=== PATIENT | female | born 1995 | race African-American/Black ===

== ENCOUNTER 2018-03-07 22:40 | Emergency (ER) | payer OTHER, SELFPAY ==
--- NOTE | 2018-03-07 23:26 | ER ---
Nurse's Notes [facility] Name: Kemar Ang Age: 22 yrs Sex: Female : 1995 Arrival Date: 03/07/2018 Time: 22:43 Bed 19 Private MD: Diagnosis: Encounter for medical screening where no medical emergency was identified Presentation: 03/07 22:51 Presenting complaint: Patient states: Pain to left lower side of mouth x 2 days, states lp1 cavity at site, pain worsening; Unable to see dentist due to no dental insurance. Transition of care: patient was not received from another setting of care. Onset of symptoms was March 07, 2018. Risk Assessment: Do you want to hurt yourself or someone else? Patient reports no desire to harm self or others. Initial Sepsis Screen: Does the patient meet any 2 criteria? No. Patient's initial sepsis screen is negative. Does the patient have a suspected source of infection? No. Patient's initial sepsis screen is negative. Care prior to arrival: None. 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 - Social history:: Smoking status: Patient uses tobacco products, denies chronic smoking, but will smoke occasionally. - Ebola Screening: : No symptoms or risks identified at this time. Screenin:56 Abuse screen: Denies threats or abuse. Denies injuries from another. Nutritional lp1 screening: No deficits noted. Tuberculosis screening: No symptoms or risk factors identified. Fall Risk None identified. Assessment: 22:54 General: Appears uncomfortable, Behavior is appropriate for age. Pain: Complains of lp1 pain in lower left third molar Pain currently is 10 out of 10 on a pain scale. Neuro: Level of Consciousness is awake, alert, obeys commands. Cardiovascular: No deficits noted. Respiratory: No deficits noted. GI: No deficits noted. : No deficits noted. EENT: Oral mucosa is moist. Poor dentition noted. Absence of teeth noted - lower left second molar (#18) Dental caries noted in lower left third molar (#17) Reports pain. Derm: Skin is pink, warm \\T\\ dry. Musculoskeletal: No deficits noted. 23:12 Reassessment: Patient declined treatment. Registration in room informing patient on bs1 copay amount. Patient appeared to be very upset. Mrs Bella gave patient all information. Patient states "What is your name, I want your name because you are giving me an attitude, also what is the Dr name." Mrs Bella was very polite. Gave patient her name and the Dr name and patient walked out of the ER. Vital Signs: 22:53 BP 134 / 95; Pulse 63; Resp 16; Temp 99(O); Pulse Ox 99% on R/A; Weight 68.95 kg; lp1 Height 5 ft. 7 in. (170.18 cm); Pain 10/10; 22:53 Body Mass Index 23.81 (68.95 kg, 170.18 cm) lp1 ED Course: 22:43 Patient arrived in ED. al2 22:46 Joshua Chavira MD is Attending Physician. tw4 22:51 Manda Greer RN is Primary Nurse. lp1 22:53 Triage completed. lp1 22:53 Arm band placed on left wrist. lp1 22:56 Patient has correct armband on for positive identification. lp1 22:57 No provider procedures requiring assistance completed. Patient did not have IV access lp1 during this emergency room visit. Administered Medications: No medications were administered Outcome: 23:12 Medical screen evaluation completed per provider. Patient declined treatment. bs1 23:12 Condition: stable bs1 23:16 Discharge instructions given to N/A bs1 23:25 Discharge ordered by . aa1 23:25 Patient left the ED. lp1 Signatures: Masha Courtney RN RN aa1 Manda Greer RN RN lp1 Moriah Groves RN RN bs1 Genny Contreras al2 Joshua Chavira MD MD tw4 Corrections: (The following items were deleted from the chart) :57 22:54 EENT: Oral mucosa is moist. Poor dentition noted. Absence of teeth noted - lower lp1 left second molar (#18) Dental caries noted in lower left third molar (#17) lp1 22:57 22:54 Pain: Complains of pain in lower left third molar Pain currently is 10 out of 10 lp1 on a pain scale. lp1
[2018-03-07 23:39] VITALS: BP 134/95; TEMP 99; O2SAT 99
--- NOTE | 2018-03-08 23:26 | EDPHYS ---
Physician Documentation [facility] Name: Kemar Ang Age: 22 yrs Sex: Female : 1995 Arrival Date: 03/07/2018 Time: 22:43 Bed 19 Private MD: ED Physician Joshua Chavira HPI: 03/08 03:58 This 22 yrs old Black Female presents to ER via Ambulatory with complaints of Toothache.tw4 03:58 The patient presents with pain. The problem is located in the lower left third molar. tw4 Onset: The symptoms/episode began/occurred today. Duration: The symptoms are continuous, and are unchanged since they started. Modifying factors: The symptoms are alleviated by nothing, the symptoms are aggravated by nothing. Severity of symptoms: At their worst the symptoms were moderate, in the emergency department the symptoms are unchanged. The patient has not experienced similar symptoms in the past. Pt states she has only taken aspirin for pain. 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 - Social history:: Smoking status: Patient uses tobacco products, denies chronic smoking, but will smoke occasionally. - Ebola Screening: : No symptoms or risks identified at this time. ROS: 03/08 03:58 Constitutional: Negative for fever, chills, and weight loss, Cardiovascular: Negative tw4 for chest pain, palpitations, and edema, Respiratory: Negative for shortness of breath, cough, wheezing, and pleuritic chest pain, Abdomen/GI: Negative for abdominal pain, nausea, vomiting, diarrhea, and constipation, Back: Negative for injury and pain. ENT: Positive for dental pain, Negative for injury or acute deformity, drainage from ear(s), ear pain, foreign body sensation, Gum pain hearing loss, pulling at ears, Teeth pain tinnitus, nasal discharge, rhinorrhea, sinus congestion, sinus pain, sore throat, difficulty swallowing, difficulty handling secretions, hoarseness. Exam: 03:58 Constitutional: This is a well developed, well nourished patient who is awake, alert, tw4 and in no acute distress. Head/Face: Normocephalic, atraumatic. Neck: Trachea midline, no thyromegaly or masses palpated, and no cervical lymphadenopathy. Supple, full range of motion without nuchal rigidity, or vertebral point tenderness. No Meningismus. 03:58 Eyes: Pupils equal round and reactive to light, extra-ocular motions intact. Lids and lashes normal. Conjunctiva and sclera are non-icteric and not injected. Cornea within normal limits. Periorbital areas with no swelling, redness, or edema. 03:58 ENT: Mouth: is normal, Posterior pharynx: is normal, Dental exam: abscess, is not appreciated, cellulitis, is not appreciated, dental caries, that is moderate, specifically in the lower left third molar (#17), fractured teeth are noted, specifically the lower left third molar (#17), gum swelling, not appreciated, malocclusion, is not appreciated, missing teeth, not appreciated, pain, that is mild, specifically in the lower left third molar (#17). Vital Signs: 03/07 22:53 BP 134 / 95; Pulse 63; Resp 16; Temp 99(O); Pulse Ox 99% on R/A; Weight 68.95 kg; lp1 Height 5 ft. 7 in. (170.18 cm); Pain 10/10; 22:53 Body Mass Index 23.81 (68.95 kg, 170.18 cm) lp1 MDM: 22:47 Patient medically screened. tw4 03/08 03:58 Differential diagnosis: dental caries, gingivitis, pericoronitis. Data reviewed: vital tw4 signs, nurses notes. Medical screen evaluation completed. EMTALA emergency medical condition absent. Special discussion: I discussed with the patient/guardian in detail that at this point there is no indication for admission to the hospital. It is understood, however, that if the symptoms persist or worsen the patient needs to return immediately for re-evaluation. ED course: Pt medically screened, declined treatment. Administered Medications: No medications were administered Disposition: 03/07/18 23:25 Discharged to Home as Medical Screen. Impression: Encounter for medical screening where no medical emergency was identified. - Condition is Stable. - Medication Reconciliation Form, Thank You Letter, Antibiotic Education, Prescription Opioid Use form. Signatures: Masha Courtney RN RN aa1 Manda Greer RN RN lp1 Joshua Chavira MD MD tw4 Corrections: (The following items were deleted from the chart) 03/07 23:25 23:25 03/07/2018 23:25 Discharged to Home as Medical Screen. Impression: Encounter for lp1 medical screening where no medical emergency was identified. Condition is Stable. Forms are Medication Reconciliation Form, Thank You Letter, Antibiotic Education, Prescription Opioid Use. aa1
== END 2018-03-07 23:25 | disposition home or self-care (01) ==
LOC: ER 22:40
DX: K08.89 Other specified disorders of teeth and supporting structures (principal); F17.200 Nicotine dependence, unspecified, uncomplicated; Z88.0 Allergy status to penicillin
CPT/HCPCS: 99281

== ENCOUNTER 2018-10-23 13:45 | Emergency (ER) | payer SELFPAY ==
--- OUTSIDE RECORDS SUMMARY | 2018-10-23 13:47 | XMS REPORT ---
:1995 [facility] Address [address] [place] [address] Dr. Fuchs [address] [place] [id number] Care Team Providers Name Role Phone Unavailable Unavailable Unavailable Problems This patient has no known problems. Allergies, Adverse Reactions, Alerts This patient has no known allergies or adverse reactions. Medications This patient has no known medications.
[2018-10-23] MEDS ORDERED: NA CHLORIDE 0.9% 1,000 ML ONE (14:26)
[2018-10-23 14:36] LABS: Absolute Lymphocytes (CBC) 2.3 K/uL (0.7-4.9); Absolute Monocytes 0.6 K/uL (0.1-1.3); Absolute Neutrophil 6.4 K/uL (1.8-8.0); Basophils % 0.9 % (0-1.3); Eosinophils % 4.1 % (0-4.4); Hematocrit 39.3 % (36.0-45.0); Lymphocytes % 23.4 % (15.3-44.8); MPV 9.1 fL (7.6-11.3); RBC Red Blood Cell Count 5.25 M/uL (3.86-4.86)
--- NOTE | 2018-10-23 15:27 | ER ---
Nurse's Notes [facility] Name: Kemar Ang Age: 23 yrs Sex: Female : 1995 Arrival Date: 10/23/2018 Time: 13:47 Bed 18 Private MD: Diagnosis: Volume depletion;Acute sinusitis Presentation: 10/23 13:52 Presenting complaint: Patient states: lower abd pain, headache x 1 week. "My eyes feel sv bulging.". Transition of care: patient was not received from another setting of care. Onset of symptoms was October 16, 2018. Care prior to arrival: None. 13:52 Method Of Arrival: Ambulatory sv 13:52 Acuity: EDOUARD 3 sv 14:11 Risk Assessment: Do you want to hurt yourself or someone else? Patient reports no tw2 desire to harm self or others. Initial Sepsis Screen: Does the patient meet any 2 criteria? No. Patient's initial sepsis screen is negative. Does the patient have a suspected source of infection? No. Patient's initial sepsis screen is negative. 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 tw2 Historical: - Allergies: 13:52 No Known Allergies; sv - PMHx: 13:52 Hernia; sv - PSHx: 13:52 None; sv - Immunization history:: Adult Immunizations. - Social history:: Smoking status: . - Ebola Screening: : Patient denies travel to an Ebola-affected area in the 21 days before illness onset. Screenin:11 Abuse screen: Denies threats or abuse. Nutritional screening: No deficits noted. tw2 Tuberculosis screening: No symptoms or risk factors identified. Fall Risk None identified. Assessment: 14:26 General: Appears in no apparent distress. well groomed, Behavior is calm, cooperative, tw2 appropriate for age. Pain: Complains of pain in abdomen. Neuro: Level of Consciousness is awake, alert, obeys commands, Oriented to person, place, time, situation. Neuro: Reports headache. Cardiovascular: Heart tones S1 S2 Patient's skin is warm and dry. Respiratory: Airway is patent Respiratory effort is even, unlabored, Respiratory pattern is regular, symmetrical, Breath sounds are clear bilaterally. GI: Abdomen is flat, Bowel sounds present X 4 quads. Abd is soft X 4 quads. : No signs and/or symptoms were reported regarding the genitourinary system. EENT: No signs and/or symptoms were reported regarding the EENT system. Derm: No signs and/or symptoms reported regarding the dermatologic system. Musculoskeletal: No signs and/or symptoms reported regarding the musculoskeletal system. Range of motion: intact in all extremities. 15:49 Reassessment: Patient appears in no apparent distress at this time. No changes from tw2 previously documented assessment. Patient and/or family updated on plan of care and expected duration. Pain level reassessed. Patient is alert, oriented x 3, equal unlabored respirations, skin warm/dry/pink. Vital Signs: 13:52 BP 130 / 90; Pulse 91; Resp 18; Temp 98; Pulse Ox 100% ; Weight 72.57 kg; Height 5 ft. sv 6 in. (167.64 cm); Pain 7/10; 14:27 BP 130 / 79; Pulse 76; Resp 17; Pulse Ox 99% on R/A; tw2 15:49 BP 104 / 79; Pulse 81; Resp 17; Pulse Ox 99% on R/A; tw2 13:52 Body Mass Index 25.82 (72.57 kg, 167.64 cm) sv ED Course: 13:47 Patient arrived in ED. mr 13:52 Triage completed. sv 13:53 Colleen Recinos, RN is Primary Nurse. tw2 13:53 Arm band placed on. sv 13:55 Skye Saxena FNP-C [facility]. kb 13:55 Kyler Zazueta MD is Attending Physician. kb 13:55 Bed in low position. Call light in reach. Pulse ox on. NIBP on. tw2 14:15 Urine collected: clean catch specimen, clear, uriel colored. jb1 14:20 Inserted saline lock: 22 gauge in right antecubital area, using aseptic technique. tw2 Blood collected. 15:50 No provider procedures requiring assistance completed. IV discontinued, intact, tw2 bleeding controlled, No redness/swelling at site. Pressure dressing applied. Administered Medications: 14:25 Drug: NS 0.9% 1000 ml Route: IV; Rate: 1000 ml; Site: right antecubital; tw2 15:46 Follow up: Response: No adverse reaction; IV Status: Order to discontinue infusion; IV tw2 Intake: 500ml Intake: 15:46 IV: 500ml; Total: 500ml. tw2 Outcome: 15:25 Discharge ordered by MD. forte 15:50 Discharged to home ambulatory. tw2 15:50 Condition: stable 15:50 Discharge instructions given to patient, Instructed on discharge instructions, follow up and referral plans. Demonstrated understanding of instructions, follow-up care. 15:50 Patient left the ED. tw2 Signatures: Lyle Pierson jb1 Skye Saxena, EDITORIAL PROJECT MANAGER-C EDITORIAL PROJECT MANAGER-Dinah Rayo RN RN Olivia Glass mr Colleen Recinos RN RN tw2 Corrections: (The following items were deleted from the chart) 13:53 13:52 Presenting complaint: Patient states: lower abd pain, headache x 1 week sv graciela
[2018-10-23 15:28] LABS: Urine Blood NEGATIVE (NEG); Urine Glucose NEGATIVE (NEG); Urine Protein NEGATIVE (NEG)
--- NOTE | 2018-10-23 15:28 | EDPHYS ---
Physician Documentation [facility] Name: Kemar Ang Age: 23 yrs Sex: Female : 1995 Arrival Date: 10/23/2018 Time: 13:47 Bed 18 Private MD: ED Physician Kyler Zazueta HPI: 10/23 15:23 This 23 yrs old Black Female presents to ER via Ambulatory with complaints of Abdominal kb Pain, Headache. 15:23 The patient presents with abdominal pain suprapubic. Onset: The symptoms/episode kb began/occurred 1 week(s) ago. The symptoms do not radiate. Associated signs and symptoms: Pertinent positives: headache, Pertinent negatives: nausea, vomiting, and diarrhea, fever. The symptoms are described as achy. Modifying factors: The symptoms are alleviated by nothing, the symptoms are aggravated by pressure. Severity of pain: At its worst the pain was mild moderate in the emergency department the pain is unchanged. The patient has not experienced similar symptoms in the past. The patient has not recently seen a physician. Pt reports suprapubic pain, nose bleeds, sinus congestion and headaches for the past week. . 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 tw2 Historical: - Allergies: 13:52 No Known Allergies; sv - PMHx: 13:52 Hernia; sv - PSHx: 13:52 None; sv - Immunization history:: Adult Immunizations. - Social history:: Smoking status: . - Ebola Screening: : Patient denies travel to an Ebola-affected area in the 21 days before illness onset. ROS: 15:21 Constitutional: Negative for fever, chills, and weight loss, Cardiovascular: Negative kb for chest pain, palpitations, and edema, Respiratory: Negative for shortness of breath, cough, wheezing, and pleuritic chest pain, Back: Negative for injury and pain, : Negative for injury, bleeding, discharge, and swelling, MS/Extremity: Negative for injury and deformity, Skin: Negative for injury, rash, and discoloration. 15:21 ENT: Positive for nose bleed, sinus congestion, sinus pain. 15:21 Abdomen/GI: Positive for abdominal pain, Negative for nausea, vomiting, and diarrhea. 15:21 Neuro: Positive for headache. Exam: 15:22 Constitutional: This is a well developed, well nourished patient who is awake, alert, kb and in no acute distress. ENT: Nares patent. No nasal discharge, no septal abnormalities noted. Tympanic membranes are normal and external auditory canals are clear. Oropharynx with no redness, swelling, or masses, exudates, or evidence of obstruction, uvula midline. Mucous membranes moist. Neck: Trachea midline, no thyromegaly or masses palpated, and no cervical lymphadenopathy. Supple, full range of motion without nuchal rigidity, or vertebral point tenderness. No Meningismus. Chest/axilla: Normal chest wall appearance and motion. Nontender with no deformity. No lesions are appreciated. Cardiovascular: Regular rate and rhythm with a normal S1 and S2. No gallops, murmurs, or rubs. Normal PMI, no JVD. No pulse deficits. Respiratory: Lungs have equal breath sounds bilaterally, clear to auscultation and percussion. No rales, rhonchi or wheezes noted. No increased work of breathing, no retractions or nasal flaring. Abdomen/GI: Soft, non-tender, with normal bowel sounds. No distension or tympany. No guarding or rebound. No evidence of tenderness throughout. Back: No spinal tenderness. No costovertebral tenderness. Full range of motion. Skin: Warm, dry with normal turgor. Normal color with no rashes, no lesions, and no evidence of cellulitis. MS/ Extremity: Pulses equal, no cyanosis. Neurovascular intact. Full, normal range of motion. Neuro: Awake and alert, GCS 15, oriented to person, place, time, and situation. Cranial nerves II-XII grossly intact. Motor strength 5/5 in all extremities. Sensory grossly intact. Cerebellar exam normal. Normal gait. 15:22 Head/face: Sinus tenderness, that is moderate, is located over the right frontal sinus, left frontal sinus, right ethmoid sinus and left ethmoid sinus. Vital Signs: 13:52 BP 130 / 90; Pulse 91; Resp 18; Temp 98; Pulse Ox 100% ; Weight 72.57 kg; Height 5 ft. sv 6 in. (167.64 cm); Pain 7/10; 14:27 BP 130 / 79; Pulse 76; Resp 17; Pulse Ox 99% on R/A; tw2 15:49 BP 104 / 79; Pulse 81; Resp 17; Pulse Ox 99% on R/A; tw2 13:52 Body Mass Index 25.82 (72.57 kg, 167.64 cm) sv MDM: 13:55 Patient medically screened. kb 15:22 Data reviewed: vital signs, nurses notes. Data interpreted: Pulse oximetry: on room air kb is 99 %. Interpretation: normal. Counseling: I had a detailed discussion with the patient and/or guardian regarding: the historical points, exam findings, and any diagnostic results supporting the discharge/admit diagnosis, lab results, the need for outpatient follow up, a family practitioner, to return to the emergency department if symptoms worsen or persist or if there are any questions or concerns that arise at home. 10/23 14:11 Order name: Basic Metabolic Panel; Complete Time: 14:58 kb 10/23 14:11 Order name: CBC with Diff; Complete Time: 14:38 kb 10/23 14:11 Order name: IV Saline Lock; Complete Time: 14:25 kb 10/23 14:18 Order name: Urine Dipstick--Ancillary (enter results); Complete Time: 15:32 em1 10/23 14:18 Order name: Urine --Ancillary (enter results); Complete Time: 15:32 em1 10/23 14:11 Order name: Labs collected and sent; Complete Time: 14:25 kb 10/23 14:11 Order name: Urine Dipstick-Ancillary (obtain specimen); Complete Time: 14:15 kb Administered Medications: 14:25 Drug: NS 0.9% 1000 ml Route: IV; Rate: 1000 ml; Site: right antecubital; tw2 15:46 Follow up: Response: No adverse reaction; IV Status: Order to discontinue infusion; IV tw2 Intake: 500ml Disposition: 15:51 Co-signature as Attending Physician, Kyler Zazueta MD I agree with the assessment and elysia plan of care. Disposition: 10/23/18 15:25 Discharged to Home. Impression: Volume depletion, Acute sinusitis. - Condition is Stable. - Discharge Instructions: Sinusitis, Adult, [id number], Dehydration, Adult, [id number]. - Medication Reconciliation Form, Thank You Letter, Antibiotic Education, Prescription Opioid Use, Work release form form. - Follow up: Emergency Department; When: As needed; Reason: Worsening of condition. Follow up: Private Physician; When: 2 - 3 days; Reason: Recheck today's complaints, Continuance of care, Re-evaluation by your physician. Signatures: Dispatcher [employer] Skye Ann, Dinah Christine, RN RN Kyler Andrade MD MD cha Wise, Tara, RN RN tw2 Corrections: (The following items were deleted from the chart) 15:50 15:25 10/23/2018 15:25 Discharged to Home. Impression: Volume depletion; Acute tw2 sinusitis. Condition is Stable. Forms are Work release form, Medication Reconciliation Form, Thank You Letter, Antibiotic Education, Prescription Opioid Use. Follow up: Emergency Department; When: As needed; Reason: Worsening of condition. Follow up: Private Physician; When: 2 - 3 days; Reason: Recheck today's complaints, Continuance of care, Re-evaluation by your physician. kb
[2018-10-23 16:05] VITALS: TEMP 98
[2018-10-23 16:06] VITALS: O2SAT 99
[2018-10-23 16:07] VITALS: BP 104/79
== END 2018-10-23 15:50 | disposition home or self-care (01) ==
LOC: ER 13:45
DX: E86.9 Volume depletion, unspecified (principal); J01.90 Acute sinusitis, unspecified
CPT/HCPCS: 36415; 80048; 81003; 81025; 85025; 96360; 99284; J7030

== ENCOUNTER 2019-04-12 00:05 | Emergency (ER) | payer SELFPAY ==
--- NOTE | 2019-04-12 01:35 | ER ---
Nurse's Notes [facility] Name: Kemar Ang Age: 24 yrs Sex: Female : 1995 Arrival Date: 04/12/2019 Time: 00:06 Bed Waiting Private MD: Diagnosis: ED Course: 04/12 00:06 Patient arrived in ED. mr 00:30 Patient's name was called from ER lobby. Unable to locate patient. Will disposition as fc left without being seen by a provider. 00:45 Patient's name was called from ER lobby. Unable to locate patient. Will disposition as fc left without being seen by a provider. 01:05 Patient's name was called from ER lobby. Unable to locate patient. Will disposition as fc left without being seen by a provider. Administered Medications: No medications were administered Outcome: 01:34 Patient left the ED. fc Signatures: Olivia Glass Felicia RN RN fc
== END 2019-04-12 01:34 | disposition left against medical advice (07) ==
LOC: ER 00:05
DX: Z53.21 Procedure and treatment not carried out due to patient leaving prior to being seen by health care provider (principal)

== ENCOUNTER 2019-04-12 02:14 | Emergency (ER) | payer SELFPAY ==
[2019-04-12] MEDS ORDERED: IBUPROFEN 400 MG TAB ONE (03:52)
[2019-04-12 04:12] LABS: Urine Specific Gravity 1.025 (1.005-1.030)
[2019-04-12 04:13] LABS: Urine Blood NEGATIVE (NEG); Urine Glucose NEGATIVE (NEG); Urine Protein NEGATIVE (NEG); Urine Specific Gravity 1.025 (1.005-1.030)
[2019-04-12 04:19] LABS: Urine Appearance CLEAR; Urine Bilirubin NEGATIVE (NEG); Urine Blood NEGATIVE (NEG); Urine Color YELLOW; Urine Glucose NEGATIVE (NEG); Urine Protein NEGATIVE (NEG); Urine Urobilinogen 0.2 mg/dL (0.2-1.0)
[2019-04-12 04:22] LABS: Urine Microscopic Reflex ORDER UMIC
[2019-04-12 05:03] LABS: Urine Bacteria 20-50 /HPF (<20); Urine Culture Reflex Order REFLEXED
[2019-04-12 05:04] LABS: Urine RBC <5 /HPF (NONE SEEN)
--- NOTE | 2019-04-12 05:25 | ER ---
Nurse's Notes [facility] Name: Kemar Ang Age: 24 yrs Sex: Female : 1995 Arrival Date: 04/12/2019 Time: 02:18 Bed 16 Private MD: Diagnosis: Bacterial vaginosis;Acute cystitis Presentation: 04/12 02:36 Presenting complaint: Patient states: that she is having right side abd pain that fc started today along with a headache on and off x 3 days. States that she is having yellow foul smelling vaginal discharge. Also having nausea, vomiting and diarrhea. 1 month ago treated for UTI. Transition of care: patient was not received from another setting of care. Onset of symptoms was April 11, 2019. Risk Assessment: Do you want to hurt yourself or someone else? Patient reports no desire to harm self or others. Initial Sepsis Screen: Does the patient meet any 2 criteria? No. Patient's initial sepsis screen is negative. Does the patient have a suspected source of infection? No. Patient's initial sepsis screen is negative. Care prior to arrival: Medication(s) given: Motrin, last at 2300 Tylenol, last at 2300. 02:36 Method Of Arrival: Ambulatory fc 02:36 Acuity: EDOUARD 4 Triage Assessment: 02:41 Headache History: The patient has had previous headaches and this one is similar to previous episodes. 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 - Social history:: Smoking status: Patient uses tobacco products, denies chronic smoking, but will smoke occasionally, Patient uses alcohol, occasionally. Patient/guardian denies using street drugs. - Ebola Screening: : Patient negative for fever greater than or equal to 101.5 degrees Fahrenheit, and additional compatible Ebola Virus Disease symptoms Patient denies exposure to infectious person Patient denies travel to an Ebola-affected area in the 21 days before illness onset. Screenin:44 Abuse screen: Denies threats or abuse. Denies injuries from another. Nutritional rr5 screening: No deficits noted. Tuberculosis screening: No symptoms or risk factors identified. Fall Risk Total Ann Fall Scale indicates No Risk (0-24 pts). Assessment: 03:35 General: Appears in no apparent distress. uncomfortable, Behavior is calm, cooperative, rr5 appropriate for age. Pain: Complains of pain in abdomen Pain does not radiate. Pain currently is 8 out of 10 on a pain scale. Quality of pain is described as aching, Pain began 2-3 days ago. Is intermittent. 03:35 Neuro: Level of Consciousness is awake, alert, obeys commands, Oriented to person, rr5 place, time, situation, Appropriate for age Reports headache in entire. Cardiovascular: Capillary refill < 3 seconds Patient's skin is warm and dry. Respiratory: Airway is patent Respiratory effort is even, unlabored, Respiratory pattern is regular, symmetrical. GI: Abdomen is flat, Reports lower abdominal pain, upper abdominal pain, diarrhea, nausea, vomiting. : Reports burning with urination, discharge, yellow, vaginal itching. EENT: No signs and/or symptoms were reported regarding the EENT system. Derm: Skin is intact, Skin temperature is warm. Musculoskeletal: Circulation, motion, and sensation intact. Capillary refill < 3 seconds. Vital Signs: 02:41 BP 124 / 86; Pulse 80; Resp 20; Temp 98.2(O); Pulse Ox 100% on R/A; Weight 76.2 kg (R); fc Height 5 ft. 6 in. (167.64 cm) (R); Pain 7/10; 02:41 Body Mass Index 27.12 (76.20 kg, 167.64 cm) ED Course: 02:18 Patient arrived in ED. mr 02:40 Triage completed. fc 02:41 Arm band placed on Patient placed in waiting room. fc 03:36 Sameer Allan RN is Primary Nurse. rr5 03:37 Bipin Hill MD is Attending Physician. ps1 03:45 Patient has correct armband on for positive identification. Bed in low position. Call rr5 light in reach. Side rails up X2. 05:39 No provider procedures requiring assistance completed. Patient did not have IV access lp1 during this emergency room visit. Administered Medications: 04:00 Drug: Motrin 800 mg Route: PO; rr5 05:40 Follow up: Response: Pain is decreased lp1 Outcome: 05:24 Discharge ordered by . ps1 05:39 Discharged to home ambulatory. lp1 05:39 Condition: good 05:39 Discharge instructions given to patient, Instructed on discharge instructions, follow up and referral plans. medication usage, Demonstrated understanding of instructions, follow-up care, medications, Prescriptions given X 2. 05:40 Patient left the ED. lp1 Signatures: GlassOlivia mr JeffRenetta, RN RN fc Manda Greer RN RN lp1 Bipin Hill MD MD ps1 Sameer Allan RN RN rr5 Corrections: (The following items were deleted from the chart) 02:44 02:41 Arm band placed on Patient placed in an exam room, on a stretcher, [facility]
--- NOTE | 2019-04-12 05:25 | EDPHYS ---
Physician Documentation [facility] Name: Kemar Ang Age: 24 yrs Sex: Female : 1995 Arrival Date: 04/12/2019 Time: 02:18 Bed 16 Private MD: ED Physician Bipin Hill HPI: 04/12 03:48 This 24 yrs old Black Female presents to ER via Ambulatory with complaints of Headache ps1 and vaginal discharge. 03:48 Patient has been seen and evaluated previously at [facility] for similar complaints. ps1 Was treated empirically but still having vaginal discharge. Patient states that she has not had sexual intercourse since being treated as she is still having symptoms. She does not use tampons. She additionally states that she has right flank pain and a headache. Pain rated as moderate. No remitting factors. Not exacerbated by anything. . 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 - Social history:: Smoking status: Patient uses tobacco products, denies chronic smoking, but will smoke occasionally, Patient uses alcohol, occasionally. Patient/guardian denies using street drugs. - Ebola Screening: : Patient negative for fever greater than or equal to 101.5 degrees Fahrenheit, and additional compatible Ebola Virus Disease symptoms Patient denies exposure to infectious person Patient denies travel to an Ebola-affected area in the 21 days before illness onset. ROS: 03:56 Constitutional: Negative for fever, chills, and weight loss, Eyes: Negative for injury, ps1 pain, redness, and discharge, ENT: Negative for injury, pain, and discharge, Cardiovascular: Negative for chest pain, palpitations, and edema, Respiratory: Negative for shortness of breath, cough, wheezing, and pleuritic chest pain, Abdomen/GI: Negative for abdominal pain, nausea, vomiting, diarrhea, and constipation. 03:56 : Positive for flank pain, vaginal discharge. 03:56 Neuro: Positive for headache. Exam: 03:56 Constitutional: This is a well developed, well nourished patient who is awake, alert, ps1 and in no acute distress. Head/Face: Normocephalic, atraumatic. Eyes: Pupils equal round and reactive to light, extra-ocular motions intact. Lids and lashes normal. Conjunctiva and sclera are non-icteric and not injected. Chest/axilla: Normal chest wall appearance and motion. Nontender with no deformity. No lesions are appreciated. Cardiovascular: Regular rate and rhythm. No gallops, murmurs, or rubs. Normal PMI, no JVD. No pulse deficits. Respiratory: Lungs have equal breath sounds bilaterally, clear to auscultation and percussion. No rales, rhonchi or wheezes noted. No increased work of breathing, no retractions or nasal flaring. Abdomen/GI: Soft, non-tender, with normal bowel sounds. No distension or tympany. No guarding or rebound. No evidence of tenderness throughout. Skin: Warm, dry with normal turgor. Normal color with no rashes, no lesions, and no evidence of cellulitis. MS/ Extremity: Pulses equal, no cyanosis. Neurovascular intact. Full, normal range of motion. Neuro: Awake and alert, GCS 15, oriented to person, place, time, and situation. Cranial nerves II-XII grossly intact. Sensory grossly intact. Vital Signs: 02:41 BP 124 / 86; Pulse 80; Resp 20; Temp 98.2(O); Pulse Ox 100% on R/A; Weight 76.2 kg (R); fc Height 5 ft. 6 in. (167.64 cm) (R); Pain 7/10; 02:41 Body Mass Index 27.12 (76.20 kg, 167.64 cm) fc MDM: 03:59 Patient medically screened. ps1 05:26 Data reviewed: vital signs, nurses notes, lab test result(s), and as a result, I will ps1 discharge patient. Counseling: I had a detailed discussion with the patient and/or guardian regarding: the historical points, exam findings, and any diagnostic results supporting the discharge/admit diagnosis, lab results, the need for outpatient follow up, an OB/Gyne specialist. 04/12 03:48 Order name: Wet Prep; Complete Time: 05:22 ps1 04/12 03:48 Order name: GC (GONORR/CHLAMYDIA) Probe ps1 04/12 03:48 Order name: Urinalysis; Complete Time: 05:22 ps1 04/12 04:09 Order name: Urine Dipstick--Ancillary (enter results); Complete Time: 04:35 ar5 04/12 04:10 Order name: Urine --Ancillary (enter results); Complete Time: 04:13 ar5 04/12 04:24 Order name: Urine Microscopic Only; Complete Time: 05:22 EDMS 04/12 05:06 Order name: Urine Culture EDNE Administered Medications: 04:00 Drug: Motrin 800 mg Route: PO; rr5 05:40 Follow up: Response: Pain is decreased lp1 Disposition: 04/12/19 05:24 Discharged to Home. Impression: Bacterial vaginosis, Acute cystitis. - Condition is Stable. - Discharge Instructions: Bacterial Vaginosis, Urinary Tract Infection, Adult. - Prescriptions for Keflex 500 mg Oral Capsule - take 1 capsule by ORAL route every 8 hours for 10 days; 30 capsule. Metronidazole 500 mg Oral Tablet - take 1 tablet by ORAL route every 12 hours for 10 days; 20 tablet. - Work release form, Medication Reconciliation Form, Thank You Letter, Antibiotic Education, Prescription Opioid Use form. - Follow up: Private Physician; When: As needed; Reason: Further diagnostic work-up, Recheck today's complaints, Continuance of care, Re-evaluation by your physician. Follow up: Emergency Department; When: As needed; Reason: Fever > 102 F, Worsening of condition. - Problem is an ongoing problem. - Symptoms are unchanged. Signatures: Dispatcher [employer] EDNE Renetta Aguilar RN RN Manda Greer RN RN lp1 Bipin Hill MD MD ps1 Sameer Allan RN RN rr5 Corrections: (The following items were deleted from the chart) 03:58 03:48 Patient has been seen and evaluated previously at [facility] for similar ps1 complaints. Was treated empirically but still having vaginal discharge. . ps1 05:40 05:24 04/12/2019 05:24 Discharged to Home. Impression: Bacterial vaginosis; Acute lp1 cystitis. Condition is Stable. Forms are Medication Reconciliation Form, Thank You Letter, Antibiotic Education, Prescription Opioid Use. Follow up: Private Physician; When: As needed; Reason: Further diagnostic work-up, Recheck today's complaints, Continuance of care, Re-evaluation by your physician. Follow up: Emergency Department; When: As needed; Reason: Fever > 102 F, Worsening of condition. Problem is an ongoing problem. Symptoms are unchanged. ps1
[2019-04-12 05:53] VITALS: BP 124/86; TEMP 98.2; O2SAT 100
[2019-04-16 05:54] LABS: C.trachomatis RNA,TMA Not Detected (Not Detected)
== END 2019-04-12 05:40 | disposition home or self-care (01) ==
LOC: ER 02:14
DX: N76.0 Acute vaginitis (principal); N30.00 Acute cystitis without hematuria; Z72.0 Tobacco use
CPT/HCPCS: 81003; 81015; 81025; 87086; 87088; 87210; 87490; 87590; 99283

== ENCOUNTER 2019-09-18 00:30 | Emergency (ER) | payer SELFPAY ==
--- OUTSIDE RECORDS SUMMARY | 2019-09-18 00:33 | XMS REPORT | Summary of Care ---
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 D/C/Burning Sensation In Stomach Encounter Details Date Type Department Care Team Description [facility]len Vaginal discharge BILLY [place] (Primary Dx) [address] [facility] [address] [facility] [address] [place] [address] [phone] Allergies No Known Allergiesdocumented as of this encounter (statuses as of 09/04/2019) Medications Medication Sig Dispensed Refills Start Date End Date Status naproxen (NAPROSYN) Take 1 tablet by 20 tablet 0 11/18/2015 Active 500 mg tablet mouth 2 (two) times daily with meals. traMADOL 50 mg tablet Take 1 tablet by 30 tablet 0 09/19/2017 Active mouth every 6 (six) hours as needed for Pain (scale 4-6). ibuprofen 800 mg Take 1 tablet by 30 tablet 0 09/19/2017 Active tablet mouth every 8 (eight) hours as needed for Pain (scale 1-3). proMETHazine 25 mg Take 1 tablet by 20 tablet 0 04/03/2018 Active tablet mouth every 6 (six) hours as needed for Nausea and Vomiting (N/V). Omeprazole 20 mg Take 1 tablet by 20 tablet 0 04/03/2018 Active tablet mouth daily. metroNIDAZOLE 500 mg Take 1 tablet by 14 tablet 0 08/30/2018 Active tabletIndications: BV mouth 2 (two) (bacterial vaginosis) times daily. Nitrofurantoin&Nit. Take 1 capsule by 10 capsule 0 02/16/2019 Active Macrocryst (MACROBID) mouth 2 (two) 100 mg times daily. capsuleIndications: Generalized abdominal pain, Acute cystitis without hematuria naproxen sodium 550 mg Take 1 tablet by 14 tablet 0 02/16/2019 Active tabletIndications: mouth 2 (two) Generalized abdominal times daily with pain, Acute cystitis meals. without hematuria ondansetron (ZOFRAN) 4 Take 1 tablet by 12 tablet 0 02/16/2019 Active mg tabletIndications: mouth every 8 Generalized abdominal (eight) hours as pain, Acute cystitis needed for Nausea without hematuria and Vomiting (N/V). Hospital, Clinic, or Other Ordered Dose Route Frequency Start Date End Date Status Facility Administered Medication medroxyPROGESTERone 150 mg IM [id number] 07/17/2019 06/17/2020 Active (DEPO-PROVERA) injection 150 mgIndications: Encounter for other contraceptive management documented as of this encounter (statuses as of 09/04/2019) Active Problems Problem Noted Date Concussion 09/04/2019 Overview: 08/14/2019-reports she sees a dr, chiropractor, and has a [facility] provider that she see. Vaginal discharge 09/04/2019 Well woman exam 07/17/2019 BV (bacterial vaginosis) 08/20/2015 Contraceptive management 08/20/2015 Lump or mass in breast 04/21/2015 LAD (lymphadenopathy), inguinal 04/21/2015 Obesity (BMI 30-39.9) 08/06/2014 Overview: ICD10 Diagnosis Term Gallery Assistant Utility documented as of this encounter (statuses as of 09/04/2019) Resolved Problems Problem Noted Date Resolved Date Well woman exam without gynecological exam 08/20/2015 11/17/2015 Recurrent vaginitis 04/23/2015 08/20/2015 Candidiasis of vulva and vagina 04/21/2015 08/20/2015 Immunizations up to date 08/06/2014 02/13/2015 GBS (group B Streptococcus carrier), +RV culture, currently 05/12/2014 08/07/ 2015 Overview: BETA HEMOLYTIC STREPTOCOCCUS, GROUP B ISOLATED THIS ISOLATES DEMONSTRATES INDUCIBLE CLINDAMYCIN RESISTANCE BY IN VITRO TESTING. CONTACT INFECTIOUS DISEASE FACULTY FOR APPROPRIATE ADVICE. SUSCEPTIBILITY RESULTS: STRB SEBAS INTERP ____ ___ CLINDAMYCIN R ERYTHROMYCIN >=8 R Normal vaginal delivery 02/18/2014 03/11/2014 Overview: IOL at term d/t GHTN; ; Minor perineal laceration repaired Other threatened labor, antepartum 02/17/2014 02/18/2014 Gestational hypertension 02/17/2014 02/13/2015 Supervision of other high-risk 02/04/2014 02/04/2014 Overview: ICD10 Diagnosis Term Gallery Assistant Utility Supervision of other high-risk 02/04/2014 02/18/2014 Overview: ICD10 Diagnosis Term Gallery Assistant Utility Group B Streptococcus carrier, antepartum 01/27/2014 02/18/2014 Overview: susceptibility pending; will need ppx during labor. Threatened premature labor 01/23/2014 02/17/2014 Supervision of normal first 01/23/2014 02/04/2014 UTI (urinary tract infection) 01/14/2014 02/17/2014 Overview: Patient went to [facility] ER; for headache. UA showed 1+ leuk, WBC, RBC and moderate blood. Patient was given rocephin, tylenol and an Rx for Macrobid. Patient never filled macrobid due to cost. Came to clinic for medication. Clinic UA showed trace leuk and trace blood. Macrobid given in clinic with urine culture ordered. Candidiasis of vulva and vagina 01/06/2014 02/17/2014 Tooth infection 01/06/2014 02/17/2014 Abnormal weight gain in 10/24/2013 02/17/2014 Heartburn in 08/29/2013 02/17/2014 Bacterial vaginosis 07/26/2013 09/26/2013 Vaginal spotting 07/16/2013 09/26/2013 Overview: Medical records. [facility]- 07/12/13. Single IUP measuring 6 weeks 0 day. DMR=745. Correlation with beta hcg levels is also needed to assess significance of these findings. Beta hcg- 01504.00. Ok per Dr. Dooley to repeat USG Immune to varicella 07/09/2013 02/17/2014 Rubella immune 07/08/2013 02/17/2014 Generalized headaches 07/01/2013 09/26/2013 BV (bacterial vaginosis) 05/14/2013 06/28/2013 Straining during bowel movements 01/07/2013 06/28/2013 Abdominal pain, epigastric 01/07/2013 06/28/2013 Leukorrhea 10/31/2012 06/28/2013 Lump or mass in breast 10/04/2012 07/01/2013 documented as of this encounter (statuses as of 09/04/2019) Immunizations Name Administration Dates Next Due Influenza Virus Vaccine (3+ yrs) 07/26/2013 Influenza Virus Vaccine Quad .5 mL 07/17/2019 IM 6+ MO PPD (TB) 09/16/2013 Rubella 03/02/2012 Td 07/10/2005 Tdap 07/17/2019 (Deferred: Vaccine Unavailable), 01/06/2014 documented as of this encounter Social History Tobacco Use Types Packs/Day Years Used Date Current Some Day Smoker Cigarettes Started: 07/17/2016 Smokeless Tobacco: Never Used Comments: 3 ciggs a day Alcohol Use Drinks/Week oz/Week Comments Yes socially, not during Alcohol Habits Answer Date Recorded How often do you have a drink containing alcohol? Monthly or less 07/17/2019 How many drinks containing alcohol do you have on a Not asked typical day when you are drinking? How often do you have six or more drinks on one Not asked occasion? Sex Assigned at Date Recorded Not on file Job Start Date Occupation Industry Not on file Not on file Not on file Travel History Travel Start Travel End No recent travel history available. 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 Pulse 82 09/04/2019 1:49 PM LEASE ADMINISTRATION SUPERVISOR Temperature 36.6 C (97.9 F) 09/04/2019 1:49 PM LEASE ADMINISTRATION SUPERVISOR Respiratory Rate 16 09/04/2019 1:49 PM LEASE ADMINISTRATION SUPERVISOR Oxygen Saturation - - Inhaled Oxygen Concentration - - Weight 88.5 kg (195 lb 2 oz) 09/04/2019 1:49 PM LEASE ADMINISTRATION SUPERVISOR Height 167.6 cm (5' 6") 09/04/2019 1:49 PM LEASE ADMINISTRATION SUPERVISOR Body Mass Index 31.49 09/04/2019 1:49 PM LEASE ADMINISTRATION SUPERVISOR documented in this encounter Progress Notes Marlen Caballero, WHCNP - 09/04/2019 1:15 PM CST Chief complaint: Chief Complaint 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 She reports that now she is having stomach pain. She reports the stomach aches started after starting the control. She reports she is on depo for birthcontrol. She reports that for thepast 1 week the pain has been daily. She reports no new sexual partners since 04/2019. She reports she has taken some otc remedies, like Tylenol but no real relief of the abdominal pain. She also reports she recently suffered from a concussion and reports she has an appointment with the neurologist ontomorrow. She reports episodes of dizziness, and frequent headaches. Histories OB History Para Term AB Living 3 2 2 0 1 2 SAB TAB Ectopic Multiple Live Births 0 1 0 0 2 # Outcome Date GA Lbr Pardeep/2nd Weight Sex Delivery Anes PTL Lv 3 Term 03/22/17 39w0d 6 lb 1 oz (2.75 kg) F NORMAL SPONT KVNG 2 TAB 05/09/15 6w0d 1 Term 02/18/14 38w0d 6 lb 0.7 oz (2.74 kg) F VAGINAL EPIDURAL KVNG Comments: Maternal Age: 20; :1; Parity:1 Mother's Blood Type:A pos Baby's Blood Type:not applicable Maternal Serological Test:normal Maternal Group B Strep Screening:positive Adequate Treatment:no, tx with vancomycin Complications:no Labor Complications:no OAE: passed Hepatitis B Vaccine:yes Problems:no 1st screen collected on 02/19/2014 showed normal. MG 03/04/14 Past Medical History: Diagnosis Date Anemia not on meds Breast disorder 2011 Fibroids Candidiasis of vulva and vagina 01/06/2014 Chlamydia Genital warts 2015 Gestational hypertension 02/17/2014 Gonorrhea LAD (lymphadenopathy), inguinal 04/21/2015 STD (sexually transmitted disease) 04/12/2011 Trichomonas contact 07/2012 Family History Problem Relation Age of Onset Arthritis Maternal Grandmother Asthma Maternal Grandmother Diabetes Maternal Grandmother Heart Maternal Grandmother Hypertension Maternal Grandmother defects NoFHx Genetic NoFHx Breast Cancer NoFHx Colon Cancer NoFHx Ovarian Cancer NoFHx Uterine Cancer NoFHx Cancer NoFHx Depression NoFHx High cholesterol NoFHx Mental retardation NoFHx Neurological NoFHx Osteoporosis NoFHx Psychiatry NoFHx Family Status Relation Name Status MGMo (Not Specified) NoFHx (Not Specified) Past Surgical History: Procedure Laterality Date ABDOMEN SURGERY PROC UNLISTED HERNIA REPAIR umbilical Social History Socioeconomic History Marital status: Single Spouse name: Not on file Number of children: Not on file Years of education: Not on file Highest education level: Not on file Occupational History Not on file Social Needs Financial resource strain: Not on file Food insecurity: Worry: Not on file Inability: Not on file Transportation needs: Medical: Not on file Non-medical: Not on file Tobacco Use Smoking status: Current Some Day Smoker Types: Cigarettes Start date: 07/17/2016 Smokeless tobacco: Never Used Tobacco comment: 3 ciggs a day Substance and Sexual Activity Alcohol use: Yes Frequency: Monthly or less Comment: socially, not during Drug use: No Sexual activity: Yes Partners: Male control/protection: None Comment: Last intercourse: 05/09/2019 Lifestyle Physical activity: Days per week: Not on file Minutes per session: Not on file Stress: Not on file Relationships Social connections: Talks on phone: Not on file Gets together: Not on file Attends oriental orthodox service: Not on file Active member of club or organization: Not on file Attends meetings of clubs or organizations: Not on file Relationship status: Not on file Intimate partner violence: Fear of current or ex partner: Not on file Emotionally abused: Not on file Physically abused: Not on file Forced sexual activity: Not on file Other Topics Concern Not on file Social History Narrative Denies domestic violence or abuse. Patient lives alone and feels safe at home. Social History Substance and Sexual Activity Sexual Activity Yes Partners: Male control/protection: None Comment: Last intercourse: 05/09/2019 Labs Labs are pending. Radiology No new radiology. Allergies Kemar has No Known Allergies. Medications Kemar has a current medication list which includes the following prescription(s ): naproxen sodium, nitrofurantoin&nit. macrocryst, ondansetron, metronidazole, omeprazole, promethazine, ibuprofen, tramadol, and naproxen, and the following Facility-Administered Medications: medroxyprogesterone. Review of Systems Constitutional: Negative. HENT: Negative. Eyes: Negative. Respiratory: Negative. Breasts: Negative. Cardiovascular: Negative. Gastrointestinal: Negative. Genitourinary: Positive for vaginal discharge. Musculoskeletal: Negative. Skin: Negative. Neurological: Negative. Psychiatric/Behavioral: Negative. Endocrine: Endocrine negative BP 130/80 (BP Location: Right arm, Patient Position: Sitting, BP CUFF SIZE: Adult Medium) | Pulse 82 | Temp 36.6 C (97.9 F) (Oral) | Resp 16 | Ht 5 ' 6" (1.676 m) | Wt 195 lb 2 oz (88.5 kg) | BMI 31.49 kg/m Pregravid BMI: Could not be calculated Physical Exam Vitals reviewed. Constitutional: She is oriented to person, place, and time. She appears well- developed and well-nourished. Her body habitus is normal. Cardiovascular: Regular rate and rhythm. Pulmonary/Chest: Normal inspiratory effort. Neuro/Psychiatric: She has a normal mood and affect. She is oriented to person, place, and time. External genitalia: Normal external genitalia appropriate for age. Normal hair distribution. No labial lesion. Urethral meatus: Normal urethral meatus size, location and no lesion. No prolapse present. Normal urethral meatus Urethra: Normal urethra. No urethral tenderness, no mass and no urethral scarring palpated. Bladder: Bladder has no fullness, no mass palpated and no tenderness. Normal bladder Vagina:No lesion inspected. Normal estrogen effect. Normal support. Vaginal discharge found. +scant vaginal discharge Cervix: Normal cervix. No lesion. No tenderness and no discharge present. Uterus: Uterus is normal size, normal contour, normal position and non-tender. Normal uterus Adnexa: Right adnexa without tenderness, ovary enlargement or mass. Left adnexa without tenderness, ovary enlargement or mass. Normal left adnexa and normal right adnexa Assessment/Plan Return to clinic in 11 months for WWE or sooner as needed Contraceptive management Comment: depo Plan: as needed mgmt Vaginal discharge (primary encounter diagnosis) Comment: reports Plan: GALV ONLY - VAGINAL PATHOGENS BY DNA PROBE This visit did not involve counseling and coordination that comprised more than 50% of the visit time. BILLY Casanova 09/04/2019 2:54 PM documented in this encounter Plan of Treatment Date Type Specialty Care Team Description 10/09/2019 [facility] Name Type Priority Associated Diagnoses Date/Time GALV ONLY - VAGINAL LAB Routine Vaginal discharge 09/04/2019 2:24 PM LEASE ADMINISTRATION SUPERVISOR PATHOGENS BY DNA PROBE Health Maintenance Due Date Last Done Comments PNEUMOCOCCAL 0-64 YEARS 1999 COMBINED SERIES (1 of 1 - PPSV23) HPV VACCINES (1 - Female 07/17/2020 Postponed from 2004 2-dose series) (Refused) VARICELLA VACCINES (1 of 2 - 07/17/2020 Postponed from 1994 2-dose childhood series) (Insurance / Financial) PAP SMEAR 07/17/2022 07/17/2019, 07/17/2019, 08/06/2014 DTaP,Tdap,and Td Vaccines (3 01/07/2024 01/06/2014, - Td) 07/10/2005 INFLUENZA VACCINE Completed 07/17/2019, 07/26/2013 documented as of this encounter Results Not on filedocumented in this encounter Visit Diagnoses Diagnosis Vaginal discharge - Primary Leukorrhea, not specified as infective documented in this encounter Insurance Payer Benefit Plan Subscriber ID Effective Phone Address Type / Group Dates [facility] xxxxxxxxx 2019-Prese [phone] Medicaid WOMEN nt 00 [id number] [place] [address] documented as of this encounter
--- OUTSIDE RECORDS SUMMARY | 2019-09-18 00:33 | XMS REPORT ---
:1995 Author Organization [facility] Address [facility] Fuchs [address] [place] [address] Care Team Providers Name Role Phone Unavailable Unavailable Unavailable Problems This patient has no known problems. Allergies, Adverse Reactions, Alerts This patient has no known allergies or adverse reactions. Medications This patient has no known medications.
--- OUTSIDE RECORDS SUMMARY | 2019-09-18 00:34 | XMS REPORT | Summary of Care ---
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 D/C/Burning Sensation In Stomach Encounter Details Date Type Department Care Team Description 09/04/2019 [facility] Marlen Vaginal discharge BILLY [place] (Primary Dx) [address] [facility] [address] [facility] [address] [place] [address] [phone] Allergies No Known Allergiesdocumented as of this [...] Facility Administered Medication medroxyPROGESTERone 150 mg IM [id number] 07/17/2019 06/17/2020 Active (DEPO-PROVERA) injection 150 mgIndications: Encounter for other contraceptive management documented as of this encounter (statuses as of 09/04/2019) Active Problems Problem Noted Date Concussion 09/04/2019 Overview: 08/14/2019-reports she sees a dr, chiropractor, and has a [facility] provider that she see. Vaginal discharge 09/04/2019 Well woman exam 07/17/2019 BV (bacterial vaginosis) 08/20/2015 Contraceptive management 08/20/2015 Lump or mass in breast 04/21/2015 LAD (lymphadenopathy), inguinal 04/21/2015 Obesity (BMI 30-39.9) 08/06/2014 Overview: ICD10 Diagnosis Term Musician Instrumental Utility documented as of this encounter (statuses [...] high-risk 02/04/2014 02/04/2014 Overview: ICD10 Diagnosis Term Musician Instrumental Utility Supervision of other high-risk 02/04/2014 02/18/2014 Overview: ICD10 Diagnosis Term Musician Instrumental Utility Group B Streptococcus carrier, antepartum 01/27/2014 02/18/2014 Overview: susceptibility pending; will need ppx during labor. Threatened premature labor 01/23/2014 02/17/2014 Supervision of normal first 01/23/2014 02/04/2014 UTI (urinary tract infection) 01/14/2014 02/17/2014 Overview: Patient went to [facility] ER; for headache. UA showed [...] Vaginal spotting 07/16/2013 09/26/2013 Overview: [facility]- 07/12/13. Single IUP measuring 6 weeks 0 day. RYK=399. Correlation with beta hcg levels is also needed to assess significance of these findings. Beta hcg- 06280.00. Ok per Dr. 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 Pulse 82 09/04/2019 1:49 PM MOTION AND TIME STUDY TEACHER Temperature 36.6 C (97.9 F) 09/04/2019 1:49 PM MOTION AND TIME STUDY TEACHER Respiratory Rate 16 09/04/2019 1:49 PM MOTION AND TIME STUDY TEACHER Oxygen Saturation - - Inhaled Oxygen Concentration - - Weight 88.5 kg (195 lb 2 oz) 09/04/2019 1:49 PM MOTION AND TIME STUDY TEACHER Height 167.6 cm (5' 6") 09/04/2019 1:49 PM MOTION AND TIME STUDY TEACHER Body Mass Index 31.49 09/04/2019 1:49 PM MOTION AND TIME STUDY TEACHER documented in this encounter Progress Notes Marlen Caballero, WHCNP - 09/04/2019 1:15 PM CST Chief complaint: Chief Complaint 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 D/C/Burning Sensation In Stomach HPI: the [...] file Gets together: Not on file Attends taoist service: Not on file Active member of [...] Description 10/09/2019 [facility] Name Type Priority Associated Diagnoses Date/Time GALV ONLY - VAGINAL LAB Routine Vaginal discharge 09/04/2019 2:24 PM MOTION AND TIME STUDY TEACHER PATHOGENS BY DNA PROBE Health Maintenance Due [...] Effective Phone Address Type / Group Dates [facility] xxxxxxxxx 2019-Prese [phone] Medicaid WOMEN nt 00 [id number] [place] [address] documented as of this encounter
--- OUTSIDE RECORDS SUMMARY | 2019-09-18 00:34 | XMS REPORT | Summary of Care ---
:1995 Author Organization [facility] Address [address] [place] [address] Care Team Providers Name Role Phone Marlen Caballero [facility] Primary Care Provider Reason for Visit Reason Comments BACTERIAL VAGINOSIS Encounter Details Date Type Department Care Team Description 09/05/2019 Telephone [facility] Marlen Caballero, BACTERIAL VAGINOSIS [facility] [address] [facility] [address] [place] [address] [facility] [phone] [place] [address] Allergies No Known Allergiesdocumented as of this encounter (statuses as of 09/05/2019) Medications Medication Sig Dispensed Refills Start Date [...] for Nausea without hematuria and Vomiting (N/V). metroNIDAZOLE 500 mg Take 1 tablet by 14 tablet 0 09/05/2019 Active tabletIndications: BV mouth 2 (two) (bacterial vaginosis) times daily. Hospital, Clinic, or Other Ordered Dose Route Frequency Start Date End Date Status Facility Administered Medication medroxyPROGESTERone 150 mg IM [id number] 07/17/2019 06/17/2020 Active (DEPO-PROVERA) injection 150 mgIndications: Encounter for other contraceptive management documented as of this encounter (statuses as of 09/05/2019) Active Problems Problem Noted Date Concussion 09/04/2019 Overview: 08/14/2019-reports she sees a dr, chiropractor, and has a [facility] provider that she see. Vaginal discharge 09/04/2019 Well woman exam 07/17/2019 BV (bacterial vaginosis) 08/20/2015 Contraceptive management 08/20/2015 Lump or mass in breast 04/21/2015 LAD (lymphadenopathy), inguinal 04/21/2015 Obesity (BMI 30-39.9) 08/06/2014 Overview: ICD10 Diagnosis Term Car Worker Utility documented as of this encounter (statuses as of 09/05/2019) Resolved Problems Problem Noted Date Resolved Date Well woman exam without gynecological exam 08/20/2015 11/17/2015 Recurrent vaginitis 04/23/2015 08/20/2015 Candidiasis of vulva and vagina 04/21/2015 08/20/2015 Immunizations up to date 08/06/2014 02/13/2015 GBS (group B Streptococcus carrier), +RV culture, currently 05/12/20142014 Overview: BETA HEMOLYTIC STREPTOCOCCUS, GROUP B ISOLATED [...] high-risk 02/04/2014 02/04/2014 Overview: ICD10 Diagnosis Term Car Worker Utility Supervision of other high-risk 02/04/2014 02/18/2014 Overview: ICD10 Diagnosis Term Car Worker Utility Group B Streptococcus carrier, antepartum 01/27/2014 02/18/2014 Overview: susceptibility pending; will need ppx during labor. Threatened premature labor 01/23/2014 02/17/2014 Supervision of normal first 01/23/2014 02/04/2014 UTI (urinary tract infection) 01/14/2014 02/17/2014 Overview: Patient went to [facility] ER; for headache. UA showed [...] spotting 07/16/2013 09/26/2013 Overview: Medical records. [facility]- 07/12/13. Single IUP measuring 6 weeks 0 day. LRW=414. Correlation with beta hcg levels is also needed to assess significance of these findings. Beta hcg- 61836.00. Ok per Dr. Dooley to repeat USG Immune to varicella 07/09/2013 02/17/2014 Rubella immune 07/08/2013 02/17/2014 Generalized headaches 07/01/2013 09/26/2013 BV (bacterial vaginosis) 05/14/2013 06/28/2013 Straining during bowel movements 01/07/2013 06/28/2013 Abdominal pain, epigastric 01/07/2013 06/28/2013 Leukorrhea 10/31/2012 06/28/2013 Lump or mass in breast 10/04/2012 07/01/2013 documented as of this encounter (statuses as of 09/05/2019) Immunizations Name Administration Dates Next Due Influenza [...] of this encounter Last Filed Vital Signs Not on filedocumented in this encounter Plan of Treatment Date Type Specialty Care Team Description 10/09/2019 [facility] Health Maintenance Due Date Last Done Comments [...] filedocumented in this encounter Visit Diagnoses Diagnosis BV (bacterial vaginosis) - Primary Vaginitis and vulvovaginitis, unspecified documented in this encounter Insurance Payer Benefit Plan Subscriber ID Effective Phone Address Type / Group Dates [facility] xxxxxxxxx 2019-Prese [phone] Medicaid WOMEN nt [address] [place] [address] documented as of this encounter
--- OUTSIDE RECORDS SUMMARY | 2019-09-18 00:35 | XMS REPORT | Summary of Care ---
:1995 Author Organization [facility] Address [address] [place] [id number] Care Team Providers Name Role Phone Marlen Caballero [facility] Primary Care Provider Reason for Visit Reason Comments BACTERIAL VAGINOSIS Encounter Details Date Type Department Care Team Description 09/05/2019 Telephone [facility]- Marlen Caballero, BACTERIAL VAGINOSIS [facility][1] [address] [facility] [address] [place] [phone] [facility] [phone] [place] [address] Allergies No Known Allergiesdocumented as [...] Facility Administered Medication medroxyPROGESTERone 150 mg IM [id number] 07/17/2019 06/17/2020 Active (DEPO-PROVERA) injection 150 mgIndications: Encounter for other contraceptive management documented as of this encounter (statuses as of 09/05/2019) Active Problems Problem Noted Date Concussion 09/04/2019 Overview: 08/14/2019-reports she sees a dr, chiropractor, and has a [facility] provider that she see. Vaginal discharge 09/04/2019 Well woman exam 07/17/2019 BV (bacterial vaginosis) 08/20/2015 Contraceptive management 08/20/2015 Lump or mass in breast 04/21/2015 LAD (lymphadenopathy), inguinal 04/21/2015 Obesity (BMI 30-39.9) 08/06/2014 Overview: ICD10 Diagnosis Term Post Closing Specialist Utility documented as of this encounter (statuses [...] high-risk 02/04/2014 02/04/2014 Overview: ICD10 Diagnosis Term Post Closing Specialist Utility Supervision of other high-risk 02/04/2014 02/18/2014 Overview: ICD10 Diagnosis Term Post Closing Specialist Utility Group B Streptococcus carrier, antepartum 01/27/2014 02/18/2014 Overview: susceptibility pending; will need ppx during labor. Threatened premature labor 01/23/2014 02/17/2014 Supervision of normal first 01/23/2014 02/04/2014 UTI (urinary tract infection) 01/14/2014 02/17/2014 Overview: Patient went to [facility] ER; for headache. UA showed 1+ leuk, [...] Vaginal spotting 07/16/2013 09/26/2013 Overview: Medical records. [facility]- 07/12/13. Single IUP measuring 6 weeks 0 day. GWI=019. Correlation with beta hcg levels is also needed to assess significance of these findings. Beta hcg- 68007.00. Ok per Dr. Dooley to repeat USG [...] Description 10/09/2019 Nurse [facility] Maintenance Due Date Last Done [...] Effective Phone Address Type / Group Dates [facility] xxxxxxxxx 2019-Prese [phone] WOMEN nt [address] [place] [address] documented as of this encounter
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
[2019-09-18] MEDS ORDERED: IBUPROFEN 400 MG TAB ONE (02:43)
[2019-09-18] MEDS ORDERED: ACETAMINOPHEN 500 MG TAB ONE (02:44)
[2019-09-18 03:17] VITALS: O2SAT 100
[2019-09-18 03:18] VITALS: TEMP 98
[2019-09-18 03:20] VITALS: BP 125/78
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
== END 2019-09-18 03:08 ==
LOC: ER 00:30
DX: R51 Headache (principal); M54.2 Cervicalgia; W20.8XXA Other cause of strike by thrown, projected or falling object, initial encounter; Y93.9 Activity, unspecified; Y92.9 Unspecified place or not applicable
CPT/HCPCS: 70450; 72125; 99284

== ENCOUNTER 2019-10-31 14:26 | Emergency (ER) | payer SELFPAY ==
--- OUTSIDE RECORDS SUMMARY | 2019-10-31 14:33 | XMS REPORT ---
:1995 Author Organization [facility] t Address [address] [place] [address] Care Team Providers Name Role Phone Unavailable Unavailable Unavailable Problems This patient has no known problems. Allergies, Adverse Reactions, Alerts This patient has no known allergies or adverse reactions. Medications This patient has no known medications.
--- OUTSIDE RECORDS SUMMARY | 2019-10-31 14:34 | XMS REPORT | Summary of Care ---
:1995 Author Organization [facility] Address [address] [place] [address] Care Team Providers Name Role Phone Harleen Caballero [facility] Primary Care Provider Reason for Visit Reason Comments NURSE VISIT Encounter Details Date Type Department Care Team Description 10/10/2019 [facility], [facility] [address] [place] [address] Encounter for Norco Visit, [facility] Nurse Depo-Provera [address] ([place], [place]) [id number] Allergies No Known Allergiesdocumented as of this encounter (statuses as of 10/10/2019) Medications Medication Sig Dispensed Refills Start Date [...] Facility Administered Medication medroxyPROGESTERone 150 mg IM [id number] 07/17/2019 0 Active (DEPO-PROVERA) injection 150 mgIndications: Encounter for other contraceptive management documented as of this encounter (statuses as of 10/10/2019) Active Problems Problem Noted Date Concussion 09/04/2019 Overview: 08/14/2019-reports she sees a dr, lorraine borjas, and has a [facility] provider that she see. Vaginal discharge 09/04/2019 Well woman exam 07/17/2019 BV (bacterial vaginosis) 08/20/2015 Contraceptive management 08/20/2015 Lump or mass in breast 04/21/2015 LAD (lymphadenopathy), inguinal 04/21/2015 Obesity (BMI 30-39.9) 08/06/2014 Overview: ICD10 Diagnosis Term Architectural Examiner Utility documented as of this encounter (statuses as of 10/10/2019) Resolved Problems Problem Noted Date Resolved Date Well woman exam without gynecological exam 08/20/2015 11/17/2015 Recurrent vaginitis 04/23/2015 08/20/2015 Candidiasis of vulva and vagina 04/21/2015 08/20/19 16 Immunizations up to date 08/06/2014 02/13/2015 GBS (group B Streptococcus carrier), +RV culture, currently 05/12/2014 02/13/2015 Overview: BETA HEMOLYTIC STREPTOCOCCUS, GROUP B ISOLATED THIS ISOLATES DEMONSTRATES INDUCIBLE CLI NDAMYCIN RESISTANCE BY IN VITRO TESTING. CONTACT INFECTIOUS DISEASE FACULTY FOR APPROPRIATE ADVICE. SUSCEPTIBILITY RESULTS: STRB SEBAS INTERP ____ ___ CLINDAMYCIN R ERYTHROMYCIN >=8 R Normal vaginal delivery 02/18/2014 03/11/2014 Overview: IOL at term d/t GHTN; ; Minor perineal laceration repaired Other threatened labor, antepartum 02/17/201402/18 Gestational hypertension 02/17/2014 02/13/2015 Supervision of other high-risk 02/04/2014 02/04/2014 Overview: ICD10 Diagnosis Term Architectural Examiner Utility Supervision of other high-risk 02/04/2014 02/18/2014 Overview: ICD10 Diagnosis Term Architectural Examiner Utility Group B Streptococcus carrier, antepartum 01/27/2014 02/18/2014 Overview: susceptibility pending; will need ppx du ring labor. Threatened premature labor 01/23/2014 02/17/2014 Supervision of normal first 01/23/2014 UTI (urinary tract infection) 01/14/2014 02/17/2014 Overview: Patient went to [facility] ER; for headache. UA showed 1+ leuk, WBC, RBC and moderate blood. Patient was given rocep hin, tylenol and an Rx for Macrobid. Patient never filled macrobid due to cost. Came to clinic for medication. Clinic UA showed trace leuk and trace blood. Macrobid gi toma in clinic with urine culture ordered. Candidiasis of vulva and vagina 01/06/2014 02/18/20 14 Tooth infection 01/06/2014 02/17/2014 Abnormal weight gain in 10/24/20132013 Heartburn in 08/29/2013 02/17/2014 Bacterial vaginosis 07/26/2013 09/26/2013 Vaginal spotting 07/16/2013 09/26/2013 Overview: Medical records. [facility] 07/12/13. Single IUP measuring 6 weeks 0 day. FHT= 106. Correlation with beta hcg levels is also needed to assess significance of these findings. Beta hcg- [address].00. Ok per Dr. Dooley to repeat USG Immune to varicella 07/09/2013 02/17/2014 Rubella immune 07/08/2013 02/17/2014 Generalized headaches 07/01/2013 09/26/2013 BV (bacterial vaginosis) 05/14/2013 06/28/2013 Straining during bowel movements 01/07/2013 013 Abdominal pain, epigastric 01/07/2013 06/28/2013 Leukorrhea 10/31/2012 06/28/2013 Lump or mass in breast 10/04/2012 07/01/2013 documented as of this encounter (statuses as of 10/10/2019) Immunizations Name Administration Dates Next Due Influenza Virus Vaccine (3+ yrs) 07/26/2013 Influenza Virus Vaccine Quad .5 mL 07/17/2019 IM 6+ MO PPD (TB) 09/16/2013 Rubella 03/02/2012 Td 07/10/2005 Tdap 07/17/2019 (Deferred: Vaccine Unavailable), 01/06/2014 documented as of this encounter Social History Tobacco Use Types Packs/Day Years Used Date Current Some Day Smoker Cigarettes Star saravanan: 07/17/2016 Smokeless Tobacco: Never Used Comments: 3 ciggs a day Alcohol Use Drinks/Week oz/Week Comments Yes socially, not du ring Alcohol Habits Answer Date Recorded How often do you have a drink containing alcohol? Monthly or less 07/17/2019 How many drinks containing alcohol do you have on a Not aske d typical day when you are drinking? How [...] Signs Not on filedocumented in this encounter Progress Notes Deniz Manuel RN - 10/10/2019 2:30 PM CDTPatient desires to continue with depo for contraception. depo was given by drive through method without obtaining vital signs per institutional guidelines for patients with no significant medical history or risk factors due to weather (COVID-19). Patient denies headaches, visual disturbances, or SOB. I have also reviewed use, side effects and effectiveness of this control method. Patient verbalized no side effects at this time and desires to continue with method. Constitutional: Alert and no distress Respiratory: Breathing comfortably Neurology: Answers questions appropriately Psychological: Affect Normal 24 year old female has been identified by . Verbal consent has been obtained by patient to have an injection of Depo Provera, as ordered by the provider. Date of last Depo Provera injection: 07/17/2019 Last WWE: 07/17/2019 Encounter Diagnosis: v25.49 The site was cleaned with an alcohol swab and given intramuscularly (IM) in the left deltoid. A band aid dressing was then applied to the injection site. The patient tolerated the procedure well . Advised patient on Calcium intake 500-1200 mg daily. ED warnings given. Patient to return to clinic in 12 weeks for next Depo. Patient verbalized understanding. DENIZ MANUEL RN 10/10/2019 2:57 PM documented in this encounter Plan of Treatment Date Type Specialty Care Team Description 01/02/2020 Nurse [facility] Health Maintenance Due Date Last Done Comments PNEUMOCOCCAL 0-64 YEARS 10/28/2019 Postpone d from 1999 COMBINED SERIES (1 of 1 - (Alter [place] Guidelines) PPSV23) HPV VACCINES (1 - Female 07/17/2020 Postpon ed from 2004 2-dose series) (Refused) VARICELLA VACCINES (1 of 2 - 07/17/2020 Pos tponed from 1994 2-dose childhood series) (Insura nce / Financial) PAP SMEAR 07/17/2022 07/17/2019, 07/17/2019, 08/06/2014 DTaP,Tdap,and Td Vaccines (3 01/07/2024 01/06/2014, - Td) 07/10/2005 INFLUENZA VACCINE Completed 07/17/2019, 07/26/2013 documented as of this encounter Results Not on filedocumented in this encounter Visit Diagnoses Diagnosis Encounter for Depo-Provera contraception - Primary Surveillance of other previously prescri bed contraceptive method documented in this encounter Administered Medications Medication Order MAR Action Action Date Dose Rate Site medroxyPROGESTERone Given 10/10/2019 2:59 150 mg Left Deltoid-IM (DEPO-PROVERA) injection 150 PM CDT mg 150 mg, Intramuscular, [id number], 4 doses, First dose on Mon07/17/19 at 1530, Last dose on Mon03/25/20 at 1530, Routine Given 07/17/2019 3:36 PM BORDER POLICE 150 mg Left Dorsogluteal-IM documented in this encounter Insurance Payer Benefit Plan Subscriber ID Effective Phone Address Typ e / Group Dates [facility] xxxxxxxxx 2019-Prese [phone] Medicaid WOMEN nt [address] [place] [address] documented as of this encounter
--- NOTE | 2019-10-31 14:59 | ER ---
Nurse's Notes [facility] Name: Kemar Ang Age: 24 yrs Sex: Female : 1995 Arrival Date: 10/31/2019 Time: 14:27 Bed 7 Private MD: Diagnosis: Abscess of proximal anterior left thigh Presentation: 10/30 14:48 Chief complaint: Patient states: Abscess on L upper thigh x 1 week. Coronavirus screen: ca1 Proceed with normal triage. Patient denies a cough. Patient denies shortness of breath or difficulty breathing. Patient denies measured and/or subjective temperature greater than 100.4F prior to today's visit. Patient denies travel on a cruise ship or to a country the [facility] currently lists as an affected area. Patient denies contact with known and/or suspected case of COVID-19. Ebola Screen: Patient negative for fever greater than or equal to 101.5 degrees Fahrenheit, and additional compatible Ebola Virus Disease symptoms Patient denies exposure to infectious person. Patient denies travel to an Ebola-affected area in the 21 days before illness onset. No symptoms or risks identified at this time. Initial Sepsis Screen: Does the patient meet any 2 criteria? No. Patient's initial sepsis screen is negative. Does the patient have a suspected source of infection? No. Patient's initial sepsis screen is negative. Risk Assessment: Do you want to hurt yourself or someone else? Patient reports no desire to harm self or others. Onset of symptoms was October 31, 2019. 14:48 Method Of Arrival: Ambulatory ca1 14:48 Acuity: EDOUARD 4 ca1 Triage Assessment: 14:49 General: Appears in no apparent distress. comfortable, Behavior is calm, cooperative, ca1 appropriate for age. Pain: Complains of pain in left upper thigh Pain currently is 8 out of 10 on a pain scale. EENT: No signs and/or symptoms were reported regarding the EENT system. Neuro: Level of Consciousness is awake, alert, obeys commands, Oriented to person, place, time, situation, Appropriate for age. Derm: Skin is healthy with good turgor, Skin is pink, warm \T\ dry. Abscess located on left upper thigh is quarter sized, has purulent drainage, is red, is raised, was lanced by patient prior to arrival. Musculoskeletal: Circulation, motion, and sensation intact. Capillary refill < 3 seconds. 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 - Social history:: Smoking status: Patient reports the use of cigarette tobacco products, denies chronic smoking, but will smoke occasionally. Screenin:51 Abuse screen: Denies threats or abuse. Denies injuries from another. Nutritional ca1 screening: No deficits noted. Tuberculosis screening: No symptoms or risk factors identified. Fall Risk None identified. Assessment: 14:51 Reassessment: SEE TRIAGE ASSESSMENT. ca1 15:16 Reassessment: Pt stated she wanted to do the I\T\D. Notified provider. I\T\D set up at ca 1 bedside. 15:42 Reassessment: Patient appears in no apparent distress at this time. Patient is alert, ca1 oriented x 3, equal unlabored respirations, skin warm/dry/pink. Vital Signs: 14:48 BP 150 / 89; Pulse 94; Resp 18 S; Temp 98.8(O); Pulse Ox 100% on R/A; Weight 86.18 kg ca1 (R); Height 5 ft. 7 in. (170.18 cm) (R); Pain 8/10; 15:42 BP 137 / 81; Pulse 91; Resp 19 S; Pulse Ox 100% on R/A; ca1 14:48 Body Mass Index 29.76 (86.18 kg, 170.18 cm) ca1 ED Course: 14:27 Patient arrived in ED. as 14:42 Michael Oliver MD is Attending Physician. kdr 14:45 Radha Owens RN is Primary Nurse. ca1 14:49 Triage completed. ca1 14:49 Arm band placed on right wrist. ca1 14:51 Patient has correct armband on for positive identification. Placed in gown. Bed in low ca1 position. Call light in reach. Side rails up X 1. Pulse ox on. NIBP on. Warm blanket given. 15:42 Assist provider with I \T\ D: of an abscess on left upper thigh Set up I\T\D tray. ca 1 Performed by Michael Oliver MD Wound packed. iodoform gauze, Dressing with 4X4s, tape Patient tolerated well. Patient did not have IV access during this emergency room visit. Administered Medications: 15:10 Drug: [place] (7.5 mg-325 mg) 1 tabs {Note: RASS - 0.} Route: PO; ca1 15:30 Follow up: Response: No adverse reaction; Pain is decreased; RASS: Alert and Calm (0) ca1 15:13 Drug: Bactrim (160 mg-800 mg (DS) 1 tablet Route: PO; ca1 15:30 Follow up: Response: No adverse reaction ca1 15:18 Drug: Clindamycin 600 mg Route: IM; Site: left gluteus; ca1 15:47 Follow up: Response: No adverse reaction ca1 15:45 Drug: Lidocaine (1 %) 5 mg {Note: by Dr. Oliver.} Route: Infiltration; ca1 15:45 Drug: Lidocaine (1 %) 5 mg {Note: by Dr. Oliver.} Route: Infiltration; ca1 Outcome: 14:58 Discharge ordered by . kdr 15:46 Discharged to home ambulatory. ca1 15:46 Condition: stable 15:46 Discharge instructions given to patient, Instructed on discharge instructions, follow up and referral plans. no drinking with medication, no driving heavy equipment, medication usage, wound care, Demonstrated understanding of instructions, follow-up care, medications, wound care, Prescriptions given X 3. 15:48 Patient left the ED. ca1 Signatures: Michael Oliver MD MD kdr Martinez, Amelia as Acob, Cheryl RN RN ca1
--- NOTE | 2019-10-31 14:59 | EDPHYS ---
Physician Documentation [facility] Name: Kemar Ang Age: 24 yrs Sex: Female : 1995 Arrival Date: 10/31/2019 Time: 14:27 Bed 7 Private MD: ED Physician Michael Oliver HPI: 10/30 15:02 This 24 yrs old Black Female presents to ER via Ambulatory with complaints of Boil. kdr 15:02 The patient presents with an abscess of the left hip and left leg, the patient presents kdr with a swollen area of the left hip. Description: erythematous, raised, swollen, tense, warm. Onset: The symptoms/episode began/occurred gradually, 5 day(s) ago. Possible cause(s): unknown. Associated signs and symptoms: The patient has no apparent associated signs or symptoms. Modifying factors: the symptoms are alleviated by nothing, the symptoms are aggravated by walking, squeezing the lesion and expressing the contents, touching. Severity of symptoms: At their worst the symptoms were mild, in the emergency department the symptoms are unchanged. The patient has not experienced similar symptoms in the past. The patient has not recently seen a physician. MANAGER OF ADMINISTRATION: 14:49 LMP N/A - control method ca1 Historical: - Allergies: 14:49 No Known Allergies; ca1 - Home Meds: 14:49 None [Active]; ca1 - PMHx: 14:49 Hernia; ca1 - PSHx: 14:49 None; ca1 - Immunization history:: Adult Immunizations up to date, Last tetanus immunization: unknown, Flu vaccine is up to date. - Social history:: Smoking status: Patient reports the use of cigarette tobacco products, denies chronic smoking, but will smoke occasionally. ROS: 15:02 Constitutional: Negative for fever, chills, and weight loss. kdr 15:02 Skin: Positive for abscess, cellulitis, of the left hip. Exam: 15:02 Constitutional: This is a well developed, well nourished patient who is awake, alert, kdr and in no acute distress. 15:02 Skin: abscess, that is moderate sized, of the left hip, with drainage, with induration, with surrounding cellulitis, that is mild. Vital Signs: 14:48 BP 150 / 89; Pulse 94; Resp 18 S; Temp 98.8(O); Pulse Ox 100% on R/A; Weight 86.18 kg ca1 (R); Height 5 ft. 7 in. (170.18 cm) (R); Pain 8/10; 15:42 BP 137 / 81; Pulse 91; Resp 19 S; Pulse Ox 100% on R/A; ca1 14:48 Body Mass Index 29.76 (86.18 kg, 170.18 cm) ca1 Procedures: 15:47 I \T\ D: Incision and drainage was performed for an abscess of the left left hip Prepped kdr with Anesthetized with 6 ml's 1% Lidocaine. Incised with #11 blade. Drained small amount purulent fluid. bloody fluid. Loculations removed. Abscess cavity explored. Packed with iodoform gauze, Dressing: sterile 4x4 gauze, the patient tolerated the procedure well. MDM: 14:58 Patient medically screened. kdr 15:02 Data reviewed: vital signs, nurses notes. Counseling: I had a detailed discussion with kdr the patient and/or guardian regarding: the historical points, exam findings, and any diagnostic results supporting the discharge/admit diagnosis, the need for outpatient follow up. ED course: The patient declined I\T\D at this time and preferred to try abx for a few days since the abscess was already draining. 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 15:45 ED course: The patient decided to allow I\T\D. kdr 15:47 ED course: The patient was advised to return for any worsening pain, swelling or fever. kdr She was also instructed to leave the packing in for two days and then to change the packing once a day after that until she could no longer get packing into the wound. 10/30 15:18 Order name: I\T\D Setup; Complete Time: 15:19 ca1 Administered Medications: 15:10 Drug: [place] (7.5 mg-325 mg) 1 tabs {Note: RASS - 0.} Route: PO; ca1 15:30 Follow up: Response: No adverse reaction; Pain is decreased; RASS: Alert and Calm (0) ca1 15:13 Drug: Bactrim (160 mg-800 mg (DS) 1 tablet Route: PO; ca1 15:30 Follow up: Response: No adverse reaction ca1 15:18 Drug: Clindamycin 600 mg Route: IM; Site: left gluteus; ca1 15:47 Follow up: Response: No adverse reaction ca1 15:45 Drug: Lidocaine (1 %) 5 mg {Note: by Dr. Oliver.} Route: Infiltration; ca1 15:45 Drug: Lidocaine (1 %) 5 mg {Note: by Dr. Oliver.} Route: Infiltration; ca1 Disposition: 10/31/19 14:58 Discharged to Home. Impression: Abscess of proximal anterior left thigh. - Condition is Fair. - Discharge Instructions: Skin Abscess, [id number]. - Prescriptions for Clindamycin HCl 300 mg Oral Capsule - take 1 capsule by ORAL route every 6 hours for 10 days; 40 capsule. Tramadol 50 mg Oral Tablet - take 1 tablet by ORAL route every 8 hours As needed as needed; 16 tablet. Bactrim DS 800- 160 mg Oral Tablet - take 1 tablet by ORAL route every 12 hours for 10 days; 20 tablet. - Medication Reconciliation Form, Thank You Letter, Antibiotic Education, Prescription Opioid Use form. - Follow up: Private Physician; When: 2 - 3 days; Reason: If symptoms return, Further diagnostic work-up, Recheck today's complaints, Continuance of care, Re-evaluation by your physician. - Problem is new. - Symptoms are unchanged. Signatures: Michael Oliver MD MD [facility] Radha Owens RN RN ca1 Corrections: (The following items were deleted from the chart) 15:48 14:58 10/31/2019 14:58 Discharged to Home. Impression: Abscess of proximal anterior ca1 left thigh. Condition is Fair. Forms are Medication Reconciliation Form, Thank You Letter, Antibiotic Education, Prescription Opioid Use. Follow up: Private Physician; When: 2 - 3 days; Reason: If symptoms return, Further diagnostic work-up, Recheck today's complaints, Continuance of care, Re-evaluation by your physician. Problem is new. Symptoms are unchanged. kdr
[2019-10-31] MEDS ORDERED: HYDROCODONE/APAP 7.5/325 MG TAB ONE (15:13)
[2019-10-31] MEDS ORDERED: SMZ./TMP. 800/160 MG TABLET ONE (15:13)
[2019-10-31] MEDS ORDERED: CLINDAMYCIN IV 150 MG/ML (4 mL) VIAL ONE (15:14)
[2019-10-31] MEDS ORDERED: LIDOCAINE 1% MPF 5 ML VIAL ONE (15:19)
[2019-10-31 15:53] VITALS: TEMP 98.8; O2SAT 100
[2019-10-31 15:55] VITALS: BP 137/81
== END 2019-10-31 15:48 | disposition home or self-care (01) ==
LOC: ER 14:26
PROC: 0J9M0ZZ Drainage of Left Upper Leg Subcutaneous Tissue and Fascia, Open Approach (ICD-10-PCS; principal; 2019-10-31)
DX: L02.416 Cutaneous abscess of left lower limb (principal); L03.116 Cellulitis of left lower limb; Z72.0 Tobacco use
CPT/HCPCS: 96372; 99284; S0077

== ENCOUNTER 2020-01-31 16:44 | Emergency (ER) | payer SELFPAY ==
--- OUTSIDE RECORDS SUMMARY | 2020-01-31 16:46 | XMS REPORT | Summary of Care ---
:1995 Author Organization [facility] Address [address] [place] [id number] Care Team Providers Name Role Phone Harleen Caballero [facility] Primary Care Provider Reason for Visit Reason Comments Assessment Appointment Encounter Details Date Type Department Care Team Description 01/14/2020 Telephone [facility]- Marlen Caballero Ass essment; Tre Canseco [facility] Appointment [address] [facility] [address] [id number] Allergies No Known Allergiesdocumented as of this encounter (statuses as of 01/15/2020) Medications Medication Sig Dispensed Refills Start Date [...] Facility Administered Medication medroxyPROGESTERone 150 mg IM [id number] 07/17/2019 0 Active (DEPO-PROVERA) injection 150 mgIndications: Encounter for other contraceptive management documented as of this encounter (statuses as of 01/15/2020) Active Problems Problem Noted Date Concussion 09/04/2019 Overview: 08/14/2019-reports she sees a dr, lorraine borjas, and has a [facility] provider that she see. 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 Threatened premature labor 01/23/2014 02/17/2014 Supervision of normal first 01/23/2014 UTI (urinary tract infection) 01/14/2014 02/17/2014 Overview: Patient [facility] ER; for headache. UA showed 1+ leuk, [...] Vaginal spotting 07/16/2013 09/26/2013 Overview: Medical records. [facility] 07/12/13. Single IUP measuring 6 weeks 0 day. FHT= 106. Correlation with beta hcg levels is also needed to assess significance of these findings. Beta hcg- 43665.00. Ok per Dr. Dooley to repeat USG Immune to varicella 07/09/2013 02/17/2014 Rubella immune 07/08/2013 02/17/2014 Generalized headaches 07/01/2013 09/26/2013 BV (bacterial vaginosis) 05/14/2013 06/28/2013 Straining during bowel movements 01/07/2013 013 Abdominal pain, epigastric 01/07/2013 06/28/2013 Leukorrhea 10/31/2012 06/28/2013 Lump or mass in breast 10/04/2012 07/01/2013 documented as of this encounter (statuses as of 01/15/2020) Immunizations Name Administration Dates Next Due Influenza Virus Vaccine (3+ yrs) 07/26/2013 Influenza Virus Vaccine Quad .5 mL 07/17/2019 IM 6+ MO PPD (TB) 09/16/2013 Rubella 03/02/2012 TDAP 07/17/2019 (Deferred: Vaccine Unavailable), 01/06/2014 Td 07/10/2005 documented as of this encounter Social History [...] Treatment Date Type Specialty Care Team Description 01/16/2020 Office Visit OB Satellites Bam Caballero, CNP [address] [place], [place] [address] [phone] Health Maintenance Due Date Last Done Comments PNEUMOCOCCAL 0-64 YEARS 1999 COMBINED SERIES (1 of 1 - PPSV23) INFLUENZA VACCINE (#1) 2020 07/17/2019, 07/26/2013 HPV VACCINES (1 - Female 07/17/2020 Postpon ed from 2004 2-dose series) (Refused) VARICELLA VACCINES (1 of 2 - 07/17/2020 Pos tponed from 1994 2-dose childhood series) (Insura nce / Financial) Depression Screening 10/09/2020 10/10/2019 PAP SMEAR 07/17/2022 07/17/2019, 07/17/2019, 08/06/2014 DTaP,Tdap,and Td Vaccines (3 01/07/2024 01/06/2014, - Td) 07/10/2005 documented as of this encounter Results Not on filedocumented in this encounter Insurance Payer Benefit Plan Subscriber ID Effective Phone Address Typ e / Group Dates [facility] xxxxxxxxx 2019-Prese [phone] Medicaid WOMEN nt 2006 [place] [address] documented as of this encounter
--- OUTSIDE RECORDS SUMMARY | 2020-01-31 16:46 | XMS REPORT | Continuity of Care Document ---
:1995 Author Organization [facility] t Address [address] [place] [address] Care Team Providers Name Role Phone Harleen Sanchez Attending Clinician Problems This patient has no known problems. Allergies, Adverse Reactions, Alerts This patient has no known allergies or adverse reactions. Medications This patient has no known medications. Procedures This patient has no known procedures. Encounters Start End Encounter Admission Attending Care Care Encounter Source Date/Time Date/Time Type Type Clinicians Facility Department ID 2020-01-24 2020-01-24 Office AUGUSTUS Caballero [id number] 09:36:42 10:33:14 Visit Marlen Canseco OUTREACH CLINICIAN [id number] [facility] [id number] MATERNAL [id number] & CHILD [address] [place] [address] Results This patient has no known results.
--- OUTSIDE RECORDS SUMMARY | 2020-01-31 16:47 | XMS REPORT | Summary of Care ---
:1995 Author Organization [facility] Address [address] [place] [address] Care Team Providers Name Role Phone Harleen Caballero [facility] Primary Care Provider Reason for Visit Reason Comments Talk To Nurse Encounter Details Date Type Department Care Team Description 01/01/2020 Telephone [facility]- Marlen Caballero, Talk To Nurse [facility] [address] [facility] [address] [place] [address] [address] [facility] [phone] [place], [place] [address] [phone] Allergies No Known Allergiesdocumented as of this encounter (statuses as of 01/20/2020) Medications Medication Sig Dispensed Refills Start Date [...] Facility Administered Medication medroxyPROGESTERone 150 mg IM [id number] 07/17/2019 0 Active (DEPO-PROVERA) injection 150 mgIndications: Encounter for other contraceptive management documented as of this encounter (statuses as of 01/20/2020) Active Problems Problem Noted Date Concussion 09/04/2019 Overview: 08/14/2019-reports she sees a dr, lorraine borjas, and has a [facility] provider that she see. 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 Threatened premature labor 01/23/2014 02/17/2014 Supervision of normal first 01/23/2014 UTI (urinary tract infection) 01/14/2014 02/17/2014 Overview: Patient went to [facility] ER; for headache. UA showed 1+ leuk, [...] spotting 07/16/2013 09/26/2013 Overview: Medical records. [facility] 07/12/13. Single IUP measuring 6 weeks 0 day. FHT= 106. Correlation with beta hcg levels is also needed to assess significance of these findings. Beta hcg- 27049.00. Ok per Dr. Dooley to repeat USG Immune to varicella 07/09/2013 02/17/2014 Rubella immune 07/08/2013 02/17/2014 Generalized headaches 07/01/2013 09/26/2013 BV (bacterial vaginosis) 05/14/2013 06/28/2013 Straining during bowel movements 01/07/2013 013 Abdominal pain, epigastric 01/07/2013 06/28/2013 Leukorrhea 10/31/2012 06/28/2013 Lump or mass in breast 10/04/2012 07/01/2013 documented as of this encounter (statuses as of 01/20/2020) Immunizations Name Administration Dates Next Due Influenza [...] filedocumented in this encounter Plan of Treatment Health Maintenance Due Date Last Done Comments [...] Address Typ e / Group Dates [facility] xxxxxxxxx 2019-Prese [phone] Medicaid WOMEN nt [address] [place] [address] documented as of this encounter
--- OUTSIDE RECORDS SUMMARY | 2020-01-31 16:47 | XMS REPORT | Summary of Care ---
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 Nitrofurantoin&Nit. Take 1 capsule 10 capsule 0 02/16/2019 Active Macrocryst (MACROBID) by mouth 2 (two) 100 mg times daily. capsuleIndications: Generalized abdominal pain, Acute cystitis without hematuria naproxen sodium 550 Take 1 tablet by 14 tablet 0 02/16/2019 Active mg tabletIndications: mouth 2 (two) Generalized abdominal times daily with pain, Acute cystitis meals. without hematuria ondansetron (ZOFRAN) Take 1 tablet by 12 tablet 0 02/16/2019 Active 4 mg mouth every 8 tabletIndications: (eight) hours as Generalized abdominal needed for pain, Acute cystitis Nausea and without hematuria Vomiting (N/V). metroNIDAZOLE 500 mg Take 1 tablet by 14 tablet 0 09/05/2019 Active tabletIndications: BV mouth 2 (two) (bacterial vaginosis) times daily. dicloxacillin 500 mg Take 1 capsule 40 capsule 0 01/24/2020 Active capsuleIndications: by mouth every 6 Recurrent boils (six) hours for 10 days. Hospital, Clinic, or Other Ordered Dose Route Frequency Start Date End Date Status Facility Administered Medication medroxyPROGESTERone 150 mg IM [id number] 07/17/2019 0 Active (DEPO-PROVERA) injection 150 mgIndications: Encounter for other contraceptive management documented as of this encounter (statuses as of 01/24/2020) Active Problems Problem Noted Date Recurrent boils 01/24/2020 Concussion 09/04/2019 Overview: 08/14/2019-reports she sees a dr, lorraine borjas, and has a [facility] provider that she see. 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 Threatened premature labor 01/23/2014 02/17/2014 Supervision of normal first 01/23/2014 UTI (urinary tract infection) 01/14/2014 02/17/2014 Overview: Patient went to [facility] ER; for headache. UA showed 1+ [...] Vaginal spotting 07/16/2013 09/26/2013 Overview: Medical records. Karen- 07/12/13. Single IUP measuring 6 weeks 0 day. FHT= 106. Correlation with beta hcg levels is also needed to assess significance of these findings. Beta hcg- 99162.00. Ok per Dr. Dooley to repeat USG Immune to varicella 07/09/2013 02/17/2014 Rubella immune 07/08/2013 02/17/2014 Generalized headaches 07/01/2013 09/26/2013 BV (bacterial vaginosis) 05/14/2013 06/28/2013 Straining during bowel movements 01/07/2013 013 Abdominal pain, epigastric 01/07/2013 06/28/2013 Leukorrhea 10/31/2012 06/28/2013 Lump or mass in breast 10/04/2012 07/01/2013 documented as of this encounter (statuses as of 01/24/2020) Immunizations Name Administration Dates Next Due Influenza [...] Travel End No recent travel history available. COVID-19 Exposure Response Date Recorded In the last month, have you been in contact with No / Unsure 01/24/2020 9:51 AM CDT someone who was confirmed or suspected to have Coronavirus / COVID-19? 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 She reports she hasexperienced boils before in the past. She reports she did have 2 on her vaginal area and one on her left upper thigh. She reports the one on her left upper thigh she did have to have it drained. She reports the one on her inner right thigh she first noticed it on yesterday. She does report discomfortWith it today. She reports it hurts when she walks or moves around. She states she has tried sitz bath with epsom salt, and a baking soda mixture her grandmother had given her, in addition with bacitracin. She reports with the boils on her vagina that helped them go away. She denies any new sexual partners and reports she has not had intercourse since 04/2019. Histories OB History Para Term AB Living [...] vulva and vagina 01/06/2014 Chlamydia Genital warts 2014 Gestational hypertension 02/17/2014 Gonorrhea LAD (lymphadenopathy), inguinal [...] file Gets together: Not on file Attends restorationist service: Not on file Active member of [...] control/protection: None Comment: Last intercourse: 05/09/2019 Labs No new labs and No visits with results within 3 Month(s) from this visit. Latest known visit with results is: Office Visit on 09/04/2019 Component Date Value Trichomonas vaginalis 09/04/2019 Negative Gardnerella vaginalis 09/04/2019 Positive* Melissa species 09/04/2019 Negative Radiology No new radiology. Allergies Kemar has No Known Allergies. Medications Kemar has a current medication list which includes the following prescription(s): dicloxacillin, metronidazole, naproxen sodium, nitrofurantoin&nit. macrocryst, ondansetron, metronidazole, omeprazole, promethazine, ibuprofen, tramadol, and naproxen, and the following Facility- Administered Medications: medroxyprogesterone. Review of Systems Constitutional: Negative. HENT: Negative. Eyes: Negative. Respiratory: Negative. Breasts: Negative. Cardiovascular: Negative. Gastrointestinal: Negative. Genitourinary: Negative. Musculoskeletal: Negative. Skin: Negative. Abscess noted on inner right thigh Neurological: Negative. Psychiatric/Behavioral: Negative. Endocrine: Endocrine negative BP 120/73 (BP Location: Right arm, Patient Position: Sitting, BP CUFF SIZE: Adult Medium) | Pulse 95 | Temp 36.7 C (98.1 F) (Oral) | Resp 16 | Ht 5' 6" (1.676 m) | Wt 211 lb 1 oz (95.7 kg) | BMI 34.07 kg/m Pregravid BMI: Could not be calculated Physical Exam Vitals reviewed. Constitutional: She is oriented to person, place, and time. She appears well- developed and well-nourished. Her body habitus is normal. Cardiovascular: Regular rate and rhythm. No peripheral edema present. Pulmonary/Chest: Normal inspiratory effort. Neuro/Psychiatric: She has a normal mood and affect. She is oriented to person, place, and time. Skin: Skin normal. No lesion, no rash and no ulceration present. Abscess noted on inner right thigh near groin, redness, tenderness noted on palpation Assessment/Plan Return to clinic in 6 months for WWE or sooner as needed Encounter for other contraceptive management (primary encounter diagnosis) Comment: none Plan: as needed mgmt Recurrent boils Comment: reports Plan: dicloxacillin 500 mg capsule, patient advised to complete the entire course, continue sitz baths, antibiotic ontiment to site if opens, she verbalized understanding This visit did not involve counseling and coordination that comprised more than 50% of the visit time. documented in this encounter Plan of Treatment Health Maintenance Due Date Last Done Comments PNEUMOCOCCAL 0-64 YEARS 02/11/2020 Postpone d from 1999 COMBINED SERIES (1 of 1 - (Refus ed) PPSV23) INFLUENZA VACCINE (#1) 2020 07/17/2019, 07/26/2013 [...] this encounter Visit Diagnoses Diagnosis Encounter for other contraceptive manage ment - Primary Recurrent boils Carbuncle and furuncle of unspecified si te documented in this encounter Insurance Payer Benefit Plan Subscriber ID Effective Phone Address Typ e / Group Dates [facility] xxxxxxxxx 2019-Prese [phone] Medicaid WOMEN nt [id number] [place] [address] documented as of this encounter
--- OUTSIDE RECORDS SUMMARY | 2020-01-31 16:47 | XMS REPORT | Summary of Care ---
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 for other contraceptive management (Primary Dx); BILLY [place] Recurrent boils [address] [place], [place] [phone] Allergies No Known Allergiesdocumented as of this [...] Facility Administered Medication medroxyPROGESTERone 150 mg IM [id number] 07/17/2019 0 Active (DEPO-PROVERA) injection 150 mgIndications: Encounter for other contraceptive management documented as of this encounter (statuses as of 01/24/2020) Active Problems Problem Noted Date Recurrent boils 01/24/2020 Concussion 09/04/2019 Overview: 08/14/2019-reports she sees a dr, lorraine borjas, and has [facility]. 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 Threatened premature labor 01/23/2014 02/17/2014 Supervision of normal first 01/23/2014 UTI (urinary tract infection) 01/14/2014 02/17/2014 Overview: Patient went to [facility] ER; for headache. UA showed 1+ [...] assess significance of these findings. Beta hcg- 16934.00. Ok per Dr. 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
[2020-01-31] MEDS ORDERED: LIDOCAINE 1% MPF 5 ML VIAL ONE (17:56)
[2020-01-31] MEDS ORDERED: HYDROCODONE/APAP 10/325 TAB ONE (18:19)
--- NOTE | 2020-01-31 18:35 | EDPHYS ---
Physician Documentation [facility] Name: Kemar Ang Age: 24 yrs Sex: Female : 1995 Arrival Date: 01/31/2020 Time: 16:45 Bed 30 Private MD: ED Physician Michael Oliver HPI: 01/30 17:22 This 24 yrs old Black Female presents to ER via Ambulatory with complaints of Boil, kdr Fever. 19:08 The patient presents with an abscess of the right femoral area. Description: kdr erythematous, fluctuant, hot, pointed, raised, swollen, tense, warm. Onset: The symptoms/episode began/occurred gradually, 1 week(s) ago. Possible cause(s): unknown. Associated signs and symptoms: The patient has no apparent associated signs or symptoms. Modifying factors: the symptoms are alleviated by nothing, the symptoms are aggravated by movement, walking, squeezing the lesion and expressing the contents, touching. Severity of symptoms: At their worst the symptoms were mild, moderate, in the emergency department the symptoms are unchanged. The patient has experienced similar episodes in the past, multiple times. The patient has not recently seen a physician. Historical: - Allergies: 16:52 No Known Allergies; ss - PMHx: 16:52 Hernia; ss - PSHx: 16:52 None; ss - Immunization history:: Adult Immunizations up to date. - Social history:: Smoking status: Patient reports the use of cigarette tobacco products, denies chronic smoking, but will smoke occasionally. ROS: 19:08 Constitutional: Negative for fever, chills, and weight loss, Eyes: Negative for injury, kdr pain, redness, and discharge, Neck: Negative for injury, pain, and swelling, Cardiovascular: Negative for chest pain, palpitations, and edema, Respiratory: Negative for shortness of breath, cough, wheezing, and pleuritic chest pain, Abdomen/GI: Negative for abdominal pain, nausea, vomiting, diarrhea, and constipation, Back: Negative for injury and pain, : Negative for injury, bleeding, discharge, and swelling, MS/Extremity: Negative for injury and deformity, Neuro: Negative for headache, weakness, numbness, tingling, and seizure activity. Psych: Negative for depression, anxiety, suicide ideation, homicidal ideation, and hallucinations, Allergy/Immunology: Negative for hives, rash, and allergies, Endocrine: Negative for neck swelling, polydipsia, polyuria, polyphagia, and marked weight changes, Hematologic/Lymphatic: Negative for swollen nodes, abnormal bleeding, and unusual bruising. 19:08 Skin: Positive for abscess, Negative for burn, discoloration, hematoma. Exam: 19:08 Constitutional: This is a well developed, well nourished patient who is awake, alert, kdr and in no acute distress. Head/Face: Normocephalic, atraumatic. Eyes: Pupils equal round and reactive to light, extra-ocular motions intact. Lids and lashes normal. Conjunctiva and sclera are non-icteric and not injected. Cornea within normal limits. Periorbital areas with no swelling, redness, or edema. Neck: Trachea midline, no thyromegaly or masses palpated, and no cervical lymphadenopathy. Supple, full range of motion without nuchal rigidity, or vertebral point tenderness. No Meningismus. Chest/axilla: Normal chest wall appearance and motion. Nontender with no deformity. No lesions are appreciated. Cardiovascular: Regular rate and rhythm with a normal S1 and S2. No gallops, murmurs, or rubs. Normal PMI, no JVD. No pulse deficits. Respiratory: Lungs have equal breath sounds bilaterally, clear to auscultation and percussion. No rales, rhonchi or wheezes noted. No increased work of breathing, no retractions or nasal flaring. Abdomen/GI: Soft, non-tender, with normal bowel sounds. No distension or tympany. No guarding or rebound. No evidence of tenderness throughout. Back: No spinal tenderness. No costovertebral tenderness. Full range of motion. MS/ Extremity: Pulses equal, no cyanosis. Neurovascular intact. Full, normal range of motion. Neuro: Awake and alert, GCS 15, oriented to person, place, time, and situation. Cranial nerves II-XII grossly intact. Motor strength 5/5 in all extremities. Sensory grossly intact. Cerebellar exam normal. Normal gait. Psych: Awake, alert, with orientation to person, place and time. Behavior, mood, and affect are within normal limits. 19:08 Skin: abscess, that is small, of the right femoral area, with fluctuance, with induration, with pointing, with surrounding cellulitis, that is mild. Vital Signs: 16:48 BP 142 / 86; Pulse 85; Resp 14; Temp 98.2; Pulse Ox 100% ; Weight 95.71 kg; Height 5 ss ft. 6 in. (167.64 cm); Pain 10/10; 16:48 Body Mass Index 34.06 (95.71 kg, 167.64 cm) ss Procedures: 19:08 I \T\ D: Incision and drainage was performed for an abscess of the right Prepped with kdr Betadine, Anesthetized with 5 ml's 1% Lidocaine. Incised with #11 blade. Drained small amount purulent fluid. bloody fluid. Packed with sterile gauze, Dressing: sterile 4x4 gauze, the patient tolerated the procedure well. MDM: 18:34 Patient medically screened. kdr 19:08 Data reviewed: vital signs, nurses notes. Counseling: I had a detailed discussion with kdr the patient and/or guardian regarding: the historical points, exam findings, and any diagnostic results supporting the discharge/admit diagnosis, the need for outpatient follow up. 01/30 18:26 Order name: I\T\D Setup; Complete Time: 18:26 ss Administered Medications: 18:20 Drug: Lidocaine (1 %) 5 ml {Note: Administered by Dr. Frankel to affected area..} ss Volume: 5 ml; Route: Infiltration; 18:25 Not Given (Other Intervention Used): Lidocaine (1 %) 5 mg Infiltration once ss Disposition: 01/31/20 18:34 Discharged to Home. Impression: Cutaneous abscess of right lower limb - Right groin/thigh. - Condition is Stable. - Discharge Instructions: Incision and Drainage, Skin Abscess, [id number], Incision and Drainage, Care After. - Prescriptions for Tramadol 50 mg Oral Tablet - take 1 tablet by ORAL route every 8 hours as needed; 12 tablet. Bactrim DS 800- 160 mg Oral Tablet - take 1 tablet by ORAL route every 12 hours for 10 days; 20 tablet. - Medication Reconciliation Form, Thank You Letter, Antibiotic Education, Prescription Opioid Use form. - Follow up: Private Physician; When: 2 - 3 days; Reason: If symptoms return, Further diagnostic work-up, Recheck today's complaints, Continuance of care, Re-evaluation by your physician. - Problem is an acute exacerbation. - Symptoms have improved. Signatures: Michael Oliver MD MD kdr Lorie Roman RN RN Rosana Aragon RN RN Corrections: (The following items were deleted from the chart) 18:39 18:34 01/31/2020 18:34 Discharged to Home. Impression: Cutaneous abscess of right lower hb limb - Right groin/thigh. Condition is Stable. Forms are Medication Reconciliation Form, Thank You Letter, Antibiotic Education, Prescription Opioid Use. Follow up: Private Physician; When: 2 - 3 days; Reason: If symptoms return, Further diagnostic work-up, Recheck today's complaints, Continuance of care, Re-evaluation by your physician. Problem is an acute exacerbation. Symptoms have improved. kdr
--- NOTE | 2020-01-31 18:35 | ER ---
Nurse's Notes [facility] Name: Kemar Ang Age: 24 yrs Sex: Female : 1995 Arrival Date: 01/31/2020 Time: 16:45 Bed 30 Private MD: Diagnosis: Cutaneous abscess of right lower limb-Right groin/thigh Presentation: 01/30 16:48 Chief complaint: Patient states: abscess to R groin x 1.5 weeks. "it popped 4 days ago, ss but it hasn't drained all the way.". Coronavirus screen: Patient denies a cough. Patient denies shortness of breath or difficulty breathing. Patient denies measured and/or subjective temperature greater than 100.4F prior to today's visit. Patient denies travel on a cruise ship or to a country the [facility] currently lists as an affected area. Patient denies contact with known and/or suspected case of COVID-19. Ebola Screen: Patient denies exposure to infectious person. Patient denies travel to an Ebola-affected area in the 21 days before illness onset. Initial Sepsis Screen: Does the patient meet any 2 criteria? No. Patient's initial sepsis screen is negative. Does the patient have a suspected source of infection? No. Patient's initial sepsis screen is negative. Risk Assessment: Do you want to hurt yourself or someone else? Patient reports no desire to harm self or others. Onset of symptoms was January 21, 2020. 16:48 Method Of Arrival: Ambulatory ss 16:48 Acuity: EDOUARD 4 ss Historical: - Allergies: 16:52 No Known Allergies; ss - PMHx: 16:52 Hernia; ss - PSHx: 16:52 None; ss - Immunization history:: Adult Immunizations up to date. - Social history:: Smoking status: Patient reports the use of cigarette tobacco products, denies chronic smoking, but will smoke occasionally. Screenin:57 Abuse screen: Denies threats or abuse. Denies injuries from another. Nutritional ss screening: No deficits noted. Tuberculosis screening: Never had TB. Fall Risk None identified. Assessment: 16:53 General: Appears uncomfortable, Behavior is calm, cooperative. Pain: Complains of pain ss in right inner thigh Pain currently is 10 out of 10 on a pain scale. Quality of pain is described as burning, tender, Is continuous. Neuro: Level of Consciousness is awake, alert, obeys commands, Oriented to person, place, time, situation. Respiratory: Respiratory effort is even, unlabored, Respiratory pattern is regular, symmetrical. Derm: Skin is intact, is healthy with good turgor, Skin is dry, Skin is pink, warm \\T\\ dry. normal. Derm: Abscess located on R groin area is quarter sized, was lanced by patient prior to arrival. Musculoskeletal: Circulation, motion, and sensation intact. Range of motion: Swelling absent. Vital Signs: 16:48 BP 142 / 86; Pulse 85; Resp 14; Temp 98.2; Pulse Ox 100% ; Weight 95.71 kg; Height 5 ss ft. 6 in. (167.64 cm); Pain 10/10; 16:48 Body Mass Index 34.06 (95.71 kg, 167.64 cm) ED Course: 16:45 Patient arrived in ED. as 16:51 Triage completed. ss 16:52 Arm band placed on right wrist. 16:57 Lorie Roman, IMELDA is Primary Nurse. 16:57 Patient has correct armband on for positive identification. Bed in low position. Call ss light in reach. 17:11 Michael Oliver MD is Attending Physician. kdr 18:21 Assist provider with I \\T\\ D: of an abscess on right groin area Performed by Michael Oliver MD Wound packed. iodoform gauze, Dressing with 4X4s, tape Patient tolerated well. Patient did not have IV access during this emergency room visit. Wound care:. Administered Medications: 18:20 Drug: Lidocaine (1 %) 5 ml {Note: Administered by Dr. Frankel to affected area..} ss Volume: 5 ml; Route: Infiltration; 18:25 Not Given (Other Intervention Used): Lidocaine (1 %) 5 mg Infiltration once Outcome: 18:34 Discharge ordered by . kdr 18:39 Patient left the ED. hb Signatures: Michael Oliver MD MD kdr Gely Benjamin Shelby, RN RN Rosana Aragon RN RN hb
[2020-01-31 19:03] VITALS: BP 142/86; TEMP 98.2; O2SAT 100
== END 2020-01-31 18:39 | disposition home or self-care (01) ==
LOC: ER 16:44
PROC: 0J9L0ZZ Drainage of Right Upper Leg Subcutaneous Tissue and Fascia, Open Approach (ICD-10-PCS; principal; 2020-01-31)
DX: L02.214 Cutaneous abscess of groin (principal); Z72.0 Tobacco use
CPT/HCPCS: 99283

== ENCOUNTER 2020-07-18 19:56 | Emergency (ER) | payer SELFPAY ==
--- OUTSIDE RECORDS SUMMARY | 2020-07-18 19:59 | XMS REPORT | Summary of Care ---
:1995 Author Organization [facility] [place] Address [address] [place] [id number] Care Team Providers Name Role Phone Dariancecileelodia Harleen [facility] Primary Care Provider Reason for Visit Reason Comments Vaginal Discharge Encounter Details Date Type Department Care Team Description 05/13/2020 Office Visit [facility]- Nicolette Stephen nter for contraceptive management, unspecified type (Primary Dx); Tre R, POULTRY BREEDER Vaginal discharge; [address] Screening examination for STD (sexually transmitted disease); [address] Need for prophylactic vaccination and in oculation against influenza [place], [place] [id number] Allergies No Known Allergiesdocumented as of this encounter (statuses as of 05/13/2020) Medications Medication Sig Dispensed Refills Start Date End Date Status metroNIDAZOLE 500 Take 1 tablet 14 tablet 0 09/05/2019 Active mg by mouth 2 tabletIndications: (two) times BV (bacterial daily. vaginosis) naproxen (NAPROSYN) Take 1 tablet 20 tablet 0 11/18/201505/13 Discontinued 500 mg tablet by mouth 2 0 (two) times daily with meals. traMADOL 50 mg Take 1 tablet 30 tablet 0 09/19/2017 Discontinued tablet by mouth every 0 6 (six) hours as needed for Pain (scale 4-6). ibuprofen 800 mg Take 1 tablet 30 tablet 0 09/19/2017 05/13/20 2 Discontinued tablet by mouth every 0 8 (eight) hours as needed for Pain (scale 1-3). proMETHazine 25 mg Take 1 tablet 20 tablet 0 04/03/2018 Discontinued tablet by mouth every 0 6 (six) hours as needed for Nausea and Vomiting (N/V). Omeprazole 20 mg Take 1 tablet 20 tablet 0 04/03/2018 05/13/20 2 Discontinued tablet by mouth 0 daily. metroNIDAZOLE 500 Take 1 tablet 14 tablet 0 08/30/2018 02 Discontinued mg by mouth 2 0 tabletIndications: (two) times BV (bacterial daily. vaginosis) Nitrofurantoin&Nit. Take 1 capsule 10 capsule 0 02/16/2019 Discontinued Macrocryst by mouth 2 0 (MACROBID) 100 mg (two) times capsuleIndications: daily. Generalized abdominal pain, Acute cystitis without hematuria naproxen sodium 550 Take 1 tablet 14 tablet 0 02/16/201905/13 Discontinued mg by mouth 2 0 tabletIndications: (two) times Generalized daily with abdominal pain, meals. Acute cystitis without hematuria ondansetron Take 1 tablet 12 tablet 0 02/16/2019 Dis continued (ZOFRAN) 4 mg by mouth every 0 tabletIndications: 8 (eight) Generalized hours as abdominal pain, needed for Acute cystitis Nausea and without hematuria Vomiting (N/V). Hospital, Clinic, or Other Ordered Dose Route Frequency Start Date End Date Status Facility Administered Medication medroxyPROGESTERone 150 mg IM [id number] 07/17/2019 0 Active (DEPO-PROVERA) injection 150 mgIndications: Encounter for other contraceptive management documented as of this encounter (statuses as of 05/13/2020) Active Problems Problem Noted Date Need for prophylactic vaccination and inoculation agai nst influenza 05/13/2020 Recurrent boils 01/24/2020 Concussion 09/04/2019 Overview: 08/14/2019-reports she sees a dr, lorraine borjas, and has a [facility] provider that she see. Vaginal discharge 09/04/2019 Screening examination for STD (sexually transmitted di sease) 07/17/2019 BV (bacterial vaginosis) 08/20/2015 Contraceptive management 08/20/2015 Lump or mass in breast 04/21/2015 LAD (lymphadenopathy), inguinal 04/21/2015 Obesity (BMI 30-39.9) 08/06/2014 Overview: ICD10 Diagnosis Term Procurement Cost Coordinator Utility documented as of this encounter (statuses as of 05/13/2020) Resolved Problems Problem Noted Date Resolved Date [...] high-risk 02/04/2014 02/04/2014 Overview: ICD10 Diagnosis Term Procurement Cost Coordinator Utility Supervision of other high-risk 02/04/2014 02/18/2014 Overview: ICD10 Diagnosis Term Procurement Cost Coordinator Utility Group B Streptococcus carrier, antepartum 01/27/2014 02/18/2014 Overview: susceptibility pending; will need ppx du ring labor. Threatened premature labor 01/23/2014 02/17/2014 Supervision of normal first 01/23/2014 UTI (urinary tract infection) 01/14/2014 02/17/2014 Overview: Patient went to [facility] ER; for headache. UA showed 1+ [...] Vaginal spotting 07/16/2013 09/26/2013 Overview: Medical records. [facility]- 07/12/13. Single IUP measuring 6 weeks 0 day. FHT= 106. Correlation with beta hcg levels is also needed to assess significance of these findings. Beta hcg- 74755.00. Ok per Dr. Dooley to repeat USG Immune to varicella 07/09/2013 02/17/2014 Rubella immune 07/08/2013 02/17/2014 Generalized headaches 07/01/2013 09/26/2013 BV (bacterial vaginosis) 05/14/2013 06/28/2013 Straining during bowel movements 01/07/2013 013 Abdominal pain, epigastric 01/07/2013 06/28/2013 Leukorrhea 10/31/2012 06/28/2013 Lump or mass in breast 10/04/2012 07/01/2013 documented as of this encounter (statuses as of 05/13/2020) Immunizations Name Administration Dates Next Due Influenza Virus Vaccine (3+ yrs) 07/26/2013 Influenza Virus Vaccine Quad .5 mL 05/13/2020, 07/17/2019 IM 6+ MO PPD (TB) 09/16/2013 [...] Assigned at Date Recorded Not on file COVID-19 Exposure Response Date Recorded In the last month, have you been in contact with No / Unsure 05/13/2020 9:14 AM QUALITY ASSURANCE SUPERVISOR CHASSIS someone who was confirmed or suspected to have Coronavirus / COVID-19? documented as of this encounter Last Filed Vital Signs Vital Sign Reading Time Taken Comments Blood Pressure 138/94 05/13/2020 9:15 AM QUALITY ASSURANCE SUPERVISOR [employer]ASSIS Pulse 81 05/13/2020 9:15 AM QUALITY ASSURANCE SUPERVISOR [employer]ASSIS Temperature 36.7 C (98 F) 05/13/2020 9:15 AM QUALITY ASSURANCE SUPERVISOR CHASSIS Respiratory Rate 16 05/13/2020 9:15 AM QUALITY ASSURANCE SUPERVISOR CHASSIS Oxygen Saturation - - Inhaled Oxygen Concentration - - Weight 93.5 kg (206 lb 3.2 oz) 05/13/2020 9:15 AM QUALITY ASSURANCE SUPERVISOR CHASSIS Height 167.6 cm (5' 6") 05/13/2020 9:15 AM QUALITY ASSURANCE SUPERVISOR CHASSIS Body Mass Index 33.28 05/13/2020 9:15 AM QUALITY ASSURANCE SUPERVISOR CHASSIS documented in this encounter Progress Notes Nicolette Stephen, LUIS - 05/13/2020 9:15 AM CST Chief complaint: Chief Complaint Patient presents with Vaginal Discharge HPI Patient is a AAF here for vaginal discharge. Patient report she had unprotected sexual intercourse 1 week ago after not having sex for 1 year. Patient reports vaginal discharge and desiring STD testing. Patient also desires OCP start but blood pressure was noted elevated. Patient also reports cough since sexual intercourse and think she was [place]. Patient educated symptoms on monitor and instructed to report to ER care it needed. Patient denies current or past physical, sexual or emotional abuse. Histories OB History Para Term AB Living [...] Date Anemia not on meds Breast disorder 2012 Fibroids Candidiasis of vulva and vagina 01/06/2014 [...] Financial resource strain: Not on file Food insecurity Worry: Not on file Inability: Not on file Transportation needs Medical: Not on file Non-medical: Not on file Tobacco Use Smoking status: Current Some Day Smoker Types: Cigarettes Start date: 07/17/2016 Smokeless tobacco: Never Used Tobacco comment: 3 ciggs a day Substance and Sexual Activity Alcohol use: Yes Frequency: Monthly or less Comment: socially, not during Drug use: No Sexual activity: Yes Partners: Male control/protection: None Comment: Last intercourse: 05/09/2019 Lifestyle Physical activity Days per week: Not on file Minutes per session: Not on file Stress: Not on file Relationships Social connections Talks on phone: Not on file Gets together: Not on file Attends jewish service: Not on file Active member of club or organization: Not on file Attends meetings of clubs or organizations: Not on file Relationship status: Not on file Intimate partner violence Fear of current or ex partner: Not [...] medication list which includes the following prescription(s): metronidazole, and the following Facility-Administered Medications: medroxyprogesterone. Review of Systems Respiratory: Positive for cough. Genitourinary: Positive for vaginal discharge. BP (!) 138/94 (BP Location: Right arm, Patient Position: Sitting, BP CUFF SIZE: Adult Medium) | Pulse 81 | Temp 36.7 C (98 F) (Oral) | Resp 16 | Ht 5' 6" (1.676 m) | Wt 206 lb 3.2 oz (93.5 kg) | LMP 04/30/2020 (Exact Date) | BMI 33.28 kg/m Pregravid BMI: Could not be calculated Physical Exam Vitals reviewed. Constitutional: She is oriented to person, place, and time. She appears well- developed and well-nourished. Her body habitus is normal. Cardiovascular: Regular rate and rhythm. No peripheral edema present. Pulmonary/Chest: Normal inspiratory effort. Neuro/Psychiatric: Inappropriate mood and affect. She is oriented to person, place, and time. Skin: Skin normal. No lesion, no rash and no ulceration present. External genitalia: Normal external genitalia appropriate for age. Corset Maker present for the exam: LUIS Lind student Vagina:Vaginal discharge found. Cervix: Discharge present. Assessment/Plan Encounter for contraceptive management, unspecified type (primary encounter diagnosis) Comment: patient desires to start OCPs Plan: POCT TEST Patient will RTC in 2wks for B/P check and OCPs start Vaginal discharge Comment: see HPI Plan: [facility] ONLY - VAGINAL PATHOGENS BY NUCLEIC ACID TESTING Screening examination for STD (sexually transmitted disease) Comment: patient desires testing Plan: GC & CHLAMYDIA AMPLIFIED ASSAY, [facility] ONLY - SYPHILIS IGG/IGM, HIV 1/2 AG-AB WITH REFLEX Need for prophylactic vaccination and inoculation against influenza Comment: patient desires start Plan: FLU VACC([id number]), 6+ MONTHS, IM, QUAD (FLUZONE/FLULAVAL/FLUARIX) Return to clinic in 2 weeks. Discussed treatment options. Medications as ordered. Reviewed patient instructions and provided printed copy. This visit did not involve counseling and coordination that comprised more than 50% of the visit time. LUIS Mai 05/13/2020 9:48 AM ITY ASSURANCE SUPERVISOR CHASSIS documented in this encounter Plan of Treatment Name Type Priority Associated Diagnoses Date/Ti me [facility] ONLY - VAGINAL LAB Routine Vaginal discharge 10/2019 9:40 AM QUALITY ASSURANCE SUPERVISOR CHASSIS PATHOGENS BY NUCLEIC ACID TESTING GC & CHLAMYDIA LAB Routine Screening examination for 05/13/2020 9:40 AM QUALITY ASSURANCE SUPERVISOR CHASSIS AMPLIFIED ASSAY STD (sexually transmitted disease) [facility] ONLY - SYPHILIS LAB Routine Screening examinatio n for 05/13/2020 9:40 AM QUALITY ASSURANCE SUPERVISOR CHASSIS IGG/IGM STD (sexually transmitted disease) HIV 1/2 AG-AB WITH LAB Routine Screening examination for 05/13/2020 9:40 AM QUALITY ASSURANCE SUPERVISOR CHASSIS REFLEX STD (sexually transmitted disease) Health Maintenance Due Date Last Done Comments PNEUMOCOCCAL 0-64 YEARS 05/31/2020 Postpone d from 1999 COMBINED SERIES (1 of 1 - (Vacci ne not available) PPSV23) VARICELLA VACCINES (1 of 2 - 07/17/2020 Pos tponed from 1994 2-dose childhood series) (Insura nce / Financial) Depression Screening 10/09/2020 10/10/2019 PAP SMEAR 07/17/2022 07/17/2019, 07/17/2019, 08/06/2014 DTaP,Tdap,and Td Vaccines (3 01/07/2024 01/06/2014, - Td) 07/10/2005 INFLUENZA VACCINE Completed 05/13/2020, 07/17/2019, 07/26/2013 documented as of this encounter Procedures Procedure Name Priority Date/Time Associated Diagnosis Comme nts POCT Routine 05/13/2020 9:40 Encounter for Results for this TEST AM QUALITY ASSURANCE SUPERVISOR CHASSIS contraceptive procedure are in management, the results unspecified type section. FLU VACC Routine 05/13/2020 9:22 Need for prophylactic ([id number]), 6+ AM QUALITY ASSURANCE SUPERVISOR CHASSIS vaccination and MONTHS, IM, QUAD inoculation against influenza documented in this encounter Results POCT TEST (05/13/2020 9:40 AM QUALITY ASSURANCE SUPERVISOR CHASSIS) Pathologist Sig nature POCT PREG Negative On board controls acceptable Yes with C Line POCT PREG LOT # POCT PREG TEST DATE Specimen Urine - URINE, CLEAN CATCH documented in this encounter Visit Diagnoses Diagnosis Encounter for contraceptive management, unspecified type - Primary Vaginal discharge Leukorrhea, not specified as infective Need for prophylactic vaccination and in oculation against influenza documented in this encounter Insurance Payer Benefit Plan Subscriber ID Effective Phone Address Typ e / Group Dates [facility] [id number] 2019-Prese [phone] Medicaid [place]OMEN nt [id number] [place] [address] documented as of this encounter
--- OUTSIDE RECORDS SUMMARY | 2020-07-18 19:59 | XMS REPORT | Summary of Care ---
:1995 Author Organization [facility] Address [address] [place] [id number] Care Team Providers Name Role Phone Harleen Caballero [facility] Primary Care Provider Reason for Visit Reason Comments Assessment BV Encounter Details Date Type Department Care Team Description 05/11/2020 Telephone [facility]- Marlen Caballero, Assessment (BV) [facility] [address] [facility] [address] [place] [address] [facility] [phone] [place], [place] [address] [phone] Allergies No Known Allergiesdocumented as of this encounter (statuses as of 05/12/2020) Medications Medication Sig Dispensed Refills Start Date [...] Facility Administered Medication medroxyPROGESTERone 150 mg IM [id number] 07/17/2019 0 Active (DEPO-PROVERA) injection 150 mgIndications: Encounter for other contraceptive management documented as of this encounter (statuses as of 05/12/2020) Active Problems Problem Noted Date Recurrent boils 01/24/2020 Concussion 09/04/2019 Overview: 08/14/2019-reports she sees a dr, lorraine borjas, and has a [facility] provider that she see. Vaginal discharge 09/04/2019 Well woman exam 07/17/2019 BV (bacterial vaginosis) 08/20/2015 Contraceptive management 08/20/2015 Lump or mass in breast 04/21/2015 LAD (lymphadenopathy), inguinal 04/21/2015 Obesity (BMI 30-39.9) 08/06/2014 Overview: ICD10 Diagnosis Term Production Cost Estimator Utility documented as of this encounter (statuses as of 05/12/2020) Resolved Problems Problem Noted Date Resolved Date [...] high-risk 02/04/2014 02/04/2014 Overview: ICD10 Diagnosis Term Production Cost Estimator Utility Supervision of other high-risk 02/04/2014 02/18/2014 Overview: ICD10 Diagnosis Term Production Cost Estimator Utility Group B Streptococcus carrier, antepartum 01/27/2014 02/18/2014 Overview: susceptibility pending; will need ppx du ring labor. Threatened premature labor 01/23/2014 02/17/2014 Supervision of normal first 01/23/2014 UTI (urinary tract infection) 01/14/2014 02/17/2014 Overview: Patient went to [facility] ER; for headache. UA showed 1+ [...] 07/16/2013 09/26/2013 Overview: Medical records. [facility] 07/12/13. Single IUP measuring 6 weeks 0 day. FHT= 106. Correlation with beta hcg levels is also needed to assess significance of these findings. Beta hcg- 89362.00. Ok per Dr. Dooley to repeat USG Immune to varicella 07/09/2013 02/17/2014 Rubella immune 07/08/2013 02/17/2014 Generalized headaches 07/01/2013 09/26/2013 BV (bacterial vaginosis) 05/14/2013 06/28/2013 Straining during bowel movements 01/07/2013 013 Abdominal pain, epigastric 01/07/2013 06/28/2013 Leukorrhea 10/31/2012 06/28/2013 Lump or mass in breast 10/04/2012 07/01/2013 documented as of this encounter (statuses as of 05/12/2020) Immunizations Name Administration Dates Next Due Influenza [...] Assigned at Date Recorded Not on file documented as of this encounter Last Filed Vital Signs Not on filedocumented in this encounter Miscellaneous Notes Telephone Encounter - Keeley Jaeger - 05/11/2020 4:15 PM CSTTrelyjabier Montielbarby Ang is a 25 year old female Called patient an informed her she would need to come in to clinic for problem visit regarding possible BV, transferred patient to [facility] Minerva Dover for scheduling Keeley Welch elephone Encounter - Jena Phelps - 05/11/2020 3:54 PM CSTTrelyjabier Liam Ang is a 25 year old female Patient states she has BV again, asking if she can get medication or does she need to be seen? documented in this encounter Plan of Treatment Date Type Specialty Care Team Description 05/13/2020 Office Visit [facility] Nicolette Stephen, PARAEDUCATOR [address] [address] [phone] Health Maintenance Due Date Last Done Comments PNEUMOCOCCAL 0-64 YEARS 1999 COMBINED SERIES (1 of 1 - PPSV23) INFLUENZA VACCINE (#1) 2020 07/17/2019, 07/26/2013 VARICELLA VACCINES (1 of 2 - 07/17/2020 [...] Address Typ e / Group Dates [facility] [id number] 2019-Prese [phone] Medicaid WOMEN nt [address] [place] [address] documented as of this encounter
--- OUTSIDE RECORDS SUMMARY | 2020-07-18 19:59 | XMS REPORT | Continuity of Care Document ---
:1995 Author Organization [facility] t Address [address] [place] [address] Care Team Providers Name Role Phone Harleen Sanchez Attending Clinician Problems This patient has no known problems. Allergies, Adverse Reactions, Alerts This patient has no known allergies or adverse reactions. Medications This patient has no known medications. Procedures This patient has no known procedures. Encounters Start End Encounter Admission Attending Care Care Encounter Source Date/Time Date/Time Type Type Clinicians Facility Department ID 2020-07-13 2020-07-13 Telephone AUGUSTUS Caballero [id number] 00:00:00 00:00:00 Marlen Canseco BEHAVIOR INTERVENTIONIST [id number] [facility] [id number] MATERNAL [id number] & CHILD [address] [place] [address] Results This patient has no known results.
--- OUTSIDE RECORDS SUMMARY | 2020-07-18 20:00 | XMS REPORT | Summary of Care ---
:1995 Author Organization [facility] [employer] Address [address] [place] [address] Care Team Providers Name Role Phone Harleen Caballero [facility] Primary Care Provider Reason for Visit Reason Comments Abnormal Lab Bacterial Vaginosis Encounter Details Date Type Department Care Team Description [facility] Lab [place] BUSINESS WRITER (Bacterial Vaginosis) [address] [place] [address] [address] [place] [address] [place], [place] [phone] [address] [phone] Allergies No Known Allergiesdocumented as of this encounter (statuses as of 05/18/2020) Medications Medication Sig Dispensed Refills Start Date End Date Status metroNIDAZOLE 500 mg Take 1 tablet 14 tablet 0 09/05/2019 Active tabletIndications: BV by mouth 2 (bacterial vaginosis) (two) times daily. metroNIDAZOLE 500 mg Take 1 tablet 14 tablet 0 05/18/202005/10 Active tabletIndications: by mouth 2 Bacterial vaginosis (two) times daily for 7 days. Hospital, Clinic, or Other Ordered Dose Route Frequency Start Date End Date Status Facility Administered Medication medroxyPROGESTERone 150 mg IM [id number] 07/17/2019 0 Active (DEPO-PROVERA) injection 150 mgIndications: Encounter for other contraceptive management documented as of this encounter (statuses as of 05/18/2020) Active Problems Problem Noted Date Need for prophylactic vaccination and inoculation agai nst influenza 05/13/2020 Recurrent boils 01/24/2020 Concussion 09/04/2019 Overview: 08/14/2019-reports she sees a dr, lorraine borjas, and has a [facility] provider that she see. Vaginal discharge 09/04/2019 Screening examination for STD (sexually transmitted di sease) 07/17/2019 BV (bacterial vaginosis) 08/20/2015 Contraceptive management 08/20/2015 Lump or mass in breast 04/21/2015 LAD (lymphadenopathy), inguinal 04/21/2015 Obesity (BMI 30-39.9) 08/06/2014 Overview: ICD10 Diagnosis Term Audio/Visual Operator Utility documented as of this encounter (statuses as of 05/18/2020) Resolved Problems Problem Noted Date Resolved Date [...] high-risk 02/04/2014 02/04/2014 Overview: ICD10 Diagnosis Term Audio/Visual Operator Utility Supervision of other high-risk 02/04/2014 02/18/2014 Overview: ICD10 Diagnosis Term Audio/Visual Operator Utility Group B Streptococcus carrier, antepartum 01/27/2014 02/18/2014 Overview: susceptibility pending; will need ppx du ring labor. Threatened premature labor 01/23/2014 02/17/2014 Supervision of normal first 01/23/2014 UTI (urinary tract infection) 01/14/2014 02/17/2014 Overview: Patient went to [facility] ER; for headache. UA showed [...] Vaginal spotting 07/16/2013 09/26/2013 Overview: Medical records. [facility]- 07/12/13. Single IUP measuring 6 weeks 0 day. FHT= 106. Correlation with beta hcg levels is also needed to assess significance of these findings. Beta hcg- 31492.00. Ok per Dr. Dooley to repeat USG Immune to varicella 07/09/2013 02/17/2014 Rubella immune 07/08/2013 02/17/2014 Generalized headaches 07/01/2013 09/26/2013 BV (bacterial vaginosis) 05/14/2013 06/28/2013 Straining during bowel movements 01/07/2013 013 Abdominal pain, epigastric 01/07/2013 06/28/2013 Leukorrhea 10/31/2012 06/28/2013 Lump or mass in breast 10/04/2012 07/01/2013 documented as of this encounter (statuses as of 05/18/2020) Immunizations Name Administration Dates Next Due Influenza [...] with No / Unsure 05/13/2020 9:14 AM HEEL STIFFENER someone who was confirmed or suspected to have Coronavirus / COVID-19? documented as of this encounter Last Filed Vital Signs Not on filedocumented in this encounter Miscellaneous Notes Telephone Encounter - Nicolette Stephen FNP - 05/18/2020 7:35 AM CSTPlease inform patient of Bacteria Vaginosis. Please inform patient that she will need to complete the entire medication as ordered for symptoms relief. documented in this encounter Plan of Treatment [...] filedocumented in this encounter Visit Diagnoses Diagnosis Bacterial vaginosis - Primary Vaginitis and vulvovaginitis, unspecifie d documented in this encounter Insurance Payer Benefit Plan Subscriber ID Effective Phone Address Typ e / Group Dates [facility] [id number] 2019-Prese [phone] Medicaid WOMEN nt [address] [place] [address] documented as of this encounter
--- OUTSIDE RECORDS SUMMARY | 2020-07-18 20:00 | XMS REPORT | Summary of Care ---
:1995 Author Organization [facility] [email or web address] Address [address] [place] [address] Care Team Providers Name Role Phone Dariancecileelodia Harleen [facility] Primary Care Provider Reason for Visit Reason Comments Results Encounter Details Date Type Department Care Team Description 05/14/2020 Telephone [facility] [employer] [facility]- A Nicolette Burks, TREE CLIMBER Results [address] [facility] [address] [place] [address] [place] [address] [phone] Allergies No Known Allergiesdocumented as of this encounter (statuses as of 05/14/2020) Medications Medication Sig Dispensed Refills Start Date End Date Status metroNIDAZOLE 500 mg Take 1 tablet by 14 tablet 0 09/05/2019 Active tabletIndications: BV mouth 2 (two) (bacterial vaginosis) times daily. Hospital, Clinic, or Other Ordered Dose Route Frequency Start Date End Date Status Facility Administered Medication medroxyPROGESTERone 150 mg IM [id number] 07/17/2019 0 Active (DEPO-PROVERA) injection 150 mgIndications: Encounter for other contraceptive management documented as of this encounter (statuses as of 05/14/2020) Active Problems Problem Noted Date Need for prophylactic vaccination and inoculation agai nst influenza 05/13/2020 Recurrent boils 01/24/2020 Concussion 09/04/2019 Overview: 08/14/2019-reports she sees a dr, lorraine borjas, and has a [facility] provider that she see. Vaginal discharge 09/04/2019 Screening examination for STD (sexually transmitted di sease) 07/17/2019 BV (bacterial vaginosis) 08/20/2015 Contraceptive management 08/20/2015 Lump or mass in breast 04/21/2015 LAD (lymphadenopathy), inguinal 04/21/2015 Obesity (BMI 30-39.9) 08/06/2014 Overview: ICD10 Diagnosis Term Horticulture Superintendent Utility documented as of this encounter (statuses as of 05/14/2020) Resolved Problems Problem Noted Date Resolved Date [...] high-risk 02/04/2014 02/04/2014 Overview: ICD10 Diagnosis Term Horticulture Superintendent Utility Supervision of other high-risk 02/04/2014 02/18/2014 Overview: ICD10 Diagnosis Term Horticulture Superintendent Utility Group B Streptococcus carrier, antepartum 01/27/2014 02/18/2014 Overview: susceptibility pending; will need ppx du ring labor. Threatened premature labor 01/23/2014 02/17/2014 Supervision of normal first 01/23/2014 UTI (urinary tract infection) 01/14/2014 02/17/2014 Overview: Patient went to [facility] ER; for headache. UA showed [...] Vaginal spotting 07/16/2013 09/26/2013 Overview: Medical records. [facility]- 07/12/13. Single IUP measuring 6 weeks 0 day. FHT= 106. Correlation with beta hcg levels is also needed to assess significance of these findings. Beta hcg- 02667.00. Ok per Dr. Dooley to repeat USG Immune to varicella 07/09/2013 02/17/2014 Rubella immune 07/08/2013 02/17/2014 Generalized headaches 07/01/2013 09/26/2013 BV (bacterial vaginosis) 05/14/2013 06/28/2013 Straining during bowel movements 01/07/2013 013 Abdominal pain, epigastric 01/07/2013 06/28/2013 Leukorrhea 10/31/2012 06/28/2013 Lump or mass in breast 10/04/2012 07/01/2013 documented as of this encounter (statuses as of 05/14/2020) Immunizations Name Administration Dates Next Due Influenza [...] with No / Unsure 05/13/2020 9:14 AM END MATCHER someone who was confirmed or suspected to have Coronavirus / COVID-19? documented as of this encounter Last Filed Vital Signs Not on filedocumented in this encounter Miscellaneous Notes Telephone Encounter - Deniz Manuel RN - 05/14/2020 1:18 PM CSTCalled patient, discussed labs and advised some still pending. Will call if abnormal. Patient verbalized understanding. DEINZ MANUEL RN 05/14/2020 1:20 PM MATCHER Telephone Encounter - Sheila Cortez - 05/14/2020 11:04 AM CSTTrelyn Liam Ang is a 25 year old female is calling to get test results. Please return call. Thank you. documented in this encounter Plan of Treatment [...] Phone Address Typ e / Group Dates REPLACED BY [facility] [id number] 2019-Prese [phone] [address] Medicaid WOMEN nt [address] [place] [address] documented as of this encounter
--- OUTSIDE RECORDS SUMMARY | 2020-07-18 20:00 | XMS REPORT | Summary of Care ---
:1995 Author Organization [facility] [employer] Address [address] [place] [address] Care Team Providers Name Role Phone Dariancecileelodia Harleen [facility] Primary Care Provider Reason for Visit Reason Comments Vaginal Discharge Encounter Details Date Type Department Care Team Description 05/13/2020 Office Visit [facility]- Nicolette Stephen nter for contraceptive management, unspecified type (Primary Dx); Tre R, MIDDLE SCHOOL HUMANITIES TEACHER Vaginal discharge; [address] [place] [address] Screening examination for STD (sexually transmitted disease); [address] [place] Need for prophylactic vaccination and in oculation against influenza [place], [place] [phone] Allergies No Known Allergiesdocumented as of this [...] Facility Administered Medication medroxyPROGESTERone 150 mg IM [id number] 07/17/2019 0 Active (DEPO-PROVERA) injection 150 mgIndications: Encounter for other contraceptive management documented as of this encounter (statuses as of 05/13/2020) Active Problems Problem Noted Date Need for prophylactic vaccination and inoculation agai nst influenza 05/13/2020 Recurrent boils 01/24/2020 Concussion 09/04/2019 Overview: 08/14/2019-reports she sees a dr, lorraine borjas, and has a [facility] provider that she see. Vaginal discharge 09/04/2019 Screening examination for STD (sexually transmitted di sease) 07/17/2019 BV (bacterial vaginosis) 08/20/2015 Contraceptive management 08/20/2015 Lump or mass in breast 04/21/2015 LAD (lymphadenopathy), inguinal 04/21/2015 Obesity (BMI 30-39.9) 08/06/2014 Overview: ICD10 Diagnosis Term Director Metabolism Utility documented as of this encounter (statuses [...] high-risk 02/04/2014 02/04/2014 Overview: ICD10 Diagnosis Term Director Metabolism Utility Supervision of other high-risk 02/04/2014 02/18/2014 Overview: ICD10 Diagnosis Term Director Metabolism Utility Group B Streptococcus carrier, antepartum 01/27/2014 02/18/2014 Overview: susceptibility pending; will need ppx du ring labor. Threatened premature labor 01/23/2014 02/17/2014 Supervision of normal first 01/23/2014 UTI (urinary tract infection) 01/14/2014 02/17/2014 Overview: Patient went to [facility] ER; for headache. UA showed [...] assess significance of these findings. Beta hcg- 44952.00. Ok per Dr. Dooley to repeat USG [...] with No / Unsure 05/13/2020 9:14 AM DEFECT REPAIRER GLASSWARE someone who was confirmed or suspected to have Coronavirus / COVID-19? documented as of this encounter Last Filed Vital Signs Vital Sign Reading Time Taken Comments Blood Pressure 141/93 05/13/2020 1:27 PM DEFECT REPAIRER GLASSWARE Pulse 81 05/13/2020 9:15 AM DEFECT REPAIRER GLASSWARE Temperature 36.7 C (98 F) 05/13/2020 9:15 AM DEFECT REPAIRER GLASSWARE Respiratory Rate 16 05/13/2020 9:15 AM DEFECT REPAIRER GLASSWARE Oxygen Saturation - - Inhaled Oxygen Concentration - - Weight 93.5 kg (206 lb 3.2 oz) 05/13/2020 9:15 AM DEFECT REPAIRER GLASSWARE Height 167.6 cm (5' 6") 05/13/2020 9:15 AM DEFECT REPAIRER GLASSWARE Body Mass Index 33.28 05/13/2020 9:15 AM DEFECT REPAIRER GLASSWARE documented in this encounter Progress Notes Nicolette [...] since sexual intercourse and think she was [place]. Patient educated symptoms on monitor and instructed [...] file Gets together: Not on file Attends adventism service: Not on file Active member of [...] genitalia: Normal external genitalia appropriate for age. Data Collection Specialist present for the exam: LUIS Lind student [...] influenza Comment: patient desires start Plan: FLU VACC([id number]), 6+ MONTHS, IM, QUAD (FLUZONE/FLULAVAL/FLUARIX) Return to clinic in 2 weeks. Discussed treatment options. Medications as ordered. Reviewed patient instructions and provided printed copy. This visit did not involve counseling and coordination that comprised more than 50% of the visit time. LUIS Mai 05/13/2020 9:[address] REPAIRER GLASSWARE documented in this encounter Plan of Treatment Name Type Priority Associated Diagnoses Date/Ti me GALV ONLY - VAGINAL LAB Routine Vaginal discharge 10/2019 9:40 AM DEFECT REPAIRER GLASSWARE PATHOGENS BY NUCLEIC ACID TESTING GC & CHLAMYDIA LAB Routine Screening examination for 05/13/2020 9:40 AM DEFECT REPAIRER GLASSWARE AMPLIFIED ASSAY STD (sexually transmitted disease) [facility] ONLY - SYPHILIS LAB Routine Screening examinatio n for 05/13/2020 9:40 AM DEFECT REPAIRER GLASSWARE IGG/IGM STD (sexually transmitted disease) HIV 1/2 AG-AB WITH LAB Routine Screening examination for 05/13/2020 9:40 AM DEFECT REPAIRER GLASSWARE REFLEX STD (sexually transmitted disease) Health Maintenance [...] Encounter for Results for this TEST AM DEFECT REPAIRER GLASSWARE contraceptive procedure are in management, the results unspecified type section. FLU VACC Routine 05/13/2020 9:22 Need for prophylactic ([id number]), 6+ AM DEFECT REPAIRER GLASSWARE vaccination and MONTHS, IM, QUAD inoculation against influenza documented in this encounter Results POCT TEST (05/13/2020 9:40 AM DEFECT REPAIRER GLASSWARE) Pathologist Sig nature POCT PREG Negative On [...] Phone Address Typ e / Group Dates [facility] [id number] 2019-Prese [phone] [address] Medicaid WOMEN nt 00 [id number] [place] [address] documented as of this encounter
--- OUTSIDE RECORDS SUMMARY | 2020-07-18 20:00 | XMS REPORT | Summary of Care ---
:1995 Author Organization [facility] [employer] Address [address] [place] [address] Care Team Providers Name Role Phone Dariancecileelodia Harleen [facility] Primary Care Provider Reason for Visit Reason Comments Vaginal Discharge Encounter Details Date Type Department Care Team Description 05/13/[address] [facility]- Nicolette Stephen nter for contraceptive management, unspecified type (Primary Dx); Tre R, BIOMASS PRODUCTION MANAGER Vaginal discharge; [address] [place] [address] Screening examination for STD (sexually transmitted disease); [address] [place] Need for prophylactic vaccination and in oculation against influenza [place], [place] [phone] Allergies No Known Allergiesdocumented as of this [...] Facility Administered Medication medroxyPROGESTERone 150 mg IM [id number] 07/17/2019 0 Active (DEPO-PROVERA) injection 150 mgIndications: Encounter for other contraceptive management documented as of this encounter (statuses as of 05/13/2020) Active Problems Problem Noted Date Need for prophylactic vaccination and inoculation agai nst influenza 05/13/2020 Recurrent boils 01/24/2020 Concussion 09/04/2019 Overview: 08/14/2019-reports she sees a dr, lorraine borjas, and has a [facility] provider that she see. Vaginal discharge 09/04/2019 Screening examination for STD (sexually transmitted di sease) 07/17/2019 BV (bacterial vaginosis) 08/20/2015 Contraceptive management 08/20/2015 Lump or mass in breast 04/21/2015 LAD (lymphadenopathy), inguinal 04/21/2015 Obesity (BMI 30-39.9) 08/06/2014 Overview: ICD10 Diagnosis Term Animal Doctor Utility documented as of this encounter (statuses [...] high-risk 02/04/2014 02/04/2014 Overview: ICD10 Diagnosis Term Animal Doctor Utility Supervision of other high-risk 02/04/2014 02/18/2014 Overview: ICD10 Diagnosis Term Animal Doctor Utility Group B Streptococcus carrier, antepartum 01/27/2014 [...] assess significance of these findings. Beta hcg- 35384.00. Ok per Dr. Dooley to repeat USG [...] with No / Unsure 05/13/2020 9:14 AM TILE MOLDER HAND someone who was confirmed or suspected to have Coronavirus / COVID-19? documented as of this encounter Last Filed Vital Signs Vital Sign Reading Time Taken Comments Blood Pressure 138/94 05/13/2020 9:15 AM TILE MOLDER HAND Pulse 81 05/13/2020 9:15 AM TILE MOLDER HAND Temperature 36.7 C (98 F) 05/13/2020 9:15 AM TILE MOLDER HAND Respiratory Rate 16 05/13/2020 9:15 AM TILE MOLDER HAND Oxygen Saturation - - Inhaled Oxygen Concentration - - Weight 93.5 kg (206 lb 3.2 oz) 05/13/2020 9:15 AM TILE MOLDER HAND Height 167.6 cm (5' 6") 05/13/2020 9:15 AM TILE MOLDER HAND Body Mass Index 33.28 05/13/2020 9:15 AM TILE MOLDER HAND documented in this encounter Progress Notes Nicolette [...] since sexual intercourse and think she was [place]. Patient educated symptoms on monitor and instructed [...] file Gets together: Not on file Attends protestant service: Not on file Active member of [...] genitalia: Normal external genitalia appropriate for age. Train Inspector present for the exam: LUIS Lind student [...] influenza Comment: patient desires start Plan: FLU VACC([id number]), 6+ MONTHS, IM, QUAD (FLUZONE/FLULAVAL/FLUARIX) Return to clinic in 2 weeks. Discussed treatment options. Medications as ordered. Reviewed patient instructions and provided printed copy. This visit did not involve counseling and coordination that comprised more than 50% of the visit time. LUIS Mai 05/13/2020 9:48 AM MOLDER HAND documented in this encounter Plan of Treatment Name Type Priority Associated Diagnoses Date/Ti me GALV ONLY - VAGINAL LAB Routine Vaginal discharge 10/2019 9:40 AM TILE MOLDER HAND PATHOGENS BY NUCLEIC ACID TESTING GC & CHLAMYDIA LAB Routine Screening examination for 05/13/2020 9:40 AM TILE MOLDER HAND AMPLIFIED ASSAY STD (sexually transmitted disease) [facility] ONLY - SYPHILIS LAB Routine Screening examinatio n for 05/13/2020 9:40 AM TILE MOLDER HAND IGG/IGM STD (sexually transmitted disease) HIV 1/2 AG-AB WITH LAB Routine Screening examination for 05/13/2020 9:40 AM TILE MOLDER HAND REFLEX STD (sexually transmitted disease) Health Maintenance [...] Encounter for Results for this TEST AM TILE MOLDER HAND contraceptive procedure are in management, the results unspecified type section. FLU VACC Routine 05/13/2020 9:22 Need for prophylactic ([id number]), 6+ AM TILE MOLDER HAND vaccination and MONTHS, IM, QUAD inoculation against influenza documented in this encounter Results POCT TEST (05/13/2020 9:40 AM TILE MOLDER HAND) Pathologist Sig nature POCT PREG Negative On [...] Phone Address Typ e / Group Dates [facility] [id number] 2019-Prese [phone] [address] Medicaid WOMEN nt 00 [id number] [place] [address] documented as of this encounter
--- OUTSIDE RECORDS SUMMARY | 2020-07-18 20:01 | XMS REPORT | Summary of Care ---
:1995 Author Organization [facility] [employer] Address [address] [place] [address] Care Team Providers Name Role Phone Harleen Caballero [facility] Primary Care Provider Reason for Visit Reason Comments Abnormal Lab Bacterial Vaginosis Encounter Details Date Type Department Care Team Description [facility] [place] UI APPLICATION DEVELOPER (Bacterial Vaginosis) [address] [place] [address] [address] [place] [address] [place], [place] [phone] [address] [phone] Allergies No Known Allergiesdocumented as of this encounter (statuses as of 05/19/2020) Medications Medication Sig Dispensed Refills Start Date [...] Facility Administered Medication medroxyPROGESTERone 150 mg IM [id number] 07/17/2019 0 Active (DEPO-PROVERA) injection 150 mgIndications: Encounter for other contraceptive management documented as of this encounter (statuses as of 05/19/2020) Active Problems Problem Noted Date Need for prophylactic vaccination and inoculation agai nst influenza 05/13/2020 Recurrent boils 01/24/2020 Concussion 09/04/2019 Overview: 08/14/2019-reports she sees a dr, lorraine borjas, and has a [facility] provider that she see. Vaginal discharge 09/04/2019 Screening examination for STD (sexually transmitted di sease) 07/17/2019 BV (bacterial vaginosis) 08/20/2015 Contraceptive management 08/20/2015 Lump or mass in breast 04/21/2015 LAD (lymphadenopathy), inguinal 04/21/2015 Obesity (BMI 30-39.9) 08/06/2014 Overview: ICD10 Diagnosis Term Dinkey Dispatcher Utility documented as of this encounter (statuses as of 05/19/2020) Resolved Problems Problem Noted Date Resolved Date [...] high-risk 02/04/2014 02/04/2014 Overview: ICD10 Diagnosis Term Dinkey Dispatcher Utility Supervision of other high-risk 02/04/2014 02/18/2014 Overview: ICD10 Diagnosis Term Dinkey Dispatcher Utility Group B Streptococcus carrier, antepartum 01/27/2014 [...] 07/16/2013 09/26/2013 Overview: Medical records. [facility]- 07/12/13. Single IUP measuring 6 weeks 0 day. FHT= 106. Correlation with beta hcg levels is also needed to assess significance of these findings. Beta hcg- 60642.00. Ok per Dr. Dooley to repeat USG Immune to varicella 07/09/2013 02/17/2014 Rubella immune 07/08/2013 02/17/2014 Generalized headaches 07/01/2013 09/26/2013 BV (bacterial vaginosis) 05/14/2013 06/28/2013 Straining during bowel movements 01/07/2013 013 Abdominal pain, epigastric 01/07/2013 06/28/2013 Leukorrhea 10/31/2012 06/28/2013 Lump or mass in breast 10/04/2012 07/01/2013 documented as of this encounter (statuses as of 05/19/2020) Immunizations Name Administration Dates Next Due Influenza [...] with No / Unsure 05/13/2020 9:14 AM HYDRAULIC STRAINER OPERATOR someone who was confirmed or suspected to have Coronavirus / COVID-19? documented as of this encounter Last Filed Vital Signs Not on filedocumented in this encounter Miscellaneous Notes Telephone Encounter - Anisha Henderson LVN - 05/19/2020 11:26 AM CSTUrieldrewjabier Ang is a 25 year old female 2nd attempt to call patient, no answer, vm full. elephone Encounter - Anisha Henderson LVN - 05/18/2020 11:04 AM CSTTreerin Ang is a 25 year old female Attempted to call patient, no answer, vm full. elephone Encounter - Nicolette Stephen FNP - 05/18/2020 [...] Phone Address Typ e / Group Dates [facility] [id number] 2019-Prese [phone] Medicaid WOMEN nt [address] [place] [address] documented as of this encounter
--- OUTSIDE RECORDS SUMMARY | 2020-07-18 20:01 | XMS REPORT | Summary of Care ---
:1995 Author Organization [facility] [employer] Address [address] [place] [address] Care Team Providers Name Role Phone Harleen Caballero [facility] Primary Care Provider Reason for Visit Reason Comments Abnormal Lab Bacterial Vaginosis Encounter Details Date Type Department Care Team Description [facility] Lab [place] BILLING ANALYST (Bacterial Vaginosis) [address] [place] [address] [address] [place] [address] [place], [place] [phone] [address] [phone] Allergies No Known Allergiesdocumented as of this [...] Facility Administered Medication medroxyPROGESTERone 150 mg IM [id number] 07/17/2019 0 Active (DEPO-PROVERA) injection 150 mgIndications: Encounter for other contraceptive management documented as of this encounter (statuses as of 05/18/2020) Active Problems Problem Noted Date Need for prophylactic vaccination and inoculation agai nst influenza 05/13/2020 Recurrent boils 01/24/2020 Concussion 09/04/2019 Overview: 08/14/2019-reports she sees a dr, lorraine borjas, and has a [facility] provider that she see. Vaginal discharge 09/04/2019 Screening examination for STD (sexually transmitted di sease) 07/17/2019 BV (bacterial vaginosis) 08/20/2015 Contraceptive management 08/20/2015 Lump or mass in breast 04/21/2015 LAD (lymphadenopathy), inguinal 04/21/2015 Obesity (BMI 30-39.9) 08/06/2014 Overview: ICD10 Diagnosis Term Filler Feeder Utility documented as of this encounter (statuses [...] high-risk 02/04/2014 02/04/2014 Overview: ICD10 Diagnosis Term Filler Feeder Utility Supervision of other high-risk 02/04/2014 02/18/2014 Overview: ICD10 Diagnosis Term Filler Feeder Utility Group B Streptococcus carrier, antepartum 01/27/2014 02/18/2014 Overview: susceptibility pending; will need ppx du ring labor. Threatened premature labor 01/23/2014 02/17/2014 Supervision of normal first 01/23/2014 UTI (urinary tract infection) 01/14/2014 02/17/2014 Overview: Patient went to [facility] ER; for headache. UA showed 1+ [...] 07/16/2013 09/26/2013 Overview: Medical records. [facility]- 07/12/13. Single IUP measuring 6 weeks 0 day. FHT= 106. Correlation with beta hcg levels is also needed to assess significance of these findings. Beta hcg- 24845.00. Ok per Dr. Dooley to repeat USG [...] with No / Unsure 05/13/2020 9:14 AM STRINGING MACHINE TENDER someone who was confirmed or suspected to have Coronavirus / COVID-19? documented as of this encounter Last Filed Vital Signs Not on filedocumented in this encounter Miscellaneous Notes Telephone Encounter - Anisha Henderson LVN - 05/18/2020 11:04 AM CSTTrelyn Liam Ang is a [...] Address Typ e / Group Dates [facility] [id number] 2019-Prese [phone] [address] Medicaid WOMEN nt [address] [place] [address] documented as of this encounter
--- OUTSIDE RECORDS SUMMARY | 2020-07-18 20:01 | XMS REPORT | Summary of Care ---
:1995 Author Organization [facility] [employer] Address [address] [place] [address] Care Team Providers Name Role Phone Harleen Caballero [facility] Primary Care Provider Reason for Visit Reason Comments Abnormal Lab Bacterial Vaginosis Encounter Details Date Type Department Care Team Description [facility] [place] AUTOMOTIVE SERVICE PROFESSIONAL (Bacterial Vaginosis) [address] [place] [address] [address] [place] [address] [place], [place] [phone] [address] [phone] Allergies No Known Allergiesdocumented as of this encounter (statuses as of 05/20/2020) Medications Medication Sig Dispensed Refills Start Date [...] Facility Administered Medication medroxyPROGESTERone 150 mg IM [id number] 07/17/2019 0 Active (DEPO-PROVERA) injection 150 mgIndications: Encounter for other contraceptive management documented as of this encounter (statuses as of 05/20/2020) Active Problems Problem Noted Date Need for prophylactic vaccination and inoculation agai nst influenza 05/13/2020 Recurrent boils 01/24/2020 Concussion 09/04/2019 Overview: 08/14/2019-reports she sees a dr, lorraine borjas, and has a [facility] provider that she see. Vaginal discharge 09/04/2019 Screening examination for STD (sexually transmitted di sease) 07/17/2019 BV (bacterial vaginosis) 08/20/2015 Contraceptive management 08/20/2015 Lump or mass in breast 04/21/2015 LAD (lymphadenopathy), inguinal 04/21/2015 Obesity (BMI 30-39.9) 08/06/2014 Overview: ICD10 Diagnosis Term Digester Hand Utility documented as of this encounter (statuses as of 05/20/2020) Resolved Problems Problem Noted Date Resolved Date [...] high-risk 02/04/2014 02/04/2014 Overview: ICD10 Diagnosis Term Digester Hand Utility Supervision of other high-risk 02/04/2014 02/18/2014 Overview: ICD10 Diagnosis Term Digester Hand Utility Group B Streptococcus carrier, antepartum 01/27/2014 02/18/2014 Overview: susceptibility pending; will need ppx du ring labor. Threatened premature labor 01/23/2014 02/17/2014 Supervision of normal first 01/23/2014 UTI (urinary tract infection) 01/14/2014 02/17/2014 Overview: Patient went to [facility] ER; for headache. UA showed 1+ [...] 07/16/2013 09/26/2013 Overview: Medical records. [facility]- 07/12/13. Single IUP measuring 6 weeks 0 day. FHT= 106. Correlation with beta hcg levels is also needed to assess significance of these findings. Beta hcg- 78643.00. Ok per Dr. Dooley to repeat USG Immune to varicella 07/09/2013 02/17/2014 Rubella immune 07/08/2013 02/17/2014 Generalized headaches 07/01/2013 09/26/2013 BV (bacterial vaginosis) 05/14/2013 06/28/2013 Straining during bowel movements 01/07/2013 013 Abdominal pain, epigastric 01/07/2013 06/28/2013 Leukorrhea 10/31/2012 06/28/2013 Lump or mass in breast 10/04/2012 07/01/2013 documented as of this encounter (statuses as of 05/20/2020) Immunizations Name Administration Dates Next Due Influenza [...] with No / Unsure 05/13/2020 9:14 AM LOCAL COMPANY TANKER DRIVER someone who was confirmed or suspected to have Coronavirus / COVID-19? documented as of this encounter Last Filed Vital Signs Not on filedocumented in this encounter Miscellaneous Notes Telephone Encounter - Deniz Manuel RN - 05/20/2020 9:28 AM CST3rd attempt to call patient. No answer. No vm set up. Letter mailed. DENIZ MANUEL RN 05/20/2020 9:29 AM L COMPANY TANKER DRIVER Telephone Encounter - Anisha Henderson LVN - 05/19/2020 11:26 AM CSTKemar Ang is a 25 year old female 2nd attempt to call patient, no answer, vm full. elephone Encounter - Anisha Henderson LVN - 05/18/2020 11:04 AM CSTKemar Ang is a 25 year old female [...] Address Typ e / Group Dates [facility] [id number] 2019-Prese [phone] Medicaid WOMEN nt [address] [place] [address] documented as of this encounter
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
--- OUTSIDE RECORDS SUMMARY | 2020-07-18 20:02 | XMS REPORT | Summary of Care ---
:1995 Author Organization [facility] [employer] [facility] Address [address] [place] [address] Care Team Providers Name Role Phone Harleen Caballero [facility] Primary Care Provider Reason for Visit Reason Comments Results Encounter Details Date Type Department Care Team Description [facility] Results [address] [place] [address] [address] [facility] [phone] [facility] [place], [place] [address] [phone] Allergies No Known Allergiesdocumented as of this encounter (statuses as of 05/25/2020) Medications Medication Sig Dispensed Refills Start Date [...] Facility Administered Medication medroxyPROGESTERone 150 mg IM [id number] 07/17/2019 0 Active (DEPO-PROVERA) injection 150 mgIndications: Encounter for other contraceptive management documented as of this encounter (statuses as of 05/25/2020) Active Problems Problem Noted Date Need for [...] (BMI 30-39.9) 08/06/2014 Overview: ICD10 Diagnosis Term Gameplay Programmer Utility documented as of this encounter (statuses as of 05/25/2020) Resolved Problems Problem Noted Date Resolved Date [...] high-risk 02/04/2014 02/04/2014 Overview: ICD10 Diagnosis Term Gameplay Programmer Utility Supervision of other high-risk 02/04/2014 02/18/2014 Overview: ICD10 Diagnosis Term Gameplay Programmer Utility Group B Streptococcus carrier, antepartum 01/27/2014 02/18/2014 Overview: susceptibility pending; will need ppx du ring labor. Threatened premature labor 01/23/2014 02/17/2014 Supervision of normal first 01/23/2014 UTI (urinary tract infection) 01/14/2014 02/17/2014 Overview: Patient went to [facility] ER; for headache. UA showed [...] Vaginal spotting 07/16/2013 09/26/2013 Overview: Medical records. [facility]- 07/12/13. Single IUP measuring 6 weeks 0 day. FHT= 106. Correlation with beta hcg levels is also needed to assess significance of these findings. Beta hcg- 92931.00. Ok per Dr. Dooley to repeat USG Immune to varicella 07/09/2013 02/17/2014 Rubella immune 07/08/2013 02/17/2014 Generalized headaches 07/01/2013 09/26/2013 BV (bacterial vaginosis) 05/14/2013 06/28/2013 Straining during bowel movements 01/07/2013 013 Abdominal pain, epigastric 01/07/2013 06/28/2013 Leukorrhea 10/31/2012 06/28/2013 Lump or mass in breast 10/04/2012 07/01/2013 documented as of this encounter (statuses as of 05/25/2020) Immunizations Name Administration Dates Next Due Influenza [...] with No / Unsure 05/13/2020 9:14 AM INTERMEDIATE ACCOUNTANT someone who was confirmed or suspected to have Coronavirus / COVID-19? documented as of this encounter Last Filed Vital Signs Not on filedocumented in this encounter Miscellaneous Notes Telephone Encounter - Anisha Henderson LVN - 05/25/2020 8:28 AM CSTKemar Ang is a 25 year old female Patient stated she is aware of results and took medication already. RMEDIATE ACCOUNTANT Telephone Encounter - Дмитрий Eaton - 05/25/2020 7:09 AM Colleen Ang is a 25 year old female Ms. Ang is calling in to speak to a nurse about results. documented in this encounter Plan of Treatment [...] Address Typ e / Group Dates [facility] [id number] 2019-Prese [phone] [address] Medicaid WOMEN nt [address] [place] [address] documented as of this encounter
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
--- OUTSIDE RECORDS SUMMARY | 2020-07-18 20:03 | XMS REPORT | Summary of Care ---
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 Encounter Details Date Type Department Care Team Description 07/09/2020 Office Visit [facility]- Marlen Caballero Ot er general counseling and advice for contraceptive management (Primary Dx); BILLY Stockton Vaginal discharge [address] [facility] [address] [place], [place] [address] [phone] Allergies No Known Allergiesdocumented as of this encounter (statuses as of 07/09/2020) Medications Medication Sig Dispensed Refills Start Date End Date Status metroNIDAZOLE 500 mg Take 1 tablet by 14 tablet 0 09/05/2019 Active tabletIndications: BV mouth 2 (two) (bacterial vaginosis) times daily. documented as of this encounter (statuses as of 07/09/2020) Active Problems Problem Noted Date Other general counseling and advice for contraceptive management 07/09/2020 Need for prophylactic vaccination and inoculation agai nst influenza 05/13/2020 Recurrent boils 01/24/2020 Concussion 09/04/2019 Overview: 08/14/2019-reports she sees a dr, lorraine borjas, and has a [facility] provider that she see. Vaginal discharge 09/04/2019 Screening examination for STD (sexually transmitted di sease) 07/17/2019 BV (bacterial vaginosis) 08/20/2015 Contraceptive management 08/20/2015 Lump or mass in breast 04/21/2015 LAD (lymphadenopathy), inguinal 04/21/2015 Obesity (BMI 30-39.9) 08/06/2014 Overview: ICD10 Diagnosis Term Firm Administrator Utility documented as of this encounter (statuses as of 07/09/2020) Resolved Problems Problem Noted Date Resolved Date [...] high-risk 02/04/2014 02/04/2014 Overview: ICD10 Diagnosis Term Firm Administrator Utility Supervision of other high-risk 02/04/2014 02/18/2014 Overview: ICD10 Diagnosis Term Firm Administrator Utility Group B Streptococcus carrier, antepartum 01/27/2014 02/18/2014 Overview: susceptibility pending; will need ppx du ring labor. Threatened premature labor 01/23/2014 02/17/2014 Supervision of normal first 01/23/2014 UTI (urinary tract infection) 01/14/2014 02/17/2014 Overview: Patient went to [facility] ER; for headache. UA showed 1+ [...] Vaginal spotting 07/16/2013 09/26/2013 Overview: Medical records. Tre-Mac- 07/12/13. Single IUP measuring 6 weeks 0 day. FHT= 106. Correlation with beta hcg levels is also needed to assess significance of these findings. Beta hcg- 76497.00. Ok per Dr. Dooley to repeat USG Immune to varicella 07/09/2013 02/17/2014 Rubella immune 07/08/2013 02/17/2014 Generalized headaches 07/01/2013 09/26/2013 BV (bacterial vaginosis) 05/14/2013 06/28/2013 Straining during bowel movements 01/07/2013 013 Abdominal pain, epigastric 01/07/2013 06/28/2013 Leukorrhea 10/31/2012 06/28/2013 Lump or mass in breast 10/04/2012 07/01/2013 documented as of this encounter (statuses as of 07/09/2020) Immunizations Name Administration Dates Next Due Influenza [...] been in contact with No / Unsure 07/09/2020 8:18 AM INDUSTRIAL HYGENIST someone who was confirmed or suspected to have Coronavirus / COVID-19? documented as of this encounter Last Filed Vital Signs Vital Sign Reading Time Taken Comments Blood Pressure 128/84 07/09/2020 8:18 AM INDUSTRIAL HYGENIST Pulse 74 07/09/2020 8:18 AM INDUSTRIAL HYGENIST Temperature 36.7 C (98.1 F) 07/09/2020 8:18 AM INDUSTRIAL HYGENIST Respiratory Rate 16 07/09/2020 8:18 AM INDUSTRIAL HYGENIST Oxygen Saturation - - Inhaled Oxygen Concentration - - Weight 91.2 kg (201 lb 1.6 oz) 07/09/2020 8:18 AM INDUSTRIAL HYGENIST Height 167.6 cm (5' 6") 07/09/2020 8:18 AM INDUSTRIAL HYGENIST Body Mass Index 32.46 07/09/2020 8:18 AM INDUSTRIAL HYGENIST documented in this encounter Progress Notes Marlen Caballero, WHHARISHP - 07/09/2020 8:00 AM CST Chief complaint: Chief Complaint 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 She reports that her symptoms started on last week. She reports nausea, headaches, vaginal odor, and vaginal discharge. She reports that she used a ph balance suppository. She reports that she is unsure if she notices a difference because she just used it on last night. She reports she is also taking probiotics as well. She declines having any new sexual partners. Histories OB History Para Term AB Living [...] file Gets together: Not on file Attends mosque service: Not on file Active member of [...] intercourse: 05/09/2019 Labs No new labs and Office Visit on 05/13/2020 Component Date Value Trichomonas vaginalis 05/13/2020 Negative Melissa species 05/13/2020 Negative Melissa glabrata 05/13/2020 Negative Bacterial Vaginosis 05/13/2020 Positive* C. trachomatis Nucleic A* 05/13/2020 Negative N. gonorrhoeae Nucleic A* 05/13/2020 Negative Syphilis IgG/IgM 05/13/2020 Non-reactive HIV 1/2 Ag-Ab with Reflex 05/13/2020 Negative HIV Semi-quantitative 05/13/2020 0.08 POCT PREG 05/13/2020 Negative On board controls accept* 05/13/2020 Yes Radiology No new radiology. Allergies Kemar has No Known Allergies. Medications Kemar has a current medication list which includes the following prescription(s): metronidazole. Review of Systems Constitutional: Negative. HENT: Negative. Eyes: Negative. Respiratory: Negative. Breasts: Negative. Cardiovascular: Negative. Gastrointestinal: Negative. Genitourinary: Positive for vaginal discharge. Musculoskeletal: Negative. Skin: Negative. Neurological: Negative. Psychiatric/Behavioral: Negative. Endocrine: Endocrine negative BP 128/84 (BP Location: Right arm, Patient Position: Sitting, BP CUFF SIZE: Adult Medium) | Pulse 74 | Temp 36.7 C (98.1 F) (Oral) | Resp 16 | Ht 5' 6" (1.676 m) | Wt 201 lb 1.6 oz (91.2 kg) | LMP 06/24/2020 (Exact Date) | BMI 32.46 kg/m Pregravid BMI: Could not be calculated [...] estrogen effect. Normal support. Vaginal discharge found. No lesions in the vagina. , +vaginal discharge Cervix: Normal cervix. No lesion. No tenderness and no discharge present. Uterus: Uterus is normal size, normal contour, normal position and non-tender. Normal uterus Adnexa: Right adnexa without tenderness, ovary enlargement or mass. Left adnexa without tenderness, ovary enlargement or mass. Normal left adnexa and normal right adnexa Assessment/Plan Return to clinic in 6 weeks. Other general counseling and advice for contraceptive management (primary encounter diagnosis) Comment: none Plan: as needed mgmt Vaginal discharge Comment: reports Plan: GC & CHLAMYDIA AMPLIFIED ASSAY, GALV ONLY - VAGINAL PATHOGENS BY NUCLEIC ACID TESTING This visit did not involve counseling and coordination that comprised more than 50% of the visit time BILLY Casanova 07/09/2020 8:30 AM . STRIAL HYGENIST documented in this encounter Plan of Treatment Date Type Specialty Care Team Description 08/20/2020 Office Visit [facility]ell[facility] Bam Caballero [facility] [address], [place] [address] [phone] Name Type Priority Associated Diagnoses Date/Ti me GC & CHLAMYDIA AMPLIFIED LAB Routine Vaginal discharg e 07/09/2020 8:40 AM INDUSTRIAL HYGENIST ASSAY GALV ONLY - VAGINAL LAB Routine Vaginal discharge 8:40 AM INDUSTRIAL HYGENIST PATHOGENS BY NUCLEIC ACID TESTING Health Maintenance Due Date Last Done Comments [...] filedocumented in this encounter Visit Diagnoses Diagnosis Other general counseling and advice for contraceptive management - Primary Vaginal discharge Leukorrhea, not specified as infective documented in this encounter Insurance Payer Benefit Plan Subscriber ID Effective Phone Address Typ e / Group Dates [facility] [id number] 2019-Prese [phone] Medicaid [place]OMEN nt 00 [id number] [place] [address] documented as of this encounter
--- OUTSIDE RECORDS SUMMARY | 2020-07-18 20:03 | XMS REPORT | Summary of Care ---
:1995 Author Organization [facility] - Health Address [address] [place] [address] Care Team Providers Name Role Phone Ada Harleen [facility] Primary Care Provider Encounter Details Date Type Department Care Team Description 05/27/2020 Orders Only [facility] Doctor Unassigned, No [address] [facility] [place] [address] [address] [place] [address] Allergies No Known Allergiesdocumented as of this encounter (statuses as of 07/07/2020) Medications Medication Sig Dispensed Refills Start Date End Date Status metroNIDAZOLE 500 mg Take 1 tablet by 14 tablet 0 09/05/2019 Active tabletIndications: BV mouth 2 (two) (bacterial vaginosis) times daily. documented as of this encounter (statuses as of 07/07/2020) Active Problems Problem Noted Date Need for prophylactic vaccination and inoculation agai nst influenza 05/13/2020 Recurrent boils 01/24/2020 Concussion 09/04/2019 Overview: 08/14/2019-reports she sees a dr, lorraine borjas, and has a [facility] provider that she see. Vaginal discharge 09/04/2019 Screening examination for STD (sexually transmitted di sease) 07/17/2019 BV (bacterial vaginosis) 08/20/2015 Contraceptive management 08/20/2015 Lump or mass in breast 04/21/2015 LAD (lymphadenopathy), inguinal 04/21/2015 Obesity (BMI 30-39.9) 08/06/2014 Overview: ICD10 Diagnosis Term Bed Rubber Utility documented as of this encounter (statuses as of 07/07/2020) Resolved Problems Problem Noted Date Resolved Date [...] high-risk 02/04/2014 02/04/2014 Overview: ICD10 Diagnosis Term Bed Rubber Utility Supervision of other high-risk 02/04/2014 02/18/2014 Overview: ICD10 Diagnosis Term Bed Rubber Utility Group B Streptococcus carrier, antepartum 01/27/2014 02/18/2014 Overview: susceptibility pending; will need ppx du ring labor. Threatened premature labor 01/23/2014 02/17/2014 Supervision of normal first 01/23/2014 UTI (urinary tract infection) 01/14/2014 02/17/2014 Overview: Patient went to [facility] ER; for headache. UA [...] assess significance of these findings. Beta hcg- 04764.00. Ok per Dr. Dooley to repeat USG Immune to varicella 07/09/2013 02/17/2014 Rubella immune 07/08/2013 02/17/2014 Generalized headaches 07/01/2013 09/26/2013 BV (bacterial vaginosis) 05/14/2013 06/28/2013 Straining during bowel movements 01/07/2013 013 Abdominal pain, epigastric 01/07/2013 06/28/2013 Leukorrhea 10/31/2012 06/28/2013 Lump or mass in breast 10/04/2012 07/01/2013 documented as of this encounter (statuses as of 07/07/2020) Immunizations Name Administration Dates Next Due Influenza [...] with No / Unsure 05/13/2020 9:14 AM DIESEL MAINTENANCE ELECTRICIAN someone who was confirmed or suspected to [...] Name Priority Date/Time Associated Diagnosis Comme nts AUTHORIZATION FOR RELEASE Routine 05/27/2020 12:01 AM OF PHI DIESEL MAINTENANCE ELECTRICIAN documented in this encounter Results Not on filedocumented in this encounter Insurance Payer Benefit Plan Subscriber ID Effective Phone Address Typ e / Group Dates [facility] [id number] 2019-Prese [phone] Medicaid WOMEN nt [address] [place] [address] documented as of this encounter
--- OUTSIDE RECORDS SUMMARY | 2020-07-18 20:03 | XMS REPORT | Summary of Care ---
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 Encounter Details Date Type Department Care Team Description 07/09/2020 Office Visit [facility]- Marlen Caballero Ot er general counseling and advice for contraceptive management (Primary Dx); BILLY Stockton Vaginal discharge [address] [facility] [address] [place], [place] [address] [phone] Allergies No Known Allergiesdocumented as of this [...] (BMI 30-39.9) 08/06/2014 Overview: ICD10 Diagnosis Term Receiver Setter Utility documented as of this encounter (statuses [...] high-risk 02/04/2014 02/04/2014 Overview: ICD10 Diagnosis Term Receiver Setter Utility Supervision of other high-risk 02/04/2014 02/18/2014 Overview: ICD10 Diagnosis Term Receiver Setter Utility Group B Streptococcus carrier, antepartum 01/27/2014 02/18/2014 Overview: susceptibility pending; will need ppx du ring labor. Threatened premature labor 01/23/2014 02/17/2014 Supervision of normal first 01/23/2014 UTI (urinary tract infection) 01/14/2014 02/17/2014 Overview: Patient went to [facility] ER; for headache. UA showed [...] assess significance of these findings. Beta hcg- 85104.00. Ok per Dr. Dooley to repeat USG [...] with No / Unsure 07/09/2020 8:18 AM HYDROGEN POWER PLANT MANAGER someone who was confirmed or suspected to have Coronavirus / COVID-19? documented as of this encounter Last Filed Vital Signs Vital Sign Reading Time Taken Comments Blood Pressure 128/84 07/09/2020 8:18 AM HYDROGEN POWER PLANT MANAGER Pulse 74 07/09/2020 8:18 AM HYDROGEN POWER PLANT MANAGER Temperature 36.7 C (98.1 F) 07/09/2020 8:18 AM HYDROGEN POWER PLANT MANAGER Respiratory Rate 16 07/09/2020 8:18 AM HYDROGEN POWER PLANT MANAGER Oxygen Saturation - - Inhaled Oxygen Concentration - - Weight 91.2 kg (201 lb 1.6 oz) 07/09/2020 8:18 AM HYDROGEN POWER PLANT MANAGER Height 167.6 cm (5' 6") 07/09/2020 8:18 AM HYDROGEN POWER PLANT MANAGER Body Mass Index 32.46 07/09/2020 8:18 AM HYDROGEN POWER PLANT MANAGER documented in this encounter Progress Notes Marlen Caballero, WHHARISHP - 07/09/2020 8:00 AM CST Chief complaint: Chief Complaint Patient 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 OGEN POWER PLANT MANAGER documented in this encounter Plan of Treatment Date Type Specialty Care Team Description 08/20/2020 Office Visit [facility]ell[facility] Bam Caballero [facility] [address] [place], [place] [address] [phone] Name Type Priority Associated Diagnoses Order S toddule GC & CHLAMYDIA AMPLIFIED ASSAY LAB Routine Vaginal di scharge Ordered: 07/09/2020 GALV ONLY - VAGINAL PATHOGENS LAB Routine Vaginal dis charge Ordered: 07/09/2020 BY NUCLEIC ACID TESTING Health Maintenance Due [...] Phone Address Typ e / Group Dates [facility] [id number] 2019-Prese [phone] Medicaid WOMEN nt 00 [id number] [place] [address] documented as of this encounter
--- OUTSIDE RECORDS SUMMARY | 2020-07-18 20:03 | XMS REPORT | Summary of Care ---
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- Marlen Caballero Ot er general counseling and advice for contraceptive management (Primary Dx); BILLY Stockton Vaginal discharge 110[address] [facility] [address] [place], [place] [address] [phone] Allergies No Known Allergiesdocumented as of this [...] a dr, lorraine borjas, and has a [facility] provider that she see. Vaginal discharge 09/04/2019 Screening examination for STD (sexually transmitted di sease) 07/17/2019 BV (bacterial vaginosis) 08/20/2015 Contraceptive management 08/20/2015 Lump or mass in breast 04/21/2015 LAD (lymphadenopathy), inguinal 04/21/2015 Obesity (BMI 30-39.9) 08/06/2014 Overview: ICD10 Diagnosis Term Supervisor Maple Products Utility documented as of this encounter (statuses [...] high-risk 02/04/2014 02/04/2014 Overview: ICD10 Diagnosis Term Supervisor [employer] Utility Supervision of other high-risk 02/04/2014 02/18/2014 Overview: ICD10 Diagnosis Term Supervisor Maple [employer] Utility Group B Streptococcus carrier, antepartum 01/27/2014 02/18/2014 Overview: susceptibility pending; will need ppx du ring labor. Threatened premature labor 01/23/2014 02/17/2014 Supervision of normal first 01/23/2014 UTI (urinary tract infection) 01/14/2014 02/17/2014 Overview: Patient went to [facility] ER; for headache. UA showed 1+ [...] assess significance of these findings. Beta hcg- 92819.00. Ok per Dr. Dooley to repeat USG [...] with No / Unsure 07/09/2020 8:18 AM HOME IMPROVEMENT INSTALLER someone who was confirmed or suspected to have Coronavirus / COVID-19? documented as of this encounter Last Filed Vital Signs Vital Sign Reading Time Taken Comments Blood Pressure 128/84 07/09/2020 8:18 AM HOME IMPROVEMENT INSTALLER Pulse 74 07/09/2020 8:18 AM HOME IMPROVEMENT INSTALLER Temperature 36.7 C (98.1 F) 07/09/2020 8:18 AM HOME IMPROVEMENT INSTALLER Respiratory Rate 16 07/09/2020 8:18 AM HOME IMPROVEMENT INSTALLER Oxygen Saturation - - Inhaled Oxygen Concentration - - Weight 91.2 kg (201 lb 1.6 oz) 07/09/2020 8:18 AM HOME IMPROVEMENT INSTALLER Height 167.6 cm (5' 6") 07/09/2020 8:18 AM HOME IMPROVEMENT INSTALLER Body Mass Index 32.46 07/09/2020 8:18 AM HOME IMPROVEMENT INSTALLER documented in this encounter Progress Notes Marlen Caballero, WHHARISHP - 07/09/2020 8:00 AM CST Chief complaint: Chief Complaint Patient 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 IMPROVEMENT INSTALLER documented in this encounter Plan of Treatment Name Type Priority Associated Diagnoses Order S toddualejandro GC & CHLAMYDIA AMPLIFIED ASSAY LAB Routine [...] Address Typ e / Group Dates [facility] [id number] 2019-Prese [phone] Medicaid WOMEN nt [address] [place] [address] documented as of this encounter
--- OUTSIDE RECORDS SUMMARY | 2020-07-18 20:03 | XMS REPORT | Summary of Care ---
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 Vaginal discharge 09/04/2019 Screening examination for STD (sexually transmitted di sease) 07/17/2019 BV (bacterial vaginosis) 08/20/2015 Contraceptive management 08/20/2015 Lump or mass in breast 04/21/2015 LAD (lymphadenopathy), inguinal 04/21/2015 Obesity (BMI 30-39.9) 08/06/2014 Overview: ICD10 Diagnosis Term Acting Teacher Utility documented as of this encounter (statuses [...] high-risk 02/04/2014 02/04/2014 Overview: ICD10 Diagnosis Term Acting Teacher Utility Supervision of other high-risk 02/04/2014 02/18/2014 Overview: ICD10 Diagnosis Term Acting Teacher Utility Group B Streptococcus carrier, antepartum 01/27/2014 02/18/2014 Overview: susceptibility pending; will need ppx du ring labor. Threatened premature labor 01/23/2014 02/17/2014 Supervision of normal first 01/23/2014 UTI (urinary tract infection) 01/14/2014 02/17/2014 Overview: Patient went to [facility] ER; for headache. UA showed 1+ leuk, [...] assess significance of these findings. Beta hcg- 39762.00. Ok per Dr. Dooley to repeat USG [...] with No / Unsure 07/09/2020 8:18 AM FULL STACK DEVELOPER someone who was confirmed or suspected to have Coronavirus / COVID-19? documented as of this encounter Last Filed Vital Signs Vital Sign Reading Time Taken Comments Blood Pressure 128/84 07/09/2020 8:18 AM FULL STACK DEVELOPER Pulse 74 07/09/2020 8:18 AM FULL STACK DEVELOPER Temperature 36.7 C (98.1 F) 07/09/2020 8:18 AM FULL STACK DEVELOPER Respiratory Rate 16 07/09/2020 8:18 AM FULL STACK DEVELOPER Oxygen Saturation - - Inhaled Oxygen Concentration - - Weight 91.2 kg (201 lb 1.6 oz) 07/09/2020 8:18 AM FULL STACK DEVELOPER Height 167.6 cm (5' 6") 07/09/2020 8:18 AM FULL STACK DEVELOPER Body Mass Index 32.46 07/09/2020 8:18 AM FULL STACK DEVELOPER documented in this encounter Progress Notes Marlen Caballero, WHHARISHP - 07/09/2020 8:00 AM CST Chief complaint: Chief Complaint Patient 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 STACK DEVELOPER documented in this encounter Plan of Treatment [...] Address Typ e / Group Dates [facility] [id number] 2019-Prese [phone] Medicaid WOMEN nt [address] [place] [address] documented as of this encounter
--- OUTSIDE RECORDS SUMMARY | 2020-07-18 20:04 | XMS REPORT | Summary of Care ---
:1995 Author Organization [facility] Address [address] [place] [id number] Care Team Providers Name Role Phone Harleen Caballero [facility] Primary Care Provider Reason for Visit Reason Comments BACTERIAL VAGINOSIS Encounter Details Date Type Department Care Team Description 07/13/2020 Telephone [facility]- Marlen Caballero, BACTERIAL VAGINOSIS [facility] [address] [facility] [address] [place] [address] [address] [place] [address] [phone] Allergies No Known Allergiesdocumented as of this encounter (statuses as of 07/13/2020) Medications Medication Sig Dispensed Refills Start Date End Date Status metroNIDAZOLE 500 mg Take 1 tablet by 14 tablet 0 09/05/2019 Active tabletIndications: BV mouth 2 (two) (bacterial vaginosis) times daily. metroNIDAZOLE 0.75 % Insert 1 70 g 24 07/13/2020 Active vaginal Applicator into gelIndications: BV vagina at bedtime. (bacterial vaginosis) Twice weekly for 3-6 months documented as of this encounter (statuses as of 07/13/2020) Active Problems Problem Noted Date Other general counseling and advice for contraceptive management 07/09/2020 Need for prophylactic vaccination and inoculation agai nst influenza 05/13/2020 Recurrent boils 01/24/2020 Concussion 09/04/2019 Overview: 08/14/2019-reports she sees a dr, lorraine borjas, and has a [facility] provider that she see. Vaginal discharge 09/04/2019 Screening examination for STD (sexually transmitted di sease) 07/17/2019 BV (bacterial vaginosis) 08/20/2015 Contraceptive management 08/20/2015 Lump or mass in breast 04/21/2015 LAD (lymphadenopathy), inguinal 04/21/2015 Obesity (BMI 30-39.9) 08/06/2014 Overview: ICD10 Diagnosis Term Science Education Professor Utility documented as of this encounter (statuses as of 07/13/2020) Resolved Problems Problem Noted Date Resolved Date [...] high-risk 02/04/2014 02/04/2014 Overview: ICD10 Diagnosis Term Science Education Professor Utility Supervision of other high-risk 02/04/2014 02/18/2014 Overview: ICD10 Diagnosis Term Science Education Professor Utility Group B Streptococcus carrier, antepartum 01/27/2014 02/18/2014 Overview: susceptibility pending; will need ppx du ring labor. Threatened premature labor 01/23/2014 02/17/2014 Supervision of normal first 01/23/2014 UTI (urinary tract infection) 01/14/2014 02/17/2014 Overview: Patient went to [facility] ER; for headache. UA showed 1+ [...] Vaginal spotting 07/16/2013 09/26/2013 Overview: Medical records. [place]- 07/12/13. Single IUP measuring 6 weeks 0 day. FHT= 106. Correlation with beta hcg levels is also needed to assess significance of these findings. Beta hcg- 33027.00. Ok per Dr. Dooley to repeat USG Immune to varicella 07/09/2013 02/17/2014 Rubella immune 07/08/2013 02/17/2014 Generalized headaches 07/01/2013 09/26/2013 BV (bacterial vaginosis) 05/14/2013 06/28/2013 Straining during bowel movements 01/07/2013 013 Abdominal pain, epigastric 01/07/2013 06/28/2013 Leukorrhea 10/31/2012 06/28/2013 Lump or mass in breast 10/04/2012 07/01/2013 documented as of this encounter (statuses as of 07/13/2020) Immunizations Name Administration Dates Next Due Influenza [...] with No / Unsure 07/09/2020 8:18 AM CANTILEVER CRANE OPERATOR someone who was confirmed or suspected to have Coronavirus / COVID-19? documented as of this encounter Last Filed Vital Signs Not on filedocumented in this encounter Miscellaneous Notes Telephone Encounter - Deniz Manuel RN - 07/13/2020 11:59 AM CSTCalled patient, notified positive for BV. Educated patient on antibiotics, daily probiotics, and BV prevention measures. Pt verbalized understanding. DENIZ MANUEL RN 07/13/2020 11:59 AM ILEVER CRANE OPERATOR Telephone Encounter - Marlen Caballero [facility] - 07/13/2020 8:40 AM CANTILEVER CRANE OPERATOR Please notify the patient her labs are indicative of BV, meds have been sent to her pharmacy on file. Please have her complete the entire course as prescribed. BILLY Casanova 07/13/2020 8:41 AM ILEVER CRANE OPERATOR documented in this encounter Plan of Treatment Date Type Specialty Care Team Description 08/20/2020 Office Visit [facility] Bam Caballero [facility] [address] [place], [place] [address] [phone] Health Maintenance Due Date Last Done Comments [...] Address Typ e / Group Dates [facility] [id number] 2019-Prese [phone] Medicaid WOMEN nt [address] [place] [address] documented as of this encounter
--- OUTSIDE RECORDS SUMMARY | 2020-07-18 20:04 | XMS REPORT | Summary of Care ---
:1995 Author Organization [facility] Address [address] [place] [id number] Care Team Providers Name Role Phone Harleen Caballero [facility] Primary Care Provider Reason for Visit Reason Comments BACTERIAL VAGINOSIS Encounter Details Date Type Department Care Team Description 07/13/2020 Telephone [facility]- Marlen Caballero, BACTERIAL VAGINOSIS [facility] [address] [facility] [address] [place] [address] [address] [place] [address] [phone] Allergies No Known Allergiesdocumented as of this [...] dr, lorraine borjas, and has a [facility] provider that she see. Vaginal discharge 09/04/2019 Screening examination for STD (sexually transmitted di sease) 07/17/2019 BV (bacterial vaginosis) 08/20/2015 Contraceptive management 08/20/2015 Lump or mass in breast 04/21/2015 LAD (lymphadenopathy), inguinal 04/21/2015 Obesity (BMI 30-39.9) 08/06/2014 Overview: ICD10 Diagnosis Term Environmental Field Services Technician Utility documented as of this encounter (statuses [...] high-risk 02/04/2014 02/04/2014 Overview: ICD10 Diagnosis Term Environmental Field Services Technician Utility Supervision of other high-risk 02/04/2014 02/18/2014 Overview: ICD10 Diagnosis Term Environmental Field Services Technician Utility Group B Streptococcus carrier, antepartum 01/27/2014 02/18/2014 Overview: susceptibility pending; will need ppx du ring labor. Threatened premature labor 01/23/2014 02/17/2014 Supervision of normal first 01/23/2014 UTI (urinary tract infection) 01/14/2014 02/17/2014 Overview: Patient went to [facility] ER; for headache. UA showed 1+ [...] Vaginal spotting 07/16/2013 09/26/2013 Overview: Medical records. [place]- 07/12/13. Single IUP measuring 6 weeks 0 day. FHT= 106. Correlation with beta hcg levels is also needed to assess significance of these findings. Beta hcg- 39391.00. Ok per Dr. Dooley to repeat USG [...] with No / Unsure 07/09/2020 8:18 AM SUPERVISOR PHOTOCOMPOSITION someone who was confirmed or suspected to have Coronavirus / COVID-19? documented as of this encounter Last Filed Vital Signs Not on filedocumented in this encounter Miscellaneous Notes Telephone Encounter - Marlen Caballero [facility] - 07/13/2020 8:40 AM SUPERVISOR PHOTOCOMPOSITION Please notify the patient her labs are indicative of BV, meds have been sent to her pharmacy on file. Please have her complete the entire course as prescribed. BILLY Casanova 07/13/2020 8:41 AM RVISOR PHOTOCOMPOSITION documented in this encounter Plan of Treatment Date Type Specialty Care Team Description 08/20/2020 Office Visit [facility] Bam Caballero [facility] [address] [place] [address] [phone] Health Maintenance Due Date Last Done Comments [...] Phone Address Typ e / Group Dates [facility] [id number] 2019-Prese [phone] Medicaid WOMEN nt [address] [place] [address] documented as of this encounter
[2020-07-18 21:34] LABS: Urine Blood NEGATIVE (NEG); Urine Glucose NEGATIVE (NEG); Urine Protein NEGATIVE (NEG); Urine Specific Gravity >1.030 (1.005-1.030); Urine pH 6.5 (5.0-7.0)
[2020-07-18] MEDS ORDERED: ONDANSETRON 4 MG (ODT) TAB ONE (22:33)
[2020-07-18 23:01] LABS: SARS-COV-2 RT PCR NEGATIVE (NEGATIVE)
[2020-07-18 23:18] LABS: ALT/SGPT 23 U/L (12-78); AST/SGOT 21 U/L (15-37); Albumin 3.6 g/dL (3.4-5.0); Alkaline Phosphatase 71 U/L (45-117); Amylase 67 U/L (25-115); Bilirubin Direct < 0.1 mg/dL (0-0.2); Bilirubin Total 0.2 mg/dL (0.2-1.0); Lipase 115 U/L (73-393); Protein, Total 7.6 g/dL (6.4-8.2)
[2020-07-19 01:42] LABS: Absolute Lymphocytes (CBC) 2.5 K/uL (0.7-4.9); Basophils % 0.4 % (0-1.3); Hematocrit 36.6 % (36.0-45.0); Lymphocytes % 23.1 % (15.3-44.8); MPV 10.5 fL (7.6-11.3); RBC Red Blood Cell Count 5.06 M/uL (3.86-4.86)
--- NOTE | 2020-07-19 01:54 | ER ---
Nurse's Notes [facility] Name: Kemar Ang Age: 25 yrs Sex: Female : 1995 Arrival Date: 07/18/2020 Time: 20:00 Bed 13 Private MD: Diagnosis: Generalized abdominal pain;Acute pharyngitis, unspecified;Diarrhea, unspecified;Urinary tract infection, site not specified Presentation: 07/18 20:19 Chief complaint: Patient states: sore throat, congestion, lizzy. ear pain x 2 days. ca1 Denies fever. Abdominal pain, dull, nausea and diarrhea started today. Coronavirus screen: Client denies travel out of the [place] in the last 14 days. congestion, runny nose, sore throat, Client presents with at least one sign or symptom that may indicate coronavirus-19. Standard/surgical mask placed on the client. Provider contacted for isolation considerations. Ebola Screen: Patient negative for fever greater than or equal to 101.5 degrees Fahrenheit, and additional compatible Ebola Virus Disease symptoms Patient denies exposure to infectious person. Patient denies travel to an Ebola-affected area in the 21 days before illness onset. No symptoms or risks identified at this time. Initial Sepsis Screen: Does the patient meet any 2 criteria? No. Patient's initial sepsis screen is negative. Does the patient have a suspected source of infection? No. Patient's initial sepsis screen is negative. Risk Assessment: Do you want to hurt yourself or someone else? Patient reports no desire to harm self or others. Onset of symptoms was July 18, 2020. 20:19 Method Of Arrival: Ambulatory ca1 20:19 Acuity: EDOUARD 3 ca1 20:22 Chief complaint:. ca1 Triage Assessment: 22:00 General: Appears in no apparent distress. Behavior is calm, cooperative, appropriate ll2 for age. 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 - Social history:: Smoking status: Patient reports the use of cigarette tobacco products, denies chronic smoking, but will smoke occasionally. Screenin:30 Abuse screen: Denies threats or abuse. Nutritional screening: No deficits noted. ll2 Tuberculosis screening: No symptoms or risk factors identified. Fall Risk None identified. Assessment: 21:30 General: Appears in no apparent distress. Behavior is calm, cooperative, appropriate ll2 for age. Pain: Complains of pain in throat. Neuro: Level of Consciousness is awake, alert, obeys commands, Oriented to person, place, time, situation. Cardiovascular: Patient's skin is warm and dry. Respiratory: Airway is patent Respiratory effort is even, unlabored, Respiratory pattern is regular, symmetrical, Breath sounds are clear. GI: No signs and/or symptoms were reported involving the gastrointestinal system. : No signs and/or symptoms were reported regarding the genitourinary system. EENT: Throat is clear. Derm: Skin is intact, is healthy with good turgor, Skin is pink, warm \T\ dry. Musculoskeletal: Circulation, motion, and sensation intact. Range of motion: intact in all extremities. 22:30 Reassessment: Patient and/or family updated on plan of care and expected duration. Pain ll2 level reassessed. Patient is alert, oriented x 3, equal unlabored respirations, skin warm/dry/pink. 23:30 Reassessment: Patient and/or family updated on plan of care and expected duration. Pain ll2 level reassessed. Patient is alert, oriented x 3, equal unlabored respirations, skin warm/dry/pink. 07/19 00:30 Reassessment: Patient and/or family updated on plan of care and expected duration. Pain ll2 level reassessed. Patient is alert, oriented x 3, equal unlabored respirations, skin warm/dry/pink. 01:30 Reassessment: Patient and/or family updated on plan of care and expected duration. Pain ll2 level reassessed. Patient is alert, oriented x 3, equal unlabored respirations, skin warm/dry/pink. Vital Signs: 07/18 20:19 BP 131 / 83; Pulse 80; Resp 16 S; Temp 97.8(TE); Pulse Ox 100% on R/A; Weight 90.72 kg ca1 (R); Height 5 ft. 7 in. (170.18 cm) (R); Pain 01/16; 21:30 BP 132 / 84; Pulse 81; Resp 16; Pulse Ox 98% on R/A; ll2 20:19 Body Mass Index 31.32 (90.72 kg, 170.18 cm) ca1 ED Course: 02:30 Patient has correct armband on for positive identification. Bed in low position. Call 2 light in reach. 20:00 Patient arrived in ED. am2 20:21 Triage completed. ca1 20:21 Arm band placed on right wrist. [facility] 21:24 Aram Claudio MD is Attending Physician. [facility] 21:24 Miracle Vincent, IMELDA is Primary Nurse. ll2 21:30 No provider procedures requiring assistance completed. ll2 07/19 00:17 CT Abd/Pelvis - Without Contrast In Process Unspecified. EDMS 01:27 Amylase, Serum Sent. ll2 01:27 Hepatic Function Sent. ll2 01:27 Lipase Sent. ll2 01:29 Patient did not have IV access during this emergency room visit. ll2 02:18 Primary Nurse role handed off by Miracle Vincent RN 1 Administered Medications: 01:55 Drug: KeFLEX 500 mg Route: PO; 2 Outcome: 01:53 Discharge ordered by . 7 02:06 Patient left the ED. ll2 02:19 Patient left the ED. lp1 02:20 Discharged to home ambulatory. ll2 02:20 Condition: stable ll2 02:20 Discharge instructions given to patient, Instructed on discharge instructions, follow up and referral plans. Demonstrated understanding of instructions, follow-up care, medications, Prescriptions given X 1. 02:20 Prescriptions given X 2. 2 Signatures: Dispatcher [employer] EDCT Manda Greer RN RN 1 Estelita Lowery 2 Radha Owens RN RN ca1 Miracle Vincent RN RN 2 Aram Claudio MD MD [facility] Corrections: (The following items were deleted from the chart) 07/18 20:23 20:19 Chief complaint: Patient states: sore throat, congestion, lizzy. ear pain x 2 days. ca1 Denies fever. ca1 :23 20:19 Acuity: EDOUARD 4 ca1 ca1
--- NOTE | 2020-07-19 01:54 | EDPHYS ---
Physician Documentation [facility] Name: Kemar Ang Age: 25 yrs Sex: Female : 1995 Arrival Date: 07/18/2020 Time: 20:00 Bed 13 Private MD: ED Physician Aram Claudio HPI: 07/18 22:20 This 25 yrs old Black Female presents to ER via Ambulatory with complaints of Sore mh7 Throat, Abdominal Pain. 22:20 The patient presents with sore throat. The patient describes throat pain as constant. mh7 Onset: The symptoms/episode began/occurred 2 day(s) ago. Severity of symptoms: At their worst the symptoms were moderate, 2 day(s) ago, in the emergency department the symptoms have improved, mildly. Modifying factors: The symptoms are alleviated by nothing, the symptoms are aggravated by nothing, Patient's oral intake status: good Denies contact with similarly ill indivduals. Associated signs and symptoms: Pertinent positives: cough, diarrhea, earache, nausea, rhinorrhea, abdominal pain today, Pertinent negatives chest pain, chills, dysphagia, flu-like symptoms, headache, shortness of breath, vomiting. 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 - Social history:: Smoking status: Patient reports the use of cigarette tobacco products, denies chronic smoking, but will smoke occasionally. ROS: 22:20 Constitutional: Negative for fever, chills, and weight loss, Eyes: Negative for injury, mh7 pain, redness, and discharge, Neck: Negative for injury, pain, and swelling, Cardiovascular: Negative for chest pain, palpitations, and edema, Back: Negative for injury and pain, : Negative for injury, bleeding, discharge, and swelling, MS/Extremity: Negative for injury and deformity, Skin: Negative for injury, rash, and discoloration, Neuro: Negative for headache, weakness, numbness, tingling, and seizure, Psych: Negative for depression, anxiety, suicide ideation, homicidal ideation, and hallucinations, Allergy/Immunology: Negative for hives, rash, and allergies, Endocrine: Negative for neck swelling, polydipsia, polyuria, polyphagia, and marked weight changes, Hematologic/Lymphatic: Negative for swollen nodes, abnormal bleeding, and unusual bruising. Exam: 22:20 Constitutional: This is a well developed, well nourished patient who is awake, alert, mh7 and in no acute distress. Head/Face: Normocephalic, atraumatic. Eyes: Pupils equal round and reactive to light, extra-ocular motions intact. Lids and lashes normal. Conjunctiva and sclera are non-icteric and not injected. Cornea within normal limits. Periorbital areas with no swelling, redness, or edema. ENT: Nares patent. No nasal discharge, no septal abnormalities noted. Tympanic membranes are normal and external auditory canals are clear. Oropharynx with no redness, swelling, or masses, exudates, or evidence of obstruction, uvula midline. Mucous membranes moist. Neck: Trachea midline, no thyromegaly or masses palpated, and no cervical lymphadenopathy. Supple, full range of motion without nuchal rigidity, or vertebral point tenderness. No Meningismus. Chest/axilla: Normal chest wall appearance and motion. Nontender with no deformity. No lesions are appreciated. Cardiovascular: Regular rate and rhythm with a normal S1 and S2. No gallops, murmurs, or rubs. Normal PMI, no JVD. No pulse deficits. Respiratory: Lungs have equal breath sounds bilaterally, clear to auscultation and percussion. No rales, rhonchi or wheezes noted. No increased work of breathing, no retractions or nasal flaring. 22:20 Back: No spinal tenderness. No costovertebral tenderness. Full range of motion. Skin: Warm, dry with normal turgor. Normal color with no rashes, no lesions, and no evidence of cellulitis. MS/ Extremity: Pulses equal, no cyanosis. Neurovascular intact. Full, normal range of motion. Neuro: Awake and alert, GCS 15, oriented to person, place, time, and situation. Cranial nerves II-XII grossly intact. Motor strength 5/5 in all extremities. Sensory grossly intact. Cerebellar exam normal. Normal gait. Psych: Awake, alert, with orientation to person, place and time. Behavior, mood, and affect are within normal limits. 22:20 Abdomen/GI: Inspection: abdomen appears normal, Bowel sounds: normal, in all quadrants, Palpation: mild abdominal tenderness, in all quadrants, Rectal exam: the exam is deferred, because of patient request, Indicators: McBurney's point is not tender, Branham's sign is negative, Rovsing's sign is negative, Obturator sign is negative, Psoas sign is negative, Liver: no appreciated palpable abnormalities, Hernia: not appreciated. Vital Signs: 20:19 BP 131 / 83; Pulse 80; Resp 16 S; Temp 97.8(TE); Pulse Ox 100% on R/A; Weight 90.72 kg ca1 (R); Height 5 ft. 7 in. (170.18 cm) (R); Pain 710; 21:30 BP 132 / 84; Pulse 81; Resp 16; Pulse Ox 98% on R/A; ll2 20:19 Body Mass Index 31.32 (90.72 kg, 170.18 cm) ca1 MDM: 07/19 01:49 Differential diagnosis: bronchitis, pharyngitis, tonsillitis, upper respiratory mh7 infection, viral syndrome UTI, Abdominal Pain, gastroenteritis. Data reviewed: vital signs, nurses notes, lab test result(s), CBC, electrolytes, urinalysis, UPT: radiologic studies, CT scan. Data interpreted: Pulse oximetry: on room air is 100 %. Interpretation: normal. Counseling: I had a detailed discussion with the patient and/or guardian regarding: the historical points, exam findings, and any diagnostic results supporting the discharge/admit diagnosis, lab results, radiology results, the need for outpatient follow up, to return to the emergency department if symptoms worsen or persist or if there are any questions or concerns that arise at home. Response to treatment: the patient's symptoms have markedly improved after treatment. 01:53 Patient medically screened. mh7 07/18 21:27 Order name: Urine Dipstick--Ancillary (enter results); Complete Time: 22:42 sp 07/18 21:27 Order name: Test Urine - POC; Complete Time: 22:42 sp 07/18 21:35 Order name: Amylase, Serum ll2 07/18 21:35 Order name: Hepatic Function ll2 07/18 21:35 Order name: Lipase ll2 07/18 21:36 Order name: Amylase; Complete Time: 00:07 [facility] 07/18 21:36 Order name: Liver (Hepatic) Function; Complete Time: 00:07 [facility] 07/18 21:36 Order name: Lipase; Complete Time: 00:07 [facility] 07/18 23:02 Order name: COVID-19/FLU A+B; Complete Time: 23:08 [facility] 07/18 23:08 Order name: Rapid Strep; Complete Time: 00:07 [facility] 07/18 23:50 Order name: Throat Culture [facility] 07/19 01:16 Order name: CBC with Diff; Complete Time: 01:46 [facility] 07/18 23:17 Order name: CT Abd/Pelvis - Without Contrast [facility] Administered Medications: 01:55 Drug: KeFLEX 500 mg Route: PO; ll2 Disposition: 07/19/20 01:53 Discharged to Home. Impression: Generalized abdominal pain, Acute pharyngitis, unspecified, Diarrhea, unspecified, Urinary tract infection, site not specified. - Condition is Stable. - Discharge Instructions: Abdominal Pain, Adult, Diarrhea, Adult, Pharyngitis, Urinary Tract Infection, Adult, [id number]. - Prescriptions for Bentyl 20 mg Oral Tablet - take 1 tablet by ORAL route every 6 hours As needed; 20 tablet. Keflex 500 mg Oral Capsule - take 1 capsule by ORAL route every 6 hours for 10 days; 40 capsule. - Work release form, Medication Reconciliation Form, Thank You Letter, Antibiotic Education, Prescription Opioid Use form. - Follow up: Private Physician; When: 1 - 2 days; Reason: Worsening of condition, Recheck today's complaints, Continuance of care, Re-evaluation by your physician. - Problem is new. - Symptoms have improved. Signatures: Dispatcher [employer] [facility] Manda Greer RN RN lp1 Radha Owens RN RN ca1 Miracle Vincent RN RN ll2 Aram Claudio MD MD 7 Corrections: (The following items were deleted from the chart) 07/18 22:08 21:25 CORONAVIRUS+MR.LAB.BRZ ordered. [facility] 22:09 21:25 Influenza Screen (A \T\ B)+BA.LAB.BRZ ordered. [facility] 07/19 02:06 01:53 07/19/2020 01:53 Discharged to Home. Impression: Generalized abdominal pain; ll2 Acute pharyngitis, unspecified; Diarrhea, unspecified; Urinary tract infection, site not specified. Condition is Stable. Forms are Medication Reconciliation Form, Thank You Letter, Antibiotic Education, Prescription Opioid Use. Follow up: Private Physician; When: 1 - 2 days; Reason: Worsening of condition, Recheck today's complaints, Continuance of care, Re-evaluation by your physician. Problem is new. Symptoms have improved. 7 02:19 02:06 07/19/2020 01:53 Discharged to Home. Impression: Generalized abdominal pain; lp1 Acute pharyngitis, unspecified; Diarrhea, unspecified; Urinary tract infection, site not specified. Condition is Stable. Discharge Instructions: Abdominal Pain, Adult, Diarrhea, Adult, Pharyngitis, Urinary Tract Infection, Adult, Lune-so-Rabf. Prescriptions for Bentyl 20 mg Oral Tablet - take 1 tablet by ORAL route every 6 hours As needed; 20 tablet, Keflex 500 mg Oral Capsule - take 1 capsule by ORAL route every 6 hours for 10 days; 40 capsule. and Forms are Medication Reconciliation Form, Thank You Letter, Antibiotic Education, Prescription Opioid Use, Work release form. Follow up: Private Physician; When: 1 - 2 days; Reason: Worsening of condition, Recheck today's complaints, Continuance of care, Re-evaluation by your physician. Problem is new. Symptoms have improved. ll2
[2020-07-19] MEDS ORDERED: CEPHALEXIN 250 MG CAP ONE (02:06)
[2020-07-19 02:11] VITALS: BP 131/83; TEMP 97.8; O2SAT 100
--- NOTE | 2020-07-19 19:59 | RAD REPORT ---
EXAM DESCRIPTION: CT Abdomen and Pelvis Without Intravenous Contrast CLINICAL HISTORY: The patient is 25 years old and is Female; diarrhea;Abd pain TECHNIQUE: Axial computed tomography images of the abdomen and pelvis without intravenous contrast. Sagittal and coronal reformatted images were created and reviewed. This CT exam was performed usi ng one or more of the following dose reduction techniques: automated exposure control, adjustment o f the mA and/or kV according to patient size, and/or use of iterative reconstruction technique. DLP: 837 mGy*cm COMPARISON: None. FINDINGS: LUNG BASES: Lung bases are clear. HEART: Visualized heart is normal. ABDOMEN: LIVER: Unremarkable. GALLBLADDER AND BILE DUCTS: Unremarkable. No calcified stones. No ductal dilation. PANCREAS: Unremarkable. No ductal dilation. SPLEEN: Unremarkable. No splenomegaly. ADRENALS: Unremarkable. No mass. KIDNEYS AND URETERS: Unremarkable. No obstructing stones. No hydronephrosis. STOMACH AND BOWEL: Unremarkable. No obstruction. No mucosal thickening. PELVIS: APPENDIX: The appendix is seen and is within normal limits. BLADDER: Bladder is decompressed. No stones. REPRODUCTIVE: 2.7 cm left ovarian cyst. ABDOMEN and PELVIS: INTRAPERITONEAL SPACE: Unremarkable. No free air. No significant fluid collection. BONES/JOINTS: Small retrolisthesis of L4 on L5. No acute fracture. No dislocation. SOFT TISSUES: Fat-containing [employer] hernia. VASCULATURE: Multiple pelvic phleboliths. No abdominal aortic aneurysm. LYMPH NODES: Unremarkable. No enlarged lymph nodes. IMPRESSION: No acute abdominal or pelvic abnormality. 2.7 cm left ovarian cyst. No follow-up imaging is recommended. Reference: US recommendations based on Radiology 2010 Sep;256(3):943-54; CT/MR recommendations based on J Am Sergio Radiol 2013;10:675-681. Electronically signed by: Kolby Guzman DO 07/19/2020 12:29 AM RIGGER Due to temporary technical issues with the PACS/Fluency reporting system, reports are being signed by the in house radiologists without review as a courtesy to insure prompt reporting. The interpreting radiologist is fully responsible for the content of the report.
== END 2020-07-19 02:19 | disposition home or self-care (01) ==
LOC: ER 19:56
DX: N39.0 Urinary tract infection, site not specified (principal); Z20.822 Contact with and (suspected) exposure to COVID-19; R10.84 Generalized abdominal pain; R19.7 Diarrhea, unspecified; F17.210 Nicotine dependence, cigarettes, uncomplicated
CPT/HCPCS: 0240U; 36415; 74176; 80076; 81003; 81025; 82150; 83690; 85025; 87070; 87081; 99284

== ENCOUNTER 2020-09-09 17:16 | Emergency (ER) | payer SELFPAY ==
--- OUTSIDE RECORDS SUMMARY | 2020-09-09 17:20 | XMS REPORT | Continuity of Care Document ---
:1995 Author Organization [facility] t Address [address] [place] [address] Care Team Providers Name Role Phone Harleen Sanchez Attending Clinician Problems This patient has no known problems. Allergies, Adverse Reactions, Alerts This patient has no known allergies or adverse reactions. Medications This patient has no known medications. Procedures This patient has no known procedures. Encounters Start End Encounter Admission Attending Care Care Encounter Source Date/Time Date/Time Type Type Clinicians Facility Department ID 2020-08-04 2020-08-04 Telephone Ada RUST [id number] 00:00:00 00:00:00 Marlen Canseco STORE RECEIVER [id number] [facility] [id number] MATERNAL [id number] & CHILD 107 [facility] 2020-07-13 2020-07-13 Telephone Ada RUST [id number] 00:00:00 00:00:00 Marlen Canseco STORE RECEIVER [id number] [facility] [id number] MATERNAL [id number] & CHILD 107 [facility] Results This patient has no known results.
[2020-09-09 20:14] LABS: Urine Blood NEGATIVE (NEG); Urine Glucose NEGATIVE (NEG); Urine Protein NEGATIVE (NEG); Urine Specific Gravity 1.025 (1.005-1.030); Urine pH 6.5 (5.0-7.0)
[2020-09-09 20:24] LABS: Basophils % 0.9 % (0-1.3); Hematocrit 34.8 % (36.0-45.0); Lymphocytes % 21.7 % (15.3-44.8); MPV 9.6 fL (7.6-11.3); RBC Red Blood Cell Count 4.82 M/uL (3.86-4.86)
[2020-09-09 20:44] LABS: ALT/SGPT 31 U/L (12-78); AST/SGOT 17 U/L (15-37); Albumin 3.4 g/dL (3.4-5.0); Alkaline Phosphatase 72 U/L (45-117); BUN Blood Urea Nitrogen 13 mg/dL (7-18); Bicarbonate 27 mmol/L (21-32); Bilirubin Direct < 0.1 mg/dL (0-0.2); Bilirubin Total 0.1 mg/dL (0.2-1.0); Glucose Level 77 mg/dL (74-106); Lipase 107 U/L (73-393); Potassium 3.7 mmol/L (3.5-5.1); Protein, Total 7.5 g/dL (6.4-8.2); Sodium Level 141 mmol/L (136-145)
--- NOTE | 2020-09-09 20:47 | RAD REPORT ---
EXAM DESCRIPTION: CT - Abdomen Pelvis W Contrast - 09/09/2020 8:25 pm CLINICAL HISTORY: Abdominal pain COMPARISON: none. TECHNIQUE: Computed axial tomography of the abdomen pelvis was obtained. 100 cc Isovue-300 was admin istered intravenously. Oral contrast was not requested which limits evaluation of bowel. All CT scans are performed using dose optimization technique as appropriate and may include automated exposure control or mA/KV adjustment according to patient size. FINDINGS: The liver, spleen, pancreas, adrenal and kidneys appear unremarkable. There is no evidence of diverticulitis. Normal appendix. Small umbilical hernia. Small amount of free fluid in the pelvis may be physiologic IMPRESSION: No acute abnormality is displayed.
[2020-09-09 21:14] LABS: Urine Bacteria <20 /HPF (<20); Urine RBC NONE SEEN /HPF (NONE SEEN)
--- NOTE | 2020-09-09 23:29 | EDPHYS ---
Physician Documentation [facility] Name: Kemar Ang Age: 25 yrs Sex: Female : 1995 Arrival Date: 09/09/2020 Time: 17:18 Bed 30 Private MD: ED Physician HPI: 09/09 20:56 This 25 yrs old Black Female presents to ER via Ambulatory with complaints of Abdominal jmm Pain - low, Fever. 20:56 The patient presents with abdominal pain. Onset: The symptoms/episode began/occurred jmm gradually, 3 day(s) ago. The symptoms do not radiate. Associated signs and symptoms: Pertinent positives: fever. The symptoms are described as achy. Modifying factors: The symptoms are alleviated by nothing, the symptoms are aggravated by nothing. This is a 25 year old female with no chronic medical conditions that presents to the ED with complaints of lower abdominal pain, vaginal discharge. . Historical: - Allergies: 17:35 No Known Allergies; ll1 - PMHx: 17:35 None; ll1 - PSHx: 17:35 None; ll1 - Immunization history:: Flu vaccine is up to date. - Social history:: Smoking status: Patient reports the use of cigarette tobacco products, denies chronic smoking, but will smoke occasionally. ROS: 20:56 Constitutional: Negative for fever, chills, and weight loss, Cardiovascular: Negative jmm for chest pain, palpitations, and edema, Respiratory: Negative for shortness of breath, cough, wheezing, and pleuritic chest pain. 20:56 Abdomen/GI: Positive for abdominal pain. 20:56 All other systems are negative. Exam: 20:56 Constitutional: This is a well developed, well nourished patient who is awake, alert, jmm and in no acute distress. Head/Face: atraumatic. Eyes: EOMI, no conjunctival erythema appreciated ENT: Moist Mucus Membranes Neck: Trachea midline, Supple Chest/axilla: Normal chest wall appearance and motion. Cardiovascular: Regular rate and rhythm. No edema appreciated Respiratory: Normal respirations, no respiratory distress appreciated 20:56 Back: Normal ROM Skin: General appearance color normal MS/ Extremity: Moves all extremities, no obvious deformities appreciated, no edema noted to the lower extremities Neuro: Awake and alert, normal gait Psych: Behavior is normal, Mood is normal, Patient is cooperative and pleasant 20:56 Abdomen/GI: Inspection: abdomen appears normal, Bowel sounds: normal, Palpation: soft, mild abdominal tenderness, in the suprapubic area. Vital Signs: 17:32 BP 136 / 66; Pulse 87; Resp 17; Temp 98.8; Pulse Ox 100% ; Weight 87.54 kg; Height 5 ll1 ft. 7 in. (170.18 cm); Pain 7/10; 20:51 BP 130 / 75; Pulse 82; Resp 18; Pulse Ox 99% on R/A; wh 22:30 BP 118 / 78; Pulse 82; Resp 18; Pulse Ox 100% on R/A; wh 23:30 BP 101 / 61; Pulse 86; Resp 18; Pulse Ox 99% ; wh 17:32 Body Mass Index 30.23 (87.54 kg, 170.18 cm) ll1 MDM: 19:35 Patient medically screened. [facility] 23:26 Data reviewed: vital signs, nurses notes. Counseling: I had a detailed discussion with theron the patient and/or guardian regarding: the historical points, exam findings, and any diagnostic results supporting the discharge/admit diagnosis, lab results, radiology results, the need for outpatient follow up, to return to the emergency department if symptoms worsen or persist or if there are any questions or concerns that arise at home. ED course: Patient is alert and non toxic in appearance in the ED. Labs unremarkable. Patient is advised to follow up with pcp and otherwise given strict return precautions. Patient understood and agrees with the plan of care. . 09/09 19:25 Order name: Urine Culture 09/09 19:25 Order name: Urine Microscopic Only 09/09 19:28 Order name: Basic Metabolic Panel [facility] 09/09 19:28 Order name: CBC with Diff [facility] 09/09 19:28 Order name: Hepatic Function [facility] 09/09 19:28 Order name: Lipase [facility] 09/09 19:29 Order name: Basic Metabolic Panel; Complete Time: 20:45 [facility] 09/09 19:44 Order name: Urine Dipstick--Ancillary (enter results) [facility] 09/09 19:44 Order name: Urine --Ancillary (enter results) [facility] 09/09 20:14 Order name: Urine --Ancillary; Complete Time: 20:17 [facility] 09/09 20:14 Order name: Urine Dipstick-Ancillary; Complete Time: 20:17 [facility] 09/09 20:26 Order name: CBC with Automated Diff; Complete Time: 20:31 [facility] 09/09 20:44 Order name: Liver (Hepatic) Function; Complete Time: 20:45 [facility] 09/09 20:44 Order name: Lipase; Complete Time: 20:45 [facility] 09/09 19:23 Order name: Urine Dipstick-Ancillary (obtain specimen); Complete Time: 19:30 09/09 19:23 Order name: Urine Test (obtain specimen); Complete Time: 19:30 09/09 19:28 Order name: IV Saline Lock; Complete Time: 20:10 [facility] 09/09 19:28 Order name: Labs collected and sent; Complete Time: 20:10 [facility] 09/09 19:37 Order name: CT Abd/Pelvis - IV Contrast Only [facility] 09/09 20:49 Order name: CT; Complete Time: 20:53 [facility] 09/09 20:53 Order name: Pelvic Exam Setup; Complete Time: 21:17 [facility] 09/09 20:53 Order name: GC (GONORR/CHLAMYDIA) Probe [facility] 09/09 21:05 Order name: Wet Prep [facility] 09/09 21:15 Order name: Urine Microscopic Only; Complete Time: 21:16 [facility] 09/09 23:25 Order name: Wet Prep; Complete Time: 23:26 EDVT Administered Medications: No medications were administered Disposition: 09/09/20 23:29 Discharged to Home. Impression: Lower abdominal pain, unspecified. - Condition is Stable. - Discharge Instructions: Abdominal Pain, Adult. - Medication Reconciliation Form, Thank You Letter, Antibiotic Education, Prescription Opioid Use form. - Follow up: Private Physician; When: 2 - 3 days; Reason: Recheck today's complaints, Continuance of care, Re-evaluation by your physician. Signatures: Dispatcher [employer] [facility] Tyrone Delatorre PA PA jmm Habalo, Winsy, RN RN Yadira Miller RN RN ll1 Corrections: (The following items were deleted from the chart) 23:45 23:29 09/09/2020 23:29 Discharged to Home. Impression: Lower abdominal pain, wh unspecified. Condition is Stable. Forms are Medication Reconciliation Form, Thank You Letter, Antibiotic Education, Prescription Opioid Use. Follow up: Private Physician; When: 2 - 3 days; Reason: Recheck today's complaints, Continuance of care, Re-evaluation by your physician. theron
--- NOTE | 2020-09-09 23:29 | ER ---
Nurse's Notes [facility] Name: Kemar Ang Age: 25 yrs Sex: Female : 1995 Arrival Date: 09/09/2020 Time: 17:18 Bed 30 Private MD: Diagnosis: Lower abdominal pain, unspecified Presentation: 09/09 17:32 Chief complaint: Patient states: Lower abd pain and right lower back pain for 3 days. ll1 Feel hot at home. + nausea. Here last month, given medicine for UTI. Yeast infection occurred so she stopped the UTI medicine. Coronavirus screen: Client denies travel out of the [place] in the last 14 days. At this time, the client does not indicate any symptoms associated with coronavirus-19. Ebola Screen: Patient denies travel to an Ebola-affected area in the 21 days before illness onset. Initial Sepsis Screen: Does the patient meet any 2 criteria? No. Patient's initial sepsis screen is negative. Does the patient have a suspected source of infection? Yes: Acute abdominal pain. Risk Assessment: Do you want to hurt yourself or someone else? Patient reports no desire to harm self or others. Onset of symptoms was September 07, 2020. 17:32 Method Of Arrival: Ambulatory ll1 17:32 Acuity: EDOUARD 3 ll1 Historical: - Allergies: 17:35 No Known Allergies; ll1 - PMHx: 17:35 None; ll1 - PSHx: 17:35 None; ll1 - Immunization history:: Flu vaccine is up to date. - Social history:: Smoking status: Patient reports the use of cigarette tobacco products, denies chronic smoking, but will smoke occasionally. Screenin:30 Abuse screen: Denies threats or abuse. Denies injuries from another. Nutritional wh screening: No deficits noted. Tuberculosis screening: No symptoms or risk factors identified. Fall Risk None identified. Assessment: 19:20 General: Appears in no apparent distress. Behavior is calm, cooperative, appropriate wh for age. Pain: Complains of pain in suprapubic area and right lower quadrant Pain radiates to back Pain began 2-3 days ago. Neuro: Level of Consciousness is awake, alert, obeys commands, Oriented to person, place, time, situation, Appropriate for age. Cardiovascular: Heart tones S1 S2. Respiratory: Airway is patent Respiratory effort is even, unlabored, Respiratory pattern is regular, symmetrical. GI: Bowel sounds present X 4 quads. Abd is soft and non tender X 4 quads. : Reports discharge, Previous UTI. EENT: No signs and/or symptoms were reported regarding the EENT system. Derm: Skin is intact, is healthy with good turgor, Skin is pink, warm \T\ dry. normal. Musculoskeletal: Circulation, motion, and sensation intact. 20:49 Reassessment: Patient appears in no apparent distress at this time. No changes from previously documented assessment. Patient and/or family updated on plan of care and expected duration. Pain level reassessed. Patient is alert, oriented x 3, equal unlabored respirations, skin warm/dry/pink. 22:45 Reassessment: Patient appears in no apparent distress at this time. Patient and/or family updated on plan of care and expected duration. Pain level reassessed. Patient is alert, oriented x 3, equal unlabored respirations, skin warm/dry/pink. Vital Signs: 17:32 BP 136 / 66; Pulse 87; Resp 17; Temp 98.8; Pulse Ox 100% ; Weight 87.54 kg; Height 5 ll1 ft. 7 in. (170.18 cm); Pain 7/10; 20:51 BP 130 / 75; Pulse 82; Resp 18; Pulse Ox 99% on R/A; wh 22:30 BP 118 / 78; Pulse 82; Resp 18; Pulse Ox 100% on R/A; wh 23:30 BP 101 / 61; Pulse 86; Resp 18; Pulse Ox 99% ; wh 17:32 Body Mass Index 30.23 (87.54 kg, 170.18 cm) ll1 ED Course: 17:18 Patient arrived in ED. am2 17:34 Triage completed. ll1 17:34 Arm band placed on. 1 19:22 Nadeem Rivera, IMELDA is Primary Nurse. 19:27 Tyrone Delatorre [facility] 19:30 Patient has correct armband on for positive identification. Placed in gown. Bed in low wh position. Call light in reach. Side rails up X 1. Pulse ox on. NIBP on. 20:08 Initial lab(s) drawn, by me, sent to lab. Inserted saline lock: 20 gauge in right rv antecubital area, using aseptic technique. Blood collected. 23:44 No provider procedures requiring assistance completed. IV discontinued, intact, bleeding controlled, No redness/swelling at site. Administered Medications: No medications were administered Outcome: : Discharge ordered by . theron 23:44 Discharged to home ambulatory. 23:44 Condition: stable 23:44 Discharge instructions given to patient, Instructed on discharge instructions, follow up and referral plans. POC Demonstrated understanding of instructions, follow-up care, POC 23:45 Patient left the ED. Signatures: Tyrone Delatorre PA PA jmm Moreno, Amanda am2 Habalo, Winsy, RN IMELDA Christian Dutta RN IMELDA rv Yadira Miller RN RN ll1
[2020-09-10 10:31] VITALS: BP 118/78; TEMP 98.8; O2SAT 100
[2020-09-12 18:51] LABS: C.trachomatis RNA,TMA Not Detected (Not Detected)
== END 2020-09-09 23:45 | disposition home or self-care (01) ==
LOC: ER 17:16
DX: R10.30 Lower abdominal pain, unspecified (principal); F17.210 Nicotine dependence, cigarettes, uncomplicated
CPT/HCPCS: 36415; 74177; 80048; 80076; 81003; 81015; 81025; 82565; 83690; 85025; 87086; 87088; 87210; 87490; 87590; 99284; Q9967

== ENCOUNTER 2021-07-08 21:46 | Emergency (ER) | payer OTHER, SELFPAY ==
--- OUTSIDE RECORDS SUMMARY | 2021-07-08 21:51 | XMS REPORT | Continuity of Care Document ---
:1995 Author Organization [facility] t Address [address] [place] [address] Care Team Providers Name Role Phone Harleen MENDOZA Primary Care Physician Unavailable Harleen MENDOZA Attending Clinician Unavailable Desmond Banks Attending Clinician Desmond BRADLEY Attending Clinician Unavailable DARIA Attending Clinician Unavailable Kirk CRENSHAW Attending Clinician Doctor Unassigned, Name Attending Clinician Unavailable Harleen Sanchez Attending Clinician Payers Payer Name Policy Type Policy Number Effective Date Expiration Date Irwin segundo [facility] [id number] 2021 00:00:00 Problems Condition Condition Condition Status Onset Resolution Last Treating Co mments Source Name Details Category Date Date Treatment Clinician Date Obesity Obesity Disease Active 2020-07 Univers during during -18 ity of 00:00: [address] Multiparit Multiparit Disease Active 2020-07 U nivers y y -18 ity of 00:00: [place] 00 [facility] Supervisio Supervisio Disease Active 2020-07 U nivers n of high n of high 07-27 ity of risk risk 00:00: [place] , , 00 Me dical antepartum antepartum Br anch Spotting Spotting Disease Active 2020-07 Unive rs affecting affecting 1-18 [place] Medica l trimester trimester Bran ch Obesity Obesity Disease Active Overview: Univ ers (BMI (BMI 1-28 Formattin ity of 30-39.9) 30-39.9) 00:00: g of this [place] as 00 note Medical might be Branch different from the original. 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 Utility Allergies, Adverse Reactions, Alerts Allergy Allergy Status Severity Reaction(s) Onset Inactive Treating Comm ents Source Name Type Date Date Clinician NO KNOWN Drug Active Univers ALLERGIE Class ity of S [facility] Social History Social Habit Start Date Stop Date Quantity Comments Source ASSERTION 2021-04-29 University of 00:00:00 [facility] Exposure to Not sure University of SARS-CoV-2 [place] [facility] (event) Branch History [facility] University o f Alcohol Std [place] [facility] Drinks Branch History [facility] o f Alcohol Binge [place] [facility] al Branch Alcohol intake 2021-06-28 2021-06-28 Current drinker Unive rsity of 00:00:00 00:00:00 of alcohol [place] [facility] (finding) Branch Tobacco use and 2021-05-27 2021-05-27 Never used Universit y of exposure 00:00:00 00:00:00 [facility] Branch History of 2016-07-17 2021-05-14 Cigarette Smoker Universi ty of tobacco use 00:00:00 00:00:00 [facility] History SDOH 2019-07-17 2019-07-17 2 University o f Alcohol Frequency 00:00:00 00:00:00 [facility] edical Branch Alcohol Comment 2013-06-28 2013-06-28 socially, not Univer sity of 00:00:00 00:00:00 during [facility] dical Branch Sex Ass[birth year] At [birth year] Universit y of 00:00:00 00:00:00 [facility] Smoking Status Start Date Stop Date Source Former smoker 2021-05-27 00:00:00 2021-05-27 00:00:00 Universi ty of [facility] Medications Ordered Filled Start Stop Current Ordering Indication Dosage Frequency Signature Comments Components Source Medication Medication Date Date Medication? Clinician (SIG) Name Name No known 2020-07 No Univers medications 2-20 ity of 15:02: [place] [facility] No known 2020-07 No Univers medications 1-18 ity of 14:38: [place] 49 [facility] No known 2020-07 No Univers medications -18 ity of 14:38: [address] multivitami 2020-07- No Take by Morgan christensen n (DAILY 07-27 mouth. ity of VITAMIN 14:36: 00:00 [place] ORAL) 30 :00 Medical Branch phenazopyri 2020- No [id number] 200mg Take 1 Univers dine 200 mg 01-06 tablet by it y of tablet 00:00: 00:00 mouth 3 [place] 00 :00 (three) Medical times [place] daily. amoxicillin 2020- No [id number] 500mg Take 1 Univers 500 mg 01-06 capsule by ity of capsule 00:00: 00:00 mouth 3 [place] 00 :00 (three) Medical times [place] daily. metroNIDAZO 2020- No [id number] 1{appli Insert 1 Univers LE 0.75 % 07-13 cator} Applicator i ty of vaginal gel 00:00: 00:00 into [place] 00 :00 vagina at Medical bedtime. [place] Twice weekly for 3-6 months metroNIDAZO 2020- No [id number] 500mg Take 1 Univers LE 500 mg 09-05 tablet by ity of tablet 00:00: 00:00 mouth 2 [place] 00 :00 (two) Medical times [place] daily. Immunizations Ordered Filled Immunization Date Status Comments [facility] e Immunization Name Name Influenza Virus 2020-05-13 Completed Universit y of Vaccine Quad .5 mL 00:00:00 [place] [facility] IM 6+ MO Branch Influenza Virus 2020-05-13 Completed Universit y of Vaccine Quad .5 mL 00:00:00 [place] [facility] IM 6+ MO Branch Influenza Virus 2020-05-13 Completed Universit y of Vaccine [place] .5 mL 00:00:00 [place] [facility] IM 6+ MO Branch Influenza Virus 2020-05-13 Completed Universit y of Vaccine [place] .5 mL 00:00:00 [place] [facility] IM 6+ MO Branch Influenza Virus 2019-07-17 Completed Universit y of Vaccine Quad .5 mL 00:00:00 [facility] 6+ MO Branch Influenza Virus 2019-07-17 Completed Universit y of Vaccine Quad .5 mL 00:00:00 [facility] IM 6+ MO Branch Influenza Virus 2019-07-17 Completed Universit y of Vaccine [place] .5 mL 00:00:00 [facility] IM 6+ MO Branch Influenza Virus 2019-07-17 Completed Universit y of Vaccine [place] .5 mL 00:00:00 [facility] 6+ MO Branch TDAP 2014-01-06 Completed University of 00:00:00 [facility] TDAP 2014-01-06 Completed University of 00:00:00 [facility] TDAP 2014-01-06 Completed University of 00:00:00 [facility] TDAP 2014-01-06 Completed University of 00:00:00 [facility] PPD (TB) 2013-09-16 Completed University of 00:00:00 [facility] PPD (TB) 2013-09-16 Completed University of 00:00:00 [facility] PPD (TB) 2013-09-16 Completed University of 00:00:00 [facility] PPD (TB) 2013-09-16 Completed University of 00:00:00 [facility] Influenza Virus 2013-07-26 Completed Universit y of Vaccine (3+ yrs) 00:00:00 [facility] Influenza Virus 2013-07-26 Completed Universit y of Vaccine (3+ yrs) 00:00:00 [facility] Influenza Virus 2013-07-26 Completed Universit y of Vaccine (3+ yrs) 00:00:00 [facility] Influenza Virus 2013-07-26 Completed Universit y of Vaccine (3+ yrs) 00:00:00 [facility] Rubella 2012-03-02 Completed University of 00:00:00 [facility] Rubella 2012-03-02 Completed University of 00:00:00 [facility] Rubella 2012-03-02 Completed University of 00:00:00 [facility] Rubella 2012-03-02 Completed University of 00:00:00 [facility] Td 2005-07-10 Completed University of 00:00:00 [facility] Td 2005-07-10 Completed University of 00:00:00 [facility] Td 2005-07-10 Completed University of 00:00:00 [facility] Td 2005-07-10 Completed University of 00:00:00 [facility] Vital Signs Vital Name Observation Time Observation Value Comments Source Systolic blood 2021-06-28 21:15:00 131 mm[Hg] Univer sity of pressure [place] [facility] Diastolic blood 2021-06-28 21:15:00 78 mm[Hg] Unive rsity of pressure [place] [facility] Heart rate 2021-06-28 21:08:00 71 /min Universi ty of [place] [facility] [place] Body temperature 2021-06-28 21:08:00 36.67 Alysa Univ ersity of [place] [facility] Respiratory rate 2021-06-28 21:08:00 17 /min Univ ersity of [place] [facility] Body height 2021-06-28 21:08:00 170.2 cm Universi ty of [place] [facility] Body weight 2021-06-28 21:08:00 100.517 kg Universi ty of [place] [facility] BMI 2021-06-28 21:08:00 34.71 kg/m2 Universi ty of [place] [facility] Systolic blood 2021-05-27 20:36:00 125 mm[Hg] Univer sity of pressure [place] [facility] Diastolic blood 2021-05-27 20:36:00 76 mm[Hg] Unive rsity of pressure [place] [facility] Heart rate 2021-05-27 20:36:00 78 /min Universi ty of [place] [facility] Body temperature 2021-05-27 20:36:00 36.56 Alysa Univ ersity of [place] [facility] Respiratory rate 2021-05-27 20:36:00 18 /min Univ ersity of [place] [facility] Body height 2021-05-27 20:36:00 170.2 cm Universi ty of [place] [facility] Body weight 2021-05-27 20:36:00 99.292 kg Universi ty of [place] [facility] BMI 2021-05-27 20:36:00 34.28 kg/m2 Universi ty of [place] [facility] Procedures Procedure Date / Time Performed Performing Clinician Sourc e POCT URINALYSIS W/O 2021-06-28 00:00:00 [facility] SPECIFIC GRAVITY [facility] REPORT OF 2021-05-27 06:01:00 Doctor Unassigned, No [facility] POCT TEST 2021-05-27 00:00:00 [facility] POCT URINALYSIS W/O 2021-05-27 00:00:00 [facility] Encounters Start End Encounter Admission Attending Care Care Encounter Source Date/Time Date/Time Type Type Clinicians Facility Department ID 2021-07-27 2021-07-27 Outpatient R REJI [facility] [id number] Univers 10:00:00 10:00:00 MARLEN [id number] ity o f [facility] 2021-07-27 2021-07-27 Outpatient R REJ[facility] [id number] Univers 10:00:00 10:00:00 MARLEN ity o f [facility] 2021-07-12 2021-07-12 Outpatient R [facility] [id number] Univers 13:00:00 13:00:00 [id number] [facility] 2021-07-12 2021-07-12 Outpatient P [facility] [id number] Univers 11:00:00 11:00:00 [facility] 2021-06-28 2021-06-28 [id number] Univers 15:30:00 15:45:00 Linda Logan CUT OFF OPERATOR SCORER [id number] i ty of Visit REGIONAL [id number] Rey as MATERNAL [id number] Med ical & CHILD [address] [place] [address] 2021-06-28 2021-06-28 [facility] [id number] Univers 15:30:00 15:30:00 LINDA [id number] [facility] 2021-06-28 2021-06-28 [facility] [id number] Univers 15:30:00 15:30:00 LINDA [facility] 2021-06-24 2021-06-24 Outpatient R KIRK [facility] [id number] Univers 08:45:00 08:45:00 LINDA [facility] 2021-06-17 2021-06-17 [facility] [id number] Univers 09:00:00 09:00:00 SNEHA [id number] [facility] 2021-06-17 2021-06-17 Outpatient Ekaterina HUFF [facility] [id number] Univers 09:00:00 09:00:00 SNEHA irizarry [facility] 2021-06-02 2021-06-02 Telephone Kirk [facility] [id number] Univers 00:00:00 00:00:00 Linda CUT OFF OPERATOR SCORER [id number] it y of [facility] [id number] [place] as MATERNAL [id number] [facility] & CHILD [address] [place] [address] 2021-05-27 2021-05-27 Initial [facility] [id number] Univers 14:21:24 15:21:19 Linda Logan CUT OFF OPERATOR SCORER [id number] i ty of Visit [facility] [id number] [place] as MATERNAL [id number] [address] 2021-05-27 2021-05-27 Orders Doctor DANK [id number] Univers 00:00:00 00:00:00 Only Unassigned, BENJIE [id number] ity of [place] [facility] [id number] [place] as [id number] [address] 2020-08-04 2020-08-04 Telephone [facility] [id number] 00:00:00 00:00:00 Marlen Canseco CUT OFF OPERATOR SCORER [id number] [facility] [id number] MATERNAL [id number] & [address] 2020-07-13 2020-07-13 [facility] [id number] 00:00:00 00:00:00 Marlen C CUT OFF OPERATOR SCORER [id number] [facility] [id number] MATERNAL [id number] & [address] Results Test Description Test Time Test Comments Results Result Comments Source POCT URINALYSIS W/O SPECIFIC GRAVITY 2021-06-28 21:12:00 Test Item Value Reference Range Interpretation Comme nts POCT PH U (test code = 3254) - 5-8 POCT U LEUK EST (test code = 3263) - Negative - Negative POCT U NIT (test code = 3262) - Negative - Negative POCT U PROT (test code = 3259) normal Negative - Negative POCT U GLU (test code = 3256) normal Negative - Negative POCT U KETONE (test code = 3258) - Negative - Negative POCT U BLD (test code = 3257) - Negative - Negative [facility] [id number] 20:34:00 Test Item Value Reference Range Interpretation Comments POCT PREG (test code = 1605) Positive On board controls acceptable with C Yes Line (test code = 3574) POCT PREG LOT # (test code = 3575) POCT PREG TEST DATE (test code = 3576) [facility] W/O SPECIFIC [id number] 20:34:00 Test Item Value Reference Range Interpretation Comments POCT PH U (test code = 3254) 6 mg/dl 5-8 POCT U LEUK EST (test code = large Negative - Negative 3263) POCT U NIT (test code = 3262) - Negative - Negative POCT U PROT (test code = 3259) trace Negative - Negative POCT U GLU (test code = 3256) normal Negative - Negative POCT U KETONE (test code = 3258) - Negative - Negative POCT U BLD (test code = 3257) large Negative - Negative [facility]
--- NOTE | 2021-07-09 00:12 | ER ---
Nurse's Notes [facility] Name: Kemar Ang Age: 26 yrs Sex: Female : 1995 Arrival Date: 07/08/2021 Time: 21:54 Bed Waiting Private MD: Diagnosis: ED Course: 07/08 21:54 Patient arrived in ED. [id number] 07/09 00:11 Patient's name was called from ER lobby. No response. Unable to locate patient. Will bb disposition as left without being seen by a provider. Administered Medications: No medications were administered Outcome: 00:11 Patient left the ED. bb Signatures: Sallie Waller RN RN bb Crys Campbell [id number]
== END 2021-07-09 00:11 | disposition left against medical advice (07) ==
LOC: ER 21:46
DX: Z02.89 Encounter for other administrative examinations (principal)

== ENCOUNTER 2021-07-14 14:51 | Emergency (ER) | payer OTHER ==
--- OUTSIDE RECORDS SUMMARY | 2021-07-14 14:54 | XMS REPORT | Continuity of Care Document ---
:1995 Author Organization [facility] t Address [address] [place] [address] Care Team Providers Name Role Phone Harleen Sanchez Primary Care Physician Harleen MENDOZA Attending Clinician Unavailable Harleen Sanchez Attending Clinician Kirk SMITH, N Attending Clinician Desmond BRADLEY Attending Clinician Unavailable DARIA Attending Clinician Unavailable Kirk CRENSHAW Attending Clinician Doctor Unassigned, Name Attending Clinician Unavailable Payers Payer Name Policy Type Policy Number Effective Date Expiration Date ratna [facility] STAR [id number] 2021 00:00:00 Problems Condition Condition Condition Status Onset Resolution Last Treating Co mments Source Name Details Category Date Date Treatment Clinician Date Obesity Obesity Disease Active 2020-07 Univers during during -18 ity of 00:00: [place] [address] [place] [address] Multiparit Multiparit Disease Active 2020-07 U nivers y y -18 ity of 00:00: [place] 00 [facility] Branch Supervisio Supervisio Disease Active 2020-07 U nivleia n of high n of high -18 ity of risk risk 00:00: [place] , , 00 Me dical antepartum antepartum [...] different from the original. 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 Allergies, Adverse Reactions, Alerts Allergy Allergy Status Severity Reaction(s) Onset Inactive Treating Comm ents Source Name Type Date Date Clinician NO KNOWN Drug Active Univers ALLERGIE Class ity of S [facility] Social History Social Habit Start Date Stop Date Quantity Comments Source ASSERTION 2021-04-29 University of 00:00:00 [place] [facility] History [facility] o f Alcohol Binge [place] [facility] Exposure to Not sure University of SARS-CoV-2 [facility] (event) Branch History [facility] o f Alcohol Std [place] [facility] Dr[facility] Alcohol intake 2021-06-28 2021-06-28 Current drinker Unive rsity of 00:00:00 00:00:00 of alcohol [place] [facility] (finding) Branch Tobacco use and 2021-05-27 2021-05-27 Never used Universit y of exposure 00:00:00 00:00:00 [facility] Branch History of 2016-07-17 2021-05-14 Cigarette Smoker Universi ty of tobacco use 00:00:00 00:00:00 [facility] History [facility] 2019-07-17 2019-07-17 2 University o f Alcohol Frequency 00:00:00 00:00:00 [facility] edical Branch Alcohol Comment 2013-06-28 2013-06-28 socially, not Univer sity of 00:00:00 00:00:00 during [facility] dical Branch Sex Ass[birth year] At [birth year] Universit y of 00:00:00 00:00:00 [facility] Smoking Status Start Date Stop Date Source Former smoker 2021-05-27 00:00:00 2021-05-27 00:00:00 Universi ty of [facility] Medications Ordered Filled Start Stop Current Ordering Indication Dosage Frequency Signature Comments Components Source Medication Medication Date Date Medication? Clinician (SIG) Name Name No known No Univers medications 1-04 ity of 16:15: [place] 03 [facility] No known 2020-07 No Univers medications 2-20 ity of 15:02: [place] 33 [facility] No known 2020-07 No Univers medications 1-18 ity of 14:38: [address] No known 2020-07 No Univers medications -18 ity of 14:38: [address] multivitami 2020-07- No Take by U nivers n (DAILY 07-27 mouth. ity of VITAMIN 14:36: 00:00 [place] ORAL) 30 :00 [facility] phenazopyri 2020- No [id number] 200mg Take 1 Univers dine 200 mg 01-06 tablet by it y of tablet 00:00: 00:00 mouth 3 [place] 00 :00 (three) Medical times Branch daily. amoxicillin 2020- No [id number] 500mg Take 1 Univers 500 mg 01-06 capsule by ity of capsule 00:00: 00:00 mouth 3 [place] 00 :00 (three) Medical times Branch daily. metroNIDAZO 2020- No [id number] 1{appli Insert 1 Univers LE 0.75 % 07-13 cator} Applicator i ty of vaginal gel 00:00: 00:00 into [place] 00 :00 vagina at Medical bedtime. Branch Twice weekly for 3-6 months metroNIDAZO 2020- No [id number] 500mg Take 1 Univers LE 500 mg 09-05 tablet by ity of tablet 00:00: 00:00 mouth 2 [place] 00 :00 (two) Medical times [place] daily. Immunizations Ordered Filled Immunization Date Status Comments [facility] e Immunization Name Name Influenza Virus 2020-05-13 Completed Universit y of Vaccine Quad .5 mL 00:00:00 [place] [facility] IM 6+ MO Branch Influenza Virus 2020-05-13 Completed Universit y of Vaccine Quad .5 mL 00:00:00 [place] [facility] IM 6+ MO Branch Influenza Virus 2020-05-13 Completed Universit y of Vaccine Quad .5 mL 00:00:00 [place] [facility] IM 6+ MO Branch Influenza Virus 2020-05-13 Completed Universit y of Vaccine Quad .5 mL 00:00:00 [place] [facility] IM 6+ MO Branch Influenza Virus 2020-05-13 Completed Universit y of Vaccine Quad .5 mL 00:00:00 [facility] 6+ MO Branch Influenza Virus 2019-07-17 Completed Universit y of Vaccine Quad .5 mL 00:00:00 [facility] 6+ MO Branch Influenza Virus 2019-07-17 Completed Universit y of Vaccine Quad .5 mL 00:00:00 [facility] 6+ MO Branch Influenza Virus 2019-07-17 Completed Universit y of Vaccine Quad .5 mL 00:00:00 [facility] 6+ MO Branch Influenza Virus 2019-07-17 Completed Universit y of Vaccine Quad .5 mL 00:00:00 [facility] 6+ MO Branch Influenza Virus 2019-07-17 Completed Universit y of Vaccine Quad .5 mL 00:00:00 [facility] 6+ MO Branch TDAP 2014-01-06 Completed University of 00:00:00 [facility] TDAP 2014-01-06 Completed University of 00:00:00 [facility] TDAP 2014-01-06 Completed University of 00:00:00 [facility] TDAP 2014-01-06 Completed University of 00:00:00 [facility] TDAP 2014-01-06 Completed University of 00:00:00 [facility] PPD (TB) 2013-09-16 Completed University of 00:00:00 [facility] PPD (TB) 2013-09-16 Completed University of 00:00:00 [facility] PPD (TB) 2013-09-16 Completed University of 00:00:00 [facility] PPD (TB) 2013-09-16 Completed University of 00:00:00 [facility] PPD (TB) 2013-09-16 Completed University of 00:00:00 [facility] Influenza Virus 2013-07-26 Completed Universit y of Vaccine (3+ yrs) 00:00:00 [facility] Influenza Virus 2013-07-26 Completed Universit y of Vaccine (3+ yrs) 00:00:00 [facility] Influenza Virus 2013-07-26 Completed Universit y of Vaccine (3+ yrs) 00:00:00 [facility] Influenza Virus 2013-07-26 Completed Universit y of Vaccine (3+ yrs) 00:00:00 [facility] Influenza Virus 2013-07-26 Completed Universit y of Vaccine (3+ yrs) 00:00:00 [place] [facility] dical Branch Rubella 2012-03-02 Completed University of 00:00:00 [place] [facility] Rubella 2012-03-02 Completed University of 00:00:00 [place] [facility] Rubella 2012-03-02 Completed University of 00:00:00 [place] [facility] Rubella 2012-03-02 Completed University of 00:00:00 [place] [facility] Rubella 2012-03-02 Completed University of 00:00:00 [place] [facility] Td 2005-07-10 Completed University of 00:00:00 [place] [facility] Td 2005-07-10 Completed University of 00:00:00 [place] [facility] Td 2005-07-10 Completed University of 00:00:00 [place] [facility] Td 2005-07-10 Completed University of 00:00:00 [place] [facility] Td 2005-07-10 Completed University of 00:00:00 [facility] Vital Signs Vital Name Observation Time Observation Value Comments Source Systolic blood 2021-07-13 21:23:00 139 mm[Hg] Univer sity of pressure [facility] Diastolic blood 2021-07-13 21:23:00 81 mm[Hg] Unive rsity of pressure [facility] Heart rate 2021-07-13 21:23:00 82 [facility] 2021-07-13 21:23:00 36.17 Alysa [facility] Respiratory rate 2021-07-13 21:23:00 19 /min [facility] Body height 2021-07-13 21:23:00 170.2 cm [facility] Body weight 2021-07-13 21:23:00 101.061 kg [facility] BMI 2021-07-13 21:23:00 34.90 kg/m2 [facility] Systolic blood 2021-06-28 21:15:00 131 mm[Hg] Univer sity of pressure [facility] Diastolic blood 2021-06-28 21:15:00 78 mm[Hg] Unive rsity of pressure [facility] Heart rate 2021-06-28 21:08:00 71 /min [facility] Body temperature 2021-06-28 21:08:00 36.67 Alysa [facility] Respiratory rate 2021-06-28 21:08:00 17 /min [facility] Body height 2021-06-28 21:08:00 170.2 cm Universi ty of [facility] Body weight 2021-06-28 21:08:00 100.517 kg Universi ty of [place] [facility] [place] BMI 2021-06-28 21:08:00 34.71 kg/m2 Universi ty [facility] Systolic blood 2021-05-27 20:36:00 125 mm[Hg] Univer sity of pressure [facility] Diastolic blood 2021-05-27 20:36:00 76 mm[Hg] Unive rsity of [facility] Heart rate 2021-05-27 20:36:00 78 /min Universi ty of [facility] Body temperature 2021-05-27 20:36:00 36.56 Alysa [facility] Respiratory rate 2021-05-27 20:36:00 18 /min [facility] Body height 2021-05-27 20:36:00 170.2 cm Universi ty [facility] Body weight 2021-05-27 20:36:00 99.292 kg Universi ty of [facility] BMI 2021-05-27 20:36:00 34.28 kg/m2 Universi ty [facility] Procedures Procedure Date / Time Performed Performing Clinician [facility] e POCT URINALYSIS 2021-07-13 00:00:00 Marlen Mendoza [facility] GLUCOSE & PROTEIN [facility] POCT URINALYSIS W/O 2021-06-28 00:00:00 Linda Bradley [facility] REPORT OF 2021-05-27 06:01:00 Doctor Unassigned, [facility] POCT TEST 2021-05-27 00:00:00 [facility] POCT URINALYSIS W/O 2021-05-27 00:00:00 [facility] SPECIFIC GRAVITY [facility] Encounters Start End Encounter Admission Attending Care Care Encounter Source Date/Time Date/Time Type Type Clinicians Facility Department ID 2021-07-27 2021-07-27 Outpatient R ADA [facility] [id number] Univers 10:00:00 10:00:00 MARLEN [id number] ity o [facility] 2021-07-27 2021-07-27 Outpatient R ADA, [facility] [id number] Univers 10:00:00 10:00:00 MARLEN ity o [facility] 2021-07-15 2021-07-15 Outpatient R [facility] [id number] Univers 08:30:00 08:30:00 [id number] ity [facility] 2021-07-15 2021-07-15 Outpatient R ADA, [facility] [id number] Univers 08:30:00 08:30:00 MARLEN ity o [facility] 2021-07-13 2021-07-13 Outpatient R ADA, [facility] [id number] Univers 15:00:00 16:06:33 MARLEN jenelley o 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 2021-07-12 2021-07-12 Outpatient R [facility] [id number] Univers 13:00:00 13:00:00 [id number] [facility] 2021-07-12 2021-07-12 Outpatient P [facility] [id number] Univers 11:00:00 11:00:00 [facility] 2021-06-28 2021-06-28 Routine [facility] [id number] Univers 15:30:00 15:45:00 Linda Logan [employer] [id number] i ty of Visit REGIONAL [id number] Rey as MATERNAL [id number] Med ical & CHILD 107 [facility] 2021-06-28 2021-06-28 Outpatient R KIRK [facility] [id number] Univers 15:30:00 15:30:00 LINDA [id number] [facility] 2021-06-28 2021-06-[address] [facility] [address] [id number] Univers 15:30:00 15:30:00 LINDA [facility] 2021-06-24 2021-06-24 [address] [facility] [id number] Univers 08:45:00 08:45:00 LINDA [facility] 2021-06-17 2021-06-17 Outpatient Ekater[address] [facility] [id number] Univers 09:00:00 09:00:00 SNEHA [id number] [facility] 2021-06-17 2021-06-17 Outpatient Ekater[address] [facility] [id number] Univers 09:00:00 09:00:00 SNEHA [facility] 2021-06-02 2021-06-02 Telephone [facility] [id number] Univers 00:00:00 00:00:00 Linda PR[employer] MATCHER [id number] it y of [facility] [id number] Rey as MATERNAL [id number] [facility] & CHILD [address] [place] [address] 2021-05-27 2021-05-27 Initial [facility] [id number] Univers 14:21:24 15:21:19 Linda N PR[employer] MATCHER [id number] i ty of Visit [facility] [id number] Rey as MATERNAL [id number] Med ical & CHILD [address] [place] [address] 2021-05-27 2021-05-27 Orders Doctor WEEMS [id number] Univers 00:00:00 00:00:00 Only Unassigned, BENJIE [id number] ity of [place] [facility] [id number] Rey as [id number] [address] 2020-08-04 2020-08-04 Telephone Ada [facility] [id number] 00:00:00 00:00:00 Marlen Harleen [employer] [id number] REGIONAL [id number] MATERNAL [id number] & CHILD 107 [facility] 2020-07-13 2020-07-13 [facility] [id number] 00:00:00 00:00:00 Marlen C PRINT COLOR MATCHER [id number] [facility] [id number] MATERNAL [id number] & CHILD 107 [facility] Results Test Description Test Time Test Comments Results Result Comments Source POCT URINALYSIS GLUCOSE & PROTEIN 2021-07-13 21:28:00 Test Item Value Reference Range Interpretation Comme nts POCT U PROT (test code = 3259) normal Negative - Negative POCT U GLU (test code = 3256) trace Negative - Negative [facility] URINALYSIS W/O SPECIFIC [id number] 21:12:00 Test Item Value Reference Range Interpretation Comments [...] code = 3257) - Negative - Negative [facility] [id number] 20:34:00 Test Item Value Reference Range Interpretation Comments POCT PREG (test code = 1605) Positive On board controls acceptable with C Yes Line (test code = 3574) POCT PREG LOT # (test code = 3575) POCT PREG TEST DATE (test code = 3576) [facility] URINALYSIS W/O SPECIFIC [id number] 20:34:00 Test Item Value Reference Range Interpretation [...] code = 3257) large Negative - Negative [facility]
[2021-07-14 18:09] LABS: Urine Blood 3+ (Negative); Urine Glucose Negative (Negative); Urine Protein Negative (Negative); Urine Specific Gravity 1.015 (1.005-1.030)
[2021-07-14 18:28] LABS: Absolute Lymphocytes (CBC) 2.3 K/uL (0.7-4.9); Hematocrit 37.3 % (36.0-45.0); Lymphocytes % 24.6 % (15.3-44.8); MPV 8.9 fL (7.6-11.3); RBC Red Blood Cell Count 5.05 M/uL (3.86-4.86)
[2021-07-14 18:33] LABS: BUN Blood Urea Nitrogen 6 mg/dL (7-18); Bicarbonate 26 mmol/L (21-32); Glucose Level 89 mg/dL (74-106); Potassium 3.9 mmol/L (3.5-5.1); Sodium Level 138 mmol/L (136-145)
--- NOTE | 2021-07-14 19:10 | RAD REPORT ---
EXAM DESCRIPTION: US - 1St Trimest Single 1St Fetus - 07/14/2021 6:57 pm CLINICAL HISTORY: with vaginal bleeding COMPARISON: None. FINDINGS: The uterus measures 10 x 6 x 8 centimeters. A a sac is present within the endometrium tequila suring 1.1 x 1.9 x 4.3 centimeters. A pole is not seen. Left ovary normal in size and echotexture. Right ovary not visualized secondary to overlying bowel ga s. The right and left adnexa are unremarkable No significant free fluid is seen. IMPRESSION: 2.4 centimeter irregularly-shaped sac is present within the endometrium. A pole is not seen. This probably represents a blighted ovum. A normal is doubtful although not enti rely impossible. This all should be correlated clinically. Serial beta HCG levels and a follow up ult rasound in 1 week would be helpful
--- NOTE | 2021-07-14 19:13 | ER ---
Nurse's Notes [facility] Name: Kemar Ang Age: 26 yrs Sex: Female : 1995 Arrival Date: 07/14/2021 Time: 14:56 Bed 11 Private MD: Diagnosis: Threatened Presentation: 07/14 15:14 Chief complaint: Patient states: I had intercourse on 07/08/21 - after I began to spot. ld1 The spotting stopped for two days. This morning I just took a shower and it was bright red blood with clots. I went to the doctor yesterday ([facility]) and received blood work. Coronavirus screen: At this time, the client does not indicate any symptoms associated with coronavirus-19. Ebola Screen: No symptoms or risks identified at this time. Initial Sepsis Screen: Does the patient meet any 2 criteria? No. Patient's initial sepsis screen is negative. Does the patient have a suspected source of infection? No. Patient's initial sepsis screen is negative. Risk Assessment: Do you want to hurt yourself or someone else? Patient reports no desire to harm self or others. Onset of symptoms was July 14, 2021. 15:14 Method Of Arrival: Ambulatory ld1 15:14 Acuity: EDOUARD 3 ld1 Triage Assessment: 15:17 General: Appears in no apparent distress. comfortable, Behavior is calm, cooperative, ld1 appropriate for age. Pain: Denies pain. Neuro: Level of Consciousness is awake, alert, obeys commands, Oriented to person, place, time, situation. Respiratory: Airway is patent Respiratory effort is even, unlabored, Respiratory pattern is regular, symmetrical. : Reports vaginal bleeding that is bright red, with clots. 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 - Social history:: Smoking status: Patient reports the use of cigarette tobacco products, denies chronic smoking, but will smoke occasionally, Patient uses alcohol, occasionally. Screenin:51 Abuse screen: Denies threats or abuse. Denies injuries from another. Nutritional ss screening: No deficits noted. Tuberculosis screening: Never had TB. Fall Risk None identified. Assessment: 19:51 Reassessment: Patient appears in no apparent distress at this time. Patient and/or ss family updated on plan of care and expected duration. Pain level reassessed. Patient is alert, oriented x 3, equal unlabored respirations, skin warm/dry/pink. Vital Signs: 15:14 BP 126 / 73; Pulse 77; Resp 18; Temp 98.7(O); Pulse Ox 100% on R/A; Weight 101.15 kg; ld1 Height 5 ft. 7 in. (170.18 cm); Pain 0/10; 15:14 Body Mass Index 34.93 (101.15 kg, 170.18 cm) ld1 ED Course: 14:56 Patient arrived in ED. mr 15:17 Triage completed. ld1 15:17 Arm band placed on right wrist. 1 16:35 Tyrone Delatorre PA is PHCP. [facility] 16:35 Kelechi Dowling MD is Attending Physician. [facility] 18:09 Abo/rh Typing Sent. vale 18:09 Basic Metabolic Panel Sent. vale 18:09 CBC with Diff Sent. vale 18:09 Quantitative Hcg Sent. vale 18:57 1st Trimest Single 1st Fetus In Process Unspecified. EDMS 19:51 Patient has correct armband on for positive identification. Bed in low position. Call ss light in reach. 19:51 No provider procedures requiring assistance completed. IV discontinued, intact, ss bleeding controlled, No redness/swelling at site. Pressure dressing applied. Administered Medications: No medications were administered Outcome: 19:12 Discharge ordered by . [facility] 19:51 Discharged to home ambulatory. 19:51 Condition: good 19:51 Discharge instructions given to patient, family, Instructed on discharge instructions, follow up and referral plans. Demonstrated understanding of instructions, follow-up care. 19:52 Patient left the ED. Signatures: Dispatcher [employer] EDMS Tyrone Delatorre PA PA jmm Rivera, Mary mr Smirch, Shelby, RN RN Constance Leiva RN RN [facility] Au-Stager, Rosana, RN RN vale
--- NOTE | 2021-07-14 19:13 | EDPHYS ---
Physician Documentation [facility] Name: Kemar Ang Age: 26 yrs Sex: Female : 1995 Arrival Date: 07/14/2021 Time: 14:56 Bed 11 Private MD: ED Physician Kelechi Dowling HPI: 07/14 17:58 This 26 yrs old Black Female presents to ER via Ambulatory with complaints of Vaginal [facility] Bleeding, + Preg <12wks. 17:58 The patient presents to the emergency department with vaginal bleeding. The estimated [facility] gestational age is 13 weeks. course: care: private OB physician. Associated signs and symptoms: Pertinent negatives: fever. The patient has not experienced similar symptoms in the past. Patient complains of vaginal bleeding beginning 2 nights ago after intercourse. Also complains of increased urinary frequency. . RN RESEARCH: 15:17 LMP 04/15/2021 ld1 17:58 3, Living 2 [facility] Historical: - Allergies: 15:17 No Known Allergies; ld1 - Home Meds: 15:17 None [Active]; ld1 - PMHx: 15:17 Hernia; ld1 - PSHx: 15:17 None; ld1 - Immunization history:: Adult Immunizations up to date, Client reports receiving the 2nd dose of the Covid vaccine. - Social history:: Smoking status: Patient reports the use of cigarette tobacco products, denies chronic smoking, but will smoke occasionally, Patient uses alcohol, occasionally. ROS: 17:58 Constitutional: Negative for fever, chills, and weight loss, Cardiovascular: Negative jmm for chest pain, palpitations, and edema, Respiratory: Negative for shortness of breath, cough, wheezing, and pleuritic chest pain. 17:58 : Positive for urinary symptoms, vaginal bleeding. 17:58 All other systems are negative. Exam: 17:58 Constitutional: This is a well developed, well nourished patient who is awake, alert, jmm and in no acute distress. Head/Face: atraumatic. Eyes: EOMI, no conjunctival erythema appreciated ENT: Moist Mucus Membranes Neck: Trachea midline, Supple Chest/axilla: Normal chest wall appearance and motion. Cardiovascular: Regular rate and rhythm. No edema appreciated Respiratory: Normal respirations, no respiratory distress appreciated Skin: General appearance color normal MS/ Extremity: Moves all extremities, no obvious deformities appreciated, no edema noted to the lower extremities Neuro: Awake and alert, normal gait Psych: Behavior is normal, Mood is normal, Patient is cooperative and pleasant Vital Signs: 15:14 BP 126 / 73; Pulse 77; Resp 18; Temp 98.7(O); Pulse Ox 100% on R/A; Weight 101.15 kg; ld1 Height 5 ft. 7 in. (170.18 cm); Pain 0/10; 15:14 Body Mass Index 34.93 (101.15 kg, 170.18 cm) ld1 MDM: 17:32 Patient medically screened. [facility] 19:12 Data reviewed: vital signs, nurses notes. Counseling: I had a detailed discussion with [facility] the patient and/or guardian regarding: the historical points, exam findings, and any diagnostic results supporting the discharge/admit diagnosis, lab results, radiology results, the need for outpatient follow up, to return to the emergency department if symptoms worsen or persist or if there are any questions or concerns that arise at home. 07/14 17:33 Order name: Abo/rh Typing; Complete Time: 18:57 [facility] 07/14 17:33 Order name: Basic Metabolic Panel [facility] 07/14 17:33 Order name: CBC with Diff; Complete Time: 18:36 [facility] 07/14 17:33 Order name: Quantitative Hcg [facility] 07/14 17:33 Order name: US 1st Trimest Single 1st Fetus; Complete Time: 19:12 [facility] 07/14 18:09 Order name: Urine Dipstick-Ancillary; Complete Time: 18:10 [facility] 07/14 17:33 Order name: IV Saline Lock; Complete Time: 18:09 [facility] 07/14 17:33 Order name: Labs collected and sent; Complete Time: 18:09 [facility] 07/14 17:33 Order name: NPO; Complete Time: 18:09 [facility] 07/14 17:33 Order name: Urine Dipstick-Ancillary (obtain specimen); Complete Time: 18:09 [facility] Administered Medications: No medications were administered Disposition Summary: 07/14/21 19:12 Discharge Ordered Location: Home [facility] Condition: Stable [facility] Diagnosis - Threatened [facility] Followup: [facility] - With: Private Physician - When: 2 - 3 days - Reason: Recheck today's complaints, Continuance of care, Re-evaluation by your physician Discharge Instructions: - Discharge Summary Sheet jmm - Threatened Miscarriage [facility] Forms: - Medication Reconciliation Form theron - Thank You Letter theron - Antibiotic Education theron - Prescription Opioid Use theron Addendum: 07/19/2021 07:05 Co-signature as Attending Physician, Kelechi Dowling MD. r n Signatures: Dispatcher [employer] EDTyrone Concepcion PA PA jmm Nieto, Roman, MD MD rn Constance Leiva RN RN ld1
[2021-07-14 19:59] VITALS: BP 126/73; TEMP 98.7; O2SAT 100
[2021-07-14 20:38] LABS: HCG, Quantitative 7175 mIU/mL (1-3)
== END 2021-07-14 19:52 | disposition home or self-care (01) ==
LOC: ER 14:51
DX: O20.0 Threatened abortion (principal); O99.330 Smoking (tobacco) complicating pregnancy, unspecified trimester; F17.210 Nicotine dependence, cigarettes, uncomplicated
CPT/HCPCS: 36415; 76801; 80048; 81003; 84702; 85025; 86900; 86901; 99283

== ENCOUNTER 2021-07-18 00:46 | Emergency (ER) | payer OTHER ==
--- OUTSIDE RECORDS SUMMARY | 2021-07-18 00:49 | XMS REPORT | Continuity of Care Document ---
:1995 Author Organization [facility] t Address [address] [place] [address] Care Team Providers Name Role Phone Harleen MENDOZA Primary Care Physician Unavailable Harleen Sanchez Attending Clinician Payers Payer Name Policy Type Policy Number Effective Date Expiration Date S ource Problems Condition Condition Condition Status Onset Resolution Last Treating Co mments Source Name Details Category Date Date Treatment Clinician Date Obesity Obesity Disease Active 2020-07 [facility] during during [place] [address] [place] [address] Multiparit Multiparit Disease Active 2020-07 U nivers y y 18 ity of 00:00: [address] Supervisio Supervisio Disease Active 2020-07 U nivers n of high n of high -18 ity of risk risk 00:00: [place] , , 00 Me dical antepartum antepartum Br anch Spotting Spotting Disease Active 2020-07 Unive rs affecting affecting -18 [place] 00 Med[place] l trimester trimester Bran ch Allergies, Adverse Reactions, Alerts Allergy Allergy Status Severity Reaction(s) Onset Inactive Treating Comm ents Source Name Type Date Date Clinician NO KNOWN Drug Active Univers ALLERGIE Class ity of S [facility] Social History Social Habit Start Date Stop Date Quantity Comments Source ASSERTION 2021-04-29 University of 00:00:00 [facility] Exposure to Not sure University of SARS-CoV-2 [place] [facility] (event) Branch History SDPA University o f Alcohol Std [place] [facility] Drinks Branch History SDPA University o f Alcohol Binge [place] [facility] Alcohol intake 2021-06-28 2021-06-28 Current drinker Unive rsity of 00:00:00 00:00:00 of alcohol [facility] (finding) Branch Tobacco use and 2021-05-27 2021-05-27 Never used Universit y of exposure 00:00:00 00:00:00 [place] [facility] History of 2016-07-17 2021-05-14 Cigarette Smoker Universi ty of tobacco use 00:00:00 00:00:00 [facility] History SDOH 2019-07-17 2019-07-17 2 University o f Alcohol Frequency 00:00:00 00:00:00 [facility] edical [place] Alcohol Comment 2013-06-28 2013-06-28 socially, not Univer sity of 00:00:00 00:00:00 during [facility] dical [place] Sex Assigned At [birth year] Universit y of 00:00:00 00:00:00 [facility] Smoking Status Start Date Stop Date Source Former smoker 2021-05-27 00:00:00 2021-05-27 00:00:00 Universi ty of [facility] Medications Ordered Filled Start Stop Current Ordering Indication Dosage Frequency Signature Comments Components Source Medication Medication Date Date Medication? Clinician (SIG) Name Name No known No Univers medications 1-04 ity of 16:15: [address] Immunizations Ordered Filled Immunization Date Status Comments Sourc e Immunization Name Name Influenza Virus 2020-05-13 Completed Universit y of Vaccine Quad .5 mL 00:00:00 [facility] IM 6+ MO Branch Influenza Virus 2019-07-17 Completed Universit y of Vaccine Quad .5 mL 00:00:00 [facility] IM 6+ MO Branch TDAP 2014-01-06 Completed University of 00:00:00 [facility] PPD (TB) 2013-09-16 Completed University of 00:00:00 [facility] Influenza Virus 2013-07-26 Completed Universit y of Vaccine (3+ yrs) 00:00:[address] [facility] Rubella 2012-03-02 Completed University 00:00:00 [facility] Td 2005-07-10 Completed University 00:00:00 [facility] Procedures This patient has no known procedures. Encounters Start End Encounter Admission Attending Care Care Encounter Source Date/Time Date/Time Type Type Clinicians Facility Department ID 2021-07-15 2021-07-15 [id number] Univers 00:00:00 00:00:00 Marlen C [employer] [id number] Rey as MATERNAL [id number] Med ical & CHILD 107 [facility] 2021-07-12 2021-07-12 Outpatient P [facility] [id number] Univers 11:00:00 11:00:00 ity [facility] 2020-08-04 2020-08-04 [facility] [id number] 00:00:00 00:00:00 Marlen C [employer] [id number] REGIONAL [id number] MATERNAL [id number] & CHILD 107 [facility] 2020-07-13 2020-07-13 Telephone Ada [facility] [id number] 00:00:00 00:00:00 Marlen C [employer] [id number] REGIONAL [id number] MATERNAL [id number] & CHILD 107 [facility] Results This patient has no known results.
[2021-07-18 02:47] LABS: Absolute Lymphocytes (CBC) 2.8 K/uL (0.7-4.9); Hematocrit 34.5 % (36.0-45.0); Lymphocytes % 22.9 % (15.3-44.8); MPV 9.1 fL (7.6-11.3); RBC Red Blood Cell Count 4.68 M/uL (3.86-4.86)
[2021-07-18] MEDS ORDERED: NA CHLORIDE 0.9% 1,000 ML ONE ×2 (03:03→05:39)
[2021-07-18] MEDS ORDERED: ONDANSETRON 4 MG/2 ML VIAL ONE ×2 (03:03→05:17)
[2021-07-18] MEDS ORDERED: FAMOTIDINE 20 MG/2 ML VIAL IV ONE (03:03)
[2021-07-18] MEDS ORDERED: MORPHINE 4 MG/ML SYR ONE ×2 (03:03→05:17)
[2021-07-18] MEDS ORDERED: ACETAMINOPHEN 500 MG TAB ONE (03:14)
[2021-07-18 03:40] LABS: BUN Blood Urea Nitrogen 9 mg/dL (7-18); Bicarbonate 26 mmol/L (21-32); Glucose Level 97 mg/dL (74-106); HCG, Quantitative 3233 mIU/mL (1-3); Sodium Level 137 mmol/L (136-145)
[2021-07-18 04:39] LABS: Hematocrit 30.6 % (36.0-45.0)
--- NOTE | 2021-07-18 05:26 | ER ---
Nurse's Notes [facility] Name: Kemar Ang Age: 26 yrs Sex: Female : 1995 Arrival Date: 07/18/2021 Time: 00:48 Bed 5 Private MD: Diagnosis: Threatened Presentation: 07/18 01:03 Chief complaint: Patient states: excess vaginal bleeding. pt states she is certain that bb she is having a miscarriage. currently 13 weeks . complaints of back pain, headache, abdominal cramping and her legs are numb. bleeding started around 2230 last night. Coronavirus screen: Vaccine status: Patient reports receiving the 2nd dose of the covid vaccine. [employer] X2 Client denies travel out of the [place] in the last 14 days. At this time, the client does not indicate any symptoms associated with coronavirus-19. Ebola Screen: No symptoms or risks identified at this time. Initial Sepsis Screen: Does the patient meet any 2 criteria? No. Patient's initial sepsis screen is negative. Does the patient have a suspected source of infection? No. Patient's initial sepsis screen is negative. Risk Assessment: Do you want to hurt yourself or someone else? Patient reports no desire to harm self or others. Onset of symptoms was July 17, 2021 at 22:30. 01:03 Method Of Arrival: Wheelchair bb 01:03 Acuity: EDOUARD 2 bb Triage Assessment: 01:08 General: Appears uncomfortable, Behavior is cooperative, anxious. Pain: Complains of bb pain in lumbar area, sacrum, left low back, right low back, abdomen and pelvis, headache. Neuro: Level of Consciousness is awake, alert, obeys commands, Oriented to person, place, time, situation. Cardiovascular:. Respiratory: Airway is patent Trachea midline Respiratory effort is even, unlabored, Respiratory pattern is regular, symmetrical. : Reports vaginal bleeding that is heavy flow. PULP BEATER: 01:08 1, Living 2, LMP 04/2021 bb 02:25 4, Full Term 2, Premature 0, 1, Living 2 kdr Historical: - Allergies: 01:08 No Known Allergies; bb - Home Meds: 01:08 Vitamin Oral tab [Active]; bb - PMHx: 01:08 Hernia; bb - PSHx: 01:08 Repair of inguinal hernia; bb - Immunization history:: Adult Immunizations up to date. - Social history:: Smoking status: Patient denies any tobacco usage or history of. Screenin:36 Abuse screen: Denies threats or abuse. Nutritional screening: No deficits noted. Tuberculosis screening: No symptoms or risk factors identified. Fall Risk No fall in past 12 months (0 pts). No secondary diagnosis (0 pts). IV access (20 points). Ambulatory Aid- None/Bed Rest/Nurse Assist (0 pts). Gait- Normal/Bed Rest/Wheelchair (0 pts) Mental Status- Oriented to own ability (0 pts). Total Ann Fall Scale indicates Low Risk Score (25-44 pts). Assessment: 02:30 Obstetrical Assessment: General assessment: awake and alert, skin warm and dry. Obstetrical Assessment: General assessment: awake and alert, skin warm and dry, Fundal height is 13 cms. Rupture of membranes not noted. Contractions began 4 hours ago, are every five minutes, lasting < 1 minute. Reassessment:. Cardiovascular: Heart tones S1 S2. Vital Signs: 01:03 BP 133 / 78; Pulse 86; Resp 19; Temp 98.1(T); Pulse Ox 100% on R/A; Weight 101.15 kg bb (R); Height 5 ft. 7 in. (170.18 cm) (R); Pain 7/10; 02:45 BP 122 / 73; Pulse 72; Resp 18; Pulse Ox 100% on R/A; mk 03:45 BP 121 / 73; Pulse 69; Resp 18; Pulse Ox 100% on R/A; mk 04:45 BP 112 / 59; Pulse 64; Resp 18; Pulse Ox 99% on R/A; mk 05:45 BP 117 / 62; Pulse 72; Resp 18; Pulse Ox 99% on R/A; mk 01:03 Body Mass Index 34.93 (101.15 kg, 170.18 cm) Vitals: 03:37 Heart Tones unable to find . [place] Coma Score: 02:45 Eye Response: spontaneous(4). Verbal Response: oriented(5). Motor Response: obeys commands(6). Total: 15. 04:45 Eye Response: spontaneous(4). Verbal Response: oriented(5). Motor Response: obeys commands(6). Total: 15. 05:45 Eye Response: spontaneous(4). Verbal Response: oriented(5). Motor Response: obeys mk commands(6). Total: 15. ED Course: 00:48 Patient arrived in ED. bp1 01:08 Triage completed. bb 01:08 Arm band placed on. bb 01:16 Michael Oliver MD is Attending Physician. kdr 02:37 Cee Lang, RN is Primary Nurse. mk 02:55 Inserted saline lock: 22 gauge in right antecubital area, using aseptic technique. mk Blood collected. 02:57 Abo/rh Typing Sent. mk 02:57 Basic Metabolic Panel Sent. mk 02:57 Quantitative Hcg Sent. mk 02:57 ABO/RH typing Sent. mk 03:08 Transvaginal Study Probe In Process Unspecified. EDMS 03:37 Assist provider with pelvic exam: Set up pelvic tray. Performed by Michael Oliver MD mk Patient tolerated well. 03:38 Patient has correct armband on for positive identification. Allergy band placed. Placed mk in gown. Bed in low position. Call light in reach. Side rails up X 1. 04:35 Hemoglobin Sent. sm5 04:35 Hematocrit Sent. sm5 05:24 Reji Reyes MD is Hospitalizing Provider. kdr 07:44 Primary Nurse role handed off by Cee Lang RN tw2 07:44 Colleen Recinos RN is Primary Nurse. tw2 07:51 Reji Reyes MD is Referral Physician. jmm 09:02 IV discontinued, bleeding controlled, Pressure dressing applied. vale Administered Medications: 03:16 Drug: NS 0.9% 1000 ml Route: IV; Rate: 1 bolus; Site: right antecubital; mk 06:07 Follow up: Response: No adverse reaction mk 03:16 Drug: morphine 4 mg Route: IVP; Site: right antecubital; mk 06:06 Follow up: Response: No adverse reaction mk 03:16 Drug: Zofran (Ondansetron) 4 mg Route: IVP; Site: right antecubital; mk 06:06 Follow up: Response: No adverse reaction mk 03:16 Drug: Pepcid (famotidine) 20 mg Route: IVP; Site: right antecubital; mk 06:06 Follow up: Response: No adverse reaction mk 05:55 Drug: Pitocin (oxytocin) 20 units Route: IV; Rate: calculated rate; Site: right mk antecubital; Point of Care Testing: Urine : 08:56 hCG Reading: Positive; vale Outcome: 05:25 Decision to Hospitalize by Provider. kdr 07:51 Discharge ordered by . theron 09:02 Discharged to home vale 09:02 Condition: good 09:02 Discharge instructions given to patient, Prescriptions given X 2. 09:02 Patient left the ED. vael Signatures: Dispatcher [employer] EDMS Michael Oliver MD MD kdr Mickail, Joel, PA PA jmm Ballard, Brenda, RN RN bb Colleen Recinos, RN RN tw2 Moriah Gómez Sarah, RN RN 5 Rosana Deshpande, RN RN vale Cee Lang, RN IMELDA
--- NOTE | 2021-07-18 05:26 | EDPHYS ---
Physician Documentation [facility] Name: Kemar Ang Age: 26 yrs Sex: Female : 1995 Arrival Date: 07/18/2021 Time: 00:48 Bed 5 Private MD: ED Physician Michael Oliver HPI: 07/18 05:26 This 26 yrs old Black Female presents to ER via Wheelchair with complaints of Vaginal kdr Bleeding, + Preg <12wks, Vaginal Pain. 02:25 The patient presents to the emergency department with abdominal pain, nausea and kdr vomiting, vaginal bleeding, that is moderate, that is heavy. The estimated gestational age is 13 weeks. course: care: none, Ultrasound: the patient had an ultrasound. Previous pregnancies: in previous pregnancies patient has had vaginal delivery. Associated signs and symptoms: The patient has no apparent associated signs or symptoms. The patient has not experienced similar symptoms in the past. The patient has been recently seen at the [facility] Emergency Department, last week. Patient started to have vaginal bleeding last night approximately 10:30 PM. She had been to this ED on Monday and diagnosed with a blighted ovum. Since then she is continue to have intermittent pain in her lower back and abdomen and cramping. Has become worse over the last 6 to 12 hours. Patient presents with multiple pictures of extensive bleeding in the toilet. She also complains of a mild to moderate left-sided headache. Finally she also has numbness and pain in her legs. 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 - Social history:: Smoking status: Patient denies any tobacco usage or history of. ROS: 02:25 Constitutional: Negative for fever, chills, and weight loss, Eyes: Negative for injury, kdr pain, redness, and discharge, ENT: Negative for injury, pain, and discharge, Neck: Negative for injury, pain, and swelling, Cardiovascular: Negative for chest pain, palpitations, and edema, Respiratory: Negative for shortness of breath, cough, wheezing, and pleuritic chest pain, MS/Extremity: Negative for injury and deformity, Skin: Negative for injury, rash, and discoloration, Neuro: Negative for headache, weakness, numbness, tingling, and seizure activity. 02:25 Abdomen/GI: Positive for abdominal pain, nausea and vomiting, Negative for black/tarry stool, rectal pain, rectal bleeding, bowel incontinence. 02:25 Back: Positive for pain at rest, pain with movement, of the low back area and mid back area. 02:25 : Positive for vaginal bleeding, Extensive. Exam: 02:25 Constitutional: This is a well developed, well nourished patient who is awake, alert, kdr and in no acute distress. Head/Face: Normocephalic, atraumatic. Eyes: Pupils equal round and reactive to light, extra-ocular motions intact. Lids and lashes normal. Conjunctiva and sclera are non-icteric and not injected. Cornea within normal limits. Periorbital areas with no swelling, redness, or edema. Neck: Trachea midline, no thyromegaly or masses palpated, and no cervical lymphadenopathy. Supple, full range of motion without nuchal rigidity, or vertebral point tenderness. No Meningismus. Chest/axilla: Normal chest wall appearance and motion. Nontender with no deformity. No lesions are appreciated. Cardiovascular: Regular rate and rhythm with a normal S1 and S2. No gallops, murmurs, or rubs. Normal PMI, no JVD. No pulse deficits. Respiratory: Lungs have equal breath sounds bilaterally, clear to auscultation and percussion. No rales, rhonchi or wheezes noted. No increased work of breathing, no retractions or nasal flaring. Abdomen/GI: Soft, non-tender, with normal bowel sounds. No distension or tympany. No guarding or rebound. No evidence of tenderness throughout. Back: No spinal tenderness. No costovertebral tenderness. Full range of motion. Skin: Warm, dry with normal turgor. Normal color with no rashes, no lesions, and no evidence of cellulitis. MS/ Extremity: Pulses equal, no cyanosis. Neurovascular intact. Full, normal range of motion. Neuro: Awake and alert, GCS 15, oriented to person, place, time, and situation. Cranial nerves II-XII grossly intact. Motor strength 5/5 in all extremities. Sensory grossly intact. Cerebellar exam normal. Normal gait. Psych: Awake, alert, with orientation to person, place and time. Behavior, mood, and affect are within normal limits. 03:40 : Pelvic Exam: External exam: is normal, Speculum exam: scant bleeding, no kdr cervicitis, os that is closed, bimanual exam reveals no cervical motion tenderness, os that is closed, discharge, is not appreciated, the nurse was present for the exam. Vital Signs: 01:03 BP 133 / 78; Pulse 86; Resp 19; Temp 98.1(T); Pulse Ox 100% on R/A; Weight 101.15 kg bb (R); Height 5 ft. 7 in. (170.18 cm) (R); Pain 7/10; 02:45 BP 122 / 73; Pulse 72; Resp 18; Pulse Ox 100% on R/A; mk 03:45 BP 121 / 73; Pulse 69; Resp 18; Pulse Ox 100% on R/A; mk 04:45 BP 112 / 59; Pulse 64; Resp 18; Pulse Ox 99% on R/A; mk 05:45 BP 117 / 62; Pulse 72; Resp 18; Pulse Ox 99% on R/A; mk 01:03 Body Mass Index 34.93 (101.15 kg, 170.18 cm) bb [place] Coma Score: 02:45 Eye Response: spontaneous(4). Verbal Response: oriented(5). Motor Response: obeys mk commands(6). Total: 15. 04:45 Eye Response: spontaneous(4). Verbal Response: oriented(5). Motor Response: obeys mk commands(6). Total: 15. 05:45 Eye Response: spontaneous(4). Verbal Response: oriented(5). Motor Response: obeys mk commands(6). Total: 15. MDM: 03:40 Data reviewed: vital signs, nurses notes, lab test result(s), radiologic studies. kdr Counseling: I had a detailed discussion with the patient and/or guardian regarding: the historical points, exam findings, and any diagnostic results supporting the discharge/admit diagnosis, lab results, radiology results, the need for outpatient follow up. 05:25 Patient medically screened. kdr 07:49 ED course: Dr. Reyes evaluated the patient in the ED. Patient expressed the need to go jm home. Dr. Reyes recommended cytotec and doxycycline for home. Patient is otherwise given strict return precautions. Patient understood and agrees with the plan of care. . 07/18 01:17 Order name: Abo/rh Typing kdr 07/18 01:17 Order name: Basic Metabolic Panel; Complete Time: 04:53 kdr 07/18 01:17 Order name: CBC with Diff; Complete Time: 04:53 kdr 07/18 01:17 Order name: Quantitative Hcg; Complete Time: 04:53 kdr 07/18 01:17 Order name: ABO/RH typing; Complete Time: 04:53 EDMS 07/18 04:20 Order name: Hemoglobin; Complete Time: 04:53 kdr 07/18 04:20 Order name: Hematocrit; Complete Time: 04:53 kdr 07/18 05:35 Order name: Urine Dipstick-Ancillary; Complete Time: 06:27 EDMS 07/18 06:38 Order name: Basic Metabolic Panel EDMS 07/18 06:38 Order name: CBC with Automated Diff EDMS 07/18 01:17 Order name: IV Saline Lock; Complete Time: 02:57 kdr 07/18 01:17 Order name: Labs collected and sent; Complete Time: 02:57 kdr 07/18 01:17 Order name: NPO; Complete Time: 02:56 kdr 07/18 01:17 Order name: Urine Dipstick-Ancillary (obtain specimen); Complete Time: 05:34 kdr 07/18 03:07 Order name: Transvaginal Study Probe EDMS 07/18 06:38 Order name: Clear Liquid; Complete Time: 08:01 EDMS 07/18 06:38 Order name: NPO; Complete Time: 08:01 EDMS 07/18 08:36 Order name: COVID-19/FLU A+B EDMS Administered Medications: 03:16 Drug: NS 0.9% 1000 ml Route: IV; Rate: 1 bolus; Site: right antecubital; mk 06:07 Follow up: Response: No adverse reaction mk 03:16 Drug: morphine 4 mg Route: IVP; Site: right antecubital; mk 06:06 Follow up: Response: No adverse reaction mk 03:16 Drug: Zofran (Ondansetron) 4 mg Route: IVP; Site: right antecubital; mk 06:06 Follow up: Response: No adverse reaction mk 03:16 Drug: Pepcid (famotidine) 20 mg Route: IVP; Site: right antecubital; mk 06:06 Follow up: Response: No adverse reaction mk 05:55 Drug: Pitocin (oxytocin) 20 units Route: IV; Rate: calculated rate; Site: right mk antecubital; Point of Care Testing: Urine : 08:56 hCG Reading: Positive; vale Disposition: 16:17 Co-signature as Attending Physician, Michael Oliver MD I agree with the assessment and kdr plan of care. Disposition Summary: 07/18/21 07:51 Discharge Ordered Location: Home(07/18/21 07:51) [facility] Condition: Stable(07/18/21 07:51) [facility] Diagnosis - Threatened [facility] Followup: [facility] - With: Reji Reyes MD - When: 2 - 3 days - Reason: Recheck today's complaints, Continuance of care, Re-evaluation by your physician Discharge Instructions: - Discharge Summary Sheet [facility] - Threatened Miscarriage [facility] Forms: - Medication Reconciliation Form [facility] - Thank You Letter [facility] - Antibiotic Education [facility] - Prescription Opioid Use [facility] Prescriptions: - Cytotec 100 mcg Oral tablet - take 1 tablet by ORAL route every 4 hours; 4 tablet; Refills: 0, Product [facility] Selection Permitted - Doxycycline Hyclate 100 mg Oral Tablet - take 1 tablet by ORAL route every 12 hours for 3 days; 6 tablet; Refills: 0, [facility] Product Selection Permitted Signatures: Dispatcher [employer] EDAK Michael Oliver MD MD kdr Mickail, Joel, PA PA jmm Ballard, Brenda, RN RN Cee Guzman RN RN feroz Corrections: (The following items were deleted from the chart) 03:07 02:15 OB Limited+US.RAD.BRZ ordered. EDAK EDMS 06:37 06:30 COVID-19/FLU A+B+MOL.LAB.BRZ ordered. EDAK EDMS 07:51 05:25 Observation kdr [facility] 07:51 05:25 Reji Reyes kdr [facility] 07:51 05:25 [facility] kdr jmm 07:51 05:25 Fair kdr jmm 07:51 05:25 new kdr jmm 07:51 05:25 have improved kdr jmm 07:51 05:25 Standard kdr jmm 07:51 05:25 kdr jmm 07:51 05:25 Spontaneous miscarriage kdr jmm
[2021-07-18 05:36] LABS: Urine Blood 3+ (Negative); Urine Glucose Negative (Negative); Urine Protein Negative (Negative); Urine pH 5.5 (5.0-7.0)
[2021-07-18] MEDS ORDERED: OXYTOCIN 10 UNIT/ML ML ONE (05:39)
[2021-07-18] MEDS ORDERED: MORPHINE 4 MG/ML SYR IV PRN (06:36)
[2021-07-18] MEDS ORDERED: ONDANSETRON 4 MG/2 ML VIAL IV PRN (06:36)
[2021-07-18] MEDS ORDERED: ACETAMINOPHEN 500 MG TAB PO PRN (06:36)
[2021-07-18] MEDS ORDERED: METHYLERGONOVINE 0.2 MG TAB PO SCH ×3 (07:00→08:00)
[2021-07-18] MEDS ORDERED: D5LR 1,000 ML with OXYTOCIN 20 UNIT IV SCH ×2 (07:00)
[2021-07-18 08:36] LABS: SARS-COV-2 RT PCR NEGATIVE (NEGATIVE)
[2021-07-18 09:30] VITALS: TEMP 98.1
[2021-07-18 09:35] VITALS: O2SAT 99
[2021-07-18 09:36] VITALS: BP 117/62
--- NOTE | 2021-07-18 11:39 | RAD REPORT ---
EXAM DESCRIPTION: US - Transvaginal Study Probe - 07/18/2021 3:08 am CLINICAL HISTORY: with pelvic pain COMPARISON: July 14, 2021 FINDINGS: The uterus measures 10 x 6 x 7cm. A fibroid is not seen. Endometrial stripe measures 1 jennifer timeter. 2.4 centimeter gestational sac is no longer present. Right ovary not seen secondary to overlying bowel gas. Left ovary normal in size and echotexture. The right and left adnexal are unremarkable. No significant free fluid is seen. IMPRESSION: Complete
--- NOTE | 2021-07-21 12:53 | CON ---
A 26-year-old black female, 4, para 2, AB1, diagnosed with a spontaneous AB this week, blight ed ovum 13 weeks. Patient came back in this morning with bleeding that has now basically stopped. S he is Rh positive. Hemoglobin is about 9.6, down from 10.6 few days earlier. The patient is quite s table. The ultrasound demonstrated nothing inside the uterus. She was having cramping, was given mor phine, but now she says she has no pain whatsoever. She wishes to go home. She does not wish to be admitted for observation. If she can get up and walk around without problems, I think that will be r easonable. We will send her home with doxycycline 100 mg twice a day for 3 days, total of 6 tablets for prophylaxis as well as Cytotec 100 mcg 1 every 4 hours x4 doses. All of her vital signs are norm al. Family history is noncontributory. She has had 1 previous miscarriage. She has her last child, apparently delivered. She is told to call my office tomorrow and see if she can get arrangements to come see me sometime in the next 2 weeks for followup. If she cannot, she knows that she should be seen by [facility] for followup. Physical exam done by the ER personnel shows no problems and as I stated, patient is quite alert and wishes to go home. We have discussed control but she and her husba nd are opposing that one. She says she on abstinence and he did not say anything, but I t old her that is probably not the best approach in the oral for a couple and she should consid er other forms of control, but of course that is completely her decision. Final Diagnosis: Spontaneous complete , now dismissed with medications. To follow up with m y office or [facility]. JADIEL/MARIA ISABEL Voice ID: [id number] Report ID: [id number]
== END 2021-07-18 09:02 | disposition home or self-care (01) ==
LOC: ER 00:46 → UNDOADMIN 06:38 → ERHOLD 06:38
DX: O03.9 Complete or unspecified spontaneous abortion without complication (principal); Z20.822 Contact with and (suspected) exposure to COVID-19
CPT/HCPCS: 85025; 80048; 36415; 86900; 86901; 84702; 85018; 85014; 81003; 0240U; 76830; 96375; 96374; 99284; J7030 ×2; J2405 ×2

== ENCOUNTER 2021-10-04 12:50 | Emergency (ER) | payer OTHER ==
--- OUTSIDE RECORDS SUMMARY | 2021-10-04 12:53 | XMS REPORT | Continuity of Care Document ---
:1995 Author Organization [facility] t Address [address] [place] [address] Care Team Providers Name Role Phone Harleen MENDOZA Primary Care Physician Unavailable Ekaterina STEPHEN Attending Clinician Unavailable Ada WHHarleen EL Attending Clinician Lab Attending Clinician Unavailable Harleen MENDOZA Attending Clinician Unavailable Ekaterina Bejarano Attending Clinician Payers Payer Name Policy Type Policy Number Effective Date Expiration Date [facility] [id number] 2021 CHOICE MEDICAID 00:00:00 Problems Condition Condition Condition Status Onset Resolution Last Treating Co mments Source Name Details Category Date Date Treatment Clinician Date Obesity Obesity Disease Active 2020-07 Univers during during 1-18 ity of 00:00: [place] [address] [place] [address] Multiparit Multiparit Disease Active 2020-07 U nivers y y 1-18 ity of 00:00: [place] 00 [facility] Supervisio Supervisio Disease Active 2020-07 U nivers n of high n of high -18 ity of risk risk 00:00: [place] , , 00 Me dical antepartum antepartum [...] Active Univers ALLERGIE Class ity of S [facility] Social History Social Habit Start Date Stop Date Quantity Comments Source ASSERTION 2021-04-29 University of 00:00:00 [facility] Exposure to Not sure University of SARS-CoV-2 [place] [facility] (event) Branch History SDOH University o f Alcohol Std [place] [facility] Drinks Branch History SDOH University o f Alcohol Binge [place] [facility] Alcohol intake 2021-07-29 2021-07-29 Current drinker Unive rsity of 00:00:00 00:00:00 of alcohol [facility] (finding) [place] Tobacco use and 2021-05-27 2021-05-27 Never used Universit y of exposure 00:00:00 00:00:00 [facility] History of 2016-07-17 2021-05-14 Cigarette Smoker Universi ty of tobacco use 00:00:00 00:00:00 [facility] History SDOH 2019-07-17 2019-07-17 2 University o f Alcohol Frequency 00:00:00 00:00:00 [facility] edical [place] Alcohol Comment 2013-06-28 2013-06-28 socially, not Univer sity of 00:00:00 00:00:00 during [facility] dical [place] Sex Assigned At [birth year] Universit y of 00:00:00 00:00:00 [facility] Smoking Status Start Date Stop Date Source Former smoker 2021-05-27 00:00:00 2021-05-27 00:00:00 Universi ty of [facility] Medications Ordered Filled Start Stop Current Ordering Indication Dosage Frequency Signature Comments Components Source Medication Medication Date Date Medication? Clinician (SIG) Name Name No known No Univers medications 1-20 ity of 13:56: [address] No known No Univers medications 1-20 ity of 13:56: [address] No known No Univers medications 1-20 ity of 13:56: [address] Immunizations Ordered Filled Immunization Date Status Comments Sourc e Immunization Name Name Influenza Virus 2020-05-13 Completed Universit y of Vaccine Quad .5 mL 00:00:00 [facility] 6+ [place] Branch Influenza Virus 2020-05-13 Completed Universit y of Vaccine Quad .5 mL 00:00:00 [facility] IM 6+ [place] Branch Influenza Virus 2020-05-13 Completed Universit y of Vaccine Quad .5 mL 00:00:00 [facility] 6+ [place] Branch Influenza Virus 2019-07-17 Completed Universit y of Vaccine Quad .5 mL 00:00:00 [facility] IM 6+ [place] Branch Influenza Virus 2019-07-17 Completed Universit y of Vaccine Quad .5 mL 00:00:00 [facility] 6+ [place] Branch Influenza Virus 2019-07-17 Completed Universit y of Vaccine Quad .5 mL 00:00:00 [facility] 6+ [place] Branch TDAP 2014-01-06 Completed University of 00:00:00 [facility] TDAP 2014-01-06 Completed University of 00:00:00 [facility] TDAP 2014-01-06 Completed University of 00:00:00 [facility] PPD (TB) 2013-09-16 Completed University of 00:00:00 [facility] PPD (TB) 2013-09-16 Completed University of 00:00:00 [facility] PPD (TB) 2013-09-16 Completed University of 00:00:00 [facility] Influenza Virus 2013-07-26 Completed Universit y of Vaccine (3+ yrs) 00:00:00 [facility] Influenza Virus 2013-07-26 Completed Universit y of Vaccine (3+ yrs) 00:00:00 [facility] Influenza Virus 2013-07-26 Completed Universit y of Vaccine (3+ yrs) 00:00:00 [facility] Rubella 2012-03-02 Completed University of 00:00:00 [facility] Rubella 2012-03-02 Completed University of 00:00:00 [facility] Rubella 2012-03-02 Completed University of 00:00:00 [facility] Td 2005-07-10 Completed University of 00:00:00 [facility] Td 2005-07-10 Completed University of 00:00:00 [facility] Td 2005-07-10 Completed University of 00:00:00 [facility] Procedures Procedure Date / Time Performed Performing Clinician [facility] e TOTAL BETA HCG ASSAY 2021-08-12 22:38:00 Nicolette [facility] Encounters Start End Encounter Admission Attending Care Care Encounter Source Date/Time Date/Time Type Type Clinicians Facility Department ID 2021-09-01 2021-09-01 Outpatient Ekaterina YARA [facility] [id number] Univers 08:15:00 08:15:00 NICOLETTE [id number] ity o f [facility] 2021-09-01 2021-09-01 Outpatient Ekaterina YARA [facility] [id number] Univers 08:15:00 08:15:00 NICOLETTE ity o f [facility] 2021-08-18 2021-08-18 [facility] [id number] Univers 00:00:00 00:00:00 Marlen Canseco INSULATION PROFESSIONAL [id number] ity [facility] [id number] Rey as MATERNAL [id number] [facility] & CHILD [address] [place] [address] 2021-08-12 2021-08-12 Conference Services Coordinator Lab, [facility] [id number] Univers 13:30:00 13:58:16 Visit Marlen Mendoza INSULATION PROFESSIONAL [id number] ity [facility] [id number] Rey as MATERNAL [id number] [facility] & CHILD [address] [place] [address] 2021-08-12 2021-08-12 Outpatient Ekaterina MENDOZA [facility] [id number] Univers 13:30:00 13:30:00 MARLEN irizarry o [facility] 2021-07-30 2021-07-30 [facility]phone [facility] [id number] Univers 00:00:00 00:00:00 Nicolette Tobar INSULATION PROFESSIONAL [id number] ity [facility] [id number] Rey as MATERNAL [id number] [facility] & CHILD [address] [place] [address] 2020-08-04 2020-08-04 Telephone Ada [facility] [id number] 00:00:00 00:00:00 Marlen Canseco INSULATION PROFESSIONAL [id number] REGIONAL [id number] MATERNAL [id number] & CHILD [address] [facility] 2020-07-13 2020-07-13 Telephone Ada [facility] [id number] 00:00:00 00:00:00 Marlen Canseco INSULATION PROFESSIONAL [id number] [facility] [id number] MATERNAL [id number] & CHILD [address] [facility] Results Test Description Test Time Test Comments Results Result Comments Source TOTAL BETA HCG ASSAY 2021-08-13 07:11:00 Test Item Value Reference Range Interpretation Comme nts BETA HCG (test code = <2.39 See_Comment [Auto mated message] The [id number]) system which ge nerated this result transmit saravanan reference range : Non- fe male and male patients: <5 mIU/mL. The reference r barrie was not used to interpr et this result as luba l/abnormal. LAMIN (test code = LAMIN) Gestational Age ?Range (mIU/mL) 1-10 ?Weeks ?[id number] Weeks ?[id number] Weeks ?[id number] Weeks ?[id number] Biotin has been reported to cause a negative bias, interpret results relative to patient's use of biotin. [facility]
[2021-10-04] MEDS ORDERED: NA CHLORIDE 0.9% 1,000 ML ONE (13:14)
[2021-10-04] MEDS ORDERED: KETOROLAC 30 MG/ML INJ ONE (13:14)
[2021-10-04 13:15] LABS: Urine Blood Negative (Negative); Urine Glucose Negative (Negative); Urine Protein Negative (Negative)
[2021-10-04 14:06] LABS: Urine Bacteria <20 /HPF (<20); Urine RBC <5 /HPF (NONE SEEN)
[2021-10-04 14:09] LABS: Absolute Lymphocytes (CBC) 2.7 K/uL (0.7-4.9); Hematocrit 35.4 % (36.0-45.0); MPV 8.9 fL (7.6-11.3); RBC Red Blood Cell Count 4.86 M/uL (3.86-4.86)
[2021-10-04 14:16] LABS: ALT/SGPT 27 U/L (12-78); AST/SGOT 17 U/L (15-37); Albumin 3.6 g/dL (3.4-5.0); Alkaline Phosphatase 72 U/L (45-117); BUN Blood Urea Nitrogen 8 mg/dL (7-18); Bicarbonate 28 mmol/L (21-32); Bilirubin Total 0.3 mg/dL (0.2-1.0); Glucose Level 88 mg/dL (74-106); Lipase 89 U/L (73-393); Potassium 3.8 mmol/L (3.5-5.1); Protein, Total 7.8 g/dL (6.4-8.2); Sodium Level 137 mmol/L (136-145)
--- NOTE | 2021-10-04 14:26 | RAD REPORT ---
EXAM DESCRIPTION: US - Transvaginal Study Probe - 10/04/2021 2:08 pm CLINICAL HISTORY: ABD PAIN COMPARISON: Transvaginal Study Probe dated 07/18/2021 TECHNIQUE: Endovaginal sonography was performed. FINDINGS: Normal size uterus is present with no endometrial or myometrial abnormality seen. Physiolo gic quantity of free fluid is seen in the cul de sac. Both ovaries are identifiable and show small fo llicles. Doppler evaluation shows normal blood flow in the bilateral ovarian stroma. No dominant zney d or cystic ovarian or adnexal finding. IMPRESSION: Unremarkable endovaginal pelvic ultrasound as detailed.
--- NOTE | 2021-10-04 14:55 | RAD REPORT ---
EXAM DESCRIPTION: CT - Abdomen Pelvis W Contrast - 10/04/2021 2:31 pm CLINICAL HISTORY: ABD PAIN COMPARISON: Abdomen Pelvis W Contrast dated 09/09/2020; Abdomen Pelvis W Contrast dated 03/19/2016 TECHNIQUE: Biphasic, helical CT imaging of the abdomen and pelvis was performed following 100 ml non -ionic IV contrast. No oral contrast administered. All CT scans are performed using dose optimization technique as appropriate and may include automated exposure control or mA/KV adjustment according to patient size. FINDINGS: No suspicious findings in the lung bases. The liver, spleen, and pancreas show no suspicious findings. Gallbladder and biliary tree are also wi thout suspicious finding. Symmetric renal function is seen with no hydronephrosis or suspicious renal mass. No obstructing or n onobstructing calculi seen. No pyelonephritis or acute parenchymal process. No bladder abnormalities. No adrenal abnormalities. No uterine abnormality seen. A 2.3 centimeter right ovarian cyst is presen t. There may be collapsed remnant of a left ovarian cyst present. Trace amount of fluid in the cul de sac well within physiologic limits. No fallopian tube dilatation. No dilated bowel loops or bowel wall thickening. Appendix is not well defined. No direct or indirect evidence appendicitis. No free air, pneumatosis or abnormal inflammatory stranding. No hernia, mass or bulky lymphadenopathy. No suspicious bony findings. IMPRESSION: No pyelonephritis, hydronephrosis or other abnormality to explain left flank pain. There is questionable collapsed or remnant left ovarian cyst. No cyst rupture or hemorrhage findings seen. No colitis or acute GI finding identifiable. More mild mucosal level inflammatory changes can be occu lt on the CT examination.
--- NOTE | 2021-10-04 14:57 | EDPHYS ---
Physician Documentation [facility] Name: Kemar Ang Age: 26 yrs Sex: Female : 1995 Arrival Date: 10/04/2021 Time: 12:51 Bed 20 Private MD: ED Physician Kyler Zazueta HPI: 10/04 13:09 This 26 yrs old Black Female presents to ER via Ambulatory with complaints of Abdominal kb Pain. 13:09 The patient presents with abdominal pain in the left upper quadrant, in the left lower kb quadrant. Onset: The symptoms/episode began/occurred at 09:00. The symptoms do not radiate. Associated signs and symptoms: Pertinent positives: vaginal discharge. The symptoms are described as constant. Modifying factors: The symptoms are alleviated by nothing, the symptoms are aggravated by nothing. Severity of pain: At its worst the pain was moderate in the emergency department the pain is unchanged. The patient has not experienced similar symptoms in the past. The patient has not recently seen a physician. 13:10 Pt reports left side abdominal pain that started at 0900. States she has had vaginal kb discharge for a long time. Denies fever, chills, n/v/d.. CHIEF RADIOLOGY: 12:56 LMP 09/20/2021 tw2 Historical: - Allergies: 12:56 No Known Allergies; tw2 - Home Meds: 12:56 None [Active]; tw2 - PMHx: 12:56 Hernia; tw2 - PSHx: 12:56 Repair of inguinal hernia; tw2 - Immunization history:: Client reports receiving the 2nd dose of the Covid vaccine. - Social history:: Smoking status: Patient reports the use of cigarette tobacco products, 2 or maybe 3 cigarettes . ROS: 13:08 Constitutional: Negative for fever, chills, and weight loss. kb 13:08 Abdomen/GI: Positive for abdominal pain. 13:08 All other systems are negative. 13:09 : Positive for vaginal discharge. kb Exam: 13:08 Constitutional: This is a well developed, well nourished patient who is awake, alert, kb and in no acute distress. Head/Face: Normocephalic, atraumatic. ENT: Moist Mucous membranes Respiratory: Respirations even and unlabored. No increased work of breathing. Talking in full sentences Skin: Warm, dry with normal turgor. Normal color. MS/ Extremity: Pulses equal, no cyanosis. Neurovascular intact. Full, normal range of motion. Neuro: Awake and alert, GCS 15, oriented to person, place, time, and situation. Moves all extremities. Normal gait. Psych: Awake, alert, with orientation to person, place and time. Behavior, mood, and affect are within normal limits. 13:08 Abdomen/GI: Inspection: abdomen appears normal, Bowel sounds: normal, in all quadrants, Palpation: soft, in all quadrants, mild abdominal tenderness, in the left upper quadrant, moderate abdominal tenderness, in the left lower quadrant. Vital Signs: 12:54 BP 126 / 91; Pulse 78; Resp 17; Temp 98.5(TE); Pulse Ox 99% on R/A; Weight 100.7 kg; tw2 Height 5 ft. 6 in. (167.64 cm) (R); Pain 10/10; 15:00 BP 133 / 77; Pulse 82; Resp 16; Pulse Ox 100% on R/A; ww 12:54 Body Mass Index 35.83 (100.70 kg, 167.64 cm) tw2 MDM: 13:01 Patient medically screened. kb 13:08 Data reviewed: vital signs, nurses notes. Data interpreted: Pulse oximetry: on room air kb is 99 %. Interpretation: normal. 14:56 Counseling: I had a detailed discussion with the patient and/or guardian regarding: the kb historical points, exam findings, and any diagnostic results supporting the discharge/admit diagnosis, lab results, radiology results, the need for outpatient follow up, a family practitioner, to return to the emergency department if symptoms worsen or persist or if there are any questions or concerns that arise at home. 10/04 13:02 Order name: Urine Microscopic Only; Complete Time: 14:14 kb 10/04 13:05 Order name: CBC with Diff; Complete Time: 14:14 kb 10/04 13:05 Order name: CMP; Complete Time: 14:18 kb 10/04 13:05 Order name: Lipase; Complete Time: 14:18 kb 10/04 13:16 Order name: Urine Dipstick-Ancillary; Complete Time: 13:19 EDMS 10/04 13:22 Order name: Urine --Ancillary (enter results); Complete Time: 14:32 bd 10/04 13:02 Order name: Urine Dipstick-Ancillary (obtain specimen); Complete Time: 13:23 kb 10/04 13:02 Order name: Urine Test (obtain specimen); Complete Time: 13:23 kb 10/04 13:05 Order name: CT Abd/Pelvis - IV Contrast Only; Complete Time: 14:55 kb 10/04 13:05 Order name: IV Saline Lock; Complete Time: 14:16 kb 10/04 13:05 Order name: Labs collected and sent; Complete Time: 14:16 kb 10/04 13:05 Order name: US Transvaginal Study (Probe); Complete Time: 14:32 kb Administered Medications: 14:16 Drug: NS 0.9% 1000 ml Route: IV; Rate: 1 bolus; Site: right antecubital; ww 14:16 Drug: Ketorolac 15 mg Route: IVP; Site: right antecubital; ww Disposition Summary: 10/04/21 14:56 Discharge Ordered Location: Home kb Condition: Stable kb Diagnosis - Other ovarian cysts kb Followup: kb - With: Emergency Department - When: As needed - Reason: Worsening of condition Followup: kb - With: Private Physician - When: 2 - 3 days - Reason: Recheck today's complaints, Continuance of care, Re-evaluation by your physician Discharge Instructions: - Discharge Summary Sheet kb - Ovarian Cyst, [id number] kb Forms: - Medication Reconciliation Form kb - Thank You Letter kb - Antibiotic Education kb - Prescription Opioid Use kb - Work release form aa5 Prescriptions: - Diclofenac Sodium 75 mg Oral tablet,delayed release (DR/EC) - take 1 tablet by ORAL route 2 times per day As needed; 30 tablet; Refills: 0, kb Product Selection Permitted Addendum: 10/07/2021 06:27 Co-signature as Attending Physician, Kyler Zazueta MD I agree with the assessment and c vale plan of care. Signatures: Dispatcher [employer] Skye Ann, RUG CLEANING SUPERVISOR-C RUG CLEANING SUPERVISOR-Kyler Sweeney MD MD cha Wise, Tara, RN RN tw2 Loren Gutierrez RN RN ww
--- NOTE | 2021-10-04 14:57 | ER ---
Nurse's Notes [facility] Name: Kemar Ang Age: 26 yrs Sex: Female : 1995 Arrival Date: 10/04/2021 Time: 12:51 Bed 20 Private MD: Diagnosis: Other ovarian cysts Presentation: 10/04 12:54 Chief complaint: Patient states: this morning when i walked into at 9am i put on a tw2 belt. i thought maybe it was the belt. but i have pain in my left side and some discharge. and its a sharp pain that stays constant. i also have a yellowish discharge. i had a miscarriage in July. i just had sex like 2 weeks ago but something is not right. Coronavirus screen: At this time, the client does not indicate any symptoms associated with coronavirus-19. Ebola Screen: Patient denies travel to an Ebola-affected area in the 21 days before illness onset. Initial Sepsis Screen: Does the patient meet any 2 criteria? No. Patient's initial sepsis screen is negative. Does the patient have a suspected source of infection? No. Patient's initial sepsis screen is negative. Risk Assessment: Do you want to hurt yourself or someone else? Patient reports no desire to harm self or others. Onset of symptoms was October 04, 2021. 12:54 Method Of Arrival: Ambulatory tw2 12:54 Acuity: EDOUARD 3 tw2 Triage Assessment: 12:57 General: Appears in no apparent distress. Behavior is calm, cooperative, appropriate tw2 for age. Pain: Complains of pain in left lower quadrant. GI: Reports lower abdominal pain, nausea. : Reports discharge, yellow. ATMOSPHERIC PHYSICIST: 12:56 LMP 09/20/2021 tw2 Historical: - Allergies: 12:56 No Known Allergies; tw2 - Home Meds: 12:56 None [Active]; tw2 - PMHx: 12:56 Hernia; tw2 - PSHx: 12:56 Repair of inguinal hernia; tw2 - Immunization history:: Client reports receiving the 2nd dose of the Covid vaccine. - Social history:: Smoking status: Patient reports the use of cigarette tobacco products, 2 or maybe 3 cigarettes . Screenin:30 Abuse screen: Denies threats or abuse. Denies injuries from another. Nutritional ww screening: No deficits noted. Tuberculosis screening: No symptoms or risk factors identified. Fall Risk None identified. Assessment: 13:30 General: Appears in no apparent distress. comfortable, Behavior is calm, cooperative. ww Pain: Complains of pain in posterior aspect of left lateral abdomen, anterior aspect of left lateral abdomen and left lower quadrant. Neuro: Level of Consciousness is awake, alert, obeys commands, Oriented to person, place, time, situation, Moves all extremities. Speech is normal. Cardiovascular: Capillary refill < 3 seconds Patient's skin is warm and dry. Chest pain is denied. Respiratory: Airway is patent Respiratory effort is even, unlabored, Respiratory pattern is regular, symmetrical. GI: Abdomen is non-distended, Abd is soft X 4 quads Abdomen is tender to palpation in anterior aspect of left lateral abdomen and left lower quadrant. : No signs and/or symptoms were reported regarding the genitourinary system. EENT: No signs and/or symptoms were reported regarding the EENT system. Derm: Skin is intact, is healthy with good turgor. 14:59 Reassessment: Patient appears in no apparent distress at this time. No changes from ww previously documented assessment. Patient and/or family updated on plan of care and expected duration. Pain level reassessed. Patient is alert, oriented x 3, equal unlabored respirations, skin warm/dry/pink. Vital Signs: 12:54 BP 126 / 91; Pulse 78; Resp 17; Temp 98.5(TE); Pulse Ox 99% on R/A; Weight 100.7 kg; tw2 Height 5 ft. 6 in. (167.64 cm) (R); Pain 10/10; 15:00 BP 133 / 77; Pulse 82; Resp 16; Pulse Ox 100% on R/A; ww 12:54 Body Mass Index 35.83 (100.70 kg, 167.64 cm) tw2 ED Course: 12:51 Patient arrived in ED. as 12:53 Skye Saxena FNP-C is [facility]. kb 12:53 Kyler Zazueta MD is Attending Physician. kb 12:56 Triage completed. tw2 12:56 Arm band placed on. tw2 13:04 Bed in low position. Call light in reach. Side rails up X 1. Door closed. Noise mb7 minimized. Warm blanket given. 13:07 Loren Gutierrez, RN is Primary Nurse. ww 13:43 Initial lab(s) drawn, by me, sent to lab. Inserted saline lock: 22 gauge in right jl7 antecubital area, using aseptic technique. Blood collected. 14:10 US Transvaginal Study (Probe) In Process Unspecified. EDMS 14:33 CT Abd/Pelvis - IV Contrast Only In Process Unspecified. EDMS 15:00 No provider procedures requiring assistance completed. IV discontinued, bleeding ww controlled, No redness/swelling at site. Pressure dressing applied. Administered Medications: 14:16 Drug: NS 0.9% 1000 ml Route: IV; Rate: 1 bolus; Site: right antecubital; ww 14:16 Drug: Ketorolac 15 mg Route: IVP; Site: right antecubital; ww Outcome: 14:56 Discharge ordered by . kb 15:00 Discharged to home ambulatory. ww 15:00 Condition: stable 15:00 Discharge instructions given to patient, Instructed on discharge instructions, follow up and referral plans. safe sex practices, safety practices, Demonstrated understanding of instructions, follow-up care, medications. 15:20 Patient left the ED. ww Signatures: Dispatcher [employer] EDMS Skye Saxena, CRECHE ATTENDANT-C CRECHE ATTENDANT-Butchb Gely Benjamin Tara, RN RN tw2 Dinh Rutherford RN RN jl7 Olivia Martell mb7 Loren Gutierrez, RN RN ww
[2021-10-04 15:55] VITALS: BP 133/77; O2SAT 100
[2021-10-04 15:56] VITALS: TEMP 98.5
== END 2021-10-04 15:20 | disposition home or self-care (01) ==
LOC: ER 12:50
DX: N83.299 Other ovarian cyst, unspecified side (principal); Z72.0 Tobacco use
CPT/HCPCS: 85025; 36415; 81025; 83690; 80053; 74177; 76830; 96374; 99284; Q9967; J7030; 81003; 81015

== ENCOUNTER 2021-11-02 18:41 | Emergency (ER) | payer OTHER ==
--- OUTSIDE RECORDS SUMMARY | 2021-11-02 18:44 | XMS REPORT | Continuity of Care Document ---
:1995 Author Organization [facility] t Address [address] [place] [address] Care Team Providers Name Role Phone Harleen Sanchez Primary Care Physician Harleen Sanchez Attending Clinician Harleen MENDOZA Attending Clinician Unavailable Payers Payer Name Policy Type Policy Number Effective Date Expiration Date S ource Problems Condition Condition Condition Status Onset Resolution Last Treating Co mments Source Name Details Category Date Date Treatment Clinician Date Other Other Disease Active Univers general general 4-01 [place] of [place] and advice 00 [place]ical for for Branch contracept contracept aminta aminta management management Obesity Obesity Disease Active 2020-07 [facility] during during 1[place] Multiparit Multiparit Disease Active 2020-07 U nivers y y 1-18 ity of 00:00: [place] 00 [facility] Spotting Spotting Disease Active 2020-07 Unive rs affecting affecting 1-18 [place] Medica l trimester trimester Bran ch Allergies, Adverse Reactions, Alerts Allergy Allergy Status Severity Reaction(s) Onset Inactive Treating Comm ents Source Name Type Date Date Clinician NO KNOWN Drug Active Univers ALLERGIE Class ity of [facility] [place] [facility] Social History Social Habit Start Date Stop Date Quantity Comments Source Exposure to Not sure University of SARS-CoV-2 [place] [facility] (event) [facility] History SDOH University o f Alcohol Std [place] [facility] Drinks Branch History SDOH University o f Alcohol Binge [place] [facility] Alcohol intake 2021-10-08 2021-10-08 Current drinker Unive rsity of 00:00:00 00:00:00 of alcohol [place] [facility] (finding) Branch Tobacco use and 2021-05-27 2021-05-27 Never used Universit y of exposure 00:00:00 00:00:00 [facility] History of 2016-07-17 2021-05-14 Cigarette Smoker Universi ty of tobacco use 00:00:00 00:00:00 [facility] Branch History SDOH 2019-07-17 2019-07-17 2 University o f Alcohol Frequency 00:00:00 00:00:00 [facility] edical [place] Alcohol Comment 2013-06-28 2013-06-28 socially, not Univer sity of 00:00:00 00:00:00 during [facility] dical [place] Sex Ass[birth year] At [birth year] Universit y of 00:00:00 00:00:00 [facility] Smoking Status Start Date Stop Date Source Former smoker 2021-05-27 00:00:00 2021-05-27 00:00:00 Universi ty of [facility] Medications Ordered Filled Start Stop Current Ordering Indication Dosage Frequency Signature Comments Components Source Medication Medication Date Date Medication? Clinician (SIG) Name Name cephALEXin 2021- Yes [id number] 500mg Take 1 Univers (KEFLEX) 10-08 capsule by ity of 500 mg 00:00: 04:59 mouth 2 [place] capsule 00 :00 (two) Medical times Branch daily for 10 days. cephALEXin 2021- Yes [id number] 500mg Take 1 Univers (KEFLEX) 10-08 capsule by ity of 500 mg 00:00: 04:59 mouth 2 [place] capsule 00 :00 (two) Medical times Branch daily for 10 days. Immunizations Ordered Filled Immunization Date Status Comments Sourc e Immunization Name Name Influenza Virus 2020-05-13 Completed Universit y of Vaccine Quad .5 mL 00:00:00 [facility] 6+ MO Branch Influenza Virus 2020-05-13 Completed Universit y of Vaccine Quad .5 mL 00:00:00 [facility] IM 6+ MO Branch Influenza Virus 2019-07-17 Completed Universit y of Vaccine Quad .5 mL 00:00:00 [facility] 6+ MO Branch Influenza Virus 2019-07-17 Completed Universit y of Vaccine Quad .5 mL 00:00:00 [facility] 6+ MO Branch TDAP 2014-01-06 Completed University of 00:00:00 [facility] TDAP 2014-01-06 Completed University of 00:00:00 [facility] PPD (TB) 2013-09-16 Completed University of 00:00:00 [facility] PPD (TB) 2013-09-16 Completed University of 00:00:00 [facility] Influenza Virus 2013-07-26 Completed Universit y of Vaccine (3+ yrs) 00:00:00 [facility] Influenza Virus 2013-07-26 Completed Universit y of Vaccine (3+ yrs) 00:00:00 [facility] Rubella 2012-03-02 Completed University of 00:00:00 [facility] Rubella 2012-03-02 Completed University of 00:00:00 [facility] Td 2005-07-10 Completed University of 00:00:00 [facility] Td 2005-07-10 Completed University of 00:00:00 [facility] Vital Signs Vital Name Observation Time Observation Value Comments Source Systolic blood 2021-10-08 19:04:00 119 mm[Hg] Univer sity of pressure [facility] Diastolic blood 2021-10-08 19:04:00 60 mm[Hg] Unive rsity of pressure [facility] Heart rate 2021-10-08 19:04:00 81 /min [facility] Body temperature 2021-10-08 19:04:[address] [facility] ersity [facility] Respiratory rate 2021-10-08 19:04:00 16 /min Univ ersity [facility] Body height 2021-10-08 19:04:[address] [facility] Body weight 2021-10-08 19:04:[address] [facility] BMI 2021-10-08 19:04:00 35.24 kg/m2 [facility] Procedures This patient has no known procedures. 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 [id number] juan [facility] [id number] Rey as MATERNAL [id number] Med ical & CHILD [address] [place] [address] 2021-10-08 2021-10-08 Outpatient R REJI [facility] [id number] [facility] 14:00:00 14:24:05 LOU matt f [facility] 2020-08-04 2020-08-04 Telephone Reji [facility] [id number] 00:00:00 00:00:00 Lou Canseco QUALITATIVE EXECUTIVE RESEARCHER [id number] REGIONAL [id number] MATERNAL [id number] & CHILD [address] [place] [address] 2020-07-13 2020-07-13 Telephone Reji [facility] [id number] 00:00:00 00:00:00 Lou Canseco QUALITATIVE EXECUTIVE RESEARCHER [id number] REGIONAL [id number] MATERNAL [id number] & CHILD [address] [place] [address] Results This patient has no known results.
[2021-11-02 19:49] LABS: Urine Blood 2+ (Negative); Urine Glucose Negative (Negative); Urine Protein Negative (Negative)
[2021-11-02 20:09] LABS: Urine Bacteria 20-50 /HPF (<20); Urine RBC NONE SEEN /HPF (NONE SEEN)
[2021-11-02 20:33] LABS: Absolute Lymphocytes (CBC) 2.5 K/uL (0.7-4.9); Hematocrit 33.3 % (36.0-45.0); Lymphocytes % 19.7 % (15.3-44.8); MPV 8.7 fL (7.6-11.3); RBC Red Blood Cell Count 4.64 M/uL (3.86-4.86)
[2021-11-02 21:28] LABS: BUN Blood Urea Nitrogen 7 mg/dL (7-18); Bicarbonate 29 mmol/L (21-32); Glucose Level 104 mg/dL (74-106); HCG, Quantitative 26264 mIU/mL (1-3); Potassium 4.2 mmol/L (3.5-5.1); Sodium Level 136 mmol/L (136-145)
--- NOTE | 2021-11-02 21:51 | RAD REPORT ---
EXAM DESCRIPTION: US - Transvaginal OB - 11/02/2021 9:32 pm CLINICAL HISTORY: ABD CRAMPING, COMPARISON: None FINDINGS: Gestational sac identified. A yolk sac is also seen. No pole. Small subchorionic hem orrhage measuring less than 20% of the surface there is a gestational sac. The ovaries were not visua lized. The mean sac diameter is 1.3 cm. Yolk sac measures 4 millimeters . IMPRESSION: IUP identified measuring 6 week 0 day with SUZE of 06/28/2022. Small subchorionic hemorrh age measuring less than 20% surface area of the gestational sac which is typically of little clinical significance. Nonvisualized ovaries.
--- NOTE | 2021-11-02 22:17 | EDPHYS ---
Physician Documentation [facility] Name: Kemar Ang Age: 26 yrs Sex: Female : 1995 Arrival Date: 11/02/2021 Time: 18:43 Bed 17 Private MD: ED Physician Kelechi Dowling HPI: 11/02 19:30 This 26 yrs old Black Female presents to ER via Ambulatory with complaints of Vaginal cp Bleeding, + Preg <12wks. 19:30 The patient presents to the emergency department with abdominal pain, of the right cp lower quadrant and left lower quadrant, that started yesterday, described as crampy, vaginal bleeding, that is light. The estimated gestational age is 6 weeks. course: care: private OB physician, Dr. Reyes, the patient's last check was November 02, 2021, Leakage of Fluid: none appreciated, Ultrasound: the patient has not had an ultrasound. Associated signs and symptoms: The patient has no apparent associated signs or symptoms. 19:30 Patient reports recent history of spontaneous in July 2021. 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 - Social history:: Smoking status: Patient denies any tobacco usage or history of. ROS: 19:35 Abdomen/GI: Positive for abdominal cramps, Negative for vomiting, diarrhea, cp constipation. 19:35 Constitutional: Negative for body aches, chills, fever, poor PO intake. cp 19:35 Cardiovascular: Negative for chest pain, palpitations. 19:35 Respiratory: Negative for cough, shortness of breath, wheezing. 19:35 : Positive for vaginal bleeding, Negative for urinary symptoms. 19:35 Neuro: Negative for altered mental status, headache, weakness. 19:35 All other systems are negative. Exam: 19:40 Constitutional: The patient appears in no acute distress, alert, awake, non-toxic, well cp developed, well nourished, obese. 19:40 Head/Face: Normocephalic, atraumatic. cp 19:40 Eyes: Periorbital structures: appear normal, Conjunctiva: normal, no exudate, no injection, Sclera: no appreciated abnormality, Lids and lashes: appear normal, bilaterally. 19:40 ENT: External ear(s): are unremarkable, Nose: is normal, Mouth: Lips: moist, Oral mucosa: pink and intact, moist, Posterior pharynx: Airway: no evidence of obstruction, patent. 19:40 Chest/axilla: Inspection: normal. 19:40 Cardiovascular: Rate: normal, Rhythm: regular. 19:40 Respiratory: the patient does not display signs of respiratory distress, Respirations: normal, no use of accessory muscles, no retractions, labored breathing, is not present, Breath sounds: are clear throughout, no decreased breath sounds, no stridor, no wheezing. 19:40 Abdomen/GI: Inspection: gravid appearance, is noted, Bowel sounds: active, all quadrants, Palpation: abdomen is soft and non-tender, in all quadrants. 19:40 Back: CVA tenderness, is absent. Vital Signs: 18:56 BP 133 / 76; Pulse 84; Resp 16; Temp 98.1; Pulse Ox 100% ; Weight 101.6 kg; Height 5 vg1 ft. 7 in. (170.18 cm); Pain 0/10; 20:46 BP 136 / 84; Pulse 81; Resp 16 S; Pulse Ox 100% on R/A; lg3 22:19 BP 128 / 86; Pulse 78; Resp 17; Pulse Ox 100% on R/A; lg3 18:56 Body Mass Index 35.08 (101.60 kg, 170.18 cm) vg1 MDM: 19:16 Patient medically screened. cp 22:17 Data reviewed: vital signs, nurses notes, lab test result(s), radiologic studies, cp ultrasound. 22:17 Differential diagnosis: STD, ectopic . Counseling: I had a detailed discussion cp with the patient and/or guardian regarding: the historical points, exam findings, and any diagnostic results supporting the discharge/admit diagnosis, lab results, radiology results, the need for outpatient follow up, an OB/Gyne specialist, to return to the emergency department if symptoms worsen or persist or if there are any questions or concerns that arise at home. ED course: VSS. Will discharge to home for continued monitoring with pelvic rest instructions and to f/u with primary OB. 11/02 19:25 Order name: Abo/rh Typing 11/02 19:25 Order name: Basic Metabolic Panel; Complete Time: 21:45 11/02 19:25 Order name: CBC with Diff; Complete Time: 20:47 11/02 20:47 Interpretation: Normal except: WBC 12.7; HGB 10.6; HCT 33.3; MCV 71.6; MCH 22.9; NEUT A cp 8.5; EOSA 0.6. 11/02 19:25 Order name: Quantitative Hcg; Complete Time: 21:45 11/02 19:49 Order name: Urine Dipstick-Ancillary; Complete Time: 20:47 EDMS 11/02 19:52 Order name: Urine Culture [facility] 11/02 19:25 Order name: IV Saline Lock; Complete Time: 19:54 11/02 19:25 Order name: Labs collected and sent; Complete Time: 20:23 11/02 19:25 Order name: NPO; Complete Time: 19:55 11/02 19:25 Order name: Urine Dipstick-Ancillary (obtain specimen); Complete Time: 19:54 11/02 19:25 Order name: Urine Test (obtain specimen); Complete Time: 19:54 11/02 19:51 Order name: US Transvaginal Ob; Complete Time: 22:05 11/02 22:05 Interpretation: Report reviewed. 11/02 19:52 Order name: Urine Microscopic Only; Complete Time: 20:47 mw2 11/02 20:47 Interpretation: Normal except: UBACT 20-50; SQEPI 5-10. 11/02 19:52 Order name: Urine --Ancillary (enter results); Complete Time: 22:17 mw2 Administered Medications: No medications were administered Disposition Summary: 11/02/21 22:17 Discharge Ordered Location: Home cp Problem: new cp Symptoms: have improved cp Condition: Stable cp Diagnosis - Threatened cp Followup: cp - With: Reji Reyes MD - When: 2 - 3 days - Reason: Repeat Beta-HCG (48 Hours) Discharge Instructions: - Discharge Summary Sheet cp - Abdominal Pain During cp - Care cp - Threatened Miscarriage cp - Vaginal Bleeding During , First Trimester cp - Activity Restriction During cp - Form - Excuse from Work, School, or Physical Activity cp Forms: - Medication Reconciliation Form cp - Thank You Letter cp - Antibiotic Education cp - Prescription Opioid Use cp - Work release form bd Prescriptions: - Macrobid 100 mg Oral Capsule - take 1 capsule by ORAL route every 12 hours for 7 days; 14 capsule; Refills: 0, cp Product Selection Permitted Signatures: Dispatcher [employer] EDMS Kyler aRmos, FARHAD PA Destiny Luz, RN RN vg1
--- NOTE | 2021-11-02 22:17 | ER ---
Nurse's Notes [facility] Name: Kemar Ang Age: 26 yrs Sex: Female : 1995 Arrival Date: 11/02/2021 Time: 18:43 Bed 17 Private MD: Diagnosis: Threatened Presentation: 11/02 18:56 Chief complaint: Patient states: Went to see Dr Reyes today and was told was about 6 vg1 weeks and 1 day ; states slight lower ABD cramping, and noticed spotting yesterday that started off "pinkish then turned to brown in color". Coronavirus screen: Vaccine status: Patient reports receiving the 2nd dose of the covid vaccine. Client denies travel out of the [place] in the last 14 days. Ebola Screen: Patient denies exposure to infectious person. Patient denies travel to an Ebola-affected area in the 21 days before illness onset. Initial Sepsis Screen: Does the patient meet any 2 criteria? No. Patient's initial sepsis screen is negative. Does the patient have a suspected source of infection? No. Patient's initial sepsis screen is negative. Risk Assessment: Do you want to hurt yourself or someone else? Patient reports no desire to harm self or others. Onset of symptoms was November 01, 2021. 18:56 Method Of Arrival: Ambulatory vg1 18:56 Acuity: EDOUARD 3 vg1 Triage Assessment: 18:58 General: Appears in no apparent distress. comfortable, Behavior is calm, cooperative. vg1 Pain: Denies pain. : Reports vaginal bleeding that is brown, spotty. 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 - Social history:: Smoking status: Patient denies any tobacco usage or history of. Screenin:56 Abuse screen: Denies threats or abuse. Denies injuries from another. Nutritional lg3 screening: No deficits noted. Tuberculosis screening: No symptoms or risk factors identified. Fall Risk None identified. Assessment: 19:56 General: Appears in no apparent distress. comfortable, Behavior is calm, cooperative. lg3 Pain: Denies pain. Neuro: No deficits noted. Level of Consciousness is awake, alert, obeys commands, Oriented to person, place, time, situation. Cardiovascular: No deficits noted. Denies chest pain, shortness of breath, Capillary refill < 3 seconds Clubbing of nail beds is absent JVD is absent Patient's skin is warm and dry. Respiratory: No deficits noted. Airway is patent Trachea midline Respiratory effort is even, unlabored, Respiratory pattern is regular, symmetrical. GI: No deficits noted. Abdomen is round non-distended. : No deficits noted. No signs and/or symptoms were reported regarding the genitourinary system. Reports discharge, bloody. EENT: No deficits noted. No signs and/or symptoms were reported regarding the EENT system. Derm: No deficits noted. No signs and/or symptoms reported regarding the dermatologic system. Skin is intact, is healthy with good turgor, Skin is dry. 20:50 Reassessment: Patient appears in no apparent distress at this time. No changes from lg3 previously documented assessment. Patient and/or family updated on plan of care and expected duration. Pain level reassessed. Patient is alert, oriented x 3, equal unlabored respirations, skin warm/dry/pink. 22:19 Reassessment: Patient appears in no apparent distress at this time. No changes from lg3 previously documented assessment. Patient and/or family updated on plan of care and expected duration. Pain level reassessed. Patient is alert, oriented x 3, equal unlabored respirations, skin warm/dry/pink. Vital Signs: 18:56 BP 133 / 76; Pulse 84; Resp 16; Temp 98.1; Pulse Ox 100% ; Weight 101.6 kg; Height 5 vg1 ft. 7 in. (170.18 cm); Pain 0/10; 20:46 BP 136 / 84; Pulse 81; Resp 16 S; Pulse Ox 100% on R/A; lg3 22:19 BP 128 / 86; Pulse 78; Resp 17; Pulse Ox 100% on R/A; lg3 18:56 Body Mass Index 35.08 (101.60 kg, 170.18 cm) vg1 ED Course: 18:43 Patient arrived in ED. mr 18:58 Triage completed. vg1 18:58 Arm band placed on. vg1 19:05 Kyler Ramos PA is PHCP. cp 19:05 Kelechi Dowling MD is Attending Physician. cp 19:29 Miracle Mejia, RN is Primary Nurse. lg3 19:54 Urine --Ancillary (enter results) Sent. lg3 19:54 Urine Culture Sent. lg3 19:54 Inserted saline lock: 20 gauge in right forearm, using aseptic technique. sm5 19:56 Patient has correct armband on for positive identification. Bed in low position. Call lg3 light in reach. Side rails up X 1. Door closed. Noise minimized. Lights dimmed. Warm blanket given. 20:23 Abo/rh Typing Sent. lg3 20:23 Basic Metabolic Panel Sent. lg3 20:23 CBC with Diff Sent. lg3 20:23 Quantitative Hcg Sent. lg3 21:33 US Transvaginal Ob In Process Unspecified. EDMS 22:16 Reji Reyes MD is Referral Physician. cp 22:19 No provider procedures requiring assistance completed. IV discontinued, intact, lg3 bleeding controlled, No redness/swelling at site. Pressure dressing applied. Administered Medications: No medications were administered Outcome: 22:17 Discharge ordered by . cp 22:26 Discharged to home ambulatory, with significant other. lg3 22:26 Condition: stable 22:26 Discharge instructions given to patient, Instructed on discharge instructions, medication usage, Demonstrated understanding of instructions, medications, Prescriptions given X 1. 22:26 Patient left the ED. lg3 Signatures: Dispatcher [employer] EDDC Quan Olivia mr Kyler Ramos PA PA cp Miracle Mejia, RN RN lg3 Destiny Gordon, RN RN vg1 Sylvie Carrington, RN RN 5
[2021-11-03 01:05] VITALS: TEMP 98.1; O2SAT 100
[2021-11-03 01:08] VITALS: BP 128/86
== END 2021-11-02 22:26 | disposition home or self-care (01) ==
LOC: ER 18:41
DX: O20.0 Threatened abortion (principal); Z3A.01 Less than 8 weeks gestation of pregnancy
CPT/HCPCS: 36415; 76817; 80048; 81003; 81015; 81025; 84702; 85025; 86900; 86901; 87086; 87088; 99284

== ENCOUNTER 2022-01-04 15:26 | Emergency (ER) | payer OTHER ==
--- OUTSIDE RECORDS SUMMARY | 2022-01-04 15:28 | XMS REPORT | Continuity of Care Document ---
:1995 Author Organization [facility] t Address [address] [place] [address] Care Team Providers Name Role Phone Pcp, Does Not Have A Primary Care Physician Irwin JACOBSEN Attending Clinician Unavailable Irwin Jacobsen MD Attending Clinician Juan C BRADLEY Attending Clinician Unavailable Juan C Bradley DO Attending Clinician Harleen Sanchez Attending Clinician Harleen MENDOZA Attending Clinician Unavailable Payers Payer Name Policy Type Policy Number Effective Date Expiration Date Formerly [facility] [id number] 2021 CHOICE MEDICAID 00:00:00 Problems Condition Condition Condition Status Onset Resolution Last Treating Co mments Source Name Details Category Date Date Treatment Clinician Date Other Other Disease Active Univers general general 4-01 [place] and advice 00 Me dical for for Branch contracept contracept aminta aminta management management Obesity Obesity Disease Active 2020-07 [place] during during -18 [place] [facility] [place] Multiparit Multiparit Disease Active 2020-07 U nivers y y -18 ity of 00:00: [place] 00 Medical Branch Spotting Spotting Disease Active 2020-07 Unive rs affecting affecting 1-18 [place] first in first 00 Medica l trimester trimester Bran ch Allergies, Adverse Reactions, Alerts Allergy Allergy Status Severity Reaction(s) Onset Inactive Treating Comm ents Source Name Type Date Date Clinician NO KNOWN Drug Active Univers ALLERGIE Class ity of S [facility] Social History Social Habit Start Date Stop Date Quantity Comments Source History SDUT University o f Alcohol Std [place] [facility] Drinks Branch History SDOH University o f Alcohol Binge [place] [facility] Exposure to 2021-11-20 2021-11-30 Not sure University of SARS-CoV-2 00:00:00 19:35:00 [facility] (event) Branch Alcohol intake 2021-11-30 2021-11-30 Current drinker Unive rsity of 00:00:00 00:00:00 of alcohol [facility] (finding) Branch Tobacco use and 2021-05-27 2021-05-27 Never used Universit y of exposure 00:00:00 00:00:00 [facility] History of 2016-07-17 2021-05-14 Cigarette Smoker Universi ty of tobacco use 00:00:00 00:00:00 [facility] History SDOH 2019-07-17 2019-07-17 2 University o f Alcohol Frequency 00:00:00 00:00:00 [facility] edical [place] Alcohol Comment 2013-06-28 2013-06-28 socially, not Univer sity of 00:00:00 00:00:00 during [facility] dical Sanders Sex Ass[birth year] At [birth year] Universit y of 00:00:00 00:00:00 [facility] Smoking Status Start Date Stop Date Source Former smoker 2021-05-27 00:00:00 2021-05-27 00:00:00 Universi ty of [facility] Medications Ordered Filled Start Stop Current Ordering Indication Dosage Frequency Signature Comments Components Source Medication Medication Date Date Medication? Clinician (SIG) Name Name amoxicillin No 500mg 500 mg, U nivers (TRIMOX) 5-25 05-25 Oral, ity of capsule 500 04:00: 03:06 [place] :[place] dose, On Medical Tue Branch 11/30/21 at 2300, RADHA
Re ason for Anti-Infec tive: Documented Infection< br>Documen saravanan Infection Site: Urine
D uration of Therapy: Other (see Comments) acetaminoph No 975mg 975 mg, U nivers en 12-01- Oral, ity of (TYLENOL) 03:15: 03:06 [place]CE, [place] tablet 975 00 :00 dose, On Medic al mg Tue Branch 11/30/21 at 2215, RADHA amoxicillin Yes [id number] 500mg Take 1 Univers 500 mg 11-30 4 capsule by ity of capsule 00:00: mouth 3 [place] 00 (three) Medical times Branch daily. acetaminoph No 650mg 650 mg, U nivers en 11-24- Oral, ity of (TYLENOL) 15:15: 14:04 ONCE, [place] tablet 650 00 :00 dose, On Medic al mg Wed Branch 11/24/21 at 1015, RADHA Nitrofurant 2021- Yes [id number] 100mg Take 1 Univers oin&Nit. 11-24 capsule by ity of Macrocryst 00:00: 04:59 mouth 2 [place] as 100 mg 00 :00 (two) Medical capsule times Branch daily for 7 days. Nitrofurant 2021- No [id number] 100mg Take 1 Univers oin&Nit. 11-24 capsule by ity of Macrocryst 00:00: 00:00 mouth 2 [place] 100 mg 00 :00 (two) Medical capsule times Branch daily for 7 days. cephALEXin 2021- Yes [id number] 500mg Take 1 Univers (KEFLEX) 10-08 capsule by ity of 500 mg 00:00: 04:59 mouth 2 [place] capsule 00 :00 (two) Medical times Branch daily for 10 days. cephALEXin 2021- Yes [id number] 500mg Take 1 Univers (KEFLEX) 10-08 capsule by ity of 500 mg 00:00: 04:59 mouth 2 [place] capsule 00 :00 (two) Medical times Branch daily for 10 days. Immunizations Ordered Filled Immunization Date Status Comments Sour e Immunization Name Name Influenza Virus 2020-05-13 Completed Universit y of Vaccine Quad .5 mL 00:00:00 [place] [facility] 6+ MO Branch Influenza Virus 2020-05-13 Completed Universit y of Vaccine Quad .5 mL 00:00:00 [place] [facility] IM 6+ MO Branch Influenza Virus 2020-05-13 Completed Universit y of Vaccine Quad .5 mL 00:00:00 [facility] 6+ MO Branch Influenza Virus 2020-05-13 Completed Universit y of Vaccine Quad .5 mL 00:00:00 [place] [facility] IM 6+ MO Branch Influenza Virus 2019-07-17 Completed Universit y of Vaccine Quad .5 mL 00:00:00 [place] [facility] 6+ MO Branch Influenza Virus 2019-07-17 Completed Universit y of Vaccine Quad .5 mL 00:00:00 [facility] 6+ MO Branch Influenza Virus 2019-07-17 Completed Universit y of Vaccine Quad .5 mL 00:00:00 [facility] 6+ MO Branch Influenza Virus 2019-07-17 Completed Universit y of Vaccine Quad .5 mL 00:00:00 [facility] 6+ MO Branch TDAP 2014-01-06 Completed University of 00:00:00 [facility] TDAP 2014-01-06 Completed University of 00:00:00 [facility] TDAP 2014-01-06 Completed University of 00:00:00 [facility] TDAP 2014-01-06 Completed University of 00:00:00 [facility] PPD (TB) 2013-09-16 Completed University of 00:00:00 [facility] PPD (TB) 2013-09-16 Completed University of 00:00:00 [facility] PPD (TB) 2013-09-16 Completed University of 00:00:00 [facility] PPD (TB) 2013-09-16 Completed University of 00:00:00 [facility] Influenza Virus 2013-07-26 Completed Universit y of Vaccine (3+ yrs) 00:00:00 [facility] Influenza Virus 2013-07-26 Completed Universit y of Vaccine (3+ yrs) 00:00:00 [facility] Influenza Virus 2013-07-26 Completed Universit y of Vaccine (3+ yrs) 00:00:00 [facility] Influenza Virus 2013-07-26 Completed Universit y of Vaccine (3+ yrs) 00:00:00 [facility] Rubella 2012-03-02 Completed University of 00:00:00 [place] [facility] Rubella 2012-03-02 Completed University of 00:00:00 [place] [facility] Rubella 2012-03-02 Completed University of 00:00:00 [place] [facility] Rubella 2012-03-02 Completed University of 00:00:00 [place] [facility] Td 2005-07-10 Completed University of 00:00:00 [place] [facility] Td 2005-07-10 Completed University of 00:00:00 [place] [facility] Td 2005-07-10 Completed University of 00:00:00 [place] [facility] Td 2005-07-10 Completed University of 00:00:00 [facility] Vital Signs Vital Name Observation Time Observation Value Comments Source Systolic blood 2021-12-01 03:06:00 138 mm[Hg] Univer sity of pressure [facility] Diastolic blood 2021-12-01 03:06:00 77 mm[Hg] Unive rsity of [facility] Heart rate 2021-12-01 03:06:00 86 /min [facility] Respiratory rate 2021-12-01 03:06:00 18 /min [facility] Oxygen saturation in 2021-12-01 03:06:00 99 /min [facility] Arterial blood by [facility] Pulse oximetry [place] Body temperature 2021-12-01 00:40:00 37.06 Alysa [facility] Body height 2021-12-01 00:40:00 170.2 cm [facility] Body weight 2021-12-01 00:40:00 102.4 kg [facility] BMI 2021-12-01 00:40:00 35.36 kg/m2 [facility] Systolic blood 2021-11-24 13:49:00 141 mm[Hg] Univer sity of pressure [facility] Diastolic blood 2021-11-24 13:49:00 84 mm[Hg] Unive rsity of pressure [facility] Heart rate 2021-11-24 13:49:00 101 /min [facility] Body temperature 2021-11-24 13:49:00 36.78 [facility]sa [facility] 2021-11-24 13:49:00 18 /min [facility] Body weight 2021-11-24 13:49:00 102.059 kg Universi [facility] BMI 2021-11-24 13:49:00 35.24 kg/m2 [facility] Oxygen saturation in 2021-11-24 13:49:00 100 /min [facility] Arterial blood by [facility] Pulse oximetry Branch Systolic blood 2021-10-08 19:04:00 119 mm[Hg] Univer sity of pressure [facility] Diastolic blood 2021-10-08 19:04:00 60 mm[Hg] Unive rsity of [facility] Heart rate 2021-10-08 19:04:00 81 /min [facility] Body temperature 2021-10-08 19:04:00 36.61 Alysa [facility] Respiratory rate 2021-10-08 19:04:00 16 /min [facility] Body height 2021-10-08 19:04:00 170.2 cm [facility] Body weight 2021-10-08 19:04:00 102.059 kg [facility] BMI 2021-10-08 19:04:00 35.24 kg/m2 [facility] Procedures Procedure Date / Time Performed Performing Clinician Sour e URINALYSIS 2021-12-01 01:32:00 Rossy Jacobsen [facility] NOTICE OF PRIVACY 2021-12-01 00:05:25 Doctor Unassigned, No Univ ersity [facility] Branch CONSENT/REFUSAL FOR 2021-12-01 00:05:05 Doctor Unassigned, No Un iversity of [place] DIAGNOSIS AND Name Medical [place] TREATMENT URINALYSIS 2021-11-24 13:59:[address] [facility] POCT TEST 2021-11-24 13:59:00 [facility] NOTICE OF PRIVACY 2021-11-24 13:46:00 Doctor Unassigned, No Univ ersity [facility] CONSENT/REFUSAL FOR 2021-11-24 13:45:39 Doctor Unassigned, No Un [facility]ity of [place] DIAGNOSIS AND Name Medical Branch TREATMENT Encounters Start End Encounter Admission Attending Care Care Encounter Source Date/Time Date/Time Type Type Clinicians Facility Department ID 2021-11-30 2021-11-30 Emergency X S[facility]OTH[facility]ABONNIE [facility] ERT [id number] Univers 19:19:00 22:10:[address] [facility] 2021-11-30 2021-11-30 [facility] [id number] Univers 19:19:00 22:10:00 Rossy SHIRLEY [id number] ity [facility] [id number] [facility] [id number] [address] 2021-11-24 2021-11-24 Emergency [facility] [id number] Univers 08:53:00 10:07:[address] [facility] 2021-11-24 2021-11-24 [facility] [id number] Univers 08:53:00 10:07:00 Adwoa SHIRLEY [id number] ity [facility] [id number] [facility] [id number] [address] 2021-10-08 2021-10-08 Office [facility] [id number] Univers 14:00:00 14:24:05 Visit Marlen Canseco [employer] [id number] ity [facility] [id number] Rey as MATERNAL [id number] Med ical & CHILD [address] [place] [address] 2021-10-08 2021-10-08 Outpatient R ADA [facility] [id number] Univers 14:00:00 14:24:05 MARLEN irizarry o f [facility] 2020-08-04 2020-08-04 [facility]phone [facility] [id number] 00:00:00 00:00:00 Marlen Canseco [employer] [id number] [facility] [id number] MATERNAL [id number] & CHILD [address] [place] [address] 2020-07-13 2020-07-13 Telephone Ada [facility] [id number] 00:00:00 00:00:00 Marlen Canseco [employer] [id number] [facility] [id number] MATERNAL [id number] & CHILD [address] [place] [address] Results Test Description Test Time Test Comments Results Result Comments Source POCT TEST 2021-11-24 13:59:00 Test Item Value Reference Range Interpretation Comme nts POCT PREG (test code = 1605) positive On board controls acceptable with C Line (test code = 3574) present POCT PREG LOT # (test code = 3575) [id number] POCT PREG TEST DATE (test code = 3576) Lab Interpretation (test code = 96597-9) Normal [facility]
[2022-01-04] MEDS ORDERED: ACETAMINOPHEN 500 MG TAB ONE (17:03)
--- NOTE | 2022-01-04 19:06 | EDPHYS ---
Physician Documentation [facility] Name: Kemar Ang Age: 26 yrs Sex: Female : 1995 Arrival Date: 01/04/2022 Time: 15:28 Bed 8 Private MD: ED Physician Kelechi Dowling HPI: 01/04 16:15 This 26 yrs old Black Female presents to ER via Ambulatory with complaints of cp Congestion, Sore Throat. 16:15 The patient or guardian reports cough, that is intermittent. Onset: The cp symptoms/episode began/occurred 3 day(s) ago. Associated signs and symptoms: Pertinent positives: sore throat, congestion, Pertinent negatives: diarrhea, fever, vomiting. Patient reports she is 15 weeks gestation with fifth . Denies vaginal bleeding. 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 - Social history:: Smoking status: Patient denies any tobacco usage or history of. ROS: 16:20 Constitutional: Positive for body aches, Negative for fever, poor PO intake. cp 16:20 Cardiovascular: Negative for chest pain, palpitations. cp 16:20 Respiratory: Positive for cough, Negative for wheezing. cp 16:20 Eyes: Negative for injury, pain, redness, and discharge. cp 16:20 ENT: Positive for ear pain, sore throat, Negative for drainage from ear(s), difficulty swallowing, difficulty handling secretions. 16:20 : Negative for urinary symptoms, vaginal bleeding, vaginal discharge. 16:20 Neuro: Positive for headache, Negative for altered mental status, weakness. 16:20 All other systems are negative. Exam: 16:25 Constitutional: The patient appears in no acute distress, alert, awake, non-toxic, well cp developed, well nourished, obese. 16:25 Head/Face: Normocephalic, atraumatic. cp 16:25 Eyes: Periorbital structures: appear normal, Conjunctiva: normal, no exudate, no cp injection, Sclera: no appreciated abnormality, Lids and lashes: appear normal, bilaterally. 16:25 ENT: External ear(s): are unremarkable, Ear canal(s): are normal, clear, TM's: dullness, bilaterally, Nose: is normal, Mouth: Lips: moist, Oral mucosa: moist, Posterior pharynx: Airway: no evidence of obstruction, patent, Tonsils: are normal in appearance, erythema, that is mild, exudate, is not appreciated, Voice: is normal. 16:25 Neck: ROM/movement: is normal, is supple, without pain, no range of motions cp limitations, no meningismus, Lymph nodes: no appreciated lymphadenopathy. 16:25 Chest/axilla: Inspection: normal. 16:25 Cardiovascular: Rate: tachycardic, Rhythm: regular. 16:25 Respiratory: the patient does not display signs of respiratory distress, Respirations: normal, no use of accessory muscles, no retractions, labored breathing, is not present, Breath sounds: are clear throughout, no decreased breath sounds, no stridor, no wheezing. 16:25 Abdomen/GI: Exam negative for discomfort, distension, guarding, Inspection: abdomen appears normal. Vital Signs: 15:58 BP 139 / 64; Pulse 100; Resp 20; Temp 98.8; Pulse Ox 100% ; Weight 102.51 kg; Height 5 bp ft. 7 in. (170.18 cm); 17:32 BP 124 / 72; Pulse 98; Resp 17; Pulse Ox 99% on R/A; bp 18:24 BP 119 / 63; Pulse 100; Resp 18; Pulse Ox 100% ; bp 19:23 BP 118 / 66; Pulse 109; Resp 20; Temp 98.9(O); Pulse Ox 100% on R/A; Pain 0/10; kl 15:58 Body Mass Index 35.40 (102.51 kg, 170.18 cm) bp MDM: 15:58 Patient medically screened. cp 19:05 Data reviewed: vital signs, nurses notes, lab test result(s). cp 19:05 Differential diagnosis: bronchitis, flu, URI. Counseling: I had a detailed discussion cp with the patient and/or guardian regarding: the historical points, exam findings, and any diagnostic results supporting the discharge/admit diagnosis, lab results, to return to the emergency department if symptoms worsen or persist or if there are any questions or concerns that arise at home. 19:05 ED course: VSS. Patient appears non-toxic and no signs of respiratory distress. Will cp discharge to home for continued monitoring. 01/04 16:08 Order name: Influenza Screen (a \\T\\ B) cp 01/04 16:08 Order name: Strep cp 01/04 16:08 Order name: COVID-19 SARS RT PCR (Document "Date of Onset" if Symptomatic) 01/04 16:54 Order name: Throat Culture EDMS 01/04 19:06 Order name: FHT's; Complete Time: :22 cp Administered Medications: 17:15 Drug: Tylenol 1000 mg Route: PO; bp 17:30 Follow up: Response: No adverse reaction bp Disposition Summary: 01/04/22 19:05 Discharge Ordered Location: Home cp Problem: new cp Symptoms: have improved cp Condition: Stable cp Diagnosis - SARS-associated coronavirus as the cause of diseases classified elsewhere cp Followup: cp - With: Private Physician - When: 2 - 3 days - Reason: Worsening of condition Discharge Instructions: - Discharge Summary Sheet cp - Second Trimester of cp - Form - Excuse from Work, School, or Physical Activity cp - COVID-19 cp - Things to Know about the COVID-19 Pandemic - [facility] cp - Warning Signs During cp - 10 Things You Can Do to Manage Your COVID-19 Symptoms at Home - [facility] cp - COVID-19: Quarantine vs. Isolation - [facility] cp - Prevent the Spread of COVID-19 if You Are Sick - [facility] cp Forms: - Medication Reconciliation Form cp - Thank You Letter cp - Antibiotic Education cp - Prescription Opioid Use cp Signatures: Dispatcher [employer] EDDE Kyler Ramos PA PA cp Peltier, Brian, RN RN bp
--- NOTE | 2022-01-04 19:06 | ER ---
Nurse's Notes [facility] Name: Kemar Ang Age: 26 yrs Sex: Female : 1995 Arrival Date: 01/04/2022 Time: 15:28 Bed 8 Private MD: Diagnosis: SARS-associated coronavirus as the cause of diseases classified elsewhere Presentation: 01/04 15:58 Chief complaint: Patient states: SORE THROAT, RUNNY NOSE, CONGESTION. Coronavirus bp screen: congestion, fever, runny nose, sore throat. Ebola Screen: No symptoms or risks identified at this time. Resp Distress? No respiratory distress is noted at this time. Initial Sepsis Screen: Does the patient meet any 2 criteria? HR > 90 bpm. No. Patient's initial sepsis screen is negative. Does the patient have a suspected source of infection? No. Patient's initial sepsis screen is negative. Risk Assessment: Do you want to hurt yourself or someone else? Patient reports no desire to harm self or others. Onset of symptoms is unknown. 15:58 Method Of Arrival: Ambulatory bp 15:58 Acuity: EDOUARD 3 bp Triage Assessment: 16:00 General: Appears in no apparent distress. comfortable, Behavior is calm, cooperative, bp appropriate for age. Pain: Complains of pain in neck. EENT: No deficits noted. Neuro: No deficits noted. Cardiovascular: No deficits noted. Respiratory: Reports cough that is. Respiratory: Breath sounds are clear bilaterally. GI: No signs and/or symptoms were reported involving the gastrointestinal system. : No signs and/or symptoms were reported regarding the genitourinary system. Derm: No deficits noted. Musculoskeletal: No deficits noted. 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 - Social history:: Smoking status: Patient denies any tobacco usage or history of. Screenin:02 Abuse screen: Denies threats or abuse. Denies injuries from another. Nutritional bp screening: No deficits noted. Tuberculosis screening: No symptoms or risk factors identified. Fall Risk None identified. Assessment: 16:00 General: SEE TRIAGE NOTE. bp 16:00 Cardiovascular: Patient's skin is warm and dry. Respiratory: Airway is patent bp Respiratory effort is even, unlabored, Breath sounds are clear bilaterally. 17:33 Reassessment: No changes from previously documented assessment. Patient and/or family bp updated on plan of care and expected duration. Pain level reassessed. 18:24 Reassessment: COVID RESULT PENDING. bp Vital Signs: 15:58 BP 139 / 64; Pulse 100; Resp 20; Temp 98.8; Pulse Ox 100% ; Weight 102.51 kg; Height 5 bp ft. 7 in. (170.18 cm); 17:32 BP 124 / 72; Pulse 98; Resp 17; Pulse Ox 99% on R/A; bp 18:24 BP 119 / 63; Pulse 100; Resp 18; Pulse Ox 100% ; bp 19:23 BP 118 / 66; Pulse 109; Resp 20; Temp 98.9(O); Pulse Ox 100% on R/A; Pain 0/10; kl 15:58 Body Mass Index 35.40 (102.51 kg, 170.18 cm) bp ED Course: 15:28 Patient arrived in ED. rg4 15:34 Kyler Ramos PA is PHCP. cp 15:34 Kelechi Dowling MD is Attending Physician. cp 15:52 Yuri Azul, IMELDA is Primary Nurse. bp 15:59 Triage completed. bp 16:00 Arm band placed on. bp 16:02 Patient has correct armband on for positive identification. Bed in low position. Call bp light in reach. Side rails up X2. 19:22 No apparent distress. Resting quietly. kl 19:22 Patient placed on droplet and contact precautions with eye protection. kl 19:22 No provider procedures requiring assistance completed. Patient did not have IV access kl during this emergency room visit. 19:23 FHTs 138 left lower abdomen. kl Administered Medications: 17:15 Drug: Tylenol 1000 mg Route: PO; bp 17:30 Follow up: Response: No adverse reaction bp Medication: 19:25 VIS not applicable for this client. kl Outcome: 19:05 Discharge ordered by . cp 19:25 Discharged to home ambulatory. kl 19:25 Condition: good 19:25 Discharge instructions given to patient, Instructed on discharge instructions, follow up and referral plans. medication usage, Demonstrated understanding of instructions, follow-up care, medications. 19:25 Patient left the ED. kl Signatures: Michelle Miller RN RN Kyler Reynoso PA PA cp Garcia, Rubi rg4 Yuri Azul, RN RN bp
[2022-01-04 19:36] VITALS: O2SAT 100
[2022-01-04 19:38] VITALS: BP 118/66; TEMP 98.9
== END 2022-01-04 19:25 | disposition home or self-care (01) ==
LOC: ER 15:26
DX: O98.512 Other viral diseases complicating pregnancy, second trimester (principal); U07.1 COVID-19; Z3A.15 15 weeks gestation of pregnancy; Z88.0 Allergy status to penicillin
CPT/HCPCS: 87070; 87081; 87804 ×2; U0003

== ENCOUNTER 2022-01-06 14:54 | Emergency (ER) | payer OTHER ==
[2022-01-06 16:32] LABS: Urine Blood 2+ (Negative); Urine Glucose Negative (Negative); Urine Protein Trace (Negative); Urine pH 6.5 (5.0-7.0)
[2022-01-06 17:04] LABS: Absolute Lymphocytes (CBC) 1.7 K/uL (0.7-4.9); Hematocrit 35.5 % (36.0-45.0); Lymphocytes % 28.2 % (15.3-44.8); MCV 71.4 fL (80-100); RBC Red Blood Cell Count 4.98 M/uL (3.86-4.86)
--- NOTE | 2022-01-06 17:07 | RAD REPORT ---
EXAM DESCRIPTION: US - OB Limited - 01/06/2022 4:13 pm CLINICAL HISTORY: Abd cramping, Pelvic pain COMPARISON: Transvaginal OB dated 11/02/2021 FINDINGS: A limited ultrasound was requested. A single variable presenting gestation is identified. Heart rate normal. The estimated gestational age (EGA) is 15 weeks 6 days with an SUZE of06/24/2022. The placenta is grade 1, anterior in location. No acute process seen.
[2022-01-06] MEDS ORDERED: ACETAMINOPHEN 500 MG TAB ONE (17:44)
[2022-01-06] MEDS ORDERED: AMOX/K CLAV 875 MG TAB ONE (17:45)
[2022-01-06 17:53] LABS: Potassium 3.4 mmol/L (3.5-5.1)
--- NOTE | 2022-01-06 18:01 | ER ---
Nurse's Notes [facility] Name: Kemar Ang Age: 26 yrs Sex: Female : 1995 Arrival Date: 01/06/2022 Time: 14:57 Bed 11 Private MD: Diagnosis: Threatened ;Acute sinusitis, unspecified Presentation: 01/06 15:10 Chief complaint: Patient states: she has COVID, and is 15weeks . Patient ap3 reports she had some spotting around 1400 today. Patient reports intermittent abdominal pain and left sided facial pain. Coronavirus screen: Client presents with at least one sign or symptom that may indicate coronavirus-19. Ebola Screen: No symptoms or risks identified at this time. Initial Sepsis Screen: Does the patient meet any 2 criteria? No. Patient's initial sepsis screen is negative. Does the patient have a suspected source of infection? No. Patient's initial sepsis screen is negative. Risk Assessment: Do you want to hurt yourself or someone else? Patient reports no desire to harm self or others. Onset of symptoms was January 06, 2022. 15:10 Method Of Arrival: Ambulatory ap3 15:10 Method Of Arrival: Ambulatory ap3 15:10 Acuity: EDOUARD 3 ap3 Triage Assessment: 15:13 General: Appears in no apparent distress. Behavior is calm, cooperative, appropriate ap3 for age. Pain: Complains of pain in abdomen. Neuro: Level of Consciousness is awake, alert, obeys commands, Oriented to person, place, time, situation, Gait is steady, Speech is normal. Cardiovascular: Patient's skin is warm and dry. Respiratory: Airway is patent Respiratory effort is even, unlabored. GI: Reports lower abdominal pain, upper abdominal pain, diarrhea. : Reports vaginal bleeding that is bright red. 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 - Social history:: Smoking status: Patient denies any tobacco usage or history of. Screenin:15 Abuse screen: Denies threats or abuse. Nutritional screening: No deficits noted. ap3 Tuberculosis screening: No symptoms or risk factors identified. 16:19 Fall Risk None identified. ld1 Assessment: 16:19 General: Appears in no apparent distress. comfortable, Behavior is calm, cooperative, ld1 appropriate for age. Pain: Denies pain. Neuro: Level of Consciousness is awake, alert, obeys commands, Oriented to person, place, time, situation, Cardiovascular: Capillary refill < 3 seconds Patient's skin is warm and dry. Respiratory: Airway is patent Respiratory effort is even, unlabored. GI: Abdomen is round non-distended. : Reports vaginal bleeding that is brown, heavy flow. EENT: No signs and/or symptoms were reported regarding the EENT system. Derm: No signs and/or symptoms reported regarding the dermatologic system. Musculoskeletal: No signs and/or symptoms reported regarding the musculoskeletal system. Vital Signs: 15:10 BP 121 / 66; Pulse 90; Resp 18; Temp 97.0; Pulse Ox 100% ; Weight 102.51 kg; Height 6 ap3 ft. 7 in. (200.66 cm); 17:38 Pulse 86; Resp 18; Pulse Ox 100% on R/A; ld1 15:10 Body Mass Index 25.46 (102.51 kg, 200.66 cm) ap3 ED Course: 14:57 Patient arrived in ED. as 15:00 Skye Saxena FNP-C is PHCP. kb 15:00 Kyler Zazueta MD is Attending Physician. kb 15:13 Triage completed. ap3 15:15 Arm band placed on right wrist. ap3 15:17 Constance Leiva, IMELDA is Primary Nurse. ld1 16:15 OB Limited In Process Unspecified. EDMS 16:19 Patient has correct armband on for positive identification. Placed in gown. Bed in low ld1 position. Call light in reach. Side rails up X2. monitoring tech on. Pulse ox on. NIBP on. Door closed. Noise minimized. Warm blanket given. 16:19 No provider procedures requiring assistance completed. Missed attempt(s): 20 gauge in ld1 right antecubital area. 16:35 Urine Dipstick-Ancillary Sent. ld1 16:55 Inserted saline lock: 22 gauge in left antecubital area, using aseptic technique. Blood iw collected. 18:46 IV discontinued, intact, bleeding controlled, No redness/swelling at site. Pressure ld1 dressing applied. Administered Medications: 17:40 Drug: Tylenol 1000 mg Route: PO; ld1 17:40 Drug: Augmentin (Amoxicillin-Clavulanate) 875 mg Route: PO; ld1 Medication: 18:46 VIS not applicable for this client. ld1 Outcome: 18:01 Discharge ordered by MD. forte 18:45 Discharged to home ambulatory. ld1 18:45 Condition: stable 18:45 Discharge instructions given to patient, Instructed on discharge instructions, follow up and referral plans. medication usage, Demonstrated understanding of instructions, follow-up care, medications. 18:46 Patient left the ED. ld1 Signatures: Dispatcher [employer] EDSkye Thibodeaux, ASSEMBLER KNIFE-C ASSEMBLER KNIFE-Gely Solo Irene RN Estelita Zhong RN RN ap3 Constance Leiva RN RN ld1 Corrections: (The following items were deleted from the chart) 15:13 15:13 Allergies: PENICILLINS; ap3 ap3 18:46 18:46 PSHx: Repair of inguinal hernia; ld1 ld1
--- NOTE | 2022-01-06 18:01 | EDPHYS ---
Physician Documentation [facility] Name: Kemar Ang Age: 26 yrs Sex: Female : 1995 Arrival Date: 01/06/2022 Time: 14:57 Bed 11 Private MD: ED Physician Kyler Zazueta HPI: 01/06 18:18 This 26 yrs old Black Female presents to ER via Ambulatory with complaints of Vaginal kb Bleeding - 15 wks preg. 18:18 The patient presents to the emergency department with vaginal bleeding, that is light. kb course: care: private OB physician, Dr. Reyes, Leakage of Fluid: none appreciated, Ultrasound: the patient had an ultrasound, which was normal. Previous pregnancies: in previous pregnancies patient has had. Associated signs and symptoms: Pertinent positives: vaginal bleeding. The patient has not experienced similar symptoms in the past. The patient has not recently seen a physician. Pt reports she noticed some vaginal bleeding when she went to the restroom today and on the tissue when wiping. 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 - Social history:: Smoking status: Patient denies any tobacco usage or history of. ROS: 18:18 Constitutional: Negative for fever, chills, and weight loss. kb 18:18 : Positive for vaginal bleeding. 18:18 All other systems are negative. Exam: 18:18 Constitutional: This is a well developed, well nourished patient who is awake, alert, kb and in no acute distress. Head/Face: Normocephalic, atraumatic. ENT: Moist Mucous membranes Cardiovascular: Regular rate and rhythm with a normal S1 and S2. No gallops, murmurs, or rubs. No pulse deficits. Respiratory: Respirations even and unlabored. No increased work of breathing. Talking in full sentences Abdomen/GI: Soft, non-tender. No distention Skin: Warm, dry with normal turgor. Normal color. MS/ Extremity: Pulses equal, no cyanosis. Neurovascular intact. Full, normal range of motion. Neuro: Awake and alert, GCS 15, oriented to person, place, time, and situation. Moves all extremities. Normal gait. Psych: Awake, alert, with orientation to person, place and time. Behavior, mood, and affect are within normal limits. Vital Signs: 15:10 BP 121 / 66; Pulse 90; Resp 18; Temp 97.0; Pulse Ox 100% ; Weight 102.51 kg; Height 6 ap3 ft. 7 in. (200.66 cm); 17:38 Pulse 86; Resp 18; Pulse Ox 100% on R/A; ld1 15:10 Body Mass Index 25.46 (102.51 kg, 200.66 cm) ap3 MDM: 15:10 Patient medically screened. kb 18:16 Data reviewed: vital signs, nurses notes. Data interpreted: Pulse oximetry: on room air kb is 100 %. Interpretation: normal. Counseling: I had a detailed discussion with the patient and/or guardian regarding: the historical points, exam findings, and any diagnostic results supporting the discharge/admit diagnosis, lab results, radiology results, the need for outpatient follow up, an OB/Gyne specialist, to return to the emergency department if symptoms worsen or persist or if there are any questions or concerns that arise at home. 01/06 15:13 Order name: Abo/rh Typing; Complete Time: 18:25 kb 01/06 15:13 Order name: Basic Metabolic Panel; Complete Time: 18:00 kb 01/06 15:13 Order name: CBC with Diff; Complete Time: 17:09 kb 01/06 15:13 Order name: Quantitative Hcg; Complete Time: 18:00 kb 01/06 16:32 Order name: Urine Dipstick-Ancillary; Complete Time: 16:46 EDMS 01/06 16:34 Order name: Urine Dipstick-Ancillary EDMS 01/06 15:13 Order name: IV Saline Lock; Complete Time: 16:57 kb 01/06 15:13 Order name: Labs collected and sent; Complete Time: 16:57 kb 01/06 15:13 Order name: NPO; Complete Time: 15:19 kb 01/06 15:13 Order name: Urine Dipstick-Ancillary (obtain specimen); Complete Time: 17:04 kb 01/06 15:18 Order name: OB Limited; Complete Time: 17:09 EDMS 01/06 15:13 Order name: Urine Test (obtain specimen); Complete Time: 17:04 kb Administered Medications: 17:40 Drug: Tylenol 1000 mg Route: PO; ld1 17:40 Drug: Augmentin (Amoxicillin-Clavulanate) 875 mg Route: PO; ld1 Disposition Summary: 01/06/22 18:01 Discharge Ordered Location: Home kb Condition: Stable kb Diagnosis - Threatened kb - Acute sinusitis, unspecified kb Followup: kb - With: Emergency Department - When: As needed - Reason: Worsening of condition Followup: kb - With: Private Physician - When: 2 - 3 days - Reason: Recheck today's complaints, Continuance of care, Re-evaluation by your physician Discharge Instructions: - Discharge Summary Sheet kb - Vaginal Bleeding During , Second Trimester kb - Sinusitis, Adult, Uetf-ly-Ojnt kb - Threatened Miscarriage, Aojb-pd-Henw kb Forms: - Medication Reconciliation Form kb - Thank You Letter kb - Antibiotic Education kb - Prescription Opioid Use kb Prescriptions: - Augmentin 875-125 mg Oral Tablet - take 1 tablet by ORAL route every 12 hours for 10 days; 20 tablet; Refills: 0, kb Product Selection Permitted Signatures: Dispatcher [employer] [facility] Skye Saxena, KRISS SHENP-Estelita Amaya RN RN ap3 Constance Leiva RN RN ld1 Corrections: (The following items were deleted from the chart) 15:13 15:13 Allergies: PENICILLINS; ap3 ap3 15:16 15:14 OB Complete+US.RAD.BRZ ordered. [facility] EDNV 18:46 18:46 PSHx: Repair of inguinal hernia; ld1 ld1
[2022-01-06 19:13] VITALS: BP 121/66; TEMP 97; O2SAT 100
== END 2022-01-06 18:46 | disposition home or self-care (01) ==
LOC: ER 14:54
DX: O20.0 Threatened abortion (principal); J01.90 Acute sinusitis, unspecified; N93.8 Other specified abnormal uterine and vaginal bleeding; Z3A.15 15 weeks gestation of pregnancy; R10.10 Upper abdominal pain, unspecified; R10.30 Lower abdominal pain, unspecified; R51.9 Headache, unspecified; U07.1 COVID-19
CPT/HCPCS: 36415; 76815; 80048; 81003; 84702; 85025; 86900; 86901

== ENCOUNTER 2022-02-18 23:18 | Emergency (ER) | payer OTHER ==
--- OUTSIDE RECORDS SUMMARY | 2022-02-18 23:22 | XMS REPORT | Continuity of Care Document ---
:1995 Author Organization [facility] t Address [address] [place] [address] Care Team Providers Name Role Phone Pcp, Patient Does Not Have A Primary Care Physician [id number] ROSSY JACOBSEN Attending Clinician Unavailable Rossy Jacobsen MD Attending Clinician ADWOA BRADLEY Attending Clinician Unavailable Adwoa Bradley DO Attending Clinician Marlen Sanchez Attending Clinician [phone] MARLEN MENDOZA Attending Clinician Unavailable Payers Payer Name Policy Type Policy Number Effective Date Expiration Date [facility] [id number] 2021 CHOICE MEDICAID 00:00:00 Problems Condition Condition Condition Status Onset Resolution Last Treating Co mments Source Name Details Category Date Date Treatment Clinician Date Other Other Disease Active Univers general general 4-01 [place] of counseling [place] advice and advice 00 Ms dical for for Branch contracept contracept aminta aminta management management Obesity Obesity Disease Active 2020-07 Univers during during 1-18 ity of 00:00: [place] 00 [facility] Multiparit Multiparit Disease Active 2020-07 U nivers y y -18 ity of 00:00: [place] 00 [facility] Branch Spotting Spotting Disease Active 2020-07 Unive rs affecting affecting 1-18 [place] first [place] 00 Medica l trimester trimester Bran ch Allergies, Adverse Reactions, Alerts Allergy Allergy Status Severity Reaction(s) Onset Inactive Treating Comm ents Source Name Type Date Date Clinician NO KNOWN Drug Active Univers ALLERGIE Class ity of [facility] Social History Social Habit Start Date Stop Date Quantity Comments Source History [facility] University o f Alcohol Std [place] Medical Drinks Branch History [facility] o f Alcohol Binge [place] Medic al [place] Exposure to 2021-11-20 2021-11-30 Not sure University of SARS-CoV-2 00:00:00 19:35:00 [facility] (event) [place] Alcohol intake 2021-11-30 2021-11-30 Current drinker Unive rsity of 00:00:00 00:00:[address] [facility] (finding) [place] Tobacco use and 2021-05-27 2021-05-27 Never used Universit y of exposure 00:00:00 00:00:00 [facility] History of 2016-07-17 2021-05-14 Cigarette Smoker Universi ty of tobacco use 00:00:00 00:00:00 [facility] History [facility] 2019-07-17 2019-07-17 2 University o f Alcohol Frequency 00:00:00 00:00:00 [facility] edical [place] Alcohol Comment 2013-06-28 2013-06-28 socially, not Univer sity of 00:00:00 00:00:00 during [facility] dical [place] Sex Ass[birth year] At [birth year] Universit y of 00:00:00 00:00:00 [facility] Smoking Status Start Date Stop Date Source Former smoker 2021-05-27 00:00:00 2021-05-27 00:00:00 Universi ty of [facility] Medications Ordered Filled Start Stop Current [...] uration of Therapy: Other (see Comments) acetaminoph 2021- No 975mg 975 mg, U nivers en 12-01 Oral, ity of (TYLENOL) 03:15: 03:06 ONCE, [place] tablet 975 00 :00 dose, On Medic al mg Tue Branch 11/30/21 at 2215, RADHA amoxicillin Yes [id number] 500mg Take 1 Univers 500 mg 11-30 4 capsule by ity of capsule 00:00: mouth 3 [place] 00 (three) Medical times Branch daily. acetaminoph 2021- No 650mg 650 mg, U nivers en 11-24 Oral, ity of (TYLENOL) 15:15: 14:04 ONCE, 1 [place] tablet 650 00 :00 dose, On Medic al mg [facility] Branch 11/24/21 at 1015, RADHA Nitrofurant 2021- Yes [id number] 100mg Take 1 Univers oin&Nit. 11-24 capsule by ity of [place] 00:00: 04:59 mouth 2 [place] as 100 mg 00 :00 (two) Medical capsule times Branch daily for 7 days. Nitrofurant 2021- No [id number] 100mg Take 1 Univers oin&Nit. 11-24 capsule by ity of [place] 00:00: 00:00 mouth 2 [place] as 100 mg 00 :00 (two) Medical capsule times Branch daily for 7 days. cephALEXin 2021- No [id number] 500mg Take 1 Univers (KEFLEX) 10-08 capsule by ity of 500 mg 00:00: 04:59 mouth 2 [place] capsule 00 :00 (two) Medical times Branch daily for 10 days. cephALEXin 2021- No [id number] 500mg Take 1 Univers (KEFLEX) 10-08 capsule by ity of 500 mg 00:00: 04:59 mouth 2 [place] capsule 00 :00 (two) [facility] daily for 10 days. Immunizations Ordered Filled Immunization Date Status Comments [facility] e Immunization Name Name Influenza Virus 2020-05-13 Completed Universit y of Vaccine Quad .5 mL 00:00:00 [place] [facility] IM 6+ MO Branch Influenza Virus 2020-05-13 Completed Universit y of Vaccine [place] .5 mL 00:00:00 [facility] 6+ MO Branch Influenza Virus 2020-05-13 Completed Universit y of Vaccine Quad .5 mL 00:00:00 [facility] 6+ MO Branch Influenza Virus 2020-05-13 Completed Universit y of Vaccine Quad .5 mL 00:00:00 [facility] 6+ MO Branch Influenza Virus 2019-07-17 Completed Universit y of Vaccine Quad .5 mL 00:00:00 [facility] 6+ MO Branch Influenza Virus 2019-07-17 Completed Universit y of Vaccine Quad .5 mL 00:00:00 [facility] 6+ MO Branch Influenza Virus 2019-07-17 Completed Universit y of Vaccine Quad .5 mL 00:00:00 [facility] 6+ MO Branch Influenza Virus 2019-07-17 Completed Universit y of Vaccine Quad .5 mL 00:00:00 [facility] 6+ MO Branch TDAP 2014-01-06 Completed University of 00:00:00 [facility] TDAP 2014-01-06 Completed University of 00:00:00 [facility] TDAP 2014-01-06 Completed University of 00:00:00 [facility] TDAP 2014-01-06 Completed University of 00:00:00 [facility] PPD (TB) 2013-09-16 Completed University of 00:00:00 [facility] PPD (TB) 2013-09-16 Completed University of 00:00:00 [facility] PPD (TB) 2013-09-16 Completed University of 00:00:00 [facility] PPD (TB) 2013-09-16 Completed University of 00:00:00 [facility] Influenza Virus 2013-07-26 Completed Universit y of Vaccine (3+ yrs) 00:00:00 [facility] Influenza Virus 2013-07-26 Completed Universit y of Vaccine (3+ yrs) 00:00:00 [facility] Influenza Virus 2013-07-26 Completed Universit y of Vaccine (3+ yrs) 00:00:00 [facility] Influenza Virus 2013-07-26 Completed Universit y of Vaccine (3+ yrs) 00:00:00 [facility] Rubella 2012-03-02 Completed University of 00:00:00 [facility] Rubella 2012-03-02 Completed University of 00:00:00 [facility] Rubella 2012-03-02 Completed University of 00:00:00 [facility] Rubella 2012-03-02 Completed University of 00:00:00 [facility] Td 2005-07-10 Completed University of 00:00:00 [facility] Td 2005-07-10 Completed University of 00:00:00 [facility] Td 2005-07-10 Completed University of 00:00:00 [facility] Td 2005-07-10 Completed University of 00:00:00 [facility] Vital Signs Vital Name Observation Time Observation Value Comments Source Systolic blood 2021-12-01 03:06:00 138 mm[Hg] Univer sity of pressure [facility] Diastolic blood 2021-12-01 03:06:00 77 mm[Hg] Unive rsity of [facility] Heart rate 2021-12-01 03:06:00 86 /min [facility] Respiratory rate 2021-12-01 03:06:00 18 /min [facility] Oxygen saturation in 2021-12-01 03:06:00 99 /min [facility] Arterial blood by [facility] Pulse oximetry [place] Body temperature 2021-12-01 00:40:00 37.06 Alysa [facility] [place] [facility] Body height 2021-12-01 00:40:00 170.2 cm [facility] Body weight 2021-12-01 00:40:00 102.4 kg [facility] BMI 2021-12-01 00:40:00 35.36 kg/m2 [facility] Systolic blood 2021-11-24 13:49:00 141 mm[Hg] Univer sity of pressure [facility] Diastolic blood 2021-11-24 13:49:00 84 mm[Hg] Unive rsity of pressure [facility] Heart rate 2021-11-24 13:49:00 101 /min [facility] Body temperature 2021-11-24 13:49:00 36.78 Alysa [facility] [place] [facility] Respiratory rate 2021-11-24 13:49:00 18 /min [facility] Body weight 2021-11-24 13:49:00 102.059 [facility] BMI 2021-11-24 13:49:00 35.24 kg/m2 [facility] Oxygen saturation in 2021-11-24 13:49:00 100 /min [facility] Arterial blood by [facility] Pulse oximetry Branch Systolic blood 2021-10-08 19:04:00 119 mm[Hg] Univer sity of pressure [facility] Diastolic blood 2021-10-08 19:04:00 60 mm[Hg] Unive rsity of [facility] Heart rate 2021-10-08 19:04:00 81 /min [facility] Body temperature 2021-10-08 19:04:00 36.61 Alysa [facility] [place] [facility] Respiratory rate 2021-10-08 19:04:00 16 /min [facility] [place] [facility] Body height 2021-10-08 19:04:00 170.2 cm [facility] Body weight 2021-10-08 19:04:00 102.059 kg [facility] BMI 2021-10-08 19:04:00 35.24 kg/m2 [facility] Procedures Procedure Date / Time Performed Performing Clinician Sour e URINALYSIS 2021-12-01 01:32:00 Rossy Jacobsen [facility] NOTICE OF PRIVACY 2021-12-01 00:05:25 [facility]igned, [facility] FOR 2021-12-01 00:05:05 Doctor Unassigned, No [facility] TREATMENT URINALYSIS 2021-11-24 13:59:00 Adwoa Bradley [facility] POCT TEST 2021-11-24 13:59:00 [facility] NOTICE OF PRIVACY 2021-11-24 13:46:00 Doctor Unassigned, No Univ ersity [facility] Branch CONSENT/REFUSAL FOR 2021-11-24 13:45:39 Doctor Unassigned, No Un [facility] DIAGNOSIS AND Name [facility] TREATMENT Encounters Start End Encounter Admission Attending Care Care Encounter Source Date/Time Date/Time Type Type Clinicians Facility Department ID 2021-11-30 2021-11-30 Emergency X JAVIER [facility] ERT [id number] Univers 19:19:00 22:10:00 ROSSY irizarry [facility] 2021-11-30 2021-11-30 [facility] [id number] Univers 19:19:00 22:10:00 Msranjan Irwin [place] [id number] ity [facility] [id number] [facility] [id number] [address] 2021-11-24 2021-11-24 [facility] [id number] Univers 08:53:00 10:07:00 ADWOA irizarry [facility] 2021-11-24 2021-11-24 [facility] [id number] Univers 08:53:00 10:07:00 Adwoa SHIRLEY [id number] ity [facility] [id number] [facility] [id number] [address] 2021-10-08 2021-10-08 Office [facility] [id number] Univers 14:00:00 14:24:05 Visit Marlen Canseco TALENT ACQUISITION LEAD [id number] [facility] [id number] [place] as MATERNAL [id number] Med ical & CHILD [address] [place] [address] 2021-10-08 2021-10-08 Outpatient R ADA [facility] [id number] Univers 14:00:00 14:24:05 MARLEN maria [facility] 2020-08-04 2020-08-04 [facility] [id number] 00:00:00 00:00:00 Marlen Canseco TAL[employer] AC[employer]ISITION LEAD [id number] [facility] [id number] MATERNAL [id number] & CHILD 107 [facility] 2020-07-13 2020-07-13 Telephone Moelodia [facility] [id number] 00:00:00 00:00:00 Marlen Canseco TALENT AC[employer]ISITION LEAD [id number] [facility] [id number] MATERNAL [id number] & CHILD 107 [facility] Results Test Description Test Time Test Comments Results Result Comments Source POCT TEST 2021-11-24 13:59:00 Test Item Value Reference Range Interpretation Comme nts POCT PREG (test code = 1605) positive On board controls acceptable with C Line (test code = 3574) present POCT PREG LOT # (test code = 3575) [id number] POCT PREG TEST DATE (test code = 3576) Lab Interpretation (test code = 71314-7) Normal [facility]
[2022-02-19] MEDS ORDERED: NA CHLORIDE 0.9% 1,000 ML ONE (00:42)
[2022-02-19] MEDS ORDERED: ACETAMINOPHEN 500 MG TAB ONE (00:42)
[2022-02-19 01:18] LABS: Urine Bacteria 20-50 /HPF (<20); Urine RBC <5 /HPF (None Seen)
[2022-02-19 01:19] LABS: Urine Mucus 1+ /HPF (None Seen)
[2022-02-19 01:34] LABS: Urine Blood Negative (Negative); Urine Glucose Negative (Negative); Urine Protein Negative (Negative); Urine Specific Gravity 1.025 (1.005-1.030)
[2022-02-19 01:35] LABS: Absolute Lymphocytes (CBC) 2.3 K/uL (0.7-4.9); Lymphocytes % 19.3 % (15.3-44.8); MCV 71.4 fL (80-100); MPV 8.7 fL (7.6-11.3); RBC Red Blood Cell Count 4.48 M/uL (3.86-4.86)
[2022-02-19 01:55] LABS: Albumin 2.8 g/dL (3.4-5.0); Bilirubin Total 0.2 mg/dL (0.2-1.0); Potassium 4.1 mmol/L (3.5-5.1); Protein, Total 7.3 g/dL (6.4-8.2)
--- NOTE | 2022-02-19 02:33 | EDPHYS ---
Physician Documentation [facility] Name: Kemar Ang Age: 26 yrs Sex: Female : 1995 Arrival Date: 02/18/2022 Time: 23:21 Bed 15 Private MD: ED Physician Jani Sotelo HPI: 02/19 00:56 This 26 yrs old Black Female presents to ER via Ambulatory with complaints of Headache, ms3 Abdominal Pain. 00:56 The patient complains of pain to the forehead. The patient describes the headache as ms3 aching. Onset: The symptoms/episode began/occurred 1 week(s) ago. Associated signs and symptoms: The patient has no apparent associated signs or symptoms. Severity of symptoms: in the emergency department the pain a " 3" out of "10". Headache History: The patient has had previous headaches. The symptoms are alleviated by over the counter pain medication, Tylenol, the symptoms are aggravated by nothing. Patient states she has had abdominal pain and AMADOR for 1 week. . 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 - Social history:: Smoking status: Patient denies any tobacco usage or history of. ROS: 02/19 00:56 Constitutional: Negative for fever, and chills. Neck: Negative for injury, pain, and ms3 swelling, Cardiovascular: Negative for chest pain, and palpitations. Respiratory: Negative for shortness of breath, cough, wheezing, and pleuritic chest pain. MS/Extremity: Negative for injury and deformity, Psych: Negative for depression, anxiety, suicide ideation, homicidal ideation, and hallucinations. Abdomen/GI: Positive for abdominal pain. Exam: 00:56 Constitutional: This is a well developed, well nourished patient who is awake, alert, ms3 and in no acute distress. Head/Face: Normocephalic, atraumatic. ENT: Nares patent. No nasal discharge, no septal abnormalities noted. Tympanic membranes are normal and external auditory canals are clear. Oropharynx with no redness, swelling, or masses, exudates, or evidence of obstruction, uvula midline. Mucous membranes moist. Neck: Trachea midline, no cervical lymphadenopathy. Supple, full range of motion without nuchal rigidity, or vertebral point tenderness. No Meningismus. Chest/axilla: Normal chest wall appearance and motion. Nontender with no deformity. Cardiovascular: Regular rate and rhythm with a normal S1 and S2. No gallops, murmurs, or rubs. Normal PMI, no JVD. No pulse deficits. Respiratory: Lungs have equal breath sounds bilaterally, clear to auscultation and percussion. No rales, rhonchi or wheezes noted. No increased work of breathing, no retractions or nasal flaring. Abdomen/GI: Soft, non-tender, with normal bowel sounds. No distension or tympany. No guarding or rebound. No evidence of tenderness throughout. Back: No spinal tenderness. No costovertebral tenderness. Full range of motion. Skin: Warm, dry with normal turgor. Normal color with no rashes, no lesions, and no evidence of cellulitis. MS/ Extremity: Pulses equal, no cyanosis. Neurovascular intact. Full, normal range of motion. Psych: Awake, alert, with orientation to person, place and time. Behavior, mood, and affect are within normal limits. Vital Signs: 02/18 23:40 BP 138 / 78; Pulse 74; Resp 18; Temp 97.2; Pulse Ox 100% ; Weight 102.97 kg; Height 5 tw5 ft. 7 in. (170.18 cm); Pain 6/10; 02/19 00:00 BP 117 / 68; Pulse 78; Resp 18; Pulse Ox 100% ; Pain 8/10; kb3 00:00 BP 100 / 51; Pulse 70; Resp 20; Pulse Ox 100% ; Pain 3/10; kb3 02/18 23:40 Body Mass Index 35.55 (102.97 kg, 170.18 cm) tw5 MDM: 00:21 Patient medically screened. ms3 00:56 Differential diagnosis: cluster headache, tension headache, missed ab vs UTI vs ms3 Abdominal pain. 02:32 Data reviewed: vital signs, nurses notes, lab test result(s), radiologic studies, and ms3 as a result, I will discharge patient. Counseling: I had a detailed discussion with the patient and/or guardian regarding: the historical points, exam findings, and any diagnostic results supporting the discharge/admit diagnosis, lab results, radiology results, the need for outpatient follow up. Special discussion: Based on the patient's Hx, exam, and Dx evaluation, there is no indication for emergent surgery or inpatient Tx. It is understood by the patient/guardian that if the Sx's persist or worsen they need to return immediately for re-evaluation. 02/19 00:22 Order name: CBC with Diff; Complete Time: 02:22 ms3 02/19 00:22 Order name: CMP; Complete Time: 02: ms3 02/19 00:22 Order name: US OB Limited ms3 02/19 00:22 Order name: Urine Microscopic Only; Complete Time: 02:22 ms3 02/19 01:21 Order name: Urine Culture EDMA 02/19 01:35 Order name: Urine Dipstick-Ancillary; Complete Time: 02: [facility] 02/19 00:22 Order name: IV Saline Lock; Complete Time: 01:16 ms3 02/19 00:22 Order name: Labs collected and sent; Complete Time: 01:16 ms3 02/19 00:22 Order name: Urine Dipstick-Ancillary (obtain specimen); Complete Time: 01:38 ms3 Administered Medications: 00:35 Drug: Tylenol 1000 mg Route: PO; kb3 03:36 Follow up: Response: No adverse reaction tw5 01:25 Drug: NS 0.9% 1000 ml Route: IV; Rate: 1 bolus; Site: left antecubital; kb3 03:36 Follow up: Response: No adverse reaction; IV Status: Completed infusion; IV Intake: tw5 1000ml 03:35 Drug: Macrobid (nitrofurantoin) 100 mg Route: PO; tw5 03:35 Follow up: Response: No adverse reaction tw5 Disposition Summary: 02/19/22 02:32 Discharge Ordered Location: Home ms3 Condition: Stable ms3 Diagnosis - Bacteruria ms3 - Abdominal pain, unspecified ms3 - Headache ms3 Followup: ms3 - With: Grijalva, Kashif, DO - When: 2 - 3 days - Reason: Re-evaluation by your physician Discharge Instructions: - Discharge Summary Sheet ms3 - Abdominal Pain, Adult ms3 - General Headache Without Cause ms3 - General Headache Without Cause, [id number] ms3 - Asymptomatic Bacteriuria ms3 Forms: - Medication Reconciliation Form ms3 - Thank You Letter ms3 - Antibiotic Education ms3 - Prescription Opioid Use ms3 - Family Work Release tw5 Prescriptions: - Macrobid 100 mg Oral Capsule - take 1 capsule by ORAL route every 12 hours for 10 days; 20 capsule; Refills: ms3 0, Product Selection Permitted Signatures: Dispatcher [employer] EDMS Jani Sotelo DO DO ms3 Earnestine Gutierrez tw5 Enriqueta Graff, RN RN kb3
--- NOTE | 2022-02-19 02:33 | ER ---
Nurse's Notes [facility] Name: Kemar Ang Age: 26 yrs Sex: Female : 1995 Arrival Date: 02/18/2022 Time: 23:21 Bed 15 Private MD: Diagnosis: Bacteruria;Abdominal pain, unspecified;Headache Presentation: 02/18 23:40 Chief complaint: Patient states: "I have been sick for the past week. My head hurts, my tw5 stomach hurts, and I cannot sleep.". Coronavirus screen: Vaccine status: Patient reports receiving the 1st dose of the Covid vaccine. [employer]. Ebola Screen: Patient negative for fever greater than or equal to 101.5 degrees Fahrenheit, and additional compatible Ebola Virus Disease symptoms Patient denies exposure to infectious person. Patient denies travel to an Ebola-affected area in the 21 days before illness onset. Initial Sepsis Screen: Does the patient meet any 2 criteria? No. Patient's initial sepsis screen is negative. Does the patient have a suspected source of infection? No. Patient's initial sepsis screen is negative. Risk Assessment: Do you want to hurt yourself or someone else? Patient reports no desire to harm self or others. Onset of symptoms. 23:40 Method Of Arrival: Ambulatory tw5 23:40 Acuity: EDOUARD 3 tw5 Triage Assessment: 23:42 Headache History:. General: Appears in no apparent distress. Behavior is calm, tw5 cooperative, appropriate for age. Pain: Pain currently is 6 out of 10 on a pain scale. Pain began gradually, Also complains of sleeplessness. Neuro: No deficits noted. 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 - Social history:: Smoking status: Patient denies any tobacco usage or history of. Screenin:43 Abuse screen: Denies threats or abuse. Denies injuries from another. Nutritional tw5 screening: No deficits noted. Tuberculosis screening: No symptoms or risk factors identified. Fall Risk None identified. Assessment: 02/19 00:00 Reassessment: No changes from previously documented assessment. kb3 00:00 Pain: Complains of pain in face Pain does not radiate. Pain currently is 8 out of 10 on kb3 a pain scale. Quality of pain is described as aching, throbbing, Pain began 2-3 days ago. Is continuous. Neuro: No deficits noted. Cardiovascular: No deficits noted. Respiratory: No deficits noted. GI: Reports nausea. : No deficits noted. Denies. 00:35 General: US Tech at bedside.. kb3 01:30 General: Report given to Sylvie SEGURA. kb3 Vital Signs: 02/18 23:40 BP 138 / 78; Pulse 74; Resp 18; Temp 97.2; Pulse Ox 100% ; Weight 102.97 kg; Height 5 tw5 ft. 7 in. (170.18 cm); Pain 6/10; 02/19 00:00 BP 117 / 68; Pulse 78; Resp 18; Pulse Ox 100% ; Pain 8/10; kb3 00:00 BP 100 / 51; Pulse 70; Resp 20; Pulse Ox 100% ; Pain 3/10; kb3 08 23:40 Body Mass Index 35.55 (102.97 kg, 170.18 cm) tw5 ED Course: 02/18 23:21 Patient arrived in ED. ja2 23:41 Jani Sotelo DO is Attending Physician. ms3 23:42 Triage completed. tw5 23:42 Arm band placed on. tw5 23:43 Patient has correct armband on for positive identification. Door closed. Warm blanket tw5 given. Pillow given. Verbal reassurance given. 02/19 00:00 No provider procedures requiring assistance completed. kb3 00:13 Enriqueta Graff, RN is Primary Nurse. kb3 01:04 US OB Limited In Process Unspecified. EDMS 02:31 Kashif Grijalva DO is Referral Physician. ms3 03:25 IV discontinued, intact, bleeding controlled, No redness/swelling at site. Pressure tw5 dressing applied. Administered Medications: 00:35 Drug: Tylenol 1000 mg Route: PO; kb3 03:36 Follow up: Response: No adverse reaction tw5 01:25 Drug: NS 0.9% 1000 ml Route: IV; Rate: 1 bolus; Site: left antecubital; kb3 03:36 Follow up: Response: No adverse reaction; IV Status: Completed infusion; IV Intake: tw5 1000ml 03:35 Drug: Macrobid (nitrofurantoin) 100 mg Route: PO; tw5 03:35 Follow up: Response: No adverse reaction tw5 Medication: 00:00 VIS not applicable for this client. kb3 Intake: 03:36 IV: 1000ml; Total: 1000ml. tw5 Outcome: 02:32 Discharge ordered by . ms3 03:36 Discharged to home ambulatory. tw5 03:36 Condition: good 03:36 Discharge instructions given to patient, Instructed on discharge instructions, follow up and referral plans. Demonstrated understanding of instructions, follow-up care, medications, Prescriptions given X 1. 03:37 Patient left the ED. tw5 Signatures: Dispatcher [employer] EDMS Jnai Sotelo DO DO ms3 Chante Daly Tiffany tw5 Enriqueta Graff, RN RN kb3
[2022-02-19] MEDS ORDERED: NITROFURAN MACRO 100 MG CAP PO ONE (03:40)
[2022-02-19 04:05] VITALS: TEMP 97.2; O2SAT 100
[2022-02-19 04:08] VITALS: BP 100/51
--- NOTE | 2022-02-19 21:55 | RAD REPORT ---
EXAM DESCRIPTION: US - OB Limited - 02/19/2022 1:02 am CLINICAL HISTORY: 26 years Female, ABD PAIN COMPARISON: Report from 01/06/2022 TECHNIQUE: Limited greater than than 14 week obstetrical ultrasound obtained with transabdominal stephania ging. FINDINGS: measurements: BPD: 4.97 cm compatible with an estimated gestational age of 21 weeks, 0 days. HC: 19.3 standard cm compatible with an estimated gestational age is 21 weeks, 4 days. AC: 16.38 cm compatible with an estimated gestational age of 21 weeks, 3 days. FL: 3.69 cm compatible with an estimated gestational age of 21 weeks, 5 days. Composite gestational age of 21 weeks, 3days. Estimated weight of 133 g (estimated weight percentile is 49.9%). Estimated delivery date: 06/29/2022 by today's ultrasound. NELIDA: Qualitatively normal appearing amniotic fluid volume. NELIDA measurements are not provided. Placenta: Anterior placenta without definite abnormality. Cervical length: The cervix is not well evaluated. No definite abnormality of the cervix identified. presentation: Cephalic heart rate: 146 bpm. Anatomic survey: Heart: 4 chambers Stomach: Left, no definite abnormality Bladder: No definite abnormality. Umbilical cord. Reported three-vessel cord. It is difficult on the provided images to definitely conf irm this Spine: No definite abnormality. A transverse cine loop was not performed. Kidneys: No definite abnormality IMPRESSION: 1. Single live intrauterine with estimated gestational age of 21 weeks, 3 days . heart rate of 146 bpm. 2. No definite abnormality identified on limited organ survey. Continued close obstetrical foll ow-up recommended. Repeat more complete anatomic evaluation, if not previously performed, should be c onsidered for incompletely or inadequately visualized structures on this study. Electronically signed by: Bert Martinez 02/19/2022 1:53 AM CDT Due to temporary technical issues with the PACS/Fluency reporting system, reports are being signed by the in house radiologists without review as a courtesy to insure prompt reporting. The interpreting radiologist is fully responsible for the content of the report.
== END 2022-02-19 03:37 | disposition home or self-care (01) ==
LOC: ER 23:18
DX: O23.92 Unspecified genitourinary tract infection in pregnancy, second trimester (principal); R82.71 Bacteriuria; Z3A.21 21 weeks gestation of pregnancy
CPT/HCPCS: 96361; 87088; 85025; 87086; 36415; 80053; 76815; 96360; 99283; J7030; 81003; 81015

== ENCOUNTER 2022-05-29 11:28 | Emergency (ER) | payer OTHER ==
--- OUTSIDE RECORDS SUMMARY | 2022-05-29 11:32 | XMS REPORT | Continuity of Care Document ---
:1995 Author Organization [facility] t Address [address] [place] [address] Care Team Providers Name Role Phone PCP, PATIENT DOES NOT HAVE A Primary Care Physician UnavailBrunilda Moreno MD Attending Clinician BRUNILDA TONY Attending Clinician Unavailable ROSSY HERRERA Attending Clinician Unavailable Rossy Herrera MD Attending Clinician ADWOA BRADLEY Attending Clinician Unavailable Adwoa Bradley DO Attending Clinician Ada Marlen EL Attending Clinician [phone] MARLEN CABALLERO Attending Clinician Unavailable NICOLETTE LIVINGSTON Attending Clinician Unavailable Donna, Ang-Rmchp Attending Clinician Unavailable Nicolette Bejarano Attending Clinician Linda Banks Attending Clinician LINDA BRADLEY Attending Clinician Unavailable SNEHA HUFF Attending Clinician Unavailable Linda Bradley MD Attending Clinician Doctor Unassigned, [place] Attending Clinician Unavailable Gene Dean MD Attending Clinician Ashwin Crum DO Attending Clinician Visit, [facility] Nurse Attending Clinician Unavailable BRUNILDA TONY Admitting Clinician Unavailable Brunilda Tony MD Admitting Clinician Payers Payer Name Policy Type Policy Number Effective Date Expiration Date [id number] 2021 CHOICE [place] STAR 00:00:00 [facility] STAR [id number] 2020 00:00:00 Problems Condition Condition Condition Status Onset Resolution Last Treating Co mments Source Name Details Category Date Date Treatment Clinician Date Other Other Disease Active Univers general general 10-08 [place] of [place] advice and advice 00 Me dical for for Branch contracept contracept aminta aminta management management Obesity Obesity Disease Active 2020-07 Univers during during -18 [place] [facility] Multiparit Multiparit Disease Active 2020-07 U nivers y y -18 ity of 00:00: [place] 00 [facility] Branch Spotting Spotting Disease Active 2020-07 Unive rs affecting affecting -18 [place] in first in first 00 Medica l trimester trimester Bran ch Allergies, Adverse Reactions, Alerts Allergy Allergy Status Severity Reaction(s) Onset Inactive Treating Comm ents Source Name Type Date Date Clinician NO KNOWN Drug Active Univers ALLERGIE Class ity of S [facility] Social History Social Habit Start Date Stop Date Quantity Comments Source ASSERTION 2021-10-03 University of 00:00:00 [facility] History SDOH University o f Alcohol Std [place] [facility] History SDOH University o f Alcohol Binge [place] [facility] Exposure to 2022-04-26 2022-05-06 Not sure University of SARS-CoV-2 00:00:00 10:24:00 [facility] (event) Branch Alcohol intake 2022-05-06 2022-05-06 Current drinker Unive rsity of 00:00:00 00:00:00 of alcohol [facility] (finding) [place] Tobacco use and 2021-05-27 2021-05-27 Smokeless tobacco Un iversity of exposure 00:00:00 00:00:00 non-user [facility] History of 2016-07-17 2021-05-14 Cigarette Smoker [facility] of tobacco use 00:00:00 00:00:00 [facility] History SDOH 2019-07-17 2019-07-17 2 University o f Alcohol Frequency 00:00:00 00:00:00 [facility] edical [place] Alcohol Comment 2013-06-28 2013-06-28 socially, not Univer sity of 00:00:00 00:00:00 during [facility] dical [place] Sex Assigned At [birth year] Universit y of 00:00:00 00:00:00 [facility] Smoking Status Start Date Stop Date Source Ex-smoker 2021-05-27 00:00:00 2021-05-27 00:00:00 [facility] Medications Ordered Filled Start Stop Current Ordering Indication Dosage Frequency Signature Comments Components Source Medication Medication Date Date Medication? Clinician (SIG) Name Name amoxicillin 2021- No 500mg 500 mg, U nivers (TRIMOX) 5-25 05-25 Oral, ity of capsule 500 04:00: 03:06 [place]CE[place] mg [place] :[place] dose, On Medical [facility] Branch 11/30/21 at 2300, RADHA
Re ason for Anti-Infec tive: Documented Infection< br>Documen saravanan Infection Site: Urine
D uration of Therapy: Other (see Comments) acetaminoph No 975mg 975 mg, U nivers en 5-25 05-25 Oral, ity of (TYLENOL) 03:15: 03:06 ONCE[place] tablet 975 00 :00 dose, On Medic al mg e Branch 11/30/21 at 2215, RADHA amoxicillin Yes [id number] 500mg Take 1 Univers 500 mg 5-24 4 capsule by ity of capsule 00:00: mouth 3 (three) Medical times Branch daily. amoxicillin Yes [id number] 500mg Take 1 Univers 500 mg 5-24 4 capsule by ity of capsule 00:00: mouth 3 (three) Medical times Branch daily. acetaminoph No 650mg 650 mg, U nivers en 11-24 Oral, ity of (TYLENOL) 15:15: 14:04 ONCE, [place] tablet 650 00 :00 dose, On Medic al mg Wed Branch 11/24/21 at 1015, RADHA Nitrofurant 2021- No [id number] 100mg Take 1 Univers oin&Nit. 11-24 capsule by ity of [place] 00:00: 04:59 mouth 2 [place] as 100 mg 00 :00 (two) Medical capsule times Branch daily for 7 days. Nitrofurant 2021- No [id number] 100mg Take 1 Univers oin&Nit. 11-24 capsule by ity of [place] 00:00: 00:00 mouth 2 [place] as 100 mg 00 :00 (two) Medical capsule times Branch daily for 7 days. cephALEXin 2021- No [id number] 500mg Take 1 Univers (KEFLEX) 10-08 capsule by ity of 500 mg 00:00: 04:59 mouth 2 [place] capsule 00 :00 (two) Medical times Branch daily for 10 days. cephALEXin 2021- No [id number] 500mg Take 1 Univers (KEFLEX) 10-08 capsule by ity of 500 mg 00:00: 04:59 mouth 2 [place] capsule 00 :00 (two) Medical times Branch daily for 10 days. Immunizations Ordered Filled Immunization Date Status Comments [facility] e Immunization Name Name Influenza Virus 2020-05-13 Completed Universit y of Vaccine Quad .5 mL 00:00:00 [place] [facility] IM 6+ MO Branch Influenza Virus 2020-05-13 Completed Universit y of Vaccine Quad .5 mL 00:00:00 [place] [facility] IM 6+ MO Branch Influenza Virus 2020-05-13 Completed Universit y of Vaccine [place] .5 mL 00:00:00 [place] [facility] IM 6+ MO Branch Influenza Virus 2020-05-13 Completed Universit y of Vaccine [place] .5 mL 00:00:00 [place] [facility] IM 6+ MO Branch Influenza Virus 2020-05-13 Completed Universit y of Vaccine Quad .5 mL 00:00:00 [place] [facility] IM 6+ MO Branch Influenza Virus 2019-07-17 Completed Universit y of Vaccine [place] .5 mL 00:00:00 [facility] 6+ MO Branch Influenza Virus 2019-07-17 Completed Universit y of Vaccine [place] .5 mL 00:00:00 [facility] 6+ MO Branch Influenza Virus 2019-07-17 Completed Universit y of Vaccine [place] .5 mL 00:00:00 [facility] 6+ MO Branch Influenza Virus 2019-07-17 Completed Universit y of Vaccine Quad .5 mL 00:00:00 [facility] 6+ MO Branch Influenza Virus 2019-07-17 Completed Universit y of Vaccine Quad .5 mL 00:00:00 [facility] 6+ MO Branch TDAP 2014-01-06 Completed University of 00:00:00 [facility] TDAP 2014-01-06 Completed University of 00:00:00 [facility] TDAP 2014-01-06 Completed University of 00:00:00 [facility] TDAP 2014-01-06 Completed University of 00:00:00 [facility] TDAP 2014-01-06 Completed University of 00:00:00 [facility] PPD (TB) 2013-09-16 Completed University of 00:00:00 [facility] PPD (TB) 2013-09-16 Completed University of 00:00:00 [facility] PPD (TB) 2013-09-16 Completed University of 00:00:00 [facility] PPD (TB) 2013-09-16 Completed University of 00:00:00 [facility] PPD (TB) 2013-09-16 Completed University of 00:00:00 [facility] Influenza Virus 2013-07-26 Completed Universit y of Vaccine (3+ yrs) 00:00:[address] [facility] Influenza Virus 2013-07-26 Completed Universit y of Vaccine (3+ yrs) 00:00:[address] [facility] Influenza Virus 2013-07-26 Completed Universit y of Vaccine (3+ yrs) 00:00:[address] [facility] Influenza Virus 2013-07-26 Completed Universit y of Vaccine (3+ yrs) 00:00:[address] [facility] Influenza Virus 2013-07-26 Completed Universit y of Vaccine (3+ yrs) 00:00:[address] [facility] Rubella 2012-03-02 Completed University of 00:00:00 [facility] Rubella 2012-03-02 Completed University of 00:00:00 [place] [facility] Rubella 2012-03-02 Completed University of 00:00:00 [place] [facility] Rubella 2012-03-02 Completed University of 00:00:00 [place] [facility] Rubella 2012-03-02 Completed University of 00:00:00 [place] [facility] Td 2005-07-10 Completed University of 00:00:00 [place] [facility] Td 2005-07-10 Completed University of 00:00:00 [place] [facility] Td 2005-07-10 Completed University of 00:00:00 [place] [facility] Td 2005-07-10 Completed University of 00:00:00 [place] [facility] Td 2005-07-10 Completed University of 00:00:00 [facility] Branch Vital Signs Vital Name Observation Time Observation Value Comments Source Systolic blood 2022-05-06 17:05:00 125 mm[Hg] Univer sity of pressure [facility] Branch Diastolic blood 2022-05-06 17:05:00 58 mm[Hg] Unive rsity of pressure [facility] Heart rate 2022-05-06 17:05:00 81 /min [facility] Body temperature 2022-05-06 17:05:00 36 Alysa Univ ersity of [place] [facility] Respiratory rate 2022-05-06 17:05:00 18 /min Univ ersity of [facility] Branch Oxygen saturation in 2022-05-06 17:05:00 98 /min University of Arterial blood by [employer] Pulse oximetry Branch Body height 2022-05-06 15:25:00 170.2 cm [facility] Body weight 2022-05-06 15:25:00 102.059 kg [facility] BMI 2022-05-06 15:25:00 35.24 kg/m2 [facility] Systolic blood 2021-12-01 03:06:00 138 mm[Hg] Univer sity of pressure [facility] Branch Diastolic blood 2021-12-01 03:06:00 77 mm[Hg] Unive rsity of pressure [place] [facility] Heart rate 2021-12-01 03:06:00 86 /min Universi ty [facility] Medical [place] Respiratory rate 2021-12-01 03:06:00 18 /min Univ ersity of [facility] Oxygen saturation in 2021-12-01 03:06:00 99 /min University of Arterial blood by [employer] Pulse oximetry Branch Body temperature 2021-12-01 00:40:00 37.06 Alysa Univ ersity of [facility] Body height 2021-12-01 00:40:00 170.2 cm Universi ty of [facility] Body weight 2021-12-01 00:40:00 102.4 kg Universi ty of [facility] BMI 2021-12-01 00:40:00 35.36 kg/m2 Universi ty of [facility] Systolic blood 2021-11-24 13:49:00 141 mm[Hg] Univer sity of pressure [place] [facility] [place] Diastolic blood 2021-11-24 13:49:00 84 mm[Hg] Unive rsity of [facility] Heart rate 2021-11-24 13:49:00 101 /min Universi ty of [facility] Body temperature 2021-11-24 13:49:00 36.78 Alysa Univ ersity of [facility] Respiratory rate 2021-11-24 13:49:00 18 /min Univ ersity of [facility] Body weight 2021-11-24 13:49:00 102.059 kg Universi ty of [place] [facility] [place] BMI 2021-11-24 13:49:00 35.24 kg/m2 Universi ty of [facility] Oxygen saturation in 2021-11-24 13:49:00 100 /min [facility] Arterial blood by [facility] Pulse oximetry Branch Systolic blood 2021-10-08 19:04:00 119 mm[Hg] Univer sity of [facility] Diastolic blood 2021-10-08 19:04:00 60 mm[Hg] Unive rsity of [facility] Heart rate 2021-10-08 19:04:00 81 /min Universi ty of [facility] Body temperature 2021-10-08 19:04:00 36.61 Alysa Univ ersity of [facility] Respiratory rate 2021-10-08 19:04:00 16 /min Univ ersity of [facility] Body height 2021-10-08 19:04:00 170.2 cm Universi ty of [place] [facility] [place] Body weight 2021-10-08 19:04:00 102.059 kg Universi ty of [facility] BMI 2021-10-08 19:04:00 35.24 kg/m2 Universi ty of [place] [facility] Procedures Procedure Date / Time Performed Performing Clinician [facility] e ASSIGNMENT OF BENEFITS 2022-05-06 15:15:41 Doctor Unassigned, No [facility] Branch CONSENT/REFUSAL FOR 2022-05-06 15:14:23 Doctor Unassigned, No Un iversity of [place] DIAGNOSIS AND Name Medical Branch TREATMENT URINALYSIS 2021-12-01 01:32:00 Rossy Herrera [facility] NOTICE OF PRIVACY 2021-12-01 00:05:25 Doctor Unassigned, No [facility] CONSENT/REFUSAL FOR 2021-12-01 00:05:05 Doctor Unassigned, No Un iversity [facility] DIAGNOSIS AND [facility] TREATMENT URINALYSIS 2021-11-24 13:59:[address] [facility] POCT TEST 2021-11-24 13:59:00 Adwoa Bradley [facility] NOTICE OF PRIVACY 2021-11-24 13:46:00 Doctor Unassigned, No [facility] CONSENT/REFUSAL FOR 2021-11-24 13:45:39 Doctor Unassigned, No [facility] Medical [place] TREATMENT Encounters Start End Encounter Admission Attending Care Care Encounter Source Date/Time Date/Time Type Type Clinicians Facility Department ID 2022-05-06 Outpatient X [facility] MELIDA [id number] Univers 12:25:50 ity of [facility] 2021-05-10 Emergency [facility] [id number] Univers 04:53:27 ity [facility] 2022-05-06 2022-05-06 [facility] [id number] Univers 10:27:00 12:25:00 Brunilda SHIRLEY [id number] ity [facility] [id number] [facility] [id number] [place] [id number] Branch 2022-05-06 2022-05-06 Outpatient X ADUM, [facility] MELIDA [id number] Univers 10:27:00 12:25:00 BRUNILDA irizarry [facility] 2022-04-26 2022-04-[address] [facility] [id number] Regan 16:56:07 16:56:07 101[address] 2021-11-30 2021-11-30 Emergency X SMOOTHJENNYBONNIE, [facility] ERT [id number] Univers 19:19:00 22:10:00 ROSSY irizarry [facility] 2021-11-30 2021-11-30 Emergency [facility] [id number] Univers 19:19:00 22:10:00 [facility] [id number] ity [facility] 4.2.7.2.686 [facility] [id number] [address] 2021-11-24 2021-11-24 Emergency [facility] [id number] Univers 08:53:00 10:07:00 ADWOA irizarry [facility] 2021-11-24 2021-11-24 Emergency [facility] [id number] Univers 08:53:00 10:07:00 Adwoa SHIRLEY [id number] ity [facility] 4.2.7.2.686 [facility] [id number] [address] 2021-10-08 2021-10-08 Office [facility] [id number] Univers 14:00:00 14:24:05 Visit Marlen Canseco LOCAL AREA NETWORK ADMINISTRATOR [id number] ity [facility] 4.2.7.2.686 Rey as MATERNAL [id number] Med ical & CHILD [address] [place] [address] 2021-10-08 2021-10-08 Outpatient R ADA, [facility] [id number] Univers 14:00:00 14:24:05 MARLEN maria [facility] 2021-10-08 2021-10-08 Outpatient R ADA [facility] [id number] Univers 14:00:00 14:00:00 MARLEN maria [facility] 2021-09-01 2021-09-01 Outpatient R YARA [facility] [id number] Univers 08:15:00 08:15:00 NICOLETTE matt [facility] 2021-08-18 2021-08-18 Telephone [facility] [id number] Univers 00:00:00 00:00:00 Marlen C LOCAL AREA NETWORK ADMINISTRATOR [id number] ity of REGIONAL [id number] [place] as MATERNAL [id number] [facility] [address] [place] [address] 2021-08-12 2021-08-12 Beverage Sales Consultant Lab, [facility] [id number]. [id number] Univers 13:30:00 13:58:16 Visit Matt Caballerocabrera Canseco LOCAL AREA NETWORK ADMINISTRATOR [id number]. 10 ity of REGIONAL 4.2.7.2.686 [place] as MATERNAL [id number] [address] 2021-08-12 2021-08-12 [facility] [id number] Univers 13:30:00 13:30:00 MARLEN matt [facility] 2021-07-30 2021-07-30 Outpatient [facility] [id number] Univers 12:45:00 12:45:00 MARLEN irizarry o [facility] 2021-07-30 2021-07-30 Telephone [facility] [id number] Univers 00:00:00 00:00:00 Rosfrancisconda R LOCAL AREA NETWORK ADMINISTRATOR [id number] ity of REGIONAL 4.2.7.2.686 [place] as MATERNAL [id number] [facility] & CHILD [address] [place] [address] 2021-07-29 2021-07-29 Outpatient [facility] [id number] Univers 13:00:00 13:42:36 ROSHUNDA ituma o f [facility] 2021-07-29 2021-07-29 Routine [facility] [id number] Univers 13:00:00 13:42:36 Roshunda R LOCAL AREA NETWORK ADMINISTRATOR [id number] ity of Visit REGIONAL 4.2.7.2.686 [place] as MATERNAL [id number] [facility] & [address] 2021-07-27 2021-07-27 Outpatient R AKINSIPE, [facility] [id number] Univers 10:00:00 10:00:00 MARLEN irizarry o [facility] 2021-07-23 2021-07-23 Telephone [facility] [id number] Univers 00:00:00 00:00:00 Marlen C LOCAL AREA NETWORK ADMINISTRATOR [id number] ity of REGIONAL 4.2.7.2.686 [place] as MATERNAL [id number] [facility] & [address] 2021-07-22 2021-07-22 Outpatient R AKINSIPE, [facility] [id number] Univers 13:30:00 13:30:00 MARLEN irizarry o [facility] 2021-07-15 2021-07-15 Outpatient R AKINSIPE, [facility] [id number] Univers 08:30:00 08:30:00 MARLEN irizarry [facility] 2021-07-15 2021-07-15 Telephone [facility] [id number] Univers 00:00:00 00:00:00 Marlen C LOCAL AREA NETWORK ADMINISTRATOR [id number] ity of REGIONAL 4.2.7.2.686 [place] as MATERNAL [id number] [facility] & [address] 2021-07-13 2021-07-13 Outpatient R AKINSIPE, [facility] [id number] Univers 15:00:00 16:06:33 MARLEN irizarry o [facility] 2021-07-13 2021-07-13 Routine Akinsipe, [facility] [id number] Univers 15:00:00 16:06:33 Marlen C LOCAL AREA NETWORK ADMINISTRATOR [id number] ity of Visit REGIONAL 4.2.7.2.686 [place] as MATERNAL [id number] [facility] & CHILD [address] [place] [address] 2021-07-12 2021-07-12 Outpatient P [facility] [id number] Univers 11:00:00 11:00:00 ity of [facility] 2021-07-12 2021-07-12 Outpatient P [facility] [id number] Univers 11:00:00 11:00:00 juan c [facility] 2021-06-28 2021-06-28 Routine [facility] [id number] Univers 15:30:00 15:45:00 Linda N LOCAL AREA NETWORK ADMINISTRATOR 350.1.13.10 i ty of Visit REGIONAL 4.2.7.2.686 [place] as MATERNAL [id number] [facility] [address] [place] [address] 2021-06-28 2021-06-28 [facility] [id number] Univers 15:30:00 15:30:00 LINDA irizarry [facility] 2021-06-24 2021-06-24 Outpatient [facility] [id number] Univers 08:45:00 08:45:00 LINDA irizarry [facility] 2021-06-24 2021-06-24 Outpatient [facility] [id number] Univers 08:45:00 08:45:00 LINDA irizarry [facility] 2021-06-17 2021-06-17 Outpatient [facility] [id number] Univers 09:00:00 09:00:00 SNEHA irizarry [facility] 2021-06-02 2021-06-02 Telephone [facility] [id number] Univers 00:00:00 00:00:00 Linda LOCAL AREA NETWORK ADMINISTRATOR 350.1.13.10 it y of REGIONAL 4.2.7.2.686 [place] as MATERNAL [id number] [facility] & [address] 2021-05-27 2021-05-27 Outpatient [facility] [id number] Univers 14:45:00 15:21:19 LINDA irizarry [facility] 2021-05-27 2021-05-27 Initial [facility] [id number] Univers 14:21:24 15:21:19 Linda N LOCAL AREA NETWORK ADMINISTRATOR 350.1.13.10 i ty of Visit REGIONAL 4.2.7.2.686 [place] as MATERNAL [id number] [facility] [address] [place] [address] 2021-05-27 2021-05-27 Orders Doctor DANK [id number] Univers 00:00:00 00:00:00 Only Unassigned, BENJIE 350.1.13.10 ity of [place] [facility] 4.2.7.2.686 Rey as [id number] [facility] 009 [place] 2021-03-04 2021-03-04 Telephone [facility] [id number] Univers 00:00:00 00:00:00 Marlen Canseco LOCAL AREA NETWORK ADMINISTRATOR 350.1.13.10 ity of [facility] 4.2.7.2.686 [place] as MATERNAL [id number] [facility] & [address] 2021-03-01 2021-03-01 Office [facility] [id number] Univers 14:55:25 16:34:45 Visit Marlen Canseco LOCAL AREA NETWORK ADMINISTRATOR 350.1.13.10 ity of [facility] 4.2.7.2.686 [place] as MATERNAL [id number] [address] 2021-03-01 2021-03-01 Outpatient [facility] [id number] Univers 15:15:00 15:15:00 MARLEN irizarry o candace [facility] 2021-01-06 2021-01-06 Emergency [facility] [id number] Univers 09:05:00 13:00:00 Gene Delgadoton 350.1.13.10 i ty [facility] 4.2.7.2.686 [place] [id number] [facility] 084 [place] 2021-01-06 2021-01-06 Orders Doctor DANK [id number] 00:00:00 00:00:00 Only Unassigned, BENJIE 350.1.13.10 ity of [place] [facility] 4.2.7.2.686 Rey as [id number] [facility] 009 [place] 2020-12-24 2020-12-24 Telephone [facility] [id number] Univers 00:00:00 00:00:00 Marlen Canseco LOCAL AREA NETWORK ADMINISTRATOR 350.1.13.10 ity of [facility] 4.2.7.2.686 [place] as MATERNAL [id number] [facility] [address] [place] [address] 2020-12-21 2020-12-21 Office Marlen Caballero [facility] [id number] Univers 14:11:07 16:08:33 Visit LivingstonNicolette LOCAL AREA NETWORK ADMINISTRATOR 350.1.13.10 ity of [facility] 4.2.7.2.686 [place] as MATERNAL [id number] [facility] & CHILD [address] [place] [address] 2020-12-21 2020-12-21 Outpatient [facility] [id number] Univers 14:30:00 14:30:00 NICOLETTE maria [facility] 2020-12-21 2020-12-21 Orders Doctor DANK [id number] Univers 00:00:00 00:00:00 Only Unassigned, BENJIE 350.1.13.10 ity of [place] [facility] 4.2.7.2.686 Rey as [id number] [address] 2020-11-03 2020-11-03 Outpatient R YARA [facility] [id number] Univers 10:30:00 10:30:00 NICOLETTE maria [facility] 2020-11-02 2020-11-02 Orders Doctor DANK [id number] Univers 00:00:00 00:00:00 Only Unassigned, BENJIE 350.1.13.10 ity of [place] [facility] 4.2.7.2.686 Rey as [id number] [address] 2020-09-29 2020-09-29 Patient Radames [facility] [id number] Univers 00:00:00 00:00:00 Outreach Ashwinivana BECERRA 350.1.13.10 i ty of Avel [facility] 4.2.7.2.686 [place] [phone] [address] 2020-09-15 2020-09-15 Outpatient R DEREKYO, [facility] [id number] Univers 11:00:00 11:00:00 MARLEN maria [facility] 2020-08-20 2020-08-20 Outpatient R DEREKSIPE, [facility] [id number] Univers 09:00:00 09:00:00 MARLEN almanzary o f [facility] 2020-08-04 2020-08-04 [facility]phone [facility] 1.2.840.114 [id number] 00:00:00 00:00:00 Marlen C LOCAL AREA NETWORK ADMINISTRATOR 350.1.13.10 REGIONAL 4.2.7.2.686 MATERNAL [id number] & CHILD [address] [place] [address] 2020-08-04 2020-08-04 Telephone [facility] 1.2.840.114 [id number] [facility] 00:00:00 00:00:00 Marlen C LOCAL AREA NETWORK ADMINISTRATOR 350.1.13.10 ity of REGIONAL 4.2.7.2.686 Rey as MATERNAL [phone] Med ical & CHILD [address] [place] [address] 2020-07-13 2020-07-13 Telephone [facility] 1.2.840.114 [id number] 00:00:00 00:00:00 Marlen C LOCAL AREA NETWORK ADMINISTRATOR 350.1.13.10 REGIONAL 4.2.7.2.686 MATERNAL [id number] & CHILD [address] [place] [address] 2020-07-13 2020-07-13 Telephone [facility] 1.2.840.114 [id number] [facility] 00:00:00 00:00:00 Marlen C LOCAL AREA NETWORK ADMINISTRATOR 350.1.13.10 ity of REGIONAL 4.2.7.2.686 Rey as MATERNAL [phone] [facility] [address] [place] [address] 2020-07-09 2020-07-09 Office [facility] [id number] Univers 07:53:45 08:37:54 Visit Marlen C LOCAL AREA NETWORK ADMINISTRATOR 350.1.13.10 ity of REGIONAL 4.2.7.2.686 Rey as MATERNAL [phone] Med ical & CHILD 107 [facility] 2020-07-09 2020-07-09 Outpatient R [facility] [id number] Univers 08:00:00 08:00:00 MARLEN irizarry o f [facility] 2020-06-02 2020-06-02 Telephone [facility] [id number] Univers 00:00:00 00:00:00 Rosfrancisconda R LOCAL AREA NETWORK ADMINISTRATOR 350.1.13.10 ity of [facility] 4.2.7.2.686 Rey as MATERNAL [phone] [facility] ical & CHILD [address] [place] [address] 2020-05-27 2020-05-27 Orders Doctor DANK 1.2.840.114 [id number] Univers 00:00:00 00:00:00 Only Unassigned, BENJIE 350.1.13.10 ity of [place] [facility] 4.2.7.2.686 Rey as [phone] [address] 2020-05-25 2020-05-25 Telephone [facility] 1.2.840.114 [id number] Univers 00:00:00 00:00:00 Marlen Canseco LOCAL AREA NETWORK ADMINISTRATOR 350.1.13.10 ity of [facility] 4.2.7.2.686 Rey as MATERNAL [phone] [facility] ical & CHILD [address] [place] [address] 2020-05-18 2020-05-18 [facility] [id number] Univers 00:00:00 00:00:00 Rosfrancisconda R LOCAL AREA NETWORK ADMINISTRATOR 350.1.13.10 ity of [facility] 4.2.7.2.686 Rey as MATERNAL [phone] [facility] ical & CHILD [address] [place] [address] 2020-05-14 2020-05-14 Telephone [facility] [id number] Univers 00:00:00 00:00:00 Rosvaughna R LOCAL AREA NETWORK ADMINISTRATOR 350.1.13.10 ity of [facility] 4.2.7.2.686 Rey as MATERNAL [phone] Med ical & CHILD [address] [place] [address] 2020-05-13 2020-05-13 [facility] 1.2.840.114 [id number] Univers 08:57:49 10:02:34 Visit Nicolette R LOCAL AREA NETWORK ADMINISTRATOR 350.1.13.10 ity of REGIONAL 4.2.7.2.686 Rey as MATERNAL [phone] [facility] ical & CHILD [address] [place] [address] 2020-05-13 2020-05-13 [facility] [id number] Univers 09:15:00 09:15:00 NICOLETTE ity o f [facility] 2020-05-11 2020-05-11 Telephone [facility] 1.2.840.114 [id number] Univers 00:00:00 00:00:00 Marlen C LOCAL AREA NETWORK ADMINISTRATOR 350.1.13.10 ity of [facility] 4.2.7.2.686 Rey as MATERNAL [phone] [facility] & CHILD [address] [place] [address] 2020-01-24 2020-01-24 Office [facility] [id number] Univers 09:36:42 10:33:14 Visit Marlen Canseco LOCAL AREA NETWORK ADMINISTRATOR 350.1.13.10 ity of [facility] 4.2.7.2.686 Rey as MATERNAL [id number] [facility] & CHILD [address] [place] [address] 2020-01-24 2020-01-24 Outpatient [facility] [id number] Univers 09:30:00 09:30:00 MARLEN almanzary o f [facility] 2020-01-16 2020-01-16 Outpatient R [facility] [id number] Univers 11:00:00 11:00:00 MARLEN ity o f [facility] 2020-01-14 2020-01-14 Telephone [facility] 1.2.840.114 [id number] Univers 00:00:00 00:00:00 Marlen C LOCAL AREA NETWORK ADMINISTRATOR 350.1.13.10 ity of [facility] 4.2.7.2.686 Rey as MATERNAL [phone] [facility] & CHILD [address] [place] [address] 2020-01-02 2020-01-02 Outpatient R [facility] [id number] Univers 14:30:00 14:30:00 ity of [facility] 2020-01-01 2020-01-01 Telephone Ada [facility] 1.2.840.114 [id number] Univers 00:00:00 00:00:00 Marlen C LOCAL AREA NETWORK ADMINISTRATOR 350.1.13.10 ity of [facility] 4.2.7.2.686 Rey as MATERNAL [phone] [facility] [address] [place] [address] 2019-10-10 2019-10-10 Nurse Visit, [facility] Nurse [facility] 1.2 .840.114 [id number] Univers 14:10:13 15:35:18 Visit Marlen Caballero LOCAL AREA NETWORK ADMINISTRATOR 350.1.13. 10 ity of REGIONAL 4.2.7.2.686 Rey as MATERNAL [phone] [facility] & [address] 2019-10-10 2019-10-10 Outpatient R ADA [facility] [id number] Univers 14:30:00 14:30:00 MARLEN irizarry o candace [facility] 2019-10-09 2019-10-09 Outpatient R [facility] [id number] Univers 14:00:00 14:00:00 ity of [facility] 2019-09-05 2019-09-05 [facility]phone [facility] 1.2.840.114 [id number] Univers 00:00:00 00:00:00 Marlen Canseco LOCAL AREA NETWORK ADMINISTRATOR 350.1.13.10 ity of REGIONAL 4.2.7.2.686 Rey as MATERNAL [phone] [facility] & [address] 2019-09-04 2019-09-04 Office [facility] [id number] Univers 13:34:54 14:30:58 Visit Marlen C LOCAL AREA NETWORK ADMINISTRATOR 350.1.13.10 ity of REGIONAL 4.2.7.2.686 Rey as MATERNAL [phone] [facility] & [address] 2019-09-04 2019-09-04 Outpatient R [facility] [id number] Univers 13:15:00 13:15:00 MARLEN ity o f [facility] 2019-02-16 2019-02-16 Emergency Javier [facility] [id number] Univers 01:42:53 04:12:00 Rossy Shirley 350.1.13.10 Jessica 4.2.7.2.686 [facility] [phone] [address] Results Test Description Test Time Test Comments Results Result Comments Source POCT TEST 2021-11-24 13:59:00 Test Item Value Reference Range Interpretation Comme nts POCT PREG (test code = 1605) positive On board controls acceptable with C Line (test code = 3574) present POCT PREG LOT # (test code = 3575) [id number] POCT PREG TEST DATE (test code = 3576) Lab Interpretation (test code = 10572-6) Normal [facility]
[2022-05-29 12:50] LABS: Urine Blood Negative (Negative); Urine Glucose Negative (Negative); Urine Protein Negative (Negative)
--- NOTE | 2022-05-29 13:21 | ER ---
Nurse's Notes [facility] Name: Kemar Ang Age: 27 yrs Sex: Female : 1995 Arrival Date: 05/29/2022 Time: 11:29 Bed 10 Private MD: Diagnosis: Vaginal Discharge Presentation: 05/29 12:49 Chief complaint: Patient states: Had dental work done a few days ago, placed on ph antibiotics then started having vaginal itching, OB gave her suppository medications for yeast infection but it has not helped. Coronavirus screen: Vaccine status: Patient reports being unvaccinated. Ebola Screen: No symptoms or risks identified at this time. Initial Sepsis Screen: Does the patient meet any 2 criteria? No. Patient's initial sepsis screen is negative. Does the patient have a suspected source of infection? No. Patient's initial sepsis screen is negative. Risk Assessment: Do you want to hurt yourself or someone else? Patient reports no desire to harm self or others. Onset of symptoms was May 29, 2022. 12:49 Method Of Arrival: Ambulatory ph 12:49 Acuity: EDOUARD 4 ph Triage Assessment: 12:54 General: Appears in no apparent distress. comfortable, well groomed, Behavior is calm, ph cooperative, appropriate for age. Pain: Denies pain. Neuro: Level of Consciousness is awake, alert, obeys commands, Oriented to person, place, time, situation. Respiratory: Airway is patent Respiratory effort is even, unlabored. : Reports discharge, watery, vaginal itching. Derm: Skin is intact, is healthy with good turgor, Skin is pink, warm \T\ dry. Musculoskeletal: Circulation, motion, and sensation intact. Range of motion: intact in all extremities. FLEXIBLE BABYSITTER: 12:54 Verified ph Historical: - Allergies: 12:53 No Known Allergies; ph - PMHx: 12:53 Hernia; ph - Immunization history:: Adult Immunizations unknown. - Social history:: Smoking status: Patient denies any tobacco usage or history of. Screenin:53 Abuse screen: Denies threats or abuse. Denies injuries from another. Nutritional ph screening: No deficits noted. Tuberculosis screening: No symptoms or risk factors identified. Fall Risk None identified. Vital Signs: 12:49 BP 125 / 74; Pulse 90; Resp 18; Temp 97.4; Pulse Ox 100% on R/A; Weight 108.86 kg; ph Height 5 ft. 6 in. (167.64 cm); 12:49 Body Mass Index 38.74 (108.86 kg, 167.64 cm) ph ED Course: 11:29 Patient arrived in ED. rg4 12:44 Tyrone Delatorre PA is PHCP[facility] 12:44 Kyler Zazueta MD is Attending Physician. [facility] 12:52 Triage completed. ph 12:54 Arm band placed on. ph 12:55 Patient has correct armband on for positive identification. ph 12:56 Urine collected: clean catch specimen, clear. tm3 13:26 No provider procedures requiring assistance completed. Patient did not have IV access ss during this emergency room visit. Administered Medications: No medications were administered Medication: 12:54 VIS not applicable for this client. ph Outcome: 13:21 Discharge ordered by . [facility] 13:26 Discharged to home ambulatory. ss 13:26 Condition: good 13:26 Discharge instructions given to patient, Instructed on discharge instructions, follow up and referral plans. Demonstrated understanding of instructions, follow-up care. 13:26 Patient left the ED. ss Signatures: Sameer Barnes tm3 Tyrone Delatorre PA PA jmm Smirch, Shelby, RN RN Alma Barrientos RN RN Sophie Gordon rg4
--- NOTE | 2022-05-29 13:22 | EDPHYS ---
Physician Documentation [facility] Name: Kemar Ang Age: 27 yrs Sex: Female : 1995 Arrival Date: 05/29/2022 Time: 11:29 Bed 10 Private MD: ED Physician Kyler Zazueta HPI: 05/29 12:52 This 27 yrs old Black Female presents to ER via Ambulatory with complaints of Vaginal jmm Itching. 12:52 This is a 27 year old female currently 36 weeks that presents to the ED with jmm complaints of vaginal discharge, itching beginning approx 3 days ago. Patient had a tooth extraction performed, was prescribed a course of amoxicillin. Patient was then prescribed an intravaginal antifungal medication with little relief. Denies fever. States having abnormal discharge. Denies pelvic pain/cramping. . RECREATION AIDE: 12:54 Verified ph Historical: - Allergies: 12:53 No Known Allergies; ph - PMHx: 12:53 Hernia; ph - Immunization history:: Adult Immunizations unknown. - Social history:: Smoking status: Patient denies any tobacco usage or history of. ROS: 12:52 Constitutional: Negative for fever, chills, and weight loss, Cardiovascular: Negative jmm for chest pain, palpitations, and edema, Respiratory: Negative for shortness of breath, cough, wheezing, and pleuritic chest pain. 12:52 : Positive for urinary symptoms. 12:52 All other systems are negative. Exam: 12:52 Constitutional: This is a well developed, well nourished patient who is awake, alert, jmm and in no acute distress. Head/Face: atraumatic. Eyes: EOMI, no conjunctival erythema appreciated ENT: Moist Mucus Membranes Neck: Trachea midline, Supple Chest/axilla: Normal chest wall appearance and motion. Cardiovascular: Regular rate and rhythm. No edema appreciated Respiratory: Normal respirations, no respiratory distress appreciated 12:52 Skin: General appearance color normal MS/ Extremity: Moves all extremities, no obvious deformities appreciated, no edema noted to the lower extremities Neuro: Awake and alert Psych: Behavior is normal, Mood is normal, Patient is cooperative and pleasant 12:52 Abdomen/GI: Inspection: gravid appearance, Bowel sounds: Vital Signs: 12:49 BP 125 / 74; Pulse 90; Resp 18; Temp 97.4; Pulse Ox 100% on R/A; Weight 108.86 kg; ph Height 5 ft. 6 in. (167.64 cm); 12:49 Body Mass Index 38.74 (108.86 kg, 167.64 cm) ph MDM: 12:55 Patient medically screened. [facility] 13:14 Data reviewed: vital signs, nurses notes. [facility] 13:20 Counseling: I had a detailed discussion with the patient and/or guardian regarding: the [facility] historical points, exam findings, and any diagnostic results supporting the discharge/admit diagnosis, the need for outpatient follow up, to return to the emergency department if symptoms worsen or persist or if there are any questions or concerns that arise at home. 13:20 ED course: Patient advised to go to labor and delivery due to abnorma discharge. I theron called L\T\D to confirm. Patient was wheeled directly upon discharge from the ED. Patient otherwise given strict return precautions. Patient understood and agrees with the plan of care. . 05/29 12:50 Order name: Urine Dipstick-Ancillary; Complete Time: 12:56 EDSC 05/29 12:52 Order name: Urine --Ancillary (enter results) eb Administered Medications: No medications were administered Disposition: 13:45 Co-signature as Attending Physician, Kyler Zazueta MD I agree with the assessment and [facility] plan of care. Disposition Summary: 05/29/22 13:21 Discharge Ordered Location: Home [facility] Condition: Stable [facility] Diagnosis - Vaginal Discharge [facility] Followup: [facility] - With: Private Physician - When: Upon discharge from the Emergency Department - Reason: Recheck today's complaints, Continuance of care, Re-evaluation by your physician Discharge Instructions: - Discharge Summary Sheet [facility] Forms: - Medication Reconciliation Form [facility] - Thank You Letter [facility] - Antibiotic Education [facility] - Prescription Opioid Use [facility] Signatures: Dispatcher [employer] Kyler Watters MD MD cha Mickail, Joel, PA PA Alma Redding RN RN ph Corrections: (The following items were deleted from the chart) 19:53 13:20 Counseling: I had a detailed discussion with the patient and/or guardian [facility] regarding: the historical points, exam findings, and any diagnostic results supporting the discharge/admit diagnosis, the need for outpatient follow up, to return to the emergency department if symptoms worsen or persist or if there are any questions or concerns that arise at home, theron
[2022-05-29 13:31] VITALS: BP 125/74; TEMP 97.4; O2SAT 100
== END 2022-05-29 13:26 | disposition home or self-care (01) ==
LOC: ER 11:28
DX: O99.891 Other specified diseases and conditions complicating pregnancy (principal); N89.8 Other specified noninflammatory disorders of vagina; Z3A.36 36 weeks gestation of pregnancy
CPT/HCPCS: 81003; 81025; 99283

== ENCOUNTER 2022-06-20 13:09 | Inpatient (IN) | payer OTHER ==
[2022-06-20] MEDS ORDERED: METHYLERGONOVINE 0.2MG/ML AMP IM PRN (13:36)
[2022-06-20] MEDS ORDERED: BUTORPHANOL 1 MG/ML INJ IV PRN (13:36)
[2022-06-20] MEDS ORDERED: Ringers Lactate 1,000 ML IV PRN ×2 (13:36→15:42)
[2022-06-20] MEDS ORDERED: PROMETHAZINE INJ 25 MG/ML AMP IM PRN (13:36)
[2022-06-20] MEDS ORDERED: MAGNES/ALUMIN/SIMET 30ML UCUP PO PRN (13:38)
[2022-06-20] MEDS ORDERED: CLINDAMYCIN INJ 600 MG in NA CHLORIDE 0.9% 50 ML IV SCH (14:00)
[2022-06-20] MEDS ORDERED: CLINDAMYCIN 600MG/D5W 600 MG/50 ML BAG IV SCH (14:00)
[2022-06-20] MEDS ORDERED: Ringers Lactate 1,000 ML IV SCH ×2 (14:00→16:00)
--- NOTE | 2022-06-20 14:28 | SS ---
Date of Discharge: 06/17/2022 Discharge Diagnoses: 1.Intrauterine at 38 weeks of gestation, undelivered. 2.Headaches. 3.Ruled out hypertension disorder causing headaches. Hospital Course: Kemar Ang is a G5, P2 female currently at 38 weeks of , a patient of Zaynab Woods who came to the labor room with about a 3 day history of frontal headaches. Her headache appeared somewhat nonspecific; however, she mentioned that this evening, her headaches making her hav ing more high pressure and caused her eyes to "bulging out." She has no history of migraine headache s or any trauma and she also has no history of high blood pressure. Her apparently has bee n uneventful and unremarkable. She came to the labor room for evaluation. As far as her baby is con cerned, heart tones are within normal limits, definitely 15 x 15 pattern, category 1 strip. Samy murphy has a non labor cervix. No contractions. Blood pressure was normal and certainly her vital signs were normal. She has no evidence of neurological defect. Since the patient has been taking regular Tylenol at home without any improvement, the patient was offered Tylenol No. 3 two tablets. The hugo ent was reluctant to take both tablets and only took 1 orally. Detailed instructions as far as labor symptoms or any other symptoms that may be related to labor complication were reviewed and also high blood pressure causing headache and this issue also educated. The patient was sent home in good and stable condition. No prescription was given and she was told to follow up with Dr. Reyes next week. ULYSSES/MARIA ISABEL Voice ID: [id number] Report ID: [id number]
--- OUTSIDE RECORDS SUMMARY | 2022-06-20 15:16 | XMS REPORT | Continuity of Care Document ---
:1995 Author Organization [facility] t Address [address] [place] [address] Care Team Providers Name Role Phone PCP, PATIENT DOES NOT HAVE A Primary Care Physician UnavailBrunilda Moreno MD Attending Clinician BRUNILDA TONY Attending Clinician Unavailable ROSSY HERRERA Attending Clinician Unavailable Rossy Herrera MD Attending Clinician ADWOA BRADLEY Attending Clinician Unavailable Adwoa Bradley DO Attending Clinician Ada Marlen EL Attending Clinician [phone] MARLEN CABALLERO Attending Clinician Unavailable NICOLETTE LIVINGSTON Attending Clinician Unavailable Donna, Ang-Rmchp Attending Clinician Unavailable Nicolette Bejarano Attending Clinician Linda Banks Attending Clinician LINDA BRADLEY Attending Clinician Unavailable SNEHA HUFF Attending Clinician Unavailable Linda Bradley MD Attending Clinician Doctor Unassigned, [place] Attending Clinician Unavailable Gene Dean MD Attending Clinician Ashwin Crum DO Attending Clinician Visit, [facility] Nurse Attending Clinician Unavailable BRUNILDA TONY Admitting Clinician Unavailable Brunilda Tony MD Admitting Clinician Payers Payer Name Policy Type Policy Number Effective Date [id number] [place]ICE [place] [facility] 00:00:00 [facility] ST[facility] [id number] 2020 00:00:00 Problems Condition Condition Condition Status [...] -18 [place] [facility] Multiparit Multiparit Disease Active 2020-07 U nivers y y -18 ity of 00:00: [place] 00 [facility] Branch Spotting Spotting Disease Active 2020-07 Unive rs affecting affecting -18 [place] first [place] first 00 Medica l trimester trimester Bran ch Allergies, Adverse Reactions, Alerts Allergy Allergy Status Severity Reaction(s) Onset Inactive Treating Comm ents Source Name Type Date Date Clinician NO KNOWN Drug Active Univers ALLERGIE Class ity of S [facility] Social History Social Habit Start Date Stop Date Quantity Comments Source ASSERTION 2021-10-03 University of 00:00:00 [facility] History SDOH University o f Alcohol Std [place] [facility] Branch History SDOH University o f Alcohol Binge [place] [facility] Exposure to 2022-04-26 2022-05-06 Not sure University of SARS-CoV-2 00:00:00 10:24:00 [facility] (event) Branch Alcohol intake 2022-05-06 2022-05-06 Current drinker Unive rsity of 00:00:00 00:00:00 of alcohol [facility] (finding) [place] Tobacco use and 2021-05-27 2021-05-27 Smokeless tobacco Un iversity of exposure 00:00:00 00:00:00 non-user [facility] History of 2016-07-17 2021-05-14 Cigarette Smoker [facility] of tobacco use 00:00:00 00:00:00 [facility] History SDOH 2019-07-17 2019-07-17 2 University o f Alcohol Frequency 00:00:00 00:00:00 [facility] edical [place] Alcohol Comment 2013-06-28 2013-06-28 socially, not Univer sity of 00:00:00 00:00:00 during [facility] dical [place] Sex Assigned At [birth year] Universit y of 00:00:00 00:00:00 [facility] Smoking Status Start Date Stop Date Source Ex-smoker 2021-05-27 00:00:00 2021-05-27 00:00:00 [facility] Medications Ordered Filled Start Stop Current Ordering Indication Dosage Frequency Signature Comments Components Source Medication Medication Date Date Medication? Clinician (SIG) Name Name amoxicillin 2021- No 500mg 500 mg, U nivers (TRIMOX) 5-25 05-25 Oral, ity of capsule 500 04:00: 03:06 [place] :[place] dose, On Medical [facility] Branch 11/30/21 at 2300, RADHA
Re ason for Anti-Infec tive: Documented Infection< br>Documen saravanan Infection Site: Urine
D uration of Therapy: Other (see Comments) acetaminoph No 975mg 975 mg, U nivers en 5-25 05-25 Oral, ity of (TYLENOL) 03:15: 03:06 ONCE, [place] tablet 975 00 :00 dose, On Medic al mg e Branch 11/30/21 at 2215, RADHA amoxicillin Yes [id number] 500mg Take 1 Univers 500 mg 5-24 4 capsule by ity of capsule 00:00: mouth 3 (three) Medical times Branch daily. amoxicillin Yes [id number] 500mg Take 1 Univers 500 mg 5-24 4 capsule by ity of capsule 00:00: mouth 3 (three) Medical times Branch daily. acetaminoph No 650mg 650 mg, U nivers en 11-24 Oral, ity of (TYLENOL) 15:15: 14:04 ONCE, 1 [place] tablet 650 00 :00 dose, On Medic al mg Wed Branch 11/24/21 at 1015, RADHA Nitrofurant 2021- No [id number] 100mg Take 1 Univers oin&Nit. 11-24 capsule by ity of [place] 00:00: 04:59 mouth 2 [place] as 100 mg 00 :00 (two) Medical capsule times Branch daily for 7 days. Nitrofurant 2021- No [id number] 100mg Take 1 Univers oin&Nit. 11-24 capsule by ity of [place] 00:00: 00:00 mouth 2 [place] 100 mg 00 :00 (two) Medical capsule times Branch daily for 7 days. cephALEXin 2021- No [id number] 500mg Take 1 Univers (KEFLEX) 10-08 capsule by ity of 500 mg 00:00: 04:59 mouth 2 [place] capsule 00 :00 (two) Medical times Branch daily for 10 days. cephALEXin 2021- No [id number] 500mg Take 1 Univers (KEFLEX) 10-08 capsule by ity of 500 mg 00:00: 04:59 mouth 2 [place] capsule 00 :00 (two) Medical times Branch daily for 10 days. Immunizations Ordered Filled Immunization Date Status Comments [facility] Immunization Name Name Influenza Virus 2020-05-13 Completed Universit y of Vaccine Quad .5 mL 00:00:00 [place] [facility] IM 6+ MO Branch Influenza Virus 2020-05-13 Completed Universit y of Vaccine [place] .5 mL 00:00:00 [place] [facility] IM 6+ MO Branch Influenza Virus 2020-05-13 Completed Universit y of Vaccine [place] .5 mL 00:00:00 [place] [facility] IM 6+ MO Branch Influenza Virus 2020-05-13 Completed Universit y of Vaccine [place] .5 mL 00:00:00 [place] [facility] IM 6+ MO Branch Influenza Virus 2020-05-13 Completed Universit y of Vaccine [place] .5 mL 00:00:00 [place] [facility] IM 6+ MO Branch Influenza Virus [...] Branch TDAP 2014-01-06 Completed University of 00:00:00 [facility] TDAP 2014-01-06 Completed University of 00:00:00 [facility] TDAP 2014-01-06 Completed University of 00:00:00 [facility] TDAP 2014-01-06 Completed University of 00:00:00 [facility] TDAP 2014-01-06 Completed University of 00:00:00 [facility] PPD (TB) 2013-09-16 Completed University of 00:00:00 [facility] PPD (TB) 2013-09-16 Completed University of 00:00:00 [facility] PPD (TB) 2013-09-16 Completed University of 00:00:00 [facility] PPD (TB) 2013-09-16 Completed University of 00:00:00 [facility] PPD (TB) 2013-09-16 Completed University of 00:00:00 [facility] Influenza Virus 2013-07-26 Completed Universit y of Vaccine (3+ yrs) 00:00:00 [facility] Influenza Virus 2013-07-26 Completed Universit y of Vaccine (3+ yrs) 00:00:00 [facility] Influenza Virus 2013-07-26 Completed Universit y of Vaccine (3+ yrs) 00:00:00 [facility] Influenza Virus 2013-07-26 Completed Universit y of Vaccine (3+ yrs) 00:00:00 [facility] Influenza Virus 2013-07-26 Completed Universit y of Vaccine (3+ yrs) 00:00:00 [facility] Rubella 2012-03-02 Completed University of 00:00:00 [facility] Rubella 2012-03-02 Completed University of 00:00:00 [place] [facility] Rubella 2012-03-02 Completed University of 00:00:00 [place] [facility] Rubella 2012-03-02 Completed University of 00:00:00 [place] [facility] Rubella 2012-03-02 Completed University of 00:00:00 [place] [facility] Td 2005-07-10 Completed University of 00:00:00 [place] [facility] Td 2005-07-10 Completed University of 00:00:00 [place] [facility] Td 2005-07-10 Completed University of 00:00:00 [place] [facility] Td 2005-07-10 Completed University of 00:00:00 [place] [facility] Td 2005-07-10 Completed University of 00:00:00 [facility] Branch Vital Signs Vital Name Observation Time Observation Value Comments Source Systolic blood 2022-05-06 17:05:00 125 mm[Hg] Univer sity of pressure [facility] Branch Diastolic blood 2022-05-06 17:05:00 58 mm[Hg] Unive rsity of pressure [facility] Heart rate 2022-05-06 17:05:00 81 /min [facility] Body temperature 2022-05-06 17:05:00 36 Alysa Univ ersity of [place] [facility] Respiratory rate 2022-05-06 17:05:00 18 /min Univ ersity of [facility] Branch Oxygen saturation in 2022-05-06 17:05:00 98 /min University of Arterial blood by [facility] Pulse oximetry Branch Body height 2022-05-06 15:25:00 170.2 cm [facility] Body weight 2022-05-06 15:25:00 102.059 kg [facility] BMI 2022-05-06 15:25:00 35.24 kg/m2 [facility] Systolic blood 2021-12-01 03:06:00 138 mm[Hg] Univer sity of pressure [facility] Branch Diastolic blood 2021-12-01 03:06:00 77 mm[Hg] Unive rsity of pressure [place] [facility] Heart rate 2021-12-01 03:06:00 86 /min Universi ty [facility] [place] Medical [place] Respiratory rate 2021-12-01 03:06:00 18 /min Univ ersity of [facility] Oxygen saturation in 2021-12-01 03:06:00 99 /min University of Arterial blood by [facility] Pulse oximetry Branch Body temperature 2021-12-01 00:40:00 37.06 Alysa Univ ersity of [facility] Body height 2021-12-01 00:40:00 170.2 cm Universi ty of [facility] Body weight 2021-12-01 00:40:00 102.4 kg Universi ty of [facility] BMI 2021-12-01 00:40:00 35.36 kg/m2 Universi ty of [facility] Systolic blood 2021-11-24 13:49:00 141 mm[Hg] Univer sity of pressure [place] [facility] [place] Diastolic blood 2021-11-24 13:49:00 84 mm[Hg] Unive rsity of [facility] Heart rate 2021-11-24 13:49:00 101 /min Universi ty of [facility] Body temperature 2021-11-24 13:49:00 36.78 Alysa Univ ersity of [facility] Respiratory rate 2021-11-24 13:49:00 18 /min Univ ersity of [facility] Body weight 2021-11-24 13:49:00 102.059 kg Universi ty of [place] [facility] [place] BMI 2021-11-24 13:49:00 35.24 kg/m2 Universi ty of [facility] Oxygen saturation in 2021-11-24 13:49:00 100 /min [facility] Arterial blood by [facility] Pulse oximetry Branch Systolic blood 2021-10-08 19:04:00 119 mm[Hg] Univer sity of [facility] Diastolic blood 2021-10-08 19:04:00 60 mm[Hg] Unive rsity of [facility] Heart rate 2021-10-08 19:04:00 81 /min Universi ty of [facility] Body temperature 2021-10-08 19:04:00 36.61 Alysa Univ ersity of [facility] Respiratory rate 2021-10-08 19:04:00 16 /min Univ ersity of [facility] Body height 2021-10-08 19:04:00 170.2 cm Universi ty of [place] [facility] [place] Body weight 2021-10-08 19:04:00 102.059 kg Universi ty of [facility] BMI 2021-10-08 19:04:00 35.24 kg/m2 Universi ty of [place] [facility] Procedures Procedure Date / Time Performed Performing Clinician [facility] ASSIGNMENT OF BENEFITS 2022-05-06 15:15:41 Doctor Unassigned, No [facility] Branch CONSENT/REFUSAL FOR 2022-05-06 15:14:23 Doctor Unassigned, No Un iversity of [place] DIAGNOSIS AND Name Medical Branch TREATMENT URINALYSIS 2021-12-01 01:32:00 Rossy Herrera [facility] NOTICE OF PRIVACY 2021-12-01 00:05:25 Doctor Unassigned, No [facility] CONSENT/REFUSAL FOR 2021-12-01 00:05:05 Doctor Unassigned, No Un iversity [facility] [place] DIAGNOSIS AND [facility] TREATMENT URINALYSIS 2021-11-24 13:59:00 Adwoa Bradley [facility] POCT TEST 2021-11-24 13:59:00 Adwoa Bradley [facility] NOTICE OF PRIVACY 2021-11-24 13:46:00 Doctor Unassigned, No [facility] CONSENT/REFUSAL FOR 2021-11-24 13:45:39 Doctor Unassigned, No [facility] [place] TREATMENT Encounters Start End Encounter Admission Attending Care Care Encounter Source Date/Time Date/Time Type Type Clinicians Facility Department ID 2022-05-06 Outpatient X [facility] MELIDA [id number] Univers 12:25:50 ity of [facility] 2021-05-10 Emergency [facility] [id number] Univers 04:53:27 ity [facility] 2022-05-06 2022-05-06 [facility] [id number] Univers 10:27:00 12:25:00 Bruinlda SHIRLEY [id number] ity [facility] 4.2.7.2.686 [facility] [id number] [place] [id number] Branch 2022-05-06 2022-05-06 Outpatient X ADUM, [facility] MELIDA [id number] Univers 10:27:00 12:25:00 BRUNILDA irizarry [facility] 2022-04-26 2022-04-26 Outpatient SFA [facility] [id number] Regan 16:56:07 16:56:07 [address] 2021-11-30 2021-11-30 Emergency X SMOOTHJENNYBONNIE, [facility] ERT [id number] Univers 19:19:00 22:10:00 ROSSY irizarry [facility] 2021-11-30 2021-11-30 Emergency [facility] [id number] Univers 19:19:00 22:10:00 Rossy [facility] [id number] ity [facility] 4.2.7.2.686 [facility] [id number] [address] 2021-11-24 2021-11-24 Emergency X [facility] ERT [id number] Univers 08:53:00 10:07:00 ADWOA irizarry [facility] 2021-11-24 2021-11-24 Emergency [facility] [id number] Univers 08:53:00 10:07:00 Adwoa SHIRLEY [id number] ity [facility] 4.2.7.2.686 [facility] [id number] [address] 2021-10-08 2021-10-08 Office [facility] [id number] Univers 14:00:00 14:24:05 Visit Marlen Canseco CULINARY MANAGER [id number] ity [facility] 4.2.7.2.686 [place] as MATERNAL [id number] Med ical & CHILD [address] [place] [address] 2021-10-08 2021-10-08 Outpatient R ADA, [facility] [id number] Univers 14:00:00 14:24:05 MARLEN maria [facility] 2021-10-08 2021-10-08 Outpatient R ADA [facility] [id number] Univers 14:00:00 14:00:00 MARLEN maria [facility] 2021-09-01 2021-09-01 Outpatient R YARA [facility] [id number] Univers 08:15:00 08:15:00 NICOLETTE matt [facility] 2021-08-18 2021-08-18 Telephone [facility] [id number] Univers 00:00:00 00:00:00 Marlen C CULINARY MANAGER [id number] ity of REGIONAL 4.2.7.2.686 [place] as MATERNAL [id number] [facility] & CHILD [address] [place] [address] 2021-08-12 2021-08-12 Boxing Instructor Lab, [facility] 1.2.840. [id number] Univers 13:30:00 13:58:16 Visit Matt Caballerocabrera Canseco CULINARY MANAGER 350.1.13. 10 ity of REGIONAL 4.2.7.2.686 [place] MATERNAL [id number] [address] 2021-08-12 2021-08-12 Outpatient R [facility] [id number] Univers 13:30:00 13:30:00 MARLEN matt [facility] 2021-07-30 2021-07-30 Outpatient R [facility] [id number] Univers 12:45:00 12:45:00 MARLEN irizarry o [facility] 2021-07-30 2021-07-30 [facility]phone [facility] [id number] Univers 00:00:00 00:00:00 Rosfrancisconda R CULINARY MANAGER [id number] ity of REGIONAL 4.2.7.2.686 [place] as MATERNAL [id number] [facility] & CHILD [address] [place] [address] 2021-07-29 2021-07-29 Outpatient [facility] [id number] Univers 13:00:00 13:42:36 ROSHUNDA ituma o f [facility] 2021-07-29 2021-07-29 Routine [facility] [id number] Univers 13:00:00 13:42:36 Roshunda R CULINARY MANAGER [id number] ity of Visit REGIONAL 4.2.7.2.686 [place] as MATERNAL [id number] [facility] & [address] 2021-07-27 2021-07-27 Outpatient R AKINSIPE, [facility] [id number] Univers 10:00:00 10:00:00 MARLEN irizarry o [facility] 2021-07-23 2021-07-23 Telephone [facility] [id number] Univers 00:00:00 00:00:00 Marlen C CULINARY MANAGER [id number] ity of REGIONAL 4.2.7.2.686 [place] MATERNAL [id number] [facility] & [address] 2021-07-22 2021-07-22 Outpatient R AKINSIPE, [facility] [id number] Univers 13:30:00 13:30:00 MARLEN irizarry o [facility] 2021-07-15 2021-07-15 Outpatient R AKINSIPE, [facility] [id number] Univers 08:30:00 08:30:00 MARLEN irizarry [facility] 2021-07-15 2021-07-15 Telephone [facility] [id number] Univers 00:00:00 00:00:00 Marlen C CULINARY MANAGER [id number] ity of REGIONAL 4.2.7.2.686 [place] as MATERNAL [id number] [facility] & [address] 2021-07-13 2021-07-13 Outpatient R AKINSIPE, [facility] [id number] Univers 15:00:00 16:06:33 MARLEN irizarry o [facility] 2021-07-13 2021-07-13 Routine Akinsipe, [facility] [id number] Univers 15:00:00 16:06:33 Marlen C CULINARY MANAGER [id number] ity of Visit REGIONAL 4.2.7.2.686 [place] as MATERNAL [id number] [facility] & CHILD [address] [place] [address] 2021-07-12 2021-07-12 Outpatient P [facility] [id number] Univers 11:00:00 11:00:00 ity of [facility] 2021-07-12 2021-07-12 Outpatient P [facility] [id number] Univers 11:00:00 11:00:00 juan c [facility] 2021-06-28 2021-06-28 Routine [facility] [id number] Univers 15:30:00 15:45:00 Linda N CULINARY MANAGER [id number] i ty of Visit REGIONAL 4.2.7.2.686 [place] as MATERNAL [id number] [facility] & CHILD [address] [place] [address] 2021-06-28 2021-06-28 Outpatient [facility] [id number] Univers 15:30:00 15:30:00 LINDA irizarry [facility] 2021-06-24 2021-06-24 Outpatient R [facility] [id number] Univers 08:45:00 08:45:00 LINDA irizarry [facility] 2021-06-24 2021-06-24 Outpatient R [facility] [id number] Univers 08:45:00 08:45:00 LINDA irizarry [facility] 2021-06-17 2021-06-17 Out[facility] [id number] Univers 09:00:00 09:00:00 SNEHA irizarry [facility] 2021-06-02 2021-06-02 Telephone [facility] 1.2.840.114 [id number] Univers 00:00:00 00:00:00 Linda CULINARY MANAGER 350.1.13.10 it y of REGIONAL 4.2.7.2.686 [place] as MATERNAL [id number] [facility] & [address] 2021-05-27 2021-05-27 Outpatient R [facility] [id number] Univers 14:45:00 15:21:19 LINDA irizarry [facility] 2021-05-27 2021-05-27 Initial [facility] [id number] Univers 14:21:24 15:21:19 Linda N CULINARY MANAGER 350.1.13.10 i ty of Visit REGIONAL 4.2.7.2.686 [place] as MATERNAL [id number] [facility] & CHILD [address] [place] [address] 2021-05-27 2021-05-27 Orders Doctor DANK [id number] [id number] Univers 00:00:00 00:00:00 Only Unassigned, BENJIE 350.1.13.10 ity of [place] [facility] 4.2.7.2.686 Rey as [id number] [facility] 009 [place] 2021-03-04 2021-03-04 Telephone [facility] 1.2.840.114 [id number] Univers 00:00:00 00:00:00 Marlen Canseco CULINARY MANAGER 350.1.13.[address] [facility] 4.2.7.2.686 [place] as MATERNAL [id number] [facility] & [address] 2021-03-01 2021-03-01 Office [facility] [id number] Univers 14:55:25 16:34:45 Visit Marlen Canseco CULINARY MANAGER [id number] [facility] 4.2.7.2.686 [place] as MATERNAL [id number] [address] 2021-03-01 2021-03-01 Outpatient R [facility] [id number] Univers 15:15:00 15:15:00 MARLEN irizarry o candace [facility] 2021-01-06 2021-01-06 Emergency [facility] [id number] Univers 09:05:00 13:00:00 Gene Delgadoton 350.1.13.10 i ty [facility] 4.2.7.2.686 [place] [id number] [facility] 084 [place] 2021-01-06 2021-01-06 Orders Doctor DANK 1.2.840.114 [id number] 00:00:00 00:00:00 Only Unassigned, BENJIE 350.1.13.10 ity of [place] [facility] 4.2.7.2.686 [place] as [id number] [facility] 009 [place] 2020-12-24 2020-12-24 Telephone [facility] 1.2.840.114 [id number] Univers 00:00:00 00:00:00 Marlen Canseco CULINARY MANAGER 350.1.13.[address] [facility] 4.2.7.2.686 [place] as MATERNAL [id number] [facility] & CHILD [address] [place] [address] 2020-12-21 2020-12-21 Office Marlen Caballero [facility] [id number] Univers 14:11:07 16:08:33 Visit LivingstonNicolette CULINARY MANAGER 350.1.13.[address] [facility] 4.2.7.2.686 [place] as MATERNAL [id number] [facility] & CHILD [address] [place] [address] 2020-12-21 2020-12-21 Outpatient R [facility] [id number] Univers 14:30:00 14:30:00 NICOLETTE maria [facility] 2020-12-21 2020-12-21 Orders Doctor DANK 1.2.840.114 [id number] Univers 00:00:00 00:00:00 Only Unassigned, BENJIE 350.1.13.10 ity of [place] [facility] 4.2.7.2.686 Rey as [id number] [address] 2020-11-03 2020-11-03 Outpatient R YARA [facility] [id number] Univers 10:30:00 10:30:00 NICOLETTE maria [facility] 2020-11-02 2020-11-02 Orders Doctor DANK 1.2.840.114 [id number] Univers 00:00:00 00:00:00 Only Unassigned, BENJIE 350.1.13.10 ity of [place] [facility] 4.2.7.2.686 Rey as [id number] [address] 2020-09-29 2020-09-29 Patient Radames [facility] [id number] Univers 00:00:00 00:00:00 Outreach Ashwinivana BECERRA 350.1.13.10 i ty of Avel [facility] 4.2.7.2.686 [place] [facility] [id number] [address] 2020-09-15 2020-09-15 Outpatient R DREEKYO, [facility] [id number] Univers 11:00:00 11:00:00 MARLEN maria [facility] 2020-08-20 2020-08-20 Outpatient R DEREKSIPE, [facility] [id number] Univers 09:00:00 09:00:00 MARLEN almanzary o f [facility] 2020-08-04 2020-08-04 [facility] 1.2.840.114 [id number] 00:00:00 00:00:00 Marlen C CULINARY MANAGER 350.1.13.10 REGIONAL 4.2.7.2.686 MATERNAL [id number] & CHILD [address] [place] [address] 2020-08-04 2020-08-04 [facility] 1.2.840.114 [id number] [facility] 00:00:00 00:00:00 Marlen C CULINARY MANAGER 350.1.13.10 ity of REGIONAL 4.2.7.2.686 [place] as MATERNAL [id number] Med ical & CHILD [address] [place] [address] 2020-07-13 2020-07-13 Telephone [facility] 1.2.840.114 [id number] 00:00:00 00:00:00 Marlen C CULINARY MANAGER 350.1.13.10 REGIONAL 4.2.7.2.686 MATERNAL [id number] & CHILD [address] [place] [address] 2020-07-13 2020-07-13 Telephone [facility] 1.2.840.114 [id number] [facility] 00:00:00 00:00:00 Marlen C CULINARY MANAGER 350.1.13.10 ity of REGIONAL 4.2.7.2.686 [place] as MATERNAL [id number] [facility] & CHILD [address] [place] [address] 2020-07-09 2020-07-09 Office [facility] [id number] Univers 07:53:45 08:37:54 Visit Marlen C CULINARY MANAGER [id number] ity of REGIONAL [id number] Rey as MATERNAL [id number] Med ical & CHILD 107 [facility] 2020-07-09 2020-07-09 Outpatient R [facility] [id number] Univers 08:00:00 08:00:00 MARLEN irizarry o f [facility] 2020-06-02 2020-06-02 [facility] [id number] Univers 00:00:00 00:00:00 Rosfrancisconda R CULINARY MANAGER [id number] [facility] [id number] Rey as MATERNAL [phone] [facility] ical & CHILD [address] [place] [address] 2020-05-27 2020-05-27 Orders Doctor DANK [id number] Univers 00:00:00 00:00:00 Only Unassigned, BENJIE [id number] ity of [place] [facility] 4.2.7.2.686 Rey as [id number] [address] 2020-05-25 2020-05-25 Telephone [facility] [id number] Univers 00:00:00 00:00:00 Marlen Canseco CULINARY MANAGER [id number] [facility] [id number] Rey as MATERNAL [id number] [facility] ical & CHILD [address] [place] [address] 2020-05-18 2020-05-18 [facility] [id number] Univers 00:00:00 00:00:00 Rosfrancisconda R CULINARY MANAGER [id number] [facility] [id number] Rey as MATERNAL [phone] [facility] ical & CHILD [address] [place] [address] 2020-05-14 2020-05-14 [facility] [id number] Univers 00:00:00 00:00:00 Rosvaughna R CULINARY MANAGER [id number] [facility] 4.2.7.2.686 Rey as MATERNAL [id number] Med ical & CHILD [address] [place] [address] 2020-05-13 2020-05-13 [facility] 1.2.840.114 [id number] Univers 08:57:49 10:02:34 Visit Nicolette R CULINARY MANAGER [id number] ity of REGIONAL 4.2.7.2.686 Rey as MATERNAL [id number] [facility] ical & CHILD [address] [place] [address] 2020-05-13 2020-05-13 Outpatient [facility] [id number] Univers 09:15:00 09:15:00 NICOLETTE ity o f [facility] 2020-05-11 2020-05-11 [facility] [id number] Univers 00:00:00 00:00:00 Marlen C CULINARY MANAGER [id number] [facility] [id number] Rey as MATERNAL [id number] [facility] & CHILD [address] [place] [address] 2020-01-24 2020-01-24 [facility] [id number] Univers 09:36:42 10:33:14 Visit Marlen Canseco CULINARY MANAGER [id number] [facility] [id number] Rey as MATERNAL [id number] [facility] & CHILD [address] [place] [address] 2020-01-24 2020-01-24 Outpatient R [facility] [id number] Univers 09:30:00 09:30:00 MARLEN almanzary o f [facility] 2020-01-16 2020-01-16 Outpatient R [facility] [id number] Univers 11:00:00 11:00:00 MARLEN ity o f [facility] 2020-01-14 2020-01-14 [facility] 1.2.840.114 [id number] Univers 00:00:00 00:00:00 Marlen C CULINARY MANAGER [id number] [facility] [id number] Rey as MATERNAL [id number] [facility] & CHILD [address] [place] [address] 2020-01-02 2020-01-02 Outpatient [facility] [id number] Univers 14:30:00 14:30:00 ity of [facility] 2020-01-01 2020-01-01 Telephone Ada [facility] 1.2.840.114 [id number] Univers 00:00:00 00:00:00 Marlen C CULINARY MANAGER [id number] [facility] [id number] Rey as MATERNAL [id number] [facility] & CHILD [address] [place] [address] 2019-10-10 2019-10-10 Nurse Visit, [facility] Nurse [facility] 1.2 .840.114 [id number] Univers 14:10:13 15:35:18 Visit Marlen Caballero CULINARY MANAGER 350.1.13. 10 ity of REGIONAL 4.2.7.2.686 Rey as MATERNAL [id number] [facility] & [address] 2019-10-10 2019-10-10 Outpatient R ADA [facility] [id number] Univers 14:30:00 14:30:00 MARLEN irizarry o candace [facility] 2019-10-09 2019-10-09 Outpatient R [facility] [id number] Univers 14:00:00 14:00:00 ity of [facility] 2019-09-05 2019-09-05 [facility] 1.2.840.114 [id number] Univers 00:00:00 00:00:00 Marlen Canseco CULINARY MANAGER 350.1.13.10 ity of REGIONAL 4.2.7.2.686 Rey as MATERNAL [id number] [facility] & [address] 2019-09-04 2019-09-04 Office [facility] [id number] Univers 13:34:54 14:30:58 Visit Marlen C CULINARY MANAGER 350.1.13.10 ity of REGIONAL 4.2.7.2.686 Rey as MATERNAL [id number] [facility] & [address] 2019-09-04 2019-09-04 Outpatient R [facility] [id number] Univers 13:15:00 13:15:00 MARLEN ity o f [facility] 2019-02-16 2019-02-16 Emergency Javier LACESIA [id number] Univers 01:42:53 04:12:00 Rossy Shirley 350.1.13.10 Jessica 4.2.7.2.686 [facility] [id number] [address] Results Test Description Test Time Test Comments Results Result Comments Source POCT TEST 2021-11-24 13:59:00 Test Item Value Reference Range Interpretation Comme nts POCT PREG (test code = 1605) positive On board controls acceptable with C Line (test code = 3574) present POCT PREG LOT # (test code = 3575) [id number] POCT PREG TEST DATE (test code = 3576) Lab Interpretation (test code = 50040-5) Normal [facility]
[2022-06-20] MEDS: miSOPROStoL 100 MCG TAB VAG PRN ×2 (15:32→21:35)
[2022-06-20] MEDS ORDERED: PENICILLIN 5 MU in NA CHLORIDE 0.9% 100 ML IV ONE (15:40)
[2022-06-20] MEDS ORDERED: PENICILLIN G POT 5 MU/100 ML IVPB IV SCH (16:00)
[2022-06-20] MEDS ORDERED: OXYTOCIN/LR 20 UNIT/1,000 ML BAG IV SCH (16:00)
[2022-06-20 16:10] LABS: Absolute Lymphocytes (CBC) 1.3 K/uL (0.7-4.9); Hematocrit 36.9 % (36.0-45.0); Lymphocytes % 16.1 % (15.3-44.8); MCV 69.9 fL (80-100); MPV 9.1 fL (7.6-11.3); RBC Red Blood Cell Count 5.27 M/uL (3.86-4.86)
[2022-06-20 16:13] LABS: Blood Morphology Comment NOTED (NOT SEEN); Platelet Estimate ADEQ; White Blood Cell Scan OK (OK)
[2022-06-20 16:38] LABS: Specific Gravity 1.021 (1.005-1.030); Urine Bacteria <20 /HPF (<20); Urine Bilirubin NEGATIVE (Negative); Urine Blood Negative (Negative); Urine Clarity Clear (Clear); Urine Color Light-Yellow (Yellow); Urine Glucose NEGATIVE (Negative); Urine Mucus Slight /HPF (None Seen); Urine Protein TRACE (Negative); Urine RBC <5 /HPF (None Seen); Urine Urobilinogen 1+ (Normal)
[2022-06-20 16:46] VITALS: BMI 39.6
[2022-06-20] MEDS ORDERED: CLINDAMYCIN 900MG/D5W 900 MG/50 ML IVPB IV SCH (17:00)
[2022-06-20] MEDS ORDERED: PENICILLIN 2.5 MU in NA CHLORIDE 0.9% 100 ML IV SCH (17:00)
--- NOTE | 2022-06-20 17:19 | RAD REPORT ---
EXAM DESCRIPTION: RAD - Abdomen 1 View (KUB) - 06/20/2022 5:13 pm CLINICAL HISTORY: Confirm Position COMPARISON: <Comparisons> FINDINGS: Fetus in cephalic position. The spine is on the right side. Bowel gas pattern is nonobstru ctive. IMPRESSION: Fetus is in cephalic position.
[2022-06-20] MEDS ORDERED: ZOLPIDEM TARTRATE 10 MG TABLET PO PRN (19:05)
[2022-06-20] MEDS ORDERED: ACETAMINOPHEN 500 MG TAB ONE (20:00)
[2022-06-20] MEDS ORDERED: ACETAMINOPHEN 500 MG TAB PO SCH (20:00)
[2022-06-20] MEDS ORDERED: ROPIVACAINE HCL 0.2% 20ML AMP IV ONE (22:43)
[2022-06-20] MEDS ORDERED: FENTANYL CITR 100 MCG/2 ML IV ONE (22:43)
[2022-06-20] MEDS ORDERED: OXYTOCIN/LR 20 UNIT/1,000 ML BAG IV ONE (22:58)
[2022-06-20] MEDS ORDERED: CARBOPROST TROME 250 MCG/ML IM ONE (22:58)
[2022-06-20] MEDS ORDERED: LIDOCAINE 1% MPF 30 ML VIAL ONE (23:05)
[2022-06-21] MEDS ORDERED: DOCUSATE NA/SENNA CONC 1 TAB PO PRN ×2 (00:11→07:08)
[2022-06-21] MEDS ORDERED: ACETAMINOPHEN 500 MG TAB PO PRN ×2 (00:11→07:08)
[2022-06-21] MEDS ORDERED: DIPHENHYDRAMINE 25 MG TAB/CAP PO PRN ×2 (00:11→07:08)
[2022-06-21] MEDS ORDERED: Oxycodone HCl/Acetaminophen 1 TAB TAB PO PRN ×4 (00:11→07:08)
[2022-06-21] MEDS ORDERED: IBUPROFEN 200 MG TAB PO PRN (00:11)
[2022-06-21] MEDS ORDERED: BISACODYL 10 MG RECTAL SUPP PR PRN (00:11)
[2022-06-21 00:40] LABS: RPR (Rapid Plasma Reagin) NON-REACT (NON-REACT)
[2022-06-21] MEDS ORDERED: OXYTOCIN/LR 20 UNIT/1,000 ML BAG IV SCH ×2 (01:00→08:00)
[2022-06-21 03:31] LABS: SARS-CoV-2 Antigen Rapid Res Negative (Negative)
[2022-06-21] MEDS ORDERED: BISACODYL 10 MG RECTAL SUPP RC PRN (07:08)
[2022-06-21] MEDS ORDERED: PRENATAL VITAMIN PO SCH (09:00)
[2022-06-21] MEDS: IBUPROFEN 600 MG TAB PO PRN ×2 (12:43→22:13)
[2022-06-22] MEDS: IBUPROFEN 600 MG TAB PO PRN (07:13)
[2022-06-22 07:54] VITALS: BP 118/79; TEMP 97.1
--- NOTE | 2022-06-22 09:48 | DS ---
Again, we went over dismissal instructions. She is having some cramping after pains while she is olivier astfeeding. We gave her 600 mg of Motrin this morning. She has been ambulating, voiding, lochia is normal. Everything looks good. She knows to call the office today and come back and see me somewher e between 3 and 6 weeks from now. Continue taking her vitamins, but this morning she has no problems. Vaginal delivery at 39 weeks, 7 pounds 12 ounce female, Apgars 9 and 9. Very minimal blo od loss. Penicillin prophylaxis. Tdap and flu shots offered. JADIEL/MARIA ISABEL Voice ID: [id number] Report ID: [id number]
--- NOTE | 2022-06-22 09:48 | DS ---
Kemar Ang is a 27-year-old at 39 weeks' gestation, 3, para 2, admitted for Cytotec labor induction. Full pre admission counseling about this. Patient was basically 1 cm very posterior. Ba by's head was about -1 station, well applied. Cytotec 25 mcg was inserted and 6 hours later a second one, this affected a good labor. She received 1 mg of Stadol IV, 25 mg of Phenergan IM, went from 3 to 4 cm to complete in the next hour. Second stage of about 5 to 10 minutes. Spontaneous vaginal d elivery of a 7-pound 2-ounce female. Apgars 9 and 9. No episiotomy. No laceration. Schultze gelacio mode of the placenta. Very small amount of blood loss, 100 cc or less. Penicillin prophylaxis x2 dur ing the labor. She was strep positive. ; afebrile, ambulating, voiding. Lochia is normal . Rh positive, immune to Rubella. Offered Tdap and flu shots. Full instructions given. She will be dismissed tomorrow as she delivered close to midnight last night. To report in my offic e in 6 weeks for followup to report any temperature elevation of 100 degrees or greater, severe pain, heavy bleeding, or any other abnormality. Final Diagnoses: Term intrauterine . Cytotec for cervical ripening, labor induction, spont aneous vaginal delivery. Tdap and flu shots offered and suggested. JADIEL/MARIA ISABEL Voice ID: [id number] Report ID: [id number]
[2022-06-26 19:43] LABS: HBsAG Nonreactive (Nonreactive)
--- NOTE | 2022-06-28 07:54 | OP ---
Surgeon: Reji Reyes MD Procedure In Detail: A 27-year-old, 3, para 2, admitted for Cytotec induction. Full preoper ative counseling concerning procedures prior to admission. Received two 25 mcg doses. This resulted in active labor. She received Stadol 1 mg IV and Phenergan 25 mg IM. After achieving 3-4 cm, went to complete within the next hour or less. Second stage of about 5-10 minutes. Spontaneous vaginal d elivery of a 7-pound 2-ounce female, Apgars 9 and 9. No episiotomy. No laceration. Kamran edwards ry of the placenta. Estimated blood loss 100 cc or less. Penicillin prophylaxis during the labor as she was beta strep positive. Tolerated all procedures well. Final Diagnoses: Term intrauterine , labor induction using Cytotec, penicillin prophylaxis. JADIEL/MARIA ISABEL Voice ID: [id number] Report ID: [id number]
--- NOTE | 2022-07-05 06:10 | OP ---
Surgeon: Reji Reyes MD Procedure In Detail: A 27-year-old 3, para 2, 39 weeks' gestation, admitted Cytotec for labo r induction. Had Cytotec 25 mcg placed, 6 hours later second dose. This resulted in active labor. The patient received 1 mg of Stadol IV, 25 mg of Phenergan IM. The patient went from 3 to 4 cm to co mplete within the next hour. Delivered a 7-pound 2-ounce female. Apgars 9 and 9. No episiotomy. N o laceration. Schultze delivery of the placenta. Estimated blood loss 100 cc or less. Penicillin p rophylaxis during the labor as she was beta strep positive. Tolerated all procedures well. Final Diagnoses: Term intrauterine , Cytotec for labor and for cervical ripening, spontaneo us labor following vaginal delivery. Penicillin prophylaxis. JADIEL/MARIA ISABEL Voice ID: [id number] Report ID: [id number]
== END 2022-06-22 11:10 | disposition home or self-care (01) | DRG 806 ==
LOC: 2ND-WC 15:07
PROVIDERS: ADMIT Specialist; ATTEND Specialist
PROC: 10E0XZZ Delivery of Products of Conception, External Approach (ICD-10-PCS; principal; 2022-06-20)
PROC: 3E0DXGC Introduction of Other Therapeutic Substance into Mouth and Pharynx, External Approach (ICD-10-PCS; 2022-06-20)
PROC: 3E0P7VZ Introduction of Hormone into Female Reproductive, Via Natural or Artificial Opening (ICD-10-PCS; 2022-06-20)
DX: O99.824 Streptococcus B carrier state complicating childbirth (principal); O36.0930 Maternal care for other rhesus isoimmunization, third trimester, not applicable or unspecified; Z37.0 Single live birth; Z3A.39 39 weeks gestation of pregnancy; Z20.822 Contact with and (suspected) exposure to COVID-19
CPT/HCPCS: 36415; 74018; 81001; 85025; 86592; 86901; 87340; 87811; J0595; J2001; J2210; J2540; J2550; J2590; J7120